=== PATIENT | male | born 1955 | race Caucasian/White ===

== ENCOUNTER 2019-04-05 09:11 | Outpatient (CLI) | payer MEDICARE, SELFPAY ==
--- NOTE | 2019-04-05 09:25 | US_ITS ---
WS: [id number] RENAL ULTRASOUND HISTORY: ESSENTIAL HYPERTENSION COMPARISON: None available. TECHNIQUE: 2-D and color Doppler imaging of the kidney submitted. Right kidney: 10.7 cm x 5.2 cm x 5.4 cm. Normal echogenicity with no hydronephrosis or mass. Left kidney: 10.4 cm x 5.4 cm x 5.9 cm. Normal echogenicity with no hydronephrosis or mass. Aorta: Normal. Urinary Bladder: Normal distention. US/US renal BI* [id number] IMPRESSION: Normal renal ultrasound.
== END 2019-04-05 09:12 | disposition home or self-care (01) ==
LOC: RAD 09:18
PROVIDERS: Family Provider Family Medicine; PCP Family Medicine; Visit Provider Family Medicine
DX: I10 Essential (primary) hypertension (principal)
CPT/HCPCS: 76770

== ENCOUNTER 2019-04-05 23:24 | Emergency (ER) | payer MEDICARE, SELFPAY ==
--- NOTE | 2019-04-05 23:25 | XR_ITS ---
WS: [id number] Portable AP upright chest, 04/06/2019 Clinical Data: cp Comparison: Portable chest, 12/23/2018. Findings: No nodules, masses or effusions are seen. The heart is normal. The pulmonary vascularity is not remarkable. No pneumonia or pneumothorax is present. Midline sternotomy sutures are noted. There are monitor leads on the chest wall. XR/XR chest 1V portable [id number] Impression: Atherosclerosis.
--- NOTE | 2019-04-05 23:25 | ECG_ITS ---
Measurements Intervals [place] Rate: 116 P: [place]: 0 QRS: 71 QRSD: 117 T: 34 QT: 325 QTc: 453 ATRIAL FIBRILLATION WITH RAPID VENTRICULAR RESPONSE MODERATE INTRAVENTRICULAR CONDUCTION DELAY NONSPECIFIC ST & T-WAVE ABNORMALITY Compared to ECG 12/23/2018 23:18:06 Intraventricular conduction delay now present T-wave abnormality now present Sinus rhythm no longer present Electronically Signed On 04-06-2019 13:48:20 ELECTRIC ARC FURNACE OPERATOR by Melanie Alonzo M.D. [id number] f
[2019-04-05 23:26] VITALS: BP 97/60; PULSE 117; RESP 27; TEMP 36.9; O2SAT 97
--- NOTE | 2019-04-05 23:29 | ED_ITS ---
Entered by Ariane Trent, acting as scribe for Lvainia Malik MD HPI - Chest Pain General: Chief Complaint: Chest Pain Stated Complaint: cp Time Seen by Provider: 04/05/19 23:26 Source: patient and family Mode of arrival: ambulatory History of Present Illness: HPI narrative: 63 y/o male presents to the ED with compalint of chest pain. 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 He reports SOB and pain that radiates into his neck. Pt had a double bypass several years ago and is currently followed by Dr. Owen. complaint: chest pain Onset (ago): minute(s) Timing of current episode: constant Prior episodes: Yes Onset: during rest Pain radiation: neck Pain scale (0-10): 10 Quality: similar to prior SC Relieving factors: nitroglycerin (no relief) Associated symptoms: Reports dyspnea; Deny abdominal pain, fever(s), nausea or vomiting Review of Systems Const: Denies: fever or chills Eyes: Denies: change in vision ENMT: Denies: throat pain or mouth pain Card: Reports: chest pain, irregular heart rhythm and shortness of breath when lying down Resp: Reports: shortness of breath GI: Denies: abdominal pain, nausea, vomiting or diarrhea Musc: Denies: back pain or joint pain Skin/Breast: Denies: rash Neuro: Denies: headache or behavioral changes Psych: Denies: depression Endo: Denies: excessive urination Tony/Lymph: Denies: easy bruising All/Imm: Denies: hives PFSH ED PFSH: Statuses (acute, chronic, etc) shown below reflect problem list status as previously entered and may not be historically accurate Social History Smoking and tobacco status: former smoker Physical Exam Const: COMMON NORMALS: no apparent distress and oriented x3 HENMT: COMMON NORMALS: normocephalic and head/scalp atraumatic HEAD & SCALP: normocephalic and atraumatic Eye: COMMON NORMALS: PERRL PUPIL: Yes PERRL Neck/C-Spine: COMMON NORMALS: full ROM and no lymphadenopathy Chest: COMMONS NORMALS: inspection of chest normal and palpation of chest normal Resp: COMMON NORMALS: normal respiratory effort, no retractions and no use of accessory muscles Cardio: COMMON NORMALS: negative for regular rate and negative for regular rhythm RATE: abnormal rate RHYTHM: abnormal rhythm OTHER: Tachycardia with irregularly irregular rhythm GI: COMMON NORMALS: normal to inspection, nondistended, normoactive bowel sounds, soft to palpation, non-tender and no masses PALPATION: Yes soft : COMMON NORMALS: Yes no CVA tenderness BLADDER/KIDNEY EXAM: Yes no CVA tenderness Back/Pelvis: COMMON NORMALS: no CVA tenderness Extremity: COMMON NORMALS: normal to inspection, full ROM and no clubbing, cyanosis or edema Neuro: COMMON NORMALS: oriented x3 Psych: COMMON NORMALS: mental status grossly normal and thought process normal THOUGHT PROCESS: normal thought process Skin: COMMON NORMALS: no rashes or lesions noted GENERAL SKIN EXAM: no rashes or lesions noted Course Vital Signs: Vital signs: Vital Signs Temperature 97.6 F 04/06/19 01:55 Pulse Rate 48 L 04/06/19 02:49 Respiratory Rate 14 04/06/19 02:49 Blood Pressure 103/41 04/06/19 02:49 Pulse Oximetry 97 04/06/19 02:49 MDM - Chest Pain MDM Narrative: Medical decision making narrative: Patient presents here with A. fib with RVR along with chest pain. Patient's converted here and is no longer in A. fib and his symptoms are resolved. Initial and repeat troponin are normal and he is requesting discharge. He has no signs of acute coronary syndrome and is stable for discharge. 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 Lab Data: Labs: Lab Results 04/05/19 04/05/19 04/05/19 Range/Units 23:36 23:36 23:36 WBC 5.5 (4.0-10.0) 10^3/ uL RBC 4.17 (4.1-5.3) 10^6/u L Hgb 12.4 (11.7-16.6) g/dL Hct 37.4 L (42.0-52.0) % MCV 89.7 (80-94) fL MCH 29.7 (28.0-34.0) pg MCHC 33.2 (30.0-36.0) g/dL RDW 12.8 (12.1-15.1) % Plt Count 253 (130-400) 10^3/c mm MPV 9.0 (7.4-10.4) fL Neut % (Auto) 53.1 % Lymph % (Auto) 34.1 % Ocean % (Auto) 9.3 % Eos % (Auto) 2.9 % Baso % (Auto) 0.4 % Neut # (Auto) 2.9 (1.8-7.7) 10^3/u L Lymph # (Auto) 1.9 (0.8-4.8) 10^3/u L Ocean # (Auto) 0.5 (0.2-0.9) 10^3/u L Eos # (Auto) 0.2 (0.0-0.8) 10^3/u L Baso # (Auto) 0.0 (0.0-0.1) 10^3/u L Nucleated RBC % (a uto) 0 % Nucleated RBCs # 0.0 /100WBC PT 16.20 H (10.5-13.3) SECO NDS INR 1.25 H (0.8-1.2) Sodium 135 L (136-145) mmol/L Potassium 4.2 (3.5-5.1) mmol/L Chloride 99 (98-107) mmol/L Carbon Dioxide 20 L (22-29) mmol/L Anion Gap 20.2 H (5-19) BUN 20 (8-23) mg/dL Creatinine 1.4 H (0.7-1.2) mg/dL GFR Calculation 51.4 L (90-130) mL/min Glucose 223 H (74-106) mg/dL POC Glucose (70-110) mg/dL Lactate (0.5-2.2) mmol/L Calcium 10.2 (8.8-10.2) mg/Dl Total Bilirubin 0.3 (0.15-1.2) mg/dL AST 17 (0-40) U/L ALT 22 (0-41) U/L Alkaline Phosphata se 104 (40-130) IU/L Troponin T Baselin e (0-15) ng/mL Troponin T 120 Min [place] (0-15) ng/mL Delta Troponin T (0-10) ABS# NT-Pro-B Natriuret Pep 50 (0-125) pg/mL Total Protein 7.9 (6.6-8.7) g/dL Albumin 4.5 (3.5-5.2) g/dL Globulin 3.4 (1.3-4.6) g/dL 04/05/19 04/06/19 04/06/19 Range/Units 23:36 01:55 02:00 WBC (4.0-10.0) 10^3/ uL RBC (4.1-5.3) 10^6/u L Hgb (11.7-16.6) g/dL Hct (42.0-52.0) % MCV (80-94) fL MCH (28.0-34.0) pg MCHC (30.0-36.0) g/dL RDW (12.1-15.1) % Plt Count (130-400) 10^3/c mm MPV (7.4-10.4) fL Neut % (Auto) % Lymph % (Auto) % Ocean % (Auto) % Eos % (Auto) % Baso % (Auto) % Neut # (Auto) (1.8-7.7) 10^3/u L Lymph # (Auto) (0.8-4.8) 10^3/u L Ocean # (Auto) (0.2-0.9) 10^3/u L Eos # (Auto) (0.0-0.8) 10^3/u L Baso # (Auto) (0.0-0.1) 10^3/u L Nucleated RBC % (a uto) % Nucleated RBCs # /100WBC PT (10.5-13.3) SECO NDS INR (0.8-1.2) Sodium (136-145) mmol/L Potassium (3.5-5.1) mmol/L Chloride (98-107) mmol/L Carbon Dioxide (22-29) mmol/L Anion Gap (5-19) BUN (8-23) mg/dL Creatinine (0.7-1.2) mg/dL GFR Calculation (90-130) mL/min Glucose (74-106) mg/dL POC Glucose 164 (70-110) mg/dL Lactate (0.5-2.2) mmol/L Calcium (8.8-10.2) mg/Dl Total Bilirubin (0.15-1.2) mg/dL AST (0-40) U/L ALT (0-41) U/L Alkaline Phosphata se (40-130) IU/L Troponin T Baselin e 13 (0-15) ng/mL Troponin T 120 Min [place] 16.71 H (0-15) ng/mL Delta Troponin T 3.71 (0-10) ABS# NT-Pro-B Natriuret Pep (0-125) pg/mL Total Protein (6.6-8.7) g/dL Albumin (3.5-5.2) g/dL Globulin (1.3-4.6) g/dL 04/06/19 Range/Units 02:20 WBC (4.0-10.0) 10^3/ uL RBC (4.1-5.3) 10^6/u L Hgb (11.7-16.6) g/dL Hct (42.0-52.0) % MCV (80-94) fL MCH (28.0-34.0) pg MCHC (30.0-36.0) g/dL RDW (12.1-15.1) % Plt Count (130-400) 10^3/c mm MPV (7.4-10.4) fL Neut % (Auto) % Lymph % (Auto) % Ocean % (Auto) % Eos % (Auto) % Baso % (Auto) % Neut # (Auto) (1.8-7.7) 10^3/u L Lymph # (Auto) (0.8-4.8) 10^3/u L Ocean # (Auto) (0.2-0.9) 10^3/u L Eos # (Auto) (0.0-0.8) 10^3/u L Baso # (Auto) (0.0-0.1) 10^3/u L Nucleated RBC % (a uto) % Nucleated RBCs # /100WBC PT (10.5-13.3) SECO NDS INR (0.8-1.2) Sodium (136-145) mmol/L Potassium (3.5-5.1) mmol/L Chloride (98-107) mmol/L Carbon Dioxide (22-29) mmol/L Anion Gap (5-19) BUN (8-23) mg/dL Creatinine (0.7-1.2) mg/dL GFR Calculation (90-130) mL/min Glucose (74-106) mg/dL POC Glucose (70-110) mg/dL Lactate 1.1 (0.5-2.2) mmol/L Calcium (8.8-10.2) mg/Dl Total Bilirubin (0.15-1.2) mg/dL AST (0-40) U/L ALT (0-41) U/L Alkaline Phosphata se (40-130) IU/L Troponin T Baselin e (0-15) ng/mL Troponin T 120 Min [place] (0-15) ng/mL Delta Troponin T (0-10) ABS# NT-Pro-B Natriuret Pep (0-125) pg/mL Total Protein (6.6-8.7) g/dL Albumin (3.5-5.2) g/dL Globulin (1.3-4.6) g/dL Imaging Data^: CT Chest: Attestation: I personally reviewed and interpreted this imaging study as follows: Radiologist's impression: Ordering Physician: Lavinia Malik MD Date of Service: 04/06/19 Procedure(s): CT angio chest PE protcl [id number] Accession Number(s): [id number] cc: Lavinia Malik MD PROCEDURE INFORMATION: Exam: CT Angiography Chest With Contrast Exam date and time: 04/06/2019 12:49 AM Age: 63 years old Clinical indication: Chest pain; Type not specified; Prior surgery; Surgery date: 6+ months; Surgery type: Cabg, stents TECHNIQUE: Imaging protocol: Computed tomographic angiography of the chest with intravenous contrast. 3D rendering: MIP and/or 3D reconstructed images were created by the technologist. Total DLP: 1149.05 mGy-cm Radiation optimization: All CT scans at this facility use at least one of these dose optimization techniques: automated exposure control; mA and/or kV adjustment per patient size (includes targeted exams where dose is matched to clinical indication); or iterative reconstruction. Contrast material: VISI; Contrast volume: 95 ml; Contrast route: 20G; COMPARISON: CTA Chest-Pulmonary Emb [id number] 04/19/2013 5:32 PM FINDINGS: Pulmonary arteries: Normal. No pulmonary emboli. Aorta: Aortic root borderline prominent at 4.1 cm and stable. Aortic calcifications also seen. No acute aortic abnormalities. Lungs: Unremarkable. No consolidation. No masses. Pleural space: Unremarkable. No pneumothorax. No pleural effusion. Heart: Coronary arterial calcifications. Gallbladder and bile ducts: Cholelithiasis. Gallbladder otherwise grossly unremarkable. Lymph nodes: Unremarkable. No enlarged lymph nodes. Bones/joints: Sternotomy wires are in place. Soft tissues: Unremarkable. CT/CT angio chest PE protcl [id number] IMPRESSION: No acute findings. Cholelithiasis. Additional details as above. EKG Data^: EKG 1: Attestation: I personally reviewed and interpreted this EKG as follows: EKG interpretation date: 04/05/19 EKG interpretation time: 23:34 Interpretation: A. fib with RVR heart rate [address] and T wave abnormalities with no ST elevation. QRS 117 QTc 394 EKG 2: Attestation: I personally reviewed and interpreted this EKG as follows: EKG interpretation date: 04/06/19 EKG interpretation time: 01:49 Interpretation: A. fib heart rate [address] or T wave abnormalities QRS 123 QTc 446 Discharge Plan Discharge Patient Disposition: Home, Self-Care Clinical Impression: Chest pain Qualifiers: Chest pain type: unspecified Qualified Code(s): R07.9 - Chest pain, unspecified Atrial fibrillation Qualifiers: Atrial fibrillation type: unspecified Qualified Code(s): I48.91 - Unspecified atrial fibrillation Condition: Stable Prescriptions: No Action Unable to Assess RF: 0 Discharge Orders: Discharge Order (Routine); Ordered 04/06/19 Ordered By: Lavinia Malik Referrals: Devendra Smith MD [Primary Care Provider] - 4-7 days Discharge Diet: Advance as tolerated Discharge Activity: Resume usual activity Patient Instructions: Atrial Fibrillation (ED), Chest Pain (ED) Discharge Date/Time: 04/06/19 02:57 Coding Level of Care Code ED Can Dryer for Chg Fwd Exam Problem Focused The documentation recorded by the Twan gandhi Ashley, accurately reflects the service I personally performed and the decisions made by King shultz Korby, MD Apr 05, 2019 23:24
[2019-04-05 23:37] VITALS: RESP 25
[2019-04-05] MEDS: morphine 4 mg/mL SDV 1 mL IVP (23:37)
[2019-04-05] MEDS: aspirin 81 mg Chew Tablet 324 MG PO (23:37)
[2019-04-05] MEDS: sodium chloride 0.9% 1,000 ML 999 ML IV (23:38)
[2019-04-05 23:47] VITALS: BP 96/56; PULSE 104; PULSE 126; RESP 20; O2SAT 98
[2019-04-05 23:48] LABS: INR 1.25 (0.8-1.2)
[2019-04-05 23:53] LABS: Basophils % 0.4 %; Eosinophils # 0.2 10^3/uL (0.0-0.8); Eosinophils % 2.9 %; Hematocrit 37.4 % (42.0-52.0); Hemoglobin 12.4 g/dL (11.7-16.6); Lymphocytes # 1.9 10^3/uL (0.8-4.8); Lymphocytes % 34.1 %; Mean Corpuscular HGB Conc 33.2 g/dL (30.0-36.0); Mean Corpuscular Hemoglobin 29.7 pg (28.0-34.0); Mean Corpuscular Volume 89.7 fL (80-94); Monocytes # 0.5 10^3/uL (0.2-0.9); Monocytes % 9.3 %; Neutrophils # 2.9 10^3/uL (1.8-7.7); Neutrophils % 53.1 %; Nucleated Red Blood Cells % 0 %; Platelet Count 253 10^3/cmm (130-400); Red Blood Count 4.17 10^6/uL (4.1-5.3); Red Cell Distribution Width 12.8 % (12.1-15.1); White Blood Count 5.5 10^3/uL (4.0-10.0)
[2019-04-05 23:56] LABS: Troponin(5th) Baseline 13 ng/mL (0-15)
[2019-04-06] VITALS (9 sets, daily range): BP systolic 78–107; BP diastolic 41–66; PULSE 47–106; RESP 12–14; TEMP 36.4; O2SAT 93–99
[2019-04-06 00:07] LABS: Alanine Aminotransferase 22 U/L (0-41); Albumin Level 4.5 g/dL (3.5-5.2); Alkaline Phosphatase 104 IU/L (40-130); Anion Gap 20.2 (5-19); Aspartate Amino Transferase 17 U/L (0-40); Blood Urea Nitrogen 20 mg/dL (8-23); Calcium 10.2 mg/Dl (8.8-10.2); Carbon Dioxide 20 mmol/L (22-29); Chloride 99 mmol/L (98-107); Globulin 3.4 g/dL (1.3-4.6); Glomerular Filtration Rate 51.4 mL/min (90-130); Glucose 223 mg/dL (74-106); NT Pro B Type Natriuretic Pept 50 pg/mL (0-125); Potassium 4.2 mmol/L (3.5-5.1); Sodium 135 mmol/L (136-145); Total Bilirubin 0.3 mg/dL (0.15-1.2); Total Protein 7.9 g/dL (6.6-8.7)
--- NOTE | 2019-04-06 00:44 | CTR_ITS ---
PROCEDURE INFORMATION: Exam: CT Angiography Chest With Contrast Exam date and time: 04/06/2019 12:49 AM Age: 63 years old Clinical indication: Chest pain; Type not specified; Prior surgery; Surgery date: 6+ months; Surgery type: Cabg, stents TECHNIQUE: Imaging protocol: Computed tomographic angiography of the chest with intravenous contrast. 3D rendering: MIP and/or 3D reconstructed images were created by the technologist. Total DLP: 1149.05 mGy-cm Radiation optimization: All CT scans at this facility use at least one of these dose optimization techniques: automated exposure control; mA and/or kV adjustment per patient size (includes targeted exams where dose is matched to clinical indication); or iterative reconstruction. Contrast material: VISI; Contrast volume: 95 ml; Contrast route: 20G; COMPARISON: CTA Chest-Pulmonary Emb [id number] 04/19/2013 5:32 PM FINDINGS: Pulmonary arteries: Normal. No pulmonary emboli. Aorta: Aortic root borderline prominent at 4.1 cm and stable. Aortic calcifications also seen. No acute aortic abnormalities. Lungs: Unremarkable. No consolidation. No masses. Pleural space: Unremarkable. No pneumothorax. No pleural effusion. Heart: Coronary arterial calcifications. Gallbladder and bile ducts: Cholelithiasis. Gallbladder otherwise grossly unremarkable. Lymph nodes: Unremarkable. No enlarged lymph nodes. Bones/joints: Sternotomy wires are in place. Soft tissues: Unremarkable. CT/CT angio chest PE protcl [id number] IMPRESSION: No acute findings. Cholelithiasis. Additional details as above. Radiation Dose CTDIVOL = (mGy): DLP = 1149.05 (mGy-cm)
[2019-04-06] MEDS: morphine 4 mg/mL SDV 1 mL IVP (00:52)
--- NOTE | 2019-04-06 01:25 | ECG_ITS ---
Measurements Intervals [place] Rate: 93 P: [place]: 0 QRS: 65 QRSD: 123 T: 66 QT: 395 QTc: 492 ATRIAL FIBRILLATION MODERATE INTRAVENTRICULAR CONDUCTION DELAY [105+ ms QRS DURATION, 80+ ms Q/S IN V1/V2, NO Q AND 60+ ms R IN I/aVL/V5/V6] Compared to ECG 12/23/2018 23:18:06 Intraventricular conduction delay now present Sinus rhythm no longer present Electronically Signed On 04-06-2019 13:59:26 PARTY HOST/HOSTESS by Melanie Alonzo M.D. [id number]
[2019-04-06] MEDS: iodixanol 320 mg/mL 100mL Btl IV (01:26)
[2019-04-06] MEDS: sodium chloride 0.9% 1,000 ML 999 ML IV (01:40)
--- NOTE | 2019-04-06 02:03 | PC.NURSE ---
Informed charge nurse of patient's blood pressures as they have been running on the low side. Informed both charge nurse and doctor of patient's blood sugar.
[2019-04-06 02:04] LABS: Glucose Point of Care 164 mg/dL (70-110)
[2019-04-06 02:30] LABS: Troponin 5 2HR 16.71 ng/mL (0-15)
[2019-04-06 02:38] LABS: Troponin 5 2HR Delta 3.71 ABS# (0-10)
[2019-04-06 02:41] LABS: Lactate (Lactic Acid level) 1.1 mmol/L (0.5-2.2)
== END 2019-04-06 02:57 | disposition home or self-care (01) ==
PROVIDERS: Emergency Provider Emergency Medicine; Family Provider Family Medicine; PCP Family Medicine
DX: R07.9 Chest pain, unspecified (principal); I48.91 Unspecified atrial fibrillation; Z87.891 Personal history of nicotine dependence
CPT/HCPCS: 36415; 36416; 71045; 71275; 80053; 82962; 83605; 83880; 84484; 85025; 85610; 93005; 96360; 96375; 99283; J2270; J7030; Q9967

== ENCOUNTER 2019-04-06 09:25 | Emergency (ER) | payer MEDICARE, SELFPAY ==
[2019-04-06 09:26] VITALS: BP 114/44; PULSE 51; RESP 16; TEMP 36.4; O2SAT 98; BMI 33.0
--- NOTE | 2019-04-06 09:40 | US_ITS ---
WS: [id number] Subcutaneous ultrasound of the left buccal mucosa. 04/06/2019 Clinical Data: left facial cheeck Comparison: None. Findings: The subcutaneous tissue of the left buccal mucosa showed a small lymph node. No abscess or mass was p resent. There are no cysts. The left common carotid artery showed normal flow and no impingement from any mass. US/US soft tissue head neck [id number] Impression: Negative subcutaneous ultrasound of the left buccal mucosa.
--- NOTE | 2019-04-06 09:41 | ECG_ITS ---
Measurements Intervals [place] Rate: 50 P: 47 SC: 177 QRS: 77 QRSD: 124 T: 92 QT: 375 QTc: 342 SINUS BRADYCARDIA MODERATE INTRAVENTRICULAR CONDUCTION DELAY [110+ ms QRS DURATION] NONSPECIFIC T-WAVE ABNORMALITY Compared to ECG 12/23/2018 23:18:06 Intraventricular conduction delay now present T-wave abnormality now present Sinus rhythm no longer present Electronically Signed On 04-06-2019 13:47:49 INTERNET MERCHANT by Melanie Alonzo M.D. [id number]
--- NOTE | 2019-04-06 09:43 | XR_ITS ---
WS: [id number] Portable AP upright chest, 04/06/2019, 0952 hours Clinical Data: chest pain Comparison: Portable chest, 04/06/2019, 1217 hours. Findings: No nodules, masses or effusions are seen. The heart is normal. The pulmonary vascularity is not increased. No pneumonia or pneumothorax is seen. Monitor leads on the chest wall. Midline sterno jayro sutures are seen. The aortic arch and descending aorta are minimally tortuous. XR/XR chest 1V portable [id number] Impression: Atherosclerosis.
--- NOTE | 2019-04-06 09:44 | ED_ITS ---
HPI - Chest Pain General: Chief Complaint: Chest Pain Stated Complaint: Chest Pain, patient presents with chest discomfort since last night at 11:00. Patient also has a sore to the left inner cheek and was recommended to have it further evaluated by Dr. Smith due to concerns of swelling. Patient appears well. Patient appears in no pain at this time. Patient has a history of atrial fib. Time Seen by Provider: 04/06/19 09:31 Review of Systems General: Reports: 10 or more systems reviewed and unremarkable except in HPI and below ENMT: Reports: oral sores/lesions (left buccal area) Card: Reports: chest pain [facility] PFSH: Statuses (acute, chronic, etc) shown below reflect problem list status as previously entered and may not be historically accurate Social History Smoking and tobacco status: former smoker Physical Exam Const: COMMON NORMALS: no apparent distress and oriented x3 GENERAL APPEARANCE: cooperative HENMT: COMMON NORMALS: normocephalic, external ears normal, EAC's normal, TM's normal bilaterally and external nose normal HEAD & SCALP: normal to inspection and normocephalic FACE & SINUS: normal facial exam NOSE: external nose normal GENERAL EAR: hearing grossly impaired EXTERNAL EAR: Yes external ears normal EXTERNAL AUDITORY CANAL: EAC's normal TYMPANIC MEMBRANE: TM's normal bilaterally MOUTH: moist mucous membranes abnormal (slightly errythematous area to the left buccal area, minimal swelling) THROAT: posterior oropharynx normal Eye: COMMON NORMALS: PERRL and EOMs intact bilaterally PUPIL: Yes PERRL Neck/C-Spine: COMMON NORMALS: full ROM and no lymphadenopathy Lymph: LYMPHATIC: no lymphedema noted Chest: COMMONS NORMALS: inspection of chest normal and palpation of chest normal Resp: COMMON NORMALS: normal respiratory effort and clear to auscultation bilaterally AUSCULTATION: clear to auscultation bilaterally Cardio: COMMON NORMALS: regular rate and regular rhythm RATE: regular rate RHYTHM: regular rhythm GI: COMMON NORMALS: normal to inspection, nondistended, normoactive bowel sounds and non-tender : COMMON NORMALS: Yes no CVA tenderness BLADDER/KIDNEY EXAM: Yes no CVA tenderness Back/Pelvis: COMMON NORMALS: no CVA tenderness and thoracic and lumbar spine normal to inspection Extremity: COMMON NORMALS: normal to inspection GENERAL: No edema Neuro: COMMON NORMALS: oriented x3, moves all extremities and no focal motor deficits Psych: COMMON NORMALS: mental status grossly normal and cooperative Skin: COMMON NORMALS: no rashes or lesions noted GENERAL SKIN EXAM: no rashes or lesions noted Course Vital Signs: Vital signs: Vital Signs Temperature 97.6 F 04/06/19 09:26 Pulse Rate 51 L 04/06/19 09:26 Respiratory Rate 16 04/06/19 09:26 Blood Pressure 114/44 04/06/19 09:26 Pulse Oximetry 98 04/06/19 09:26 MDM - Chest Pain MDM Narrative: Medical decision making narrative: Patient comes in today for concerns of chest discomfort and a sore to the left side of mouth. Patient was seen last night and was diagnosed with onset of atrial fib that resolved on its own. Patient does take Pradaxa routinely for anticoagulation. Patient states he was sent back over due to concerns of a sore on the inside of his mouth and its swelling obstructing his carotid. Patient has no significant swelling to the areas of the carotid and no other signs of bruit or other abnormalities on evaluation. EKG showed sinus bradycardia. Differential diagnosis includes ACS, anxiety, atrial fib, sinus bradycardia. Laboratory values were normal. Troponin was negative. Reviewed exam with patient with recommendations for follow-up with Dr. Owen relating atrial fed episode. Recommend continuation of routine medications. Lab Data: Labs: Lab Results 04/06/19 04/06/19 04/06/19 Range/Units 09:15 10:13 10:13 WBC 6.9 (4.0-10.0) 10^3/ uL RBC 4.00 L (4.1-5.3) 10^6/u L Hgb 12.2 (11.7-16.6) g/dL Hct 37.6 L (42.0-52.0) % MCV 94.0 (80-94) fL MCH 30.5 (28.0-34.0) pg MCHC 32.4 (30.0-36.0) g/dL RDW 13.1 (12.1-15.1) % Plt Count 231 (130-400) 10^3/c mm MPV 9.0 (7.4-10.4) fL Neut % (Auto) 64.1 % Lymph % (Auto) 22.1 % [place] % (Auto) 9.6 % Eos % (Auto) 3.5 % Baso % (Auto) 0.6 % Neut # (Auto) 4.4 (1.8-7.7) 10^3/u L Lymph # (Auto) 1.5 (0.8-4.8) 10^3/u L [place] # (Auto) 0.7 (0.2-0.9) 10^3/u L Eos # (Auto) 0.2 (0.0-0.8) 10^3/u L Baso # (Auto) 0.0 (0.0-0.1) 10^3/u L Nucleated RBC % (a uto) 0 % Nucleated RBCs # 0.0 /100WBC PT (10.5-13.3) SECO NDS INR (0.8-1.2) APTT (23.9-36.7) SECO NDS Sodium 138 (136-145) mmol/L Potassium 4.9 (3.5-5.1) mmol/L Chloride 105 (98-107) mmol/L Carbon Dioxide 21 L (22-29) mmol/L Anion Gap 16.9 (5-19) BUN 17 (8-23) mg/dL Creatinine 1.1 (0.7-1.2) mg/dL GFR Calculation 67.8 L (90-130) mL/min Glucose 124 H (74-106) mg/dL Calcium 9.6 (8.8-10.2) mg/Dl Total Bilirubin 0.4 (0.15-1.2) mg/dL AST 18 (0-40) U/L ALT 20 (0-41) U/L Alkaline Phosphata se 64 (40-130) IU/L Troponin T Baselin e 15 (0-15) ng/mL Total Protein 6.9 (6.6-8.7) g/dL Albumin 4.3 (3.5-5.2) g/dL Globulin 2.6 (1.3-4.6) g/dL TSH 4.47 H (0.27-4.20) uIU/ mL Urine Color (Yellow) Urine Appearance (CLEAR) Urine pH (5-7) Ur Specific Gravit y (1.005-1.030) Urine Protein (Negative) Urine Glucose (UA) (Normal) Urine Ketones (Negative) Urine Occult Blood (Negative) Urine Nitrate (Negative) Urine Bilirubin (NEGATIVE) Urine Urobilinogen (Negative) mg/dL Ur Leukocyte [place] (Negative) 04/06/19 04/06/19 Range/Units 10:13 10:25 WBC (4.0-10.0) 10^3/ uL RBC (4.1-5.3) 10^6/u L Hgb (11.7-16.6) g/dL Hct (42.0-52.0) % MCV (80-94) fL MCH (28.0-34.0) pg MCHC (30.0-36.0) g/dL RDW (12.1-15.1) % Plt Count (130-400) 10^3/c mm MPV (7.4-10.4) fL Neut % (Auto) % Lymph % (Auto) % [place] % (Auto) % Eos % (Auto) % Baso % (Auto) % Neut # (Auto) (1.8-7.7) 10^3/u L Lymph # (Auto) (0.8-4.8) 10^3/u L [place] # (Auto) (0.2-0.9) 10^3/u L Eos # (Auto) (0.0-0.8) 10^3/u L Baso # (Auto) (0.0-0.1) 10^3/u L Nucleated RBC % (a uto) % Nucleated RBCs # /100WBC PT 16.50 H (10.5-13.3) SECO NDS INR 1.28 H (0.8-1.2) APTT 48.8 H (23.9-36.7) SECO NDS Sodium (136-145) mmol/L Potassium (3.5-5.1) mmol/L Chloride (98-107) mmol/L Carbon Dioxide (22-29) mmol/L Anion Gap (5-19) BUN (8-23) mg/dL Creatinine (0.7-1.2) mg/dL GFR Calculation (90-130) mL/min Glucose (74-106) mg/dL Calcium (8.8-10.2) mg/Dl Total Bilirubin (0.15-1.2) mg/dL AST (0-40) U/L ALT (0-41) U/L Alkaline Phosphata se (40-130) IU/L Troponin T Baselin e (0-15) ng/mL Total Protein (6.6-8.7) g/dL Albumin (3.5-5.2) g/dL Globulin (1.3-4.6) g/dL TSH (0.27-4.20) uIU/ mL Urine Color Yellow (Yellow) Urine Appearance Clear (CLEAR) Urine pH 5.0 (5-7) Ur Specific Gravit y 1.015 (1.005-1.030) Urine Protein Neg (Negative) Urine Glucose (UA) 4+ H (Normal) Urine Ketones Negative (Negative) Urine Occult Blood Neg (Negative) Urine Nitrate Negative (Negative) Urine Bilirubin Neg (NEGATIVE) Urine Urobilinogen Norm (Negative) mg/dL Ur Leukocyte [place] Negative (Negative) Imaging Data^: US: My impression: no abnormality of flow to carotids, mildly enlarged lymph nodes, no abscess EKG Data^: EKG 1: Attestation: I personally reviewed and interpreted this EKG as follows: (sinus westley, regular rate, 50 bpm, no ectopy, no ST elevation, prior ekg reviewed from 12/23/18 note inversion in V3, otherwise no change. wjw) Discharge Plan Discharge Patient Disposition: Home, Self-Care Clinical Impression: Atypical chest pain, Contact stomatitis Atrial fibrillation Qualifiers: Atrial fibrillation type: paroxysmal Qualified Code(s): I48.0 - Paroxysmal atrial fibrillation Condition: Stable Prescriptions: New Lidocaine Viscous 2 % solution 10 ml MUCOUS MEM Q4H PRN (Reason: pain) Qty: 100 RF: 0 Referrals: Vianey Owen MD [Physician] - 04/20/19 9:30 am Devendra Smith MD [Primary Care Provider] - Discharge Diet: Usual diet Discharge Activity: Increase activity as tolerated Activity Restrictions/Additional Instructions: Continue with routine medications Good oral care Healthy diet Return to ER for high fever, worsening chest pain or new concerns Follow-up with Dr. Owen relating atrial fib, and chest pain Coding Level of Care Code ED Server Assistant for Chg Fwd Exam Problem Focused
[2019-04-06 09:52] LABS: Basophils % 0.6 %; Eosinophils # 0.2 10^3/uL (0.0-0.8); Eosinophils % 3.5 %; Hematocrit 37.6 % (42.0-52.0); Hemoglobin 12.2 g/dL (11.7-16.6); Lymphocytes # 1.5 10^3/uL (0.8-4.8); Lymphocytes % 22.1 %; Mean Corpuscular HGB Conc 32.4 g/dL (30.0-36.0); Mean Corpuscular Hemoglobin 30.5 pg (28.0-34.0); Monocytes # 0.7 10^3/uL (0.2-0.9); Monocytes % 9.6 %; Neutrophils # 4.4 10^3/uL (1.8-7.7); Neutrophils % 64.1 %; Nucleated Red Blood Cells % 0 %; Platelet Count 231 10^3/cmm (130-400); Red Cell Distribution Width 13.1 % (12.1-15.1); White Blood Count 6.9 10^3/uL (4.0-10.0)
[2019-04-06 10:35] LABS: Add Urine Microscopic? NO
[2019-04-06 10:40] LABS: INR 1.28 (0.8-1.2)
[2019-04-06 10:41] LABS: Partial Thromboplastin Time 48.8 SECONDS (23.9-36.7)
[2019-04-06 10:47] LABS: Troponin(5th) Baseline 15 ng/mL (0-15)
[2019-04-06 10:49] LABS: Bilirubin Urine Neg (NEGATIVE); Blood Urine Neg (Negative); Glucose Urine UA 4+ (Normal); Ketones Urine Negative (Negative); Leukocyte Esterase Urine Negative (Negative); Nitrate Urine Negative (Negative); Protein Urine Neg (Negative); Specific Gravity, Urine 1.015 (1.005-1.030); Urine Appearance Clear (CLEAR); Urine Color Yellow (Yellow); Urobilinogen Urine Norm (Negative)
--- NOTE | 2019-04-06 10:53 | PM.PN ---
Vitals/I&O/Wt Last Vital Signs Temp 97.6 F 04/06/19 09:26 Pulse 51 L 04/06/19 09:26 Resp 16 04/06/19 09:26 BP 114/44 04/06/19 09:26 Pulse Ox 98 04/06/19 09:26 Weight last 48 hrs Weight 205 lb Data Labs: Other Labs: Pending Orders 04/06/19 09:40 US soft tissue head neck [id number] Urgent 04/06/19 09:41 EKG Performed NEEDED 04/06/19 10:13 Comprehensive Metabolic Panel Stat Thyroid Stimulating Hormone Stat 04/06/19 11:41 ECG 12 lead EKG Routine 04/06/19 12:13 Troponin(5th) 2 Hour. Routine 04/06/19 15:41 ECG 12 lead EKG Routine 04/06/19 16:13 Troponin(5th) 6 hour. Routine PT 16.50 SECONDS (10 .5-13.3) H 04/06/19 10:13 APTT 48.8 SECONDS (23. 9-36.7) H 04/06/19 10:13 Coding Level of Care Code Acute Granulizing Machine Operator for Chg Celia
[2019-04-06 11:24] LABS: Alanine Aminotransferase 20 U/L (0-41); Albumin Level 4.3 g/dL (3.5-5.2); Alkaline Phosphatase 64 IU/L (40-130); Anion Gap 16.9 (5-19); Aspartate Amino Transferase 18 U/L (0-40); Blood Urea Nitrogen 17 mg/dL (8-23); Calcium 9.6 mg/Dl (8.8-10.2); Carbon Dioxide 21 mmol/L (22-29); Chloride 105 mmol/L (98-107); Globulin 2.6 g/dL (1.3-4.6); Glomerular Filtration Rate 67.8 mL/min (90-130); Glucose 124 mg/dL (74-106); Potassium 4.9 mmol/L (3.5-5.1); Sodium 138 mmol/L (136-145); Thyroid Stimulating Hormone 4.47 uIU/mL (0.27-4.20); Total Bilirubin 0.4 mg/dL (0.15-1.2); Total Protein 6.9 g/dL (6.6-8.7)
--- NOTE | 2019-04-06 12:14 | DCPLANNER ---
manager distribution center was asked to schedule a follow up appointment for patient with Dr. Owen at [facility]. manager distribution center called [facility], spoke with Haydee, a follow up appointment was scheduled for , April 20, 2019 at 9:[address] Owen. manager distribution center informed ED physician and patient of the scheduled appointment.
[2019-04-06 12:15] VITALS: BP 114/56; PULSE 55; RESP 17; O2SAT 96
--- NOTE | 2019-04-06 15:41 | ECG_ITS ---
Measurements Intervals [place] Rate: 49 P: 49 LA: 180 QRS: 73 QRSD: 124 T: 81 QT: 493 QTc: 446 SINUS BRADYCARDIA MODERATE INTRAVENTRICULAR CONDUCTION DELAY [110+ ms QRS DURATION] PROLONGED QT INTERVAL Compared to ECG 12/23/2018 23:18:06 Intraventricular conduction delay now present Prolonged QT interval now present Sinus rhythm no longer present Electronically Signed On 04-06-2019 13:57:14 CONTOUR PATH TAPE MILL OPERATOR by Melanie Alonzo M.D. [email or web address]
--- NOTE | 2019-04-21 15:14 | DCPLANNER ---
Patient did attend appointment scheduled for 04.20.19 with [facility].
== END 2019-04-06 12:17 | disposition home or self-care (01) ==
PROVIDERS: Emergency Provider Nurse Practitioner Family; Family Provider Family Medicine; PCP Family Medicine
DX: I48.0 Paroxysmal atrial fibrillation (principal); R07.89 Other chest pain; K12.1 Other forms of stomatitis; Z87.891 Personal history of nicotine dependence
CPT/HCPCS: 36415; 71045; 76536; 80053; 81003; 84443; 84484; 85025; 85610; 85730; 93005; 99283; A9270

== ENCOUNTER 2019-05-12 13:03 | Outpatient (CLI) | payer MEDICARE, MEDICAID, SELFPAY ==
--- NOTE | 2019-05-12 13:11 | CT_ITS ---
WS: [id number] CT HEAD TECHNIQUE: Noncontrast CT of the head obtained from the skullbase to the vertex. CLINICAL INFORMATION: BALANCE PROBLEM, MEMORY LOSS COMPARISON: 14,018 DLP: 10[address] scans at [facility] use at least one of these dose optimization techniques: automat ed exposure control; mA and/or kV adjustment per patient size (includes targeted exams where dose is matched to clinical indication); or iterative reconstruction. FINDINGS: No evidence of intracranial hemorrhage or mass effect. Ventricular system and basal cisterns are [place] nt. Mild small vessel changes with moderate parenchymal volume loss. Supraclinoid ICA aneurysm clips. Right frontal temporal craniotomy. No extra-axial fluid collections. No evidence of mass or mass eff ect. Normal magana-white differentiation. Intracranial vascular calcification. Paranasal sinuses and mastoid air cells are well aerated. .Normal visualized soft tissues. CT/CT head wo con* [id number] IMPRESSION: 1. No evidence of intracranial hemorrhage or mass effect. 2. Mild small vessel changes with moderate parenchymal volume loss. 3. Prior postoperative changes right frontotemporal craniotomy with right supr aclinoid aneurysm clipping. 4. No acute intracranial findings.
== END 2019-05-12 13:04 | disposition home or self-care (01) ==
LOC: RADWPI 13:08
PROVIDERS: Family Provider Family Medicine; PCP Family Medicine; Visit Provider Family Medicine
DX: R26.89 Other abnormalities of gait and mobility (principal); R41.3 Other amnesia
CPT/HCPCS: 70450

== ENCOUNTER 2019-07-13 13:18 | Observation (INO) | payer MEDICARE, MEDICAID, SELFPAY ==
[2019-07-13 13:21] VITALS: BP 109/56; PULSE 55; RESP 16; TEMP 36.7; O2SAT 95; BMI 32.3
--- NOTE | 2019-07-13 13:29 | ED_ITS ---
HPI - Weakness General: Chief complaint: Weakness Stated complaint: HEADACHE AND WEAKNESS Time Seen by Provider: 07/13/19 13:29 History of Present Illness: HPI Narrative: 63 yo male presents complaining of pain on the top of his head and generalized weakness he denies chest pain he states it began while he was standing in the kitchen and became very weak has some peripheral feeling of numbness and tingling in both the upper extremities. He denies vomiting or diarrhea but did become very nauseous denies any dyspnea at all. No visual changes he did recently have a small basal cell removed from the right lower eyelid. Patient is a diabetic and has a history of coronary artery disease and a previous stroke. He does relate that he is chronically bradycardic. Associated symptoms: Denies chest pain, chills, dark stools, dysuria, fever(s), nausea or vomiting Review of Systems Const: Denies: fever, chills, body aches, change in appetite, fatigue or malaise ENMT: Denies: throat pain, ear pain, nasal discharge or nasal congestion Card: Denies: chest pain, edema, shortness of breath on exertion or shortness of breath when lying down Resp: Denies: shortness of breath, productive cough or non-productive cough GI: Denies: abdominal pain, nausea, vomiting, vomiting blood, coffee grounds in vomit, diarrhea, constipation, bloating, blood in stool or black tarry stool : Denies: flank pain, painful urination, urinary frequency or urinary urgency Skin/Breast: Denies: rash or itching [facility] PFSH: Medical History (Updated 07/15/19 @ 07:38 by Canelo Clemons DO) Arteriosclerotic heart disease (ASHD) -Has known CAD status post CABG -on Ranexa, Brilinta Atrial fibrillation, chronic -Has known history of chronic A. fib, is on anticoagulation with Pradaxa, resume this -We will hold beta-ashish given patient's bradycardia which is chronic from review of medical record and by patient's own admission -Telemetry monitoring Bradycardia -Has chronic bradycardia, has had event monitoring done in 2018 showing baseline sinus bradycardia, average heart rate is about 55 -We will hold beta-ashish for now -Monitor vital signs -Telemetry monitoring Chronic diastolic CHF (congestive heart failure) -Has known chronic diastolic CHF, no indication of acute exacerbation currently -Echo done in 2018 showed an ejection fraction of 50% with grade 1 diastolic dysfunction and mild hypokinesia -We will hold Lasix for now given orthostasis Chronic kidney disease -MICHAELA on CKD stage 3, baseline Cr around 1; improved Cr today -on IVF hydration CVA (cerebral vascular accident) -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 4 years ago Diabetes mellitus -has IDDM type II, A1c at goal-6.3 (2019) -Accuchecks, ISS, scheduled insulin -consistent carb diet -hypoglycemia precautions GERD (gastroesophageal reflux disease) -on PPI Hyperlipemia -on statin Hypertension -Hold oral antihypertensives secondary to significant orthostasis -stable vital signs Peripheral neuropathy Sleep apnea -non-compliant with CPAP Ventricular septal defect Surgical History H/O aortic aneurysm repair H/O coronary angioplasty H/O heart artery stent History of incisional hernia repair -inferior aspect of sternotomy incision Family History (Updated 07/13/19 @ 18:59 by Monik Allen MD) Father Stroke Other CAD (coronary artery disease) Cancer Social History (Updated 07/13/19 @ 19:00 by Monik Allen MD) Smoking and tobacco status: former smoker Quit status (tobacco): has quit using tobacco Year quit tobacco: 20 yrs ago Alcohol intake: current Alcohol intake frequency: holidays/special occasions only Substance/Drug Use: never Household members: spouse and children Marital status: Physical Exam Const: COMMON NORMALS: no apparent distress GENERAL APPEARANCE: cooperative and comfortable ORIENTATION/CONSCIOUSNESS: Yes awake, Yes oriented to person, Yes oriented to place and Yes oriented to time HENMT: COMMON NORMALS: normocephalic, head/scalp atraumatic, hearing grossly normal bilaterally, external ears normal, EAC's normal, TM's normal bilaterally, nasal mucous membranes and turbinates normal, moist oral mucous membranes and oropharynx normal HEAD & SCALP: normocephalic and atraumatic NOSE: nasal mucous membranes and turbinates normal EXTERNAL EAR: Yes external ears normal EXTERNAL AUDITORY CANAL: EAC's normal TYMPANIC MEMBRANE: TM's normal bilaterally Eye: COMMON NORMALS: PERRL, EOMs intact bilaterally, conjunctivae normal and no scleral icterus CONJUNCTIVA: Yes conjunctivae normal PUPIL: Yes PERRL Neck/C-Spine: COMMON NORMALS: full ROM, no lymphadenopathy, supple and no JVD Lymph: LYMPHATIC: no lymphadenopathy noted and no lymphedema noted Resp: COMMON NORMALS: normal respiratory effort, no retractions, no use of ac cessory muscles and clear to auscultation bilaterally AUSCULTATION: clear to auscultation bilaterally Cardio: COMMON NORMALS: no JVD, regular rate, regular rhythm and no murmurs RATE: regular rate RHYTHM: regular rhythm GI: COMMON NORMALS: soft to palpation and no hepatosplenomegaly AUSCULTATION: Yes normoactive bowel sounds PALPATION: Yes soft, No tender, No guarding and Yes no hepatosplenomegaly Extremity: COMMON NORMALS: normal to inspection, normal capillary refill, no clubbing, cyanosis or edema, no calf tenderness and no pedal edema Neuro: SENSORIUM/ORIENTATION: Yes oriented to person, Yes oriented to place and Yes oriented to time Skin: COMMON NORMALS: no rashes or lesions noted GENERAL SKIN EXAM: no rashes or lesions noted Course Vital Signs: Vital signs: Vital Signs Temperature 98.4 F 07/14/19 13:22 Pulse Rate 55 L 07/14/19 13:22 Respiratory Rate 18 07/14/19 13:22 Blood Pressure 124/71 07/14/19 13:22 Pulse Oximetry 96 07/14/19 13:22 MDM - Weakness MDM Narrative: Medical decision making narrative: Patient initially was seen and evaluated and he had no neurologic deficits other than being generally weak. I later went back to the room around 1650 to talk to him about the results and noted that he had a droop on his left eyelid but it did not affect his forehead and did not affect the other facial muscles for example when he smiled. An NIH score was done at that time and he had a score of 1 for a partial facial paralysis but he was able to do [id number] had no pronator drift normal with no weakness in extremities no other findings noted. Decided to go ahead and do a CT and we are pending on the CT of his head at this time Lab Data: Labs: Lab Results 07/13/19 07/13/19 07/13/19 Range/Units 13:03 13:03 13:03 WBC 6.0 (4.0-10.0) 10^3/ uL RBC 4.19 (4.1-5.3) 10^6/u L Hgb 12.6 (11.7-16.6) g/dL Hct 38.5 L (42.0-52.0) % MCV 91.9 (80-94) fL MCH 30.1 (28.0-34.0) pg MCHC 32.7 (30.0-36.0) g/dL RDW 13.2 (12.1-15.1) % Plt Count 254 (130-400) 10^3/c mm MPV 9.2 (7.4-10.4) fL Neut % (Auto) 64.5 % Lymph % (Auto) 20.8 % [place] % (Auto) 11.2 % Eos % (Auto) 2.7 % Baso % (Auto) 0.5 % Neut # (Auto) 3.9 (1.8-7.7) 10^3/u L Lymph # (Auto) 1.3 (0.8-4.8) 10^3/u L [place] # (Auto) 0.7 (0.2-0.9) 10^3/u L Eos # (Auto) 0.2 (0.0-0.8) 10^3/u L Baso # (Auto) 0.0 (0.0-0.1) 10^3/u L Nucleated RBC % (a uto) 0 % Nucleated RBCs # 0.0 /100WBC Sodium 136 (136-145) mmol/L Potassium 4.3 (3.5-5.1) mmol/L Chloride 98 (98-107) mmol/L Carbon Dioxide 23 (22-29) mmol/L Anion Gap 19.3 H (5-19) BUN 20 (8-23) mg/dL Creatinine 1.5 H (0.7-1.2) mg/dL GFR Calculation 47.4 L (90-130) mL/min Glucose 155 H (65-115) mg/dL Calculated Osmolal ity 282 L (285-295) mOsm/k g Calcium 10.0 (8.5-10.5) mg/dL Total Bilirubin 0.6 (0.15-1.2) mg/dL AST 30 (0-40) U/L ALT 33 (0-41) U/L Alkaline Phosphata se 77 (40-130) IU/L Troponin T Baselin e 12 (0-15) ng/mL Troponin T 120 Min [place] (0-15) ng/mL Delta Troponin T (0-10) ABS# Total Protein 7.5 (6.6-8.7) g/dL Albumin 4.6 (3.5-5.2) g/dL Globulin 2.9 (1.3-4.6) g/dL 07/13/19 Range/Units 15:08 WBC (4.0-10.0) 10^3/ uL RBC (4.1-5.3) 10^6/u L Hgb (11.7-16.6) g/dL Hct (42.0-52.0) % MCV (80-94) fL MCH (28.0-34.0) pg MCHC (30.0-36.0) g/dL RDW (12.1-15.1) % Plt Count (130-400) 10^3/c mm MPV (7.4-10.4) fL Neut % (Auto) % Lymph % (Auto) % [place] % (Auto) % Eos % (Auto) % Baso % (Auto) % Neut # (Auto) (1.8-7.7) 10^3/u L Lymph # (Auto) (0.8-4.8) 10^3/u L [place] # (Auto) (0.2-0.9) 10^3/u L Eos # (Auto) (0.0-0.8) 10^3/u L Baso # (Auto) (0.0-0.1) 10^3/u L Nucleated RBC % (a uto) % Nucleated RBCs # /100WBC Sodium (136-145) mmol/L Potassium (3.5-5.1) mmol/L Chloride (98-107) mmol/L Carbon Dioxide (22-29) mmol/L Anion Gap (5-19) BUN (8-23) mg/dL Creatinine (0.7-1.2) mg/dL GFR Calculation (90-130) mL/min Glucose (65-115) mg/dL Calculated Osmolal ity (285-295) mOsm/k g Calcium (8.5-10.5) mg/dL Total Bilirubin (0.15-1.2) mg/dL AST (0-40) U/L ALT (0-41) U/L Alkaline Phosphata se (40-130) IU/L Troponin T Baselin e (0-15) ng/mL Troponin T 120 Min [place] 12.22 (0-15) ng/mL Delta Troponin T 0.22 (0-10) ABS# Total Protein (6.6-8.7) g/dL Albumin (3.5-5.2) g/dL Globulin (1.3-4.6) g/dL Discharge Plan Discharge Patient Disposition: Admitted As Inpatient Admit Provider: Monik Allen Clinical Impression: Brain TIA, Chronic kidney disease, Diabetes mellitus, Hypertension, Coronary artery disease Condition: Stable Discharge Orders: Discharge Order (Routine); Ordered 07/14/19 Ordered By: Monik Allen Discharge Diet: Cardiac and Diabetic Discharge Activity: Increase activity as tolerated and Use walker/crutches as instructed Interventions: ED Discharge Assessment Last Done: 07/13/19 19:53 Discharge Date/Time: 07/13/19 19:56 Coding Level of Care Code ED Tester Wafer Substrate for Chg Fwd Exam Comprehensive NIH stroke score NIHSS Level Of Consciousness - 1a: 0 Level Of Consciousness Questions - 1b: Both Correct Level Of Consciousness Commands - 1c: Both Correct Best Gaze - 2: Normal Visual Artis - 3: No Visual Loss Facial Palsy - 4: Minor Paralysis Motor Arm Right - 5: No Drift Motor Arm Left - 5: No Drift Motor Leg Right - 6: No Drift Motor Leg Left - 6: No Drift Limb Ataxia - 7: Absent Sensory - 8: Normal Best Language - 9: No Aphasia Dysarthia - 10: Normal Extinction And Inattention - 11: 0 Score Total Score: 1
--- NOTE | 2019-07-13 13:32 | ECG_ITS ---
Measurements Intervals [place] Rate: 51 P: 37 [place]: 176 QRS: 70 QRSD: 122 T: 76 QT: 491 QTc: 453 SINUS BRADYCARDIA MODERATE INTRAVENTRICULAR CONDUCTION DELAY [110+ ms QRS DURATION] PROLONGED QT INTERVAL Compared to ECG 04/06/2019 11:43:27 No significant changes Electronically Signed On 07-13-2019 21:01:19 CDT by Melanie Alonzo M.D. [email or web address]
[2019-07-13 13:57] LABS: Basophils % 0.5 %; Eosinophils # 0.2 10^3/uL (0.0-0.8); Eosinophils % 2.7 %; Hematocrit 38.5 % (42.0-52.0); Hemoglobin 12.6 g/dL (11.7-16.6); Lymphocytes # 1.3 10^3/uL (0.8-4.8); Lymphocytes % 20.8 %; Mean Corpuscular HGB Conc 32.7 g/dL (30.0-36.0); Mean Corpuscular Hemoglobin 30.1 pg (28.0-34.0); Mean Corpuscular Volume 91.9 fL (80-94); Mean Platelet Volume 9.2 fL (7.4-10.4); Monocytes # 0.7 10^3/uL (0.2-0.9); Monocytes % 11.2 %; Neutrophils # 3.9 10^3/uL (1.8-7.7); Neutrophils % 64.5 %; Nucleated Red Blood Cells % 0 %; Platelet Count 254 10^3/cmm (130-400); Red Blood Count 4.19 10^6/uL (4.1-5.3); Red Cell Distribution Width 13.2 % (12.1-15.1)
[2019-07-13 14:09] LABS: Troponin(5th) Baseline 12 ng/mL (0-15)
[2019-07-13 14:41] LABS: Alanine Aminotransferase 33 U/L (0-41); Albumin Level 4.6 g/dL (3.5-5.2); Alkaline Phosphatase 77 IU/L (40-130); Anion Gap 19.3 (5-19); Aspartate Amino Transferase 30 U/L (0-40); Blood Urea Nitrogen 20 mg/dL (8-23); Carbon Dioxide 23 mmol/L (22-29); Chloride 98 mmol/L (98-107); Globulin 2.9 g/dL (1.3-4.6); Glomerular Filtration Rate 47.4 mL/min (90-130); Glucose 155 mg/dL (65-115); Osmolality Calculated 282 mOsm/kg (285-295); Potassium 4.3 mmol/L (3.5-5.1); Sodium 136 mmol/L (136-145); Total Bilirubin 0.6 mg/dL (0.15-1.2); Total Protein 7.5 g/dL (6.6-8.7)
--- NOTE | 2019-07-13 16:53 | PC.NURSE ---
lay 121/68 hr 50 sit 113/65 hr51 stand 107/59 hr 64
--- NOTE | 2019-07-13 16:54 | CTR_ITS ---
PROCEDURE INFORMATION: Exam: CT Head Without Contrast Exam date and time: 07/13/2019 4:55 PM Age: 63 years old Clinical indication: Dizziness and weakness, facial; Prior surgery; Additional info: Left eye droop TECHNIQUE: Imaging protocol: Computed tomography of the head without contrast. Axial, coronal and sagittal reformatted images were created and reviewed. Total DLP: 881.52 mGy-cm Radiation optimization: All CT scans at this facility use at least one of these dose optimization techniques: automated exposure control; mA and/or kV adjustment per patient size (includes targeted exams where dose is matched to clinical indication); or iterative reconstruction. COMPARISON: CT head wo con* [id number] 05/12/2019 1:19 PM FINDINGS: Brain: Subtle, patchy areas of hypoattenuation in the periventricular and subcortical white matter, nonspecific but suggestive of mild chronic small vessel ischemic disease. No CT evidence of acute intracranial hemorrhage or acute territorial infarction. No significant mass effect or midline shift. Basal cisterns patent. Ventricles: Prominence of the cortical sulci, cisterns and ventricular system, consistent with cerebral and cerebellar volume loss. Bones/joints: No acute osseous abnormality. Old right frontotemporal craniotomy defect. Sinuses: Minimal ethmoid mucosal thickening. Mastoid air cells: Partial opacification and sclerosis of the left mastoid air cells. Soft tissues: Grossly unremarkable. Vasculature: Calcific atherosclerotic disease in the cavernous internal carotid arteries, as well as the vertebro-basilar system. 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 CT/CT head wo con* [id number] IMPRESSION: 1. No CT evidence of acute intracranial pathology. 2. Additional findings, as above. Radiation Dose CTDIVOL = (mGy): DLP = 881.52 (mGy-cm)
[2019-07-13] MEDS: sodium chloride 0.9% 500 ML 999 ML IV (16:55)
--- NOTE | 2019-07-13 18:46 | PM.HP ---
Providers/Chief Complaint Admitting Physician: Monik Allen MD Primary Care Provider: Devendra Smith MD Chief Complaint: HEADACHE AND WEAKNESS History of Present Illness Darrell Pemberton is a 63 year old male with extensive PMHx including IDDM type II, HTN, Hyperlipidemia, CAD s/p CABG, Chronic atrial fibrillation; presents from home via EMS for evaluation of acute onset headache earlier today while he was in the kitchen preparing a meal. He then developed some generalized weakness, broke out in a cold sweat and felt lightheaded. He he lay down for a while which seemed to help his symptoms though not for long. His then encouraged him to come to the ER for further evaluation as he had similar symptoms approximately 4 years ago when he had a stroke. He has had some residual right upper extremity weakness since the CVA. He denies having had any chest pain, shortness of breath, noted difficulty with swallowing or speech impairment, changes in his vision, recent fall or trauma, syncope. Prior to the onset of his symptoms he was otherwise in his usual state of health. He monitors his blood sugar as well as his blood pressure at home. Blood sugar tends to be between 70-80 in the mornings and 140-160 in the evenings. He has noticed that lately his blood pressure has been on the lower normal side. He is chronically bradycardic with heart rates running in the 50-55 range. 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 He denies any recent changes in his medications and reports compliance including having taken them earlier this morning. He has had several issues in the past with A. fib as well as chest pain but none recently. He is in contact in the ER, is resting quietly in bed, has a noted left upper eyelid droop which by ER physician was not present on initial evaluation on his arrival per patient's own admission was not present at home. His blood pressure was noted to be on the low normal side and so far he has received 2 L normal saline boluses. Orthostatics were checked and he was found to be significantly positive. NIHSS is 1 and there are no other noted neurological findings. CT scan of the head is unremarkable for any acute findings. CBC is normal including a hemoglobin of 12.6, chemistry is appropriate with BUN of 20, creatinine of 1.5, blood sugar of 155. Troponin is negative. Most recent blood pressure is 136/69. He is still complaining of a headache and with new finding of left upper eyelid ptosis will need admission to rule out TIA versus complex migraine. Review of Systems Const: Reports: diaphoresis; Denies: fever or chills Eyes: Reports: other (while in ED, noted drooping of L eyelid); Denies: change in vision or blurry vision ENMT: Reports: dry mouth; Denies: painful swallowing Card: Reports: palpitations and lightheadedness; Denies: chest pain, edema or swelling of feet/ankles Resp: Denies: shortness of breath, productive cough or non-productive cough GI: Denies: abdominal pain, nausea, vomiting, vomiting blood or blood in stool : Denies: painful urination or urinary frequency Musc: Denies: back pain Skin/Breast: Denies: rash Neuro: Reports: numbness in extremities (chronic in LEs), weakness in extremities and difficulty walking; Denies: frequent falls or slurred speech Psych: Denies: anxiety Medications/Allergies Home Medications Medication Instructions Recorded Confirmed Last Taken Type L-Arginine Tab 500 mg PO QAM 07/13/19 07/13/19 Unknown History cyanocobalamin (vitamin B-12) 500 mcg PO DAILY 07/13/19 07/13/19 Unknown History [Vitamin B-12] fluticasone propionate [Flonase 2 spray INTRANASAL DAILY 07/13/19 07/13/19 07/12/19 History Allergy Relief] latanoprost 1 drp OPHTHALMIC (EYE) BEDTIME 07/13/19 07/13/19 07/12/19 History lycopene 20 mg PO QAM 07/13/19 07/13/19 Unknown History magnesium 250 mg PO BID 07/13/19 07/13/19 Unknown History Allergies Allergy/AdvReac Type Severity Reaction Status Date / Time diltiazem [From Cardizem] Allergy Severe Unresponsiv Verified 07/13/19 13:29 e liraglutide [From Victoza] Allergy Severe ALGY-Difficulty Verified 07/13/19 13:29 Breathing PFSH Acute PFSH: Medical History Arteriosclerotic heart disease (ASHD) Atrial fibrillation, chronic Bradycardia Chronic diastolic CHF (congestive heart failure) Chronic kidney disease Coronary artery disease 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 Diabetes mellitus -insulin dependent GERD (gastroesophageal reflux disease) Hyperlipemia Hypertension Peripheral neuropathy Sleep apnea NON compliant with the CPAP Ventricular septal defect Surgical History H/O aortic aneurysm repair H/O coronary angioplasty H/O heart artery stent History of incisional hernia repair -inferior aspect of sternotomy incision Family History (Updated 07/13/19 @ 18:59 by Monik Allen MD) Father Stroke Other CAD (coronary artery disease) Cancer Social History (Updated 07/13/19 @ 19:00 by Monik Allen MD) Smoking and tobacco status: former smoker Quit status (tobacco): has quit using tobacco Year quit tobacco: 20 yrs ago Alcohol intake: current Alcohol intake frequency: holidays/special occasions only Substance/Drug Use: never Household members: spouse and children Marital status: Vitals/I&O/Wt Last Vital Signs Temp 98.0 F 07/13/19 13:21 Pulse 55 L 07/13/19 13:21 Resp 16 07/13/19 13:21 BP 109/56 07/13/19 13:21 Pulse Ox 95 07/13/19 13:21 Weight last 48 hrs Weight 90.718 kg Physical Exam Const: COMMON NORMALS: no apparent distress and oriented x3 GENERAL APPEARANCE: cooperative and comfortable NUTRITIONAL APPEARANCE: obese ORIENTATION/CONSCIOUSNESS: Yes awake HENMT: COMMON NORMALS: normocephalic, head/scalp atraumatic, hearing grossly normal bilaterally and moist oral mucous membranes HEAD & SCALP: normocephalic and atraumatic OTHER: -healed scar on R from previous craniotomy Eye: COMMON NORMALS: PERRL and conjunctivae normal EYELID: eyelid abnormal left upper eyelid ptosis CONJUNCTIVA: Yes conjunctivae normal PUPIL: Yes PERRL Neck/C-Spine: COMMON NORMALS: full ROM GENERAL: Yes normal visual inspection and Yes trachea midline Chest: COMMONS NORMALS: inspection of chest normal Resp: COMMON NORMALS: normal respiratory effort, no retractions, no use of accessory muscles and clear to auscultation bilaterally EFFORT & INSPECTION: Yes able to speak in complete sentences, Yes symmetric chest movement and No tachypneic AUSCULTATION: clear to auscultation bilaterally Cardio: COMMON NORMALS: regular rate, regular rhythm, S1 normal heart sound, S2 normal heart sound and no murmurs RATE: regular rate RHYTHM: regular rhythm HEART SOUNDS: S1 normal and S2 normal GI: COMMON NORMALS: normal to inspection, nondistended, normoactive bowel sounds, soft to palpation and non-tender INSPECTION: Yes central obesity PALPATION: Yes soft Extremity: COMMON NORMALS: normal to inspection, full ROM, no clubbing, cyanosis or edema and no pedal edema Neuro: COMMON NORMALS: oriented x3, moves all extremities, no focal motor deficits and no sensory deficits noted GAIT: Yes other (gait assessment deferred due to orthostasis) Psych: COMMON NORMALS: mental status grossly normal, thought process normal, cooperative, affect normal and speech normal SPEECH: Yes normal speech THOUGHT PROCESS: normal thought process Skin: COMMON NORMALS: no rashes or lesions noted, no jaundice, no petechiae and no mottling GENERAL SKIN EXAM: no rashes or lesions noted Data : 07/13/19 13:03 07/13/19 13:03 Other Labs: -reviewed all labs including CBC, CMP A&P Assessment and plan (1) Orthostatic hypotension: -Noted to be profoundly orthostatic in the ER most of which is likely secondary to medications as he is on several which could predispose him to hypotension -IVF hydration -Hold oral antihypertensives and other medications that may contribute to hypotension at this time -Close monitoring of vital signs -Fall precautions, assistance with all out of bed activity -Telemetry monitoring -PT/OT evaluations in AM Status: Acute (2) Headache: -Noted acute onset of headache earlier while at home which has persisted since then -With noted left upper eyelid ptosis and generalized weakness this may be indicative of a complex migraine or possible TIA. No other neurological deficits, NIHSS-1 -Pain control as needed -Monitor neurological status Status: Acute Qualifiers: Headache type: unspecified Headache chronicity pattern: acute headache Intractability: not intractable Qualified Code(s): R51 - Headache (3) Diabetes mellitus: -has IDDM type II, A1c at goal-6.3 (2019) -Accuchecks, ISS, scheduled insulin -consistent carb diet -hypoglycemia precautions Status: Acute Qualifiers: Diabetes mellitus type: type 2 Diabetes mellitus skilled nursing insulin use: with second shift supervisor use Diabetes mellitus complication status: with other specified complication Qualified Code(s): E11.69 - Type 2 diabetes mellitus with other specified complication; 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 (4) Bradycardia: -Has chronic bradycardia, has had event monitoring done in 2018 showing baseline sinus bradycardia, average heart rate is about 55 -We will hold beta-ashish for now -Monitor vital signs -Telemetry monitoring Status: Chronic (5) CVA (cerebral vascular accident): -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 4 years ago Status: Chronic Qualifiers: CVA mechanism: unspecified Qualified Code(s): I63.9 - Cerebral infarction, unspecified (6) GERD (gastroesophageal reflux disease): -Resume PPI Status: Chronic Qualifiers: Esophagitis presence: esophagitis presence not specified Qualified Code(s): K21.9 - Gastro-esophageal reflux disease without esophagitis (7) Chronic diastolic CHF (congestive heart failure): -Has known chronic diastolic CHF, no indication of acute exacerbation currently -Echo done in 2018 showed an ejection fraction of 50% with grade 1 diastolic dysfunction and mild hypokinesia -We will hold Lasix for now given orthostasis Status: Chronic (8) Atrial fibrillation, chronic: -Has known history of chronic A. fib, is on anticoagulation with Pradaxa, resume this -We will hold beta-ashish given patient's bradycardia which is chronic from review of medical record and by patient's own admission -Telemetry monitoring Status: Chronic (9) Hypertension: -Hold oral antihypertensives secondary to significant orthostasis -Monitor vital signs Status: Chronic Qualifiers: Hypertension type: essential hypertension Qualified Code(s): I10 - Essential (primary) hypertension (10) Hyperlipemia: -Resume statin Status: Chronic Qualifiers: Hyperlipidemia type: mixed hyperlipidemia Qualified Code(s): E78.2 - Mixed hyperlipidemia (11) Arteriosclerotic heart disease (ASHD): -Has known CAD status post CABG -Resume Ranexa, Brilinta Status: Chronic (12) Chronic kidney disease: -MICHAELA on CKD stage 3, baseline Cr around 1 -on IVF hydration Status: Chronic Qualifiers: Chronic kidney disease stage: stage 3 (moderate) Qualified Code(s): N18.3 - Chronic kidney disease, stage 3 (moderate) (13) Sleep apnea: Status: Chronic Qualifiers: Sleep apnea type: obstructive Qualified Code(s): G47.33 - Obstructive sleep apnea (adult) (pediatric) Additional A&P Information -Obesity: BMI-32 kg/m2 -GI ppx with PPI -DVT ppx not needed as on Pradaxa -Dispo: home -Code status: FULL code Attestations Medical Necessity Statement*: Darrell Pemberton's hospital stay will be less than 2 midnights for management of orthostatic hypotension, pain control for headache. Time Spent in Patient Care: Greater than 35 minutes (>than 50% of time spent in counselling and/or direct pt care on unit). Coding Level of Care Code Acute Plastic Sheets Supervisor for Chg Fwd Diagnoses Orthostatic hypotension I95.1 Headache R51 Headache type: unspecified Headache chronicity pattern: acute headache Intractability: not intractable Diabetes mellitus E11.69; Z79.4 Diabetes mellitus type: type 2 Diabetes mellitus skilled nursing insulin use: with second shift supervisor use Diabetes mellitus complication status: with other specified complication Bradycardia R00.1 CVA (cerebral vascular accident) I63.9 CVA mechanism: unspecified GERD (gastroesophageal reflux disease) K21.9 Esophagitis presence: esophagitis presence not specified Chronic diastolic CHF (congestive heart failure) I50.32 Atrial fibrillation, chronic I48.20 Hypertension I10 Hypertension type: essential hypertension Hyperlipemia E78.2 Hyperlipidemia type: mixed hyperlipidemia Arteriosclerotic heart disease (ASHD) I25.10 Chronic kidney disease N18.3 Chronic kidney disease stage: stage 3 (moderate) Sleep apnea G47.33 Sleep apnea type: obstructive
[2019-07-13] MEDS: SUMAtriptan 25 mg Tablet 50 MG PO (19:01)
--- NOTE | 2019-07-13 19:32 | ECG_ITS ---
Measurements Intervals [place] Rate: 48 P: 40 OR: 172 QRS: 71 QRSD: 126 T: 72 QT: 378 QTc: 340 SINUS BRADYCARDIA WITH OCCASIONAL SUPRAVENTRICULAR PREMATURE COMPLEXES MODERATE INTRAVENTRICULAR CONDUCTION DELAY NONSPECIFIC T-WAVE ABNORMALITY Compared to ECG 04/06/2019 11:43:27 T-wave abnormality now present Prolonged QT interval no longer present Electronically Signed On 07-13-2019 21:05:48 CDT by Melanie Alonzo M.D. [email or web address]
[2019-07-13 19:53] VITALS: BP 116/62; PULSE 56; RESP 18; O2SAT 98
[2019-07-13 19:54] LABS: Troponin 5 2HR 12.22 ng/mL (0-15); Troponin 5 2HR Delta 0.22 ABS# (0-10)
[2019-07-13 20:18] VITALS: BP 141/68; PULSE 61; RESP 18; TEMP 36.7; O2SAT 97
[2019-07-13] MEDS: sodium chloride 0.9% 1,000 ML 100 ML IV (20:40)
[2019-07-13 20:57] LABS: Glucose Point of Care 86 mg/dL (70-110)
[2019-07-13 21:25] VITALS: PULSE 48; O2SAT 95
[2019-07-13] MEDS: latanoprost 0.005% Op Soln 2.5 mL Btl 1 DROP EYE-RIGHT (21:52)
[2019-07-14] VITALS (7 sets, daily range): BP systolic 99–126; BP diastolic 58–84; PULSE 53–84; RESP 18; TEMP 36.4–37; O2SAT 94–96; BMI 32.3
[2019-07-14 04:54] LABS: Basophils % 0.5 %; Eosinophils # 0.2 10^3/uL (0.0-0.8); Hematocrit 36.3 % (42.0-52.0); Hemoglobin 11.6 g/dL (11.7-16.6); Lymphocytes # 1.5 10^3/uL (0.8-4.8); Lymphocytes % 25.4 %; Mean Corpuscular Hemoglobin 29.3 pg (28.0-34.0); Mean Corpuscular Volume 91.7 fL (80-94); Monocytes # 0.6 10^3/uL (0.2-0.9); Monocytes % 10.4 %; Neutrophils # 3.7 10^3/uL (1.8-7.7); Neutrophils % 60.5 %; Nucleated Red Blood Cells % 0 %; Platelet Count 198 10^3/cmm (130-400); Red Blood Count 3.96 10^6/uL (4.1-5.3); Red Cell Distribution Width 13.2 % (12.1-15.1)
[2019-07-14 05:22] LABS: Alanine Aminotransferase 26 U/L (0-41); Albumin Level 3.9 g/dL (3.5-5.2); Alkaline Phosphatase 61 IU/L (40-130); Anion Gap 14.5 (5-19); Aspartate Amino Transferase 21 U/L (0-40); Blood Urea Nitrogen 22 mg/dL (8-23); Calcium 9.3 mg/dL (8.5-10.5); Carbon Dioxide 26 mmol/L (22-29); Chloride 105 mmol/L (98-107); Globulin 2.7 g/dL (1.3-4.6); Glomerular Filtration Rate 55.9 mL/min (90-130); Glucose 118 mg/dL (65-115); Osmolality Calculated 290 mOsm/kg (285-295); Potassium 4.5 mmol/L (3.5-5.1); Sodium 141 mmol/L (136-145); Total Bilirubin 0.4 mg/dL (0.15-1.2); Total Protein 6.6 g/dL (6.6-8.7)
[2019-07-14 06:41] LABS: Glucose Point of Care 141 mg/dL (70-110)
[2019-07-14] MEDS: ranolazine (12HR) 500 mg Tablet 1000 MG PO (09:15)
[2019-07-14] MEDS: famotidine 20 mg Tablet PO (09:15)
[2019-07-14] MEDS: cyanocobalamin 1,000 mcg Tablet 500 MCG PO (09:16)
[2019-07-14] MEDS: gabapentin 300 mg Capsule PO (09:16)
[2019-07-14] MEDS: mirtazapine 15 mg Tablet 7.5 MG PO (09:16)
[2019-07-14] MEDS: fluticasone nasal spray 16gm Btl 2 SPRAY INTRANASAL (09:17)
--- NOTE | 2019-07-14 09:43 | PC.CHAP ---
Pastoral Care Encounter/Spiritual Assessment Type of Contact [] Declined disease case manager rn visit [] Patient/Family/Request visit [] Outpatient visit [] Follow-up visit [] Physician referral [] Code/Alert [x] Routine visit [] Staff referral [] Actively dying [] Patient sleeping [] Family support [] [] Out of room [] Palliative care [] [] Receiving care in room [] Pre-surgical visit [] Trauma [] Long length of stay [] ICU visit [] Other: Relational/Emotional Strength [] Patient feels connected with others/family/visitors/staff [] Distress [] Loneliness/isolation [] Abandonment Spirituality of Patient [] Person of Saira [] Attends Evangelical of their Saira [x Believes in Prayer [] Reads Bible or Confucianist materials [] There are Spiritual issues to be addressed Tour Bus Driver Interventions [x] Prayer [] Active listening [] Non-anxious presence [] Spiritual/emotional support [] Crisis/trauma care [] Spiritual counseling [] Bereavement support [] Provided bereavement packet [] Provided Bible/devotional materials [] Provided toy/stuffed animal, coloring book to patient or family member [] Provided Communion [] Anointing/[place] [] Salvation [x] Completed spiritual assessment [] Other: Impact on Illness or Injury [] Angry [] Fearful [] Anxious [] Often cries [] Exhaustion [] Unable to work [] Unable to attend zoroastrianism [] Unable to walk/stand [] Unable to read [] Unable to drive [] Unable to eat/drink [] Unable to sleep [] Unable to be with family [] Patient intubated [] Other: Summary Patient had suffered stroke couple of years ago, and has fear of reoccurrence due to headache. Patient resting well, and waiting to see doctor. Time spent with patient 15 min
[2019-07-14] MEDS: ticagrelor 90 mg Tablet PO (10:41)
--- NOTE | 2019-07-14 10:47 | PM.DCS ---
Discharge Providers Date of Admission: 07/13/19 17:55 Date of Discharge: July 14, 2019 Attending Provider at Admission: Monik Allen MD Attending Provider at Discharge: Monik Allen MD Primary Care Provider: Devendra Smith MD Diagnoses at Discharge Discharge Diagnosis (1) Orthostatic hypotension: Status: Acute Problem details: -Noted to be profoundly orthostatic in the ER most of which is likely secondary to medications as he is on several which could predispose him to hypotension -IVF hydration -Hold oral antihypertensives and other medications that may contribute to hypotension at this time -Close monitoring of vital signs -Fall precautions, assistance with all out of bed activity -Telemetry monitoring -PT/OT evaluations appreciated (2) Headache: Status: Resolved Problem details: -Noted acute onset of headache earlier while at home which has persisted since then -With noted left upper eyelid ptosis and generalized weakness this may be indicative of a complex migraine or possible TIA. No other neurological deficits, NIHSS-1 -Pain control as needed -Monitor neurological status; intact Qualifiers: Headache type: unspecified Headache chronicity pattern: acute headache Intractability: not intractable Qualified Code(s): R51 - Headache (3) Diabetes mellitus: Status: Acute Problem details: -has IDDM type II, A1c at goal-6.3 (2019) -Accuchecks, ISS, scheduled insulin -consistent carb diet -hypoglycemia precautions Qualifiers: Diabetes mellitus type: type 2 Diabetes mellitus group home insulin use: with group home use Diabetes mellitus complication status: with other specified complication Qualified Code(s): E11.69 - Type 2 diabetes mellitus with other specified complication; 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 (4) Bradycardia: Status: Chronic Problem details: -Has chronic bradycardia, has had event monitoring done in 2018 showing baseline sinus bradycardia, average heart rate is about 55 -We will hold beta-ashish for now -Monitor vital signs -Telemetry monitoring (5) CVA (cerebral vascular accident): Status: Chronic Problem details: -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 4 years ago Qualifiers: CVA mechanism: unspecified Qualified Code(s): I63.9 - Cerebral infarction, unspecified (6) GERD (gastroesophageal reflux disease): Status: Chronic Problem details: -on PPI Qualifiers: Esophagitis presence: esophagitis presence not specified Qualified Code(s): K21.9 - Gastro-esophageal reflux disease without esophagitis (7) Chronic diastolic CHF (congestive heart failure): Status: Chronic Problem details: -Has known chronic diastolic CHF, no indication of acute exacerbation currently -Echo done in 2018 showed an ejection fraction of 50% with grade 1 diastolic dysfunction and mild hypokinesia -We will hold Lasix for now given orthostasis (8) Atrial fibrillation, chronic: Status: Chronic Problem details: -Has known history of chronic A. fib, is on anticoagulation with Pradaxa, resume this -We will hold beta-ashish given patient's bradycardia which is chronic from review of medical record and by patient's own admission -Telemetry monitoring (9) Hypertension: Status: Chronic Problem details: -Hold oral antihypertensives secondary to significant orthostasis -stable vital signs Qualifiers: Hypertension type: essential hypertension Qualified Code(s): I10 - Essential (primary) hypertension (10) Hyperlipemia: Status: Chronic Problem details: -on statin Qualifiers: Hyperlipidemia type: mixed hyperlipidemia Qualified Code(s): E78.2 - Mixed hyperlipidemia (11) Arteriosclerotic heart disease (ASHD): Status: Chronic Problem details: -Has known CAD status post CABG -on Ranexa, Brilinta (12) Chronic kidney disease: Status: Chronic Problem details: -MICHAELA on CKD stage 3, baseline Cr around 1; improved Cr today -on IVF hydration Qualifiers: Chronic kidney disease stage: stage 3 (moderate) Qualified Code(s): N18.3 - Chronic kidney disease, stage 3 (moderate) (13) Sleep apnea: Status: Chronic Problem details: -non-compliant with CPAP Qualifiers: Sleep apnea type: obstructive Qualified Code(s): G47.33 - Obstructive sleep apnea (adult) (pediatric) Reason for Visit Reason for Visit: Reason For Visit: HEADACHE AND WEAKNESS Hospital Course Hospital Course: Patient was admitted to the medical surgical floor and placed on telemetry monitoring. Symptoms are attributable to either complex migraine versus TIA in light of symptoms of headache and noted left upper eyelid ptosis. Headache has since resolved with medication and left upper eyelid ptosis is improving. He was noted to have orthostatic hypotension in the ER, oral antihypertensives were held and he was hydrated with IV fluids. This has since improved and he is normotensive this morning. Appropriate adjustments have been made to his home oral antihypertensive regimen including reduced dose of lisinopril and metoprolol, the latter of which was adjusted secondary to his history of chronic bradycardia. Patient has not had any additional neurological symptoms, has been evaluated by both occupational and physical therapy. He is quite independent at home so will not need home health services at this time. He is encouraged to continue to monitor his blood pressure at home as well as his blood glucose for review with his primary care physician. He is encouraged to seek medical attention immediately should any of his symptoms recur. Discharge Summary: -Patient follow-up with his primary care physician within 1 week Physical Exam Const: COMMON NORMALS: no apparent distress and oriented x3 GENERAL APPEARANCE: cooperative and comfortable NUTRITIONAL APPEARANCE: obese ORIENTATION/CONSCIOUSNESS: Yes awake HENMT: COMMON NORMALS: normocephalic, head/scalp atraumatic, hearing grossly normal bilaterally and moist oral mucous membranes HEAD & SCALP: normocephalic and atraumatic OTHER: -healed scar on R from previous craniotomy Eye: COMMON NORMALS: PERRL and conjunctivae normal EYELID: eyelid abnormal left upper eyelid ptosis CONJUNCTIVA: Yes conjunctivae normal PUPIL: Yes PERRL Neck/C-Spine: COMMON NORMALS: full ROM GENERAL: Yes normal visual inspection and Yes trachea midline Chest: COMMONS NORMALS: inspection of chest normal Resp: COMMON NORMALS: normal respiratory effort, no retractions, no use of accessory muscles and clear to auscultation bilaterally EFFORT & INSPECTION: Yes able to speak in complete sentences, Yes symmetric chest movement and No tachypneic AUSCULTATION: clear to auscultation bilaterally Cardio: COMMON NORMALS: regular rate, regular rhythm, S1 normal heart sound, S2 normal heart sound and no murmurs RATE: regular rate RHYTHM: regular rhythm HEART SOUNDS: S1 normal and S2 normal GI: COMMON NORMALS: normal to inspection, nondistended, normoactive bowel sounds, soft to palpation and non-tender INSPECTION: Yes central obesity PALPATION: Yes soft Extremity: COMMON NORMALS: normal to inspection, full ROM, no clubbing, cyanosis or edema and no pedal edema Neuro: COMMON NORMALS: oriented x3, moves all extremities, no focal motor deficits and no sensory deficits noted GAIT: Yes other (gait assessment deferred due to orthostasis) Psych: COMMON NORMALS: mental status grossly normal, thought process normal, cooperative, affect normal and speech normal SPEECH: Yes normal speech THOUGHT PROCESS: normal thought process Skin: COMMON NORMALS: no rashes or lesions noted, no jaundice, no petechiae and no mottling GENERAL SKIN EXAM: no rashes or lesions noted Discharge Data Data Completed and Pending: Completed Studies During Hospitalization Category Date Time Status CT head wo con* [id number] Stat Cat Scan 07/13/19 16:54 Completed Labs from last 24 hours 07/14/19 07/14/19 07/14/19 06:35 04:40 04:40 WBC 6.0 RBC 3.96 L Hgb 11.6 L Hct 36.3 L MCV 91.7 MCH 29.3 MCHC 32.0 RDW 13.2 Plt Count 198 MPV 9.0 Neut % (Auto) 60.5 Lymph % (Auto) 25.4 [place] % (Auto) 10.4 Eos % (Auto) 3.0 Baso % (Auto) 0.5 Neut # (Auto) 3.7 Lymph # (Auto) 1.5 [place] # (Auto) 0.6 Eos # (Auto) 0.2 Baso # (Auto) 0.0 Nucleated RBC % (a uto) 0 Nucleated RBCs # 0.0 Sodium 141 Potassium 4.5 Chloride 105 Carbon Dioxide 26 Anion Gap 14.5 BUN 22 Creatinine 1.3 H GFR Calculation 55.9 L Glucose 118 H POC Glucose 141 Calculated Osmolal ity 290 Calcium 9.3 Total Bilirubin 0.4 AST 21 ALT 26 Alkaline Phosphata se 61 Troponin I 6 Hour Troponin I Hi Sens Del Troponin T Baselin e Troponin T 120 Min [place] Troponin T Total Protein 6.6 Albumin 3.9 Globulin 2.7 07/13/19 07/13/19 07/13/19 20:53 19:06 15:08 WBC RBC Hgb Hct MCV MCH MCHC RDW Plt Count MPV Neut % (Auto) Lymph % (Auto) [place] % (Auto) Eos % (Auto) Baso % (Auto) Neut # (Auto) Lymph # (Auto) [place] # (Auto) Eos # (Auto) Baso # (Auto) Nucleated RBC % (a uto) Nucleated RBCs # Sodium Potassium Chloride Carbon Dioxide Anion Gap BUN Creatinine GFR Calculation Glucose POC Glucose 86 Calculated Osmolal ity Calcium Total Bilirubin AST ALT Alkaline Phosphata se Troponin I 6 Hour 9.80 Troponin I Hi Sens Del -2.20 L Troponin T Baselin e Troponin T 120 Min [place] 12.22 Delta Troponin T 0.22 Total Protein Albumin Globulin 07/13/19 07/13/19 07/13/19 13:03 13:03 13:03 WBC 6.0 RBC 4.19 Hgb 12.6 Hct 38.5 L MCV 91.9 MCH 30.1 MCHC 32.7 RDW 13.2 Plt Count 254 MPV 9.2 Neut % (Auto) 64.5 Lymph % (Auto) 20.8 [place] % (Auto) 11.2 Eos % (Auto) 2.7 Baso % (Auto) 0.5 Neut # (Auto) 3.9 Lymph # (Auto) 1.3 [place] # (Auto) 0.7 Eos # (Auto) 0.2 Baso # (Auto) 0.0 Nucleated RBC % (a uto) 0 Nucleated RBCs # 0.0 Sodium 136 Potassium 4.3 Chloride 98 Carbon Dioxide 23 Anion Gap 19.3 H BUN 20 Creatinine 1.5 H GFR Calculation 47.4 L Glucose 155 H POC Glucose Calculated Osmolal ity 282 L Calcium 10.0 Total Bilirubin 0.6 AST 30 ALT 33 Alkaline Phosphata se 77 Troponin I 6 Hour Troponin I Hi Sens Del Troponin T Baselin e 12 Troponin T 120 Min [place] Troponin T Total Protein 7.5 Albumin 4.6 Globulin 2.9 Vitals: Last Vital Signs Temp 98.6 F 07/14/19 08:00 Pulse 54 L 07/14/19 10:29 Resp 18 07/14/19 08:00 BP 126/70 07/14/19 08:00 Pulse Ox 96 07/14/19 10:29 Discharge Plan Discharge Patient Disposition: Home, Self-Care Condition: Stable Prescriptions: New lisinopril 10 mg tablet 10 mg PO DAILY 30 Days Qty: 30 RF: 0 metoprolol tartrate 25 mg tablet 25 mg PO DAILY 30 Days Qty: 30 RF: 0 Continued potassium chloride 8 mEq capsule, extended release 8 meq PO DAILY RF: 0 cetirizine 10 mg tablet 10 mg PO DAILY RF: 0 isosorbide mononitrate 30 mg tablet extended release 24 hr 30 mg PO DAILY RF: 0 hydrocodone-acetaminophen 10-325 mg tablet 1 tab PO Q8H PRN (Reason: Pain) RF: 0 famotidine 20 mg tablet 20 mg PO DAILY RF: 0 insulin aspart U-100 [Novolog U-100 Insulin aspart] 100 unit/mL solution See Rx Instructions .ROUTE .COMPLEX RF: 0 pantoprazole 40 mg tablet,delayed release (DR/EC) 40 mg PO DAILY RF: 0 gabapentin 300 mg capsule 300 mg PO BID RF: 0 furosemide 20 mg tablet 20 mg PO DAILY RF: 0 mirtazapine 15 mg tablet 7.5 mg PO DAILY RF: 0 rosuvastatin 20 mg tablet 20 mg PO QPM RF: 0 Levemir FlexTouch U-100 Insuln 100 unit/mL (3 mL) insulin pen 45 unit SUBCUT BID RF: 0 ranolazine 1,000 mg tablet extended release 12 hr 1,000 mg PO BID RF: 0 Pradaxa 150 mg capsule 150 mg PO BID RF: 0 Brilinta 90 mg tablet 90 mg PO BID RF: 0 Jardiance 10 mg tablet 10 mg PO DAILY RF: 0 latanoprost 0.005 % drops 1 drp ophthalmic (eye) BEDTIME RF: 0 cyanocobalamin (vitamin B-12) [Vitamin B-12] 500 mcg Tablet 500 mcg PO DAILY RF: 0 magnesium 250 mg Tablet 250 mg PO BID RF: 0 Flonase Allergy Relief 50 mcg/actuation [place],Suspension 2 spray INTRANASAL DAILY RF: 0 lycopene 10 mg Capsule 20 mg PO QAM RF: 0 L-Arginine Tab 500 mg PO QAM RF: 0 Discontinued lisinopril 10 mg tablet 10 mg PO BID RF: 0 metoprolol tartrate 50 mg tablet See Rx Instructions .ROUTE .COMPLEX RF: 0 Jardiance 10 mg Tablet 10 mg PO DAILY RF: 0 Discharge Orders: Discharge Order (Routine); Ordered 07/14/19 Ordered By: Monik Allen Referrals: Devendra Smith MD [Primary Care Provider] - 4-7 days (Post hospital discharge follow up. Treated for TIA. ) Discharge Diet: Cardiac and Diabetic Discharge Activity: Increase activity as tolerated and Use walker/crutches as instructed Activity Restrictions/Additional Instructions: -Please be cautious with changing position and avoid abrupt changes to prevent dizziness/lightheadedness -Please avoid strenuous activity -Please maintain adequate hydration with water -Please note the changes to your medications for blood pressure and continue to monitor this at home. Please keep a log for review with your primary care doctor. Also continue to monitor your blood sugar. Discharge Attestations Time Spent in Discharge Care*: greater than 30 min Specific Discharge Activities: Specific discharge activities: educating patient, discussing with pcp/other providers, discussing with family caseworker/social workers/dc planners, documenting/other paperwork and evaluating patient/reviewing data Status at Discharge: Cognitive status at discharge: cognitively intact, Behavioral status at discharge: cooperative, Functional status at discharge: uses cane/walker Overall status at discharge: patient is progressing back to baseline Quality Metrics Clinical Quality Measures During this hospital stay, did patient experience: None Coding Level of Care Code Acute Social Work Job Titles for Chg Fwd Diagnoses Orthostatic hypotension I95.1 Headache R51 Headache type: unspecified Headache chronicity pattern: acute headache Intractability: not intractable Diabetes mellitus E11.69; Z79.4 Diabetes mellitus type: type 2 Diabetes mellitus rn long term care insulin use: with rn long term care use Diabetes mellitus complication status: with other specified complication Bradycardia R00.1 CVA (cerebral vascular accident) I63.9 CVA mechanism: unspecified GERD (gastroesophageal reflux disease) K21.9 Esophagitis presence: esophagitis presence not specified Chronic diastolic CHF (congestive heart failure) I50.32 Atrial fibrillation, chronic I48.20 Hypertension I10 Hypertension type: essential hypertension Hyperlipemia E78.2 Hyperlipidemia type: mixed hyperlipidemia Arteriosclerotic heart disease (ASHD) I25.10 Chronic kidney disease N18.3 Chronic kidney disease stage: stage 3 (moderate) Sleep apnea G47.33 Sleep apnea type: obstructive
[2019-07-14 10:55] LABS: Glucose Point of Care 206 mg/dL (70-110)
--- NOTE | 2019-07-14 13:19 | PC.NURSE ---
Discharge Summary Patient was given discharge instructions and verbalized understanding. Patient IV discontinued and Vitals within patients normal. patient was alert and orient. transferred home by . all follow up appointments to be made by patient due to offices being closed.
== END 2019-07-14 13:23 | disposition home or self-care (01) ==
LOC: ER 14:48 → MEDSURG 18:58
PROVIDERS: Admitting Provider Family Medicine; Emergency Provider Family Medicine; Family Provider Family Medicine; PCP Family Medicine; Visit Provider Family Medicine
DX: I95.1 Orthostatic hypotension (principal); R51 Headache; E11.69 Type 2 diabetes mellitus with other specified complication; Z79.4 Long term (current) use of insulin; R00.1 Bradycardia, unspecified; K21.9 Gastro-esophageal reflux disease without esophagitis; I11.0 Hypertensive heart disease with heart failure; I50.32 Chronic diastolic (congestive) heart failure; I48.20 Chronic atrial fibrillation, unspecified; E78.2 Mixed hyperlipidemia; I25.10 Atherosclerotic heart disease of native coronary artery without angina pectoris; G47.33 Obstructive sleep apnea (adult) (pediatric); E11.22 Type 2 diabetes mellitus with diabetic chronic kidney disease; I12.9 Hypertensive chronic kidney disease with stage 1 through stage 4 chronic kidney disease, or unspecified chronic kidney disease; N18.3 Chronic kidney disease, stage 3 (moderate); Z95.1 Presence of aortocoronary bypass graft; I69.851 Hemiplegia and hemiparesis following other cerebrovascular disease affecting right dominant side; Z82.49 Family history of ischemic heart disease and other diseases of the circulatory system; Z82.3 Family history of stroke; Z87.891 Personal history of nicotine dependence; E66.9 Obesity, unspecified; Z68.32 Body mass index [BMI] 32.0-32.9, adult
CPT/HCPCS: 12345; 36415; 36416; 70450; 80053; 82962; 84484; 85025; 93005; 96360; 96372; 97161; 97165; 97530; 97535; 99281; 99284; G0378; J1815; J7030; J7040

== ENCOUNTER 2019-12-20 17:57 | Emergency (ER) | payer MEDICARE, MEDICAID, SELFPAY ==
[2019-12-20 17:59] VITALS: BP 139/66; PULSE 54; RESP 16; TEMP 36.7; O2SAT 95; BMI 32.3
--- NOTE | 2019-12-20 18:03 | CTR_ITS ---
PROCEDURE INFORMATION: Exam: CT Cervical Spine Without Contrast Exam date and time: 12/20/2019 6:15 PM Age: 64 years old Clinical indication: Injury or trauma; Fall; Initial encounter; Blunt trauma; Additional info: Fall hit head and has neck pain TECHNIQUE: Imaging protocol: Computed tomography images of the cervical spine without contrast. Radiation optimization: All CT scans at this facility use at least one of these dose optimization techniques: automated exposure control; mA and/or kV adjustment per patient size (includes targeted exams where dose is matched to clinical indication); or iterative reconstruction. COMPARISON: No relevant prior studies available. RADIATION DOSE METRICS: Total DLP (mGy-cm): 855.28 FINDINGS: Vertebrae: The vertebral body alignment and stature is maintained. The facets are intact with degenerative changes. Bony fusion of the C2-C3 facets. C2-C3: No significant disc protrusion. No severe spinal canal stenosis. No significant neural foraminal narrowing. C3-C4: Bilateral bony foraminal stenosis. C4-C5: Bilateral bony foraminal stenosis. C5-C6: No significant disc protrusion. No severe spinal canal stenosis. No significant neural foraminal narrowing. C6-C7: No significant disc protrusion. No severe spinal canal stenosis. No significant neural foraminal narrowing. C7-T1: No significant disc protrusion. No severe spinal canal stenosis. No significant neural foraminal narrowing. Soft tissues: Unremarkable. Lungs: Lung apices are normal. CT/CT cervical spin wo con* [id number] IMPRESSION: 1. No fracture or acute finding. Radiation Dose CTDIVOL = (mGy): DLP = 855.28 (mGy-cm)
--- NOTE | 2019-12-20 18:03 | XRR_ITS ---
PROCEDURE INFORMATION: Exam: XR Left Hip with Pelvis when Performed Exam date and time: 12/20/2019 6:37 PM Age: 64 years old Clinical indication: Injury or trauma; Initial encounter; Blunt trauma (contusions or hematomas); Injury details: Fell while remodeling house, tv fell on top of him; Patient HX: Fall w/ left hip pain; Additional info: Fall with hip pain TECHNIQUE: Imaging protocol: XR Left hip with pelvis when performed. Views: 2 or 3 views. COMPARISON: No relevant prior studies available. FINDINGS: Bones/joints: Unremarkable. No acute fracture. Soft tissues: Unremarkable. XR/XR hip LT 2-3V wo/w pel* [id number] IMPRESSION: No acute findings.
--- NOTE | 2019-12-20 18:03 | CTR_ITS ---
PROCEDURE INFORMATION: Exam: CT Head Without Contrast Exam date and time: 12/20/2019 6:15 PM Age: 64 years old Clinical indication: Injury or trauma; Fall; Injury details: +loc. HX TIA; Prior surgery; Surgery type: Aneurysm repair; Additional info: Fall and hit head TECHNIQUE: Imaging protocol: Computed tomography of the head without contrast. Radiation optimization: All CT scans at this facility use at least one of these dose optimization techniques: automated exposure control; mA and/or kV adjustment per patient size (includes targeted exams where dose is matched to clinical indication); or iterative reconstruction. COMPARISON: CT head wo con* [id number] 07/13/2019 5:27 PM RADIATION DOSE METRICS: Total DLP (mGy-cm): 918.7 FINDINGS: Brain: Mild diffuse cortical volume loss. Mild hypodensities in supratentorial periventricular white matter. No intracranial hemorrhage. Ventricles: No ventriculomegaly. Bones/joints: Right craniotomy defect. Paranasal sinuses: Visualized sinuses are unremarkable. No fluid levels. Mastoid air cells: Visualized mastoid air cells are well aerated. Vasculature: No hyperdense artery. Stable aneurysm clip in the right cavernous region. Soft tissues: Unremarkable. CT/CT head wo con* [id number] IMPRESSION: 1. No fracture or intracranial hemorrhage identified. 2. Stable mild microangiopathy. Radiation Dose CTDIVOL = (mGy): DLP = 918.7 (mGy-cm)
--- NOTE | 2019-12-20 18:12 | ED_ITS ---
HPI - Fall General: Chief Complaint: Fall Stated Complaint: FALL, HEAD, KNEE, NECK PAIN Time Seen by Provider: 12/20/19 18:01 History of Present Illness: HPI Narrative: Patient is a 64-year-old male was brought into the ED via EMS after having a fall. He is currently complaining of head, neck and left hip pain. Past medical history of stroke with some residual right-sided weakness, hypertension, diabetes, hyperlipidemia, GERD and A. fib. Patient says he was using a screwdriver in his house and he tripped over a cord. He fell to the ground hurting his left hip and then TV fell hitting patient in the head. He is not sure if he had any loss of consciousness. He rates his pain currently an 8 out of 10. He arrived via EMS and he has a neck brace on. He did not receive any pain medications from EMS while in route to ED. Associated symptoms-after fall: Reports headache(s) and neck pain; Denies abdominal pain, chest pain or hematuria Review of Systems Const: Denies: fever(s), chills or fatigue Eyes: Denies: change in vision or eye discomfort ENMT: Denies: throat pain, odynophagia, nasal discharge or nasal congestion Card: Denies: chest pain, palpitations, edema, swelling of feet/ankles, dyspnea on exertion or orthopnea Resp: Denies: dyspnea, productive cough or non-productive cough GI: Denies: abdominal pain, nausea, vomiting, diarrhea, constipation or hematochezia : Denies: flank pain, difficulty urinating, dysuria or hematuria Musc: Reports: neck pain and joint pain (left hip); Denies: back pain or extremity swelling Skin/Breast: Denies: rash or new lesions Neuro: Reports: headache(s); Denies: numbness in extremities or weakness in extremities [facility] ED PFSH: Medical History Arteriosclerotic heart disease (ASHD) -Has known CAD status post CABG -on Ranexa, Brilinta Atrial fibrillation, chronic -Has known history of chronic A. fib, is on anticoagulation with Pradaxa, resume this -We will hold beta-ashish given patient's bradycardia which is chronic from review of medical record and by patient's own admission -Telemetry monitoring Bradycardia -Has chronic bradycardia, has had event monitoring done in 2018 showing baseline sinus bradycardia, average heart rate is about 55 -We will hold beta-ashish for now -Monitor vital signs -Telemetry monitoring Chronic diastolic CHF (congestive heart failure) -Has known chronic diastolic CHF, no indication of acute exacerbation currently -Echo done in 2018 showed an ejection fraction of 50% with grade 1 diastolic dysfunction and mild hypokinesia -We will hold Lasix for now given orthostasis Chronic kidney disease CVA (cerebral vascular accident) -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 4 years ago Diabetes mellitus GERD (gastroesophageal reflux disease) -on PPI Hyperlipemia -on statin Hypertension -Hold oral antihypertensives secondary to significant orthostasis -stable vital signs Peripheral neuropathy Sleep apnea -non-compliant with CPAP Ventricular septal defect Surgical History H/O aortic aneurysm repair H/O coronary angioplasty H/O heart artery stent History of incisional hernia repair -inferior aspect of sternotomy incision Family History Father Stroke Other CAD (coronary artery disease) Cancer Social History Smoking and tobacco status: former smoker Quit status (tobacco): has quit using tobacco Year quit tobacco: 20 yrs ago Alcohol intake: current Alcohol intake frequency: holidays/special occasions only Household members: spouse and children Marital status: Physical Exam Const: COMMON NORMALS: no acute distress, patient oriented x3 and alert GENERAL APPEARANCE: cooperative and comfortable HENMT: COMMON NORMALS: normocephalic HEAD & SCALP: normocephalic MOUTH: Normal oral and palatal mucosa present THROAT: posterior oropharynx normal and uvula midline Eye: COMMON NORMALS: Equal, round and reactive pupils present and EOMs intact bilaterally PUPIL: Yes Equal, round and reactive pupils present Neck/C-Spine: COMMON NORMALS: supple GENERAL: Yes normal visual inspection CERVICAL SPINE: Yes Paracervical muscle tenderness bilateral and Yes collar present (Patient presents with c-collar was applied by EMS before arriving.) Resp: COMMON NORMALS: normal respiratory effort, No retractions, No use of accessory muscles and clear to auscultation bilaterally AUSCULTATION: clear to auscultation bilaterally Cardio: COMMON NORMALS: regular rate, regular rhythm, S1 normal heart sound present, S2 normal heart sound present, No gallops present (Cardio), No clicks present (Cardio), No murmurs present (Cardio) and Peripheral pulses 2+ throughout RATE: regular rate RHYTHM: regular rhythm HEART SOUNDS: S1 normal heart sound present and S2 normal heart sound present PERIPHERAL PULSES: Peripheral pulses 2+ throughout GI: COMMON NORMALS: Normal to inspection, nondistended, normoactive bowel sounds present, Soft to palpation, non-tender and no masses PALPATION: Yes Soft to palpation : COMMON NORMALS: Yes no CVA tenderness BLADDER/KIDNEY EXAM: Yes no CVA tenderness Back/Pelvis: COMMON NORMALS: no CVA tenderness Extremity: COMMON NORMALS: normal to inspection and no pedal edema LEFT LOWER EXTREMITY: Yes hip joint Left hip: Yes inspection (Left leg is not shortened or externally rotated.) and Yes palpation (Mild tenderness upon palpation to the lateral aspect of hip.) Neuro: COMMON NORMALS: patient oriented x3, CN's II-XII intact bilaterally, moves all extremities, no focal motor deficits and no sensory deficits noted SENSORIUM/ORIENTATION: Yes alert SENSORY EXAM: Yes extremities (intact) MOTOR EXAM: 5/5 motor strength present throughout Skin: COMMON NORMALS: no rashes or lesions noted GENERAL SKIN EXAM: no rashes or lesions noted and dry skin Course Vital Signs: Vital signs: Vital Signs Temperature 98.1 F 12/20/19 17:59 Pulse Rate 73 12/20/19 20:06 Respiratory Rate 18 12/20/19 20:06 Blood Pressure 128/60 12/20/19 20:06 Pulse Oximetry 96 12/20/19 20:06 MDM - Fall MDM Narrative: Medical decision making narrative: Patient is a 64-year-old male who comes to the ED with a fall and is complaining of hitting his head and having left hip pain. Patient's neuro exam was completely normal. Patient appeared in no acute distress or pain and arrived via EMS in a c-collar. CT of head and cervical spine was performed and showed no acute intracranial findings or fractures. Left hip x-ray showed no fractures. Patient was given a shot of Toradol and told to ice rest and take Tylenol for pain. Follow-up with PCP in 7 to 10 days. Return to ED precautions given. Patient understood and agreed with plan. Imaging Data^: CT Head: Attestation: I personally reviewed and interpreted this imaging study as follows: Radiologist's impression: [address] [place] [address] CT Scan Report Signed Patient: Darrell Pemberton Unit #: [id number] : 1955 Age/Sex: 64 / M ADM Date: 12/20/19 Loc: ER Room/Bed: Attending Dr: Ordering Provider/Ordering MD: Irving Au Date of Service: 12/20/19 Procedure(s): CT head wo con* [id number] Accession Number(s): [id number] Report Number: [id number] PROCEDURE INFORMATION: Exam: CT Head Without Contrast Exam date and time: 12/20/2019 6:15 PM Age: 64 years old Clinical indication: Injury or trauma; Fall; Injury details: +loc. HX TIA; Prior surgery; Surgery type: Aneurysm repair; Additional info: Fall and hit head TECHNIQUE: Imaging protocol: Computed tomography of the head without contrast. Radiation optimization: All CT scans at this facility use at least one of these dose optimization techniques: automated exposure control; mA and/or kV adjustment per patient size (includes targeted exams where dose is matched to clinical indication); or iterative reconstruction. COMPARISON: CT head wo con* [id number] 07/13/2019 5:27 PM RADIATION DOSE METRICS: Total DLP (mGy-cm): 918.7 FINDINGS: Brain: Mild diffuse cortical volume loss. Mild hypodensities in supratentorial periventricular white matter. No intracranial hemorrhage. Ventricles: No ventriculomegaly. Bones/joints: Right craniotomy defect. Paranasal sinuses: Visualized sinuses are unremarkable. No fluid levels. Mastoid air cells: Visualized mastoid air cells are well aerated. Vasculature: No hyperdense artery. Stable aneurysm clip in the right cavernous region. Soft tissues: Unremarkable. CT/CT head wo con* [id number] IMPRESSION: 1. No fracture or intracranial hemorrhage identified. 2. Stable mild microangiopathy. Radiation Dose CTDIVOL = (mGy): DLP = 918.7 (mGy-cm) Dictated By: Avtar Cavazos Signed By: Avtar Cavazos Signed Date/Time: 12/20/19 1609 DD/ [address]: Attestation: I personally reviewed and interpreted this imaging study as follows: Radiologist's impression: [address] [address] [address] Scan Report Signed Patient: Darrell Pemberton Unit #: [id number] : 1955 Age/Sex: 64 / M ADM Date: 12/20/19 Loc: ER Room/Bed: Attending Dr: Ordering Provider/Ordering MD: Irving Au Date of Service: 12/20/19 Procedure(s): CT cervical spin wo con* [id number] Accession Number(s): [id number] Report Number: [id number] PROCEDURE INFORMATION: Exam: CT Cervical Spine Without Contrast Exam date and time: 12/20/2019 6:15 PM Age: 64 years old Clinical indication: Injury or trauma; Fall; Initial encounter; Blunt trauma; Additional info: Fall hit head and has neck pain TECHNIQUE: Imaging protocol: Computed tomography images of the cervical spine without contrast. Radiation optimization: All CT scans at this facility use at least one of these dose optimization techniques: automated exposure control; mA and/or kV adjustment per patient size (includes targeted exams where dose is matched to clinical indication); or iterative reconstruction. COMPARISON: No relevant prior studies available. RADIATION DOSE METRICS: Total DLP (mGy-cm): 855.28 FINDINGS: Vertebrae: The vertebral body alignment and stature is maintained. The facets are intact with degenerative changes. Bony fusion of the C2-C3 facets. C2-C3: No significant disc protrusion. No severe spinal canal stenosis. No significant neural foraminal narrowing. C3-C4: Bilateral bony foraminal stenosis. C4-C5: Bilateral bony foraminal stenosis. C5-C6: No significant disc protrusion. No severe spinal canal stenosis. No significant neural foraminal narrowing. C6-C7: No significant disc protrusion. No severe spinal canal stenosis. No significant neural foraminal narrowing. C7-T1: No significant disc protrusion. No severe spinal canal stenosis. No significant neural foraminal narrowing. Soft tissues: Unremarkable. Lungs: Lung apices are normal. CT/CT cervical spin wo con* [id number] IMPRESSION: 1. No fracture or acute finding. Radiation Dose CTDIVOL = (mGy): DLP = 855.28 (mGy-cm) Dictated By: Avtar Cavazos Signed By: Avtar Cavazos Signed Date/Time: 12/20/191915 DD/ 14 Xray Ortho: Attestation: I personally reviewed and interpreted this imaging study as follows: Radiologist's impression: [address] [address] XRay Report Signed Patient: Darrell Pemberton Unit #: [id number] : 1955 Age/Sex: 64 / M ADM Date: 12/20/19 Loc: ER Room/Bed: Attending Dr: Ordering Provider/Ordering MD: Irving Au Date of Service: 12/20/19 Procedure(s): XR hip LT 2-3V wo/w pel* [id number] Accession Number(s): [id number] Report Number: [id number] PROCEDURE INFORMATION: Exam: XR Left Hip with Pelvis when Performed Exam date and time: 12/20/2019 6:37 PM Age: 64 years old Clinical indication: Injury or trauma; Initial encounter; Blunt trauma (contusions or hematomas); Injury details: Fell while remodeling house, tv fell on top of him; Patient HX: Fall w/ left hip pain; Additional info: Fall with hip pain TECHNIQUE: Imaging protocol: XR Left hip with pelvis when performed. Views: 2 or 3 views. COMPARISON: No relevant prior studies available. FINDINGS: Bones/joints: Unremarkable. No acute fracture. Soft tissues: Unremarkable. XR/XR hip LT 2-3V wo/w pel* [id number] IMPRESSION: No acute findings. Dictated By: Avtar Cavazos Signed By: Avtar Cavazos Signed Date/Time: 12/20/191899 DD/ 58 Discharge Plan Discharge Patient Disposition: Home Clinical Impression: Hip pain, left Fall as cause of accidental injury at home as place of occurrence Qualifiers: Encounter type: initial encounter Qualified Code(s): W19.XXXA - Unspecified fall, initial encounter Cervical muscle strain Qualifiers: Encounter type: initial encounter Qualified Code(s): S16.1XXA - Strain of muscle, fascia and tendon at neck level, initial encounter Condition: Stable Prescriptions: New Robaxin-750 750 mg tablet 750 mg PO Q8H Qty: 20 RF: 0 No Action nitroglycerin 400 mcg/spray spray,non-aerosol 1 spray TRANSLINGU Q5M PRN (Reason: Chest Pain) RF: 0 Pradaxa 150 mg capsule 150 mg PO BID 90 Days Qty: 180 RF: 3 isosorbide mononitrate 30 mg tablet extended release 24 hr 30 mg PO DAILY 90 Days Qty: 90 RF: 3 ranolazine 1,000 mg tablet extended release 12 hr 1,000 mg PO BID Qty: 180 RF: 3 potassium chloride 8 mEq capsule, extended release 8 meq PO DAILY RF: 0 cetirizine 10 mg tablet 10 mg PO DAILY RF: 0 hydrocodone-acetaminophen 10-325 mg tablet 1 tab PO Q8H PRN (Reason: Pain) RF: 0 famotidine 20 mg tablet 20 mg PO BID RF: 0 insulin aspart U-100 [Novolog U-100 Insulin aspart] 100 unit/mL solution See Rx Instructions .ROUTE .COMPLEX RF: 0 pantoprazole 40 mg tablet,delayed release (DR/EC) 40 mg PO DAILY RF: 0 gabapentin 300 mg capsule 300 mg PO BID RF: 0 furosemide 20 mg tablet 20 mg PO DAILY RF: 0 mirtazapine 15 mg tablet 7.5 mg PO BEDTIME RF: 0 rosuvastatin 20 mg tablet 20 mg PO QPM RF: 0 Levemir FlexTouch U-100 Insuln 100 unit/mL (3 mL) insulin pen 45 unit SUBCUT BID RF: 0 Brilinta 90 mg tablet 90 mg PO BID RF: 0 Jardiance 10 mg tablet 10 mg PO DAILY RF: 0 latanoprost 0.005 % drops 1 drp ophthalmic (eye) BEDTIME RF: 0 cyanocobalamin (vitamin B-12) [Vitamin B-12] 500 mcg Tablet 500 mcg PO DAILY RF: 0 magnesium 250 mg Tablet 250 mg PO BID RF: 0 fluticasone propionate [Flonase Allergy Relief] 50 mcg/actuation [place],Suspension 2 spray INTRANASAL DAILY RF: 0 lycopene 10 mg Capsule 20 mg PO QAM RF: 0 L-Arginine Tab 500 mg PO QAM RF: 0 metformin 1,000 mg tablet 1,000 mg PO BID RF: 0 lisinopril 10 mg tablet 10 mg PO BID RF: 0 metoprolol tartrate 50 mg tablet 50 mg PO BID RF: 0 ProAir HFA 90 mcg/actuation Hfa Aerosol Inhaler 1 puff INHALATION Q4H PRN (Reason: Shortness Of Breath) RF: 0 Discharge Orders: Discharge Order (Routine); Ordered 12/20/19 Ordered By: Irving Au Referrals: Devendra Smith MD [Primary Care Provider] - Discharge Diet: Regular Discharge Activity: Increase activity as tolerated Patient Instructions: Cervical Strain Activity Restrictions/Additional Instructions: Follow-up with medical provider as directed in 7-10 days. Take medications as prescribed. Take Robaxin as a muscle relaxer at night because it can cause drowsiness. If you take during the day use with caution. Take Tylenol to help with pain. Apply cold pack on neck and hip and rest. Return to the ER or your medical provider if condition worsens. Please read and understand discharge instructions. If any questions, please ask. Discharge Date/Time: 12/20/19 20:07 Coding Level of Care Code ED Television Engineer for Chg Fwd Exam Comprehensive
[2019-12-20 18:30] VITALS: RESP 17; O2SAT 96
[2019-12-20] MEDS: morphine 4 mg/mL SDV 1 mL IM (18:30)
[2019-12-20] MEDS: ketorolac 30 mg/mL INJ IM (20:05)
[2019-12-20 20:06] VITALS: BP 128/60; PULSE 73; RESP 18; O2SAT 96
[2019-12-20] MEDS: orphenadrine 30 mg/mL Inj 2 mL 60 MG IM (20:06)
== END 2019-12-20 20:07 | disposition home or self-care (01) ==
PROVIDERS: Emergency Provider Physician Assistant; Family Provider Family Medicine; PCP Family Medicine
DX: S16.1XXA Strain of muscle, fascia and tendon at neck level, initial encounter (principal); M25.552 Pain in left hip; Z79.4 Long term (current) use of insulin; I48.20 Chronic atrial fibrillation, unspecified; I11.0 Hypertensive heart disease with heart failure; I50.32 Chronic diastolic (congestive) heart failure; Z86.73 Personal history of transient ischemic attack (TIA), and cerebral infarction without residual deficits; E78.5 Hyperlipidemia, unspecified; E11.42 Type 2 diabetes mellitus with diabetic polyneuropathy; Z98.61 Coronary angioplasty status; Z87.891 Personal history of nicotine dependence; W18.09XA Striking against other object with subsequent fall, initial encounter; Z95.1 Presence of aortocoronary bypass graft; I25.10 Atherosclerotic heart disease of native coronary artery without angina pectoris
CPT/HCPCS: 12345; 70450; 72125; 73502; 96372; 99281; 99283; J1885; J2270; J2360

== ENCOUNTER 2020-05-06 08:20 | Outpatient (CLI) | payer MEDICARE, MEDICAID, SELFPAY ==
--- NOTE | 2020-05-06 08:33 | XR_ITS ---
WS: [id number] RIGHT HIP HISTORY: RIGHT HIP PAIN COMPARISON: None. Right hip: No acute fracture or dislocation. There is very minimal increased sclerosis along the supe rior acetabulum. Mild irregularity along the cortical surface of the superior hip. XR/XR hip RT 2-3V wo/w pel* [id number] IMPRESSION: 1. No hip fracture. 2. Mild early degenerative osteoarthritis at the RIGHT hip joint.
== END 2020-05-06 08:21 | disposition home or self-care (01) ==
LOC: RADWPI 08:27
PROVIDERS: PCP Family Medicine; Visit Provider Family Medicine
DX: M16.11 Unilateral primary osteoarthritis, right hip (principal)
CPT/HCPCS: 73502

== ENCOUNTER 2020-10-14 12:03 | Outpatient (CLI) | payer MEDICARE, MEDICAID, SELFPAY ==
--- NOTE | 2020-10-14 12:16 | XRR_ITS ---
PROCEDURE INFORMATION: Exam: XR Left Foot Exam date and time: 10/14/2020 12:16 PM Age: 65 years old Clinical indication: Patient HX: Increasing pain mainly in heel and ball of left foot; Additional info: Left foot pain TECHNIQUE: Imaging protocol: XR Left foot. Views: 3 or more views. COMPARISON: CR Foot 3 views, LEFT* [id number] 07/06/2016 7:35 PM FINDINGS: Bones/joints: Chronic degenerative changes are present in the 1st metatarsophalangeal joint with narrowing and sclerosis. There is a tiny plantar calcaneal spur. No fracture or other acute abnormalities are seen. Soft tissues: Normal. XR/XR foot LT min 3V* [id number] IMPRESSION: 1. Moderate DJD in the 1st metatarsophalangeal joint. 2. Tiny plantar calcaneal spur.
== END 2020-10-14 12:04 | disposition home or self-care (01) ==
LOC: RAD 12:09
PROVIDERS: PCP Family Medicine; Visit Provider Family Medicine
DX: M79.672 Pain in left foot (principal); M19.072 Primary osteoarthritis, left ankle and foot; M77.32 Calcaneal spur, left foot
CPT/HCPCS: 73630

== ENCOUNTER 2020-11-07 10:35 | Outpatient (CLI) | payer MEDICARE, MEDICAID, SELFPAY ==
--- NOTE | 2020-11-07 10:44 | XR_ITS ---
WS: [id number] Right foot, 3 views, 11/07/2020 Clinical Data: RIGHT FOOT PAIN Comparison: None. Findings: No fractures or dislocations are seen. No bone destruction or erosion is noted. The joint spaces and soft tissues are normal. XR/XR foot RT min 3V* [id number] Impression: Negative right foot.
--- NOTE | 2020-11-07 10:44 | USCV_ITS ---
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 No significant arterial obstruction on the right side Dr Vianey Owen MD FACC (Electronically Signed) Final Date: 08 November 2020 15:50 S
== END 2020-11-07 10:36 | disposition home or self-care (01) ==
LOC: RAD 10:40
PROVIDERS: PCP Family Medicine; Visit Provider Family Medicine
DX: I73.9 Peripheral vascular disease, unspecified (principal); M79.672 Pain in left foot; R07.9 Chest pain, unspecified
CPT/HCPCS: 73630; 93923

== ENCOUNTER 2020-11-07 11:39 | Emergency (ER) | payer MEDICARE, MEDICAID, SELFPAY ==
[2020-11-07 11:57] VITALS: BP 119/79; PULSE 104; RESP 18; TEMP 36.7; O2SAT 99; BMI 32.3
--- NOTE | 2020-11-07 12:12 | XR_ITS ---
WS: [id number] Portable AP upright chest, 11/07/2020 Clinical Data: CP Comparison: Portable chest, 04/06/2019. Findings: No nodules, masses or effusions are seen. The heart is normal. The pulmonary vascularity is not increased. No pneumonia or pneumothorax is seen. There are monitor leads on the chest wall. The aortic arch and descending aorta are minimally tortuous. XR/XR chest 1V portable [id number] Impression: Atherosclerosis.
--- NOTE | 2020-11-07 12:13 | ECG_ITS ---
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 Measurements Intervals [place] Rate: 110 P: [place]: QRS: 66 QRSD: 117 T: 90 QT: 337 QTc: 458 Interpretive Statements ATRIAL FIBRILLATION WITH RAPID VENTRICULAR RESPONSE MODERATE INTRAVENTRICULAR CONDUCTION DELAY [110+ ms QRS DURATION] ABNORMAL RHYTHM ECG Compared to ECG 07/13/2019 20:41:59 Sinus bradycardia no longer present T-wave abnormality no longer present Electronically Signed On 11-12-2020 16:14:34 CDT by Melanie Alonzo M.D. [email or web address]
--- NOTE | 2020-11-07 12:19 | ED_ITS ---
HPI - Chest Pain General: Chief Complaint: Chest Pain Stated Complaint: POSS HIGH HR Time Seen by Provider: 11/07/20 12:12 Source: patient, family, RN notes reviewed and old records reviewed Mode of arrival: ambulatory Limitations: no limitations History of Present Illness: HPI narrative: This is a 65-year-old male with a history of coronary artery disease status post CABG, atrial fibrillation on anticoagulation with Pradaxa, diabetes mellitus. When he woke up today he did not feel well and when he checked his heart rate it was in the 60s. Later when he went to get blood work he was feeling palpitations that started prior to him coming to the hospital. When he checked his heart rate he was around 117 bpm. He also has some tingling in his fingers. He subsequently developed chest pain that is retrosternal and may be slightly to the left. Pain is nonradiating. The pain is currently about a 7/10 He has not taken nitroglycerin so far today. MD complaint: chest pain Pertinent past history: coronary artery disease, prior GA and CABG Onset (ago): hour(s) (1) Timing of current episode: constant Onset: during rest Pain location: substernal Pain radiation: none Quality: dull Relieving factors: nothing Exacerbating factors: nothing Associated symptoms: Reports leg edema and nausea; Deny abdominal pain, diaphoresis, dyspnea, fever(s), palpitations, sense of impending doom, syncope or vomiting Treatment prior to arrival: none Review of Systems General: Reports: 10 or more systems reviewed and unremarkable except in HPI and below Const: Denies: fever(s) or diaphoresis Card: Denies: palpitations or syncope Resp: Denies: dyspnea GI: Reports: nausea; Denies: abdominal pain or vomiting [facility] PFSH: Medical History Arteriosclerotic heart disease (ASHD) -Has known CAD status post CABG -on Ranexa, Brilinta Atrial fibrillation, chronic -Has known history of chronic A. fib, is on anticoagulation with Pradaxa, resume this -We will hold beta-ashish given patient's bradycardia which is chronic from review of medical record and by patient's own admission -Telemetry monitoring Bradycardia -Has chronic bradycardia, has had event monitoring done in 2018 showing baseline sinus bradycardia, average heart rate is about 55 -We will hold beta-ashish for now -Monitor vital signs -Telemetry monitoring Chronic diastolic CHF (congestive heart failure) -Has known chronic diastolic CHF, no indication of acute exacerbation currently -Echo done in 2018 showed an ejection fraction of 50% with grade 1 diastolic dysfunction and mild hypokinesia -We will hold Lasix for now given orthostasis Chronic kidney disease CVA (cerebral vascular accident) -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 4 years ago Diabetes mellitus GERD (gastroesophageal reflux disease) -on PPI Hyperlipemia -on statin Hypertension Peripheral neuropathy Sleep apnea -non-compliant with CPAP Ventricular septal defect Surgical History H/O aortic aneurysm repair H/O coronary angioplasty H/O heart artery stent History of incisional hernia repair -inferior aspect of sternotomy incision Family History Father Stroke CAD (coronary artery disease) Brother Cancer Diabetes Sister Cancer Dementia Diabetes Denies family history of Clotting disorder Chronic kidney disease (CKD) Suicide Anesthesia complication Bleeding disorder Lung disease Social History Smoking and tobacco status: former smoker Quit status (tobacco): has quit using tobacco Year quit tobacco: 20 yrs ago Alcohol intake: current Alcohol intake frequency: holidays/special occasions only Household members: spouse and children Marital status: Physical Exam Const: COMMON NORMALS: no acute distress, average body habitus, patient oriented x3, no limitations, healthy appearing, alert and well nourished HENMT: COMMON NORMALS: normocephalic, atraumatic and moist oral mucous membranes HEAD & SCALP: normocephalic and atraumatic Neck/C-Spine: COMMON NORMALS: no meningeal signs and no JVD Chest: COMMONS NORMALS: normal inspection of the chest and normal palpation of entire chest wall Resp: COMMON NORMALS: normal respiratory effort, No retractions, No use of accessory muscles, clear to auscultation bilaterally and percussion normal AUSCULTATION: clear to auscultation bilaterally PERCUSSION: percussion normal Cardio: COMMON NORMALS: no JVD, regular rate, regular rhythm, S1 normal heart sound present, S2 normal heart sound present, No gallops present (Cardio), No clicks present (Cardio), No murmurs present (Cardio), No rub (Cardio) and Peripheral pulses 2+ throughout RATE: regular rate RHYTHM: regular rhythm HEART SOUNDS: S1 normal heart sound present and S2 normal heart sound present PERIPHERAL PULSES: Peripheral pulses 2+ throughout GI: COMMON NORMALS: Normal to inspection, nondistended, normoactive bowel sounds present, Soft to palpation, non-tender, No hepatosplenomegaly present, no masses and no bruits PALPATION: Yes Soft to palpation and Yes No hepatosplenomegaly present Extremity: COMMON NORMALS: normal to inspection, full ROM, capillary refill normal and no calf tenderness GENERAL: Yes edema Neuro: COMMON NORMALS: patient oriented x3 SENSORIUM/ORIENTATION: Yes alert MENINGEAL SIGNS: Yes no meningeal signs Skin: COMMON NORMALS: no rashes or lesions noted, no wounds, turgor normal, no jaundice, no petechiae and no mottling GENERAL SKIN EXAM: no rashes or lesions noted and turgor normal Course Reevaluation(s): Reevaluation #1: Discussed his lab and imaging findings with him. Unremarkable. Negative high-sensitivity troponin x2. We will discharge him home with no new orders. He voiced understanding and is in agreement with the plan. Time: 15:58 Vital Signs: Vital signs: Vital Signs Temperature 98.0 F 11/07/20 11:57 Pulse Rate 58 L 11/07/20 16:13 Respiratory Rate 19 H 11/07/20 16:13 Blood Pressure 109/55 11/07/20 16:13 Pulse Oximetry 97 11/07/20 16:13 MDM - Chest Pain MDM Narrative: Medical decision making narrative: 65-year-old male who presents to the emergency department with palpitations chest pain. Work-up in the emergency department was unremarkable with negative high-sensitivity troponin x2. TSH is normal. Chest x-ray unremarkable. D-dimer normal. He is discharged home with no new orders. Medical Records: Attestation: I reviewed the patient's medical records. Lab Data: Attestation: I reviewed the patient's lab results. Labs: Lab Results 11/07/20 11/07/20 11/07/20 Range/Units 13:05 13:05 13:05 WBC 7.0 (4.0-10.0) 10^3/ uL RBC 4.57 (4.1-5.3) 10^6/u L Hgb 14.5 (11.7-16.6) g/dL Hct 45.3 (42.0-52.0) % MCV 99.1 H (80-94) fL MCH 31.7 (28.0-34.0) pg MCHC 32.0 (30.0-36.0) g/dL RDW 17.1 H (12.1-15.1) % Plt Count 211 (130-400) 10^3/c mm MPV 9.0 (7.4-10.4) fL Neut % (Auto) 64.6 % Lymph % (Auto) 21.9 % Barton % (Auto) 9.9 % Eos % (Auto) 2.9 % Baso % (Auto) 0.6 % Neut # (Auto) 4.51 (1.8-7.7) 10^3/u L Lymph # (Auto) 1.5 (0.8-4.8) 10^3/u L Barton # (Auto) 0.7 (0.2-0.9) 10^3/u L Eos # (Auto) 0.2 (0.0-0.8) 10^3/u L Baso # (Auto) 0.0 (0.0-0.1) 10^3/u L Nucleated RBC % (a uto) 0 % Nucleated RBCs # 0.0 /100WBC D-Dimer Cancelled Sodium 135 L (136-145) mmol/L Potassium 4.6 (3.5-5.1) mmol/L Chloride 104 (98-107) mmol/L Carbon Dioxide 20 L (22-29) mmol/L Anion Gap 15.6 (5-19) BUN 18 (8-23) mg/dL Creatinine 0.8 (0.7-1.2) mg/dL GFR Calculation 97.3 (90-130) mL/min Glucose 109 (65-115) mg/dL Calculated Osmolal ity 282 L (285-295) mOsm/k g Calcium 9.0 (8.5-10.5) mg/dL Total Bilirubin 0.7 (0.15-1.2) mg/dL AST 26 (0-40) U/L ALT 25 (0-41) U/L Alkaline Phosphata se 59 (40-130) IU/L Troponin T Baselin e (0-15) ng/L Troponin T 120 Min modoc (0-15) ng/L Delta Troponin T (0-10) ABS# NT-Pro-B Natriuret Pep 331 H (0-125) pg/mL Total Protein 7.7 (6.6-8.7) g/dL Albumin 4.4 (3.5-5.2) g/dL Globulin 3.3 (1.3-4.6) g/dL Lipase 28 (13-60) U/L TSH 2.79 (0.27-4.20) uIU/ mL 11/07/20 11/07/20 11/07/20 Range/Units 13:05 14:33 15:00 WBC (4.0-10.0) 10^3/ uL RBC (4.1-5.3) 10^6/u L Hgb (11.7-16.6) g/dL Hct (42.0-52.0) % MCV (80-94) fL MCH (28.0-34.0) pg MCHC (30.0-36.0) g/dL RDW (12.1-15.1) % Plt Count (130-400) 10^3/c mm MPV (7.4-10.4) fL Neut % (Auto) % Lymph % (Auto) % Barton % (Auto) % Eos % (Auto) % Baso % (Auto) % Neut # (Auto) (1.8-7.7) 10^3/u L Lymph # (Auto) (0.8-4.8) 10^3/u L Barton # (Auto) (0.2-0.9) 10^3/u L Eos # (Auto) (0.0-0.8) 10^3/u L Baso # (Auto) (0.0-0.1) 10^3/u L Nucleated RBC % (a uto) % Nucleated RBCs # /100WBC D-Dimer <= 0.27 Sodium (136-145) mmol/L Potassium (3.5-5.1) mmol/L Chloride (98-107) mmol/L Carbon Dioxide (22-29) mmol/L Anion Gap (5-19) BUN (8-23) mg/dL Creatinine (0.7-1.2) mg/dL GFR Calculation (90-130) mL/min Glucose (65-115) mg/dL Calculated Osmolal ity (285-295) mOsm/k g Calcium (8.5-10.5) mg/dL Total Bilirubin (0.15-1.2) mg/dL AST (0-40) U/L ALT (0-41) U/L Alkaline Phosphata se (40-130) IU/L Troponin T Baselin e 11 (0-15) ng/L Troponin T 120 Min modoc 9.60 (0-15) ng/L Delta Troponin T -1.40 L (0-10) ABS# NT-Pro-B Natriuret Pep (0-125) pg/mL Total Protein (6.6-8.7) g/dL Albumin (3.5-5.2) g/dL Globulin (1.3-4.6) g/dL Lipase (13-60) U/L TSH (0.27-4.20) uIU/ mL Imaging Data^: CXR: Attestation: I personally reviewed and interpreted this imaging study as follows: Radiologist's impression: [address] [id number] ReportSigned Patient: Darrell Pemberton #: [id number]: 7Acct#:[id number]/Sex: 65 / MADM Date: 11/07/20Loc: ERRoom/Bed:Attending Dr: Ordering Provider/Ordering MD: Marco Mcc[place]nell [place] [facility] [place]: 11/07/20 Procedure(s): XR chest 1V portable [id number] Accession Number(s): [id number] Report Number: [id number] WS: [id number] Portable AP upright chest, 11/07/2020 Clinical Data: CP Comparison: Portable chest, 04/06/2019. Findings: No nodules, masses or effusions are seen. The heart is normal. The pulmonary vascularity is not increased. No pneumonia or pneumothorax is seen. There are monitor leads on the chest wall. The aortic arch and descending aorta are minimally tortuous. XR/XR chest 1V portable [id number] Impression: Atherosclerosis. Dictated By:Didi Ray MDSigned By:Didi Ray MDSigned Date/Time:11/07/20 1248DD/ 1246 EKG Data^: EKG 1: Attestation: I personally reviewed and interpreted this EKG as follows: EKG interpretation date: 11/07/20 EKG interpretation time: 12:33 Prior EKG tracings: not available for review Interpretation: Atrial fibrillation with RVR. Heart rate 110 bpm. Moderate intraventricular conduction delay. No ST changes. EKG 2: Attestation: I personally reviewed and interpreted this EKG as follows: EKG interpretation date: 11/07/20 EKG interpretation time: 14:16 Prior EKG tracings: available for review Interpretation: Sinus rhythm. Heart rate 62 bpm. Moderate intraventricular conduction delay. No ST changes. Discharge Plan Discharge Patient Disposition: Home Clinical Impression: Palpitations Atrial fibrillation Qualifiers: Atrial fibrillation type: unspecified chronic Qualified Code(s): I48.20 - Chronic atrial fibrillation, unspecified Condition: Stable Prescriptions: Continued Pradaxa 150 mg capsule 150 mg PO BID Qty: 180 RF: 3 Jardiance 10 mg tablet 10 mg PO DAILY Qty: 90 RF: 3 nitroglycerin 400 mcg/spray spray,non-aerosol 1 spray TRANSLINGU Q5M PRN (Reason: Chest Pain) Qty: 12 RF: 3 isosorbide mononitrate 30 mg tablet extended release 24 hr 30 mg PO DAILY Qty: 90 RF: 3 metoprolol tartrate 75 mg tablet 75 mg PO BID 90 Days Qty: 180 RF: 3 potassium chloride 8 mEq capsule, extended release 8 meq PO DAILY RF: 0 cetirizine 10 mg tablet 10 mg PO DAILY RF: 0 hydrocodone-acetaminophen 10-325 mg tablet 1 tab PO Q8H PRN (Reason: Pain) RF: 0 famotidine 20 mg tablet 20 mg PO BID RF: 0 insulin aspart U-100 [Novolog U-100 Insulin aspart] 100 unit/mL solution See Rx Instructions .ROUTE .COMPLEX RF: 0 gabapentin 300 mg capsule 300 mg PO BID RF: 0 mirtazapine 15 mg tablet 7.5 mg PO BEDTIME RF: 0 Levemir FlexTouch U-100 Insuln 100 unit/mL (3 mL) insulin pen 45 unit SUBCUT BID RF: 0 Brilinta 90 mg tablet 90 mg PO BID RF: 0 cyanocobalamin (vitamin B-12) [Vitamin B-12] 500 mcg Tablet 500 mcg PO DAILY RF: 0 magnesium 250 mg Tablet 250 mg PO BID RF: 0 fluticasone propionate [Flonase Allergy Relief] 50 mcg/actuation [place],Suspension 2 spray INTRANASAL DAILY RF: 0 lycopene 10 mg Capsule 20 mg PO DAILY RF: 0 L-Arginine Tab 500 mg PO DAILY RF: 0 lisinopril 10 mg tablet 10 mg PO BID RF: 0 albuterol sulfate [ProAir HFA] 90 mcg/actuation Hfa Aerosol Inhaler 1 puff INHALATION Q4H PRN (Reason: Shortness Of Breath) RF: 0 rosuvastatin 20 mg tablet 20 mg PO DAILY RF: 0 ranolazine 1,000 mg tablet extended release 12 hr 1,000 mg PO BID RF: 0 Discharge Orders: Discharge ED (Routine); Ordered 11/07/20 Ordered By: Marco Mcconnell Referrals: Devendra Smith MD [Primary Care Provider] - 1-3 days Discharge Diet: Usual diet Discharge Activity: Increase activity as tolerated Patient Instructions: Atrial Fibrillation (ED), Palpitations (ED) Activity Restrictions/Additional Instructions: Return for any new or worsening symptoms. Follow-up with your primary care provider within 3 days. Continue home medications. Coding Level of Care Code ED Cook Helper Pastry for Joshg Fwd Exam Comprehensive
[2020-11-07 13:16] LABS: Basophils % 0.6 %; Eosinophils # 0.2 10^3/uL (0.0-0.8); Eosinophils % 2.9 %; Hematocrit 45.3 % (42.0-52.0); Hemoglobin 14.5 g/dL (11.7-16.6); Lymphocytes # 1.5 10^3/uL (0.8-4.8); Lymphocytes % 21.9 %; Mean Corpuscular Hemoglobin 31.7 pg (28.0-34.0); Mean Corpuscular Volume 99.1 fL (80-94); Monocytes # 0.7 10^3/uL (0.2-0.9); Monocytes % 9.9 %; Neutrophils # 4.51 10^3/uL (1.8-7.7); Neutrophils % 64.6 %; Nucleated Red Blood Cells % 0 %; Platelet Count 211 10^3/cmm (130-400); Red Blood Count 4.57 10^6/uL (4.1-5.3); Red Cell Distribution Width 17.1 % (12.1-15.1)
[2020-11-07 13:45] LABS: Troponin(5th) Baseline 11 ng/L (0-15)
[2020-11-07 13:52] LABS: Alanine Aminotransferase 25 U/L (0-41); Albumin Level 4.4 g/dL (3.5-5.2); Alkaline Phosphatase 59 IU/L (40-130); Anion Gap 15.6 (5-19); Aspartate Amino Transferase 26 U/L (0-40); Blood Urea Nitrogen 18 mg/dL (8-23); Carbon Dioxide 20 mmol/L (22-29); Chloride 104 mmol/L (98-107); Creatinine Clr Calc Pharmacy 98.3873; Globulin 3.3 g/dL (1.3-4.6); Glomerular Filtration Rate 97.3 mL/min (90-130); Glucose 109 mg/dL (65-115); Lipase 28 U/L (13-60); NT Pro B Type Natriuretic Pept 331 pg/mL (0-125); Osmolality Calculated 282 mOsm/kg (285-295); Potassium 4.6 mmol/L (3.5-5.1); Sodium 135 mmol/L (136-145); Thyroid Stimulating Hormone 2.79 uIU/mL (0.27-4.20); Total Bilirubin 0.7 mg/dL (0.15-1.2); Total Protein 7.7 g/dL (6.6-8.7)
[2020-11-07 13:57] VITALS: BP 129/81; PULSE 61
[2020-11-07] MEDS: nitroglycerin 0.4 mg sublingual Tablet SUBLINGUAL (13:57)
[2020-11-07 14:02] VITALS: BP 99/72; PULSE 67; RESP 15; O2SAT 95
--- NOTE | 2020-11-07 14:08 | PC.NURSE ---
notified Dr. Mcconnell of pt's bp drop from 129 systolic to 99/72; new orders rcvd.
[2020-11-07 14:09] VITALS: RESP 20; O2SAT 97
[2020-11-07] MEDS: fentaNYL 50 mcg/mL INJ 2mL 25 MCG IVP (14:09)
[2020-11-07 14:13] VITALS: BP 115/72; PULSE 58; RESP 18; O2SAT 96
[2020-11-07 15:49] LABS: D Dimer <= 0.27 ug/mIFEU (0-0.59)
[2020-11-07 16:13] VITALS: BP 109/55; PULSE 58; RESP 19; O2SAT 97
== END 2020-11-07 16:14 | disposition home or self-care (01) ==
PROVIDERS: Emergency Provider Family Medicine; PCP Family Medicine
DX: R00.2 Palpitations (principal); I48.20 Chronic atrial fibrillation, unspecified; I25.10 Atherosclerotic heart disease of native coronary artery without angina pectoris; I13.0 Hypertensive heart and chronic kidney disease with heart failure and stage 1 through stage 4 chronic kidney disease, or unspecified chronic kidney disease; I50.32 Chronic diastolic (congestive) heart failure; N18.9 Chronic kidney disease, unspecified; E11.22 Type 2 diabetes mellitus with diabetic chronic kidney disease; E11.42 Type 2 diabetes mellitus with diabetic polyneuropathy; E78.5 Hyperlipidemia, unspecified; Z79.01 Long term (current) use of anticoagulants; Z79.84 Long term (current) use of oral hypoglycemic drugs; Z87.891 Personal history of nicotine dependence; Z95.5 Presence of coronary angioplasty implant and graft; Z95.1 Presence of aortocoronary bypass graft; Z82.49 Family history of ischemic heart disease and other diseases of the circulatory system
CPT/HCPCS: 36415; 71045; 80053; 83690; 83880; 84443; 84484; 85025; 85378; 93005; 96374; 99284; J3010

== ENCOUNTER 2021-01-27 15:07 | Outpatient (CLI) | payer MEDICARE, MEDICAID, SELFPAY | END 2021-01-27 15:08 | disposition home or self-care (01) | LOC: SPT 15:08 | PROVIDERS: PCP Family Medicine; Visit Provider Podiatrist Foot & Ankle Surgery | DX: Z46.89 Encounter for fitting and adjustment of other specified devices (principal); E11.65 Type 2 diabetes mellitus with hyperglycemia; M72.2 Plantar fascial fibromatosis; M76.70 Peroneal tendinitis, unspecified leg | CPT/HCPCS: 97760; L4397 ==

== ENCOUNTER 2021-01-28 11:50 | Outpatient (CLI) | payer MEDICARE, MEDICAID, SELFPAY | END 2021-01-28 11:51 | disposition home or self-care (01) | LOC: SLEEP 11:52 | PROVIDERS: PCP Family Medicine; Visit Provider Family Medicine | DX: G47.33 Obstructive sleep apnea (adult) (pediatric) (principal) | CPT/HCPCS: 73630; G0399 ==

== ENCOUNTER → 2021-01-29 09:50 | Outpatient (BNVA) | payer MEDICARE, MEDICAID, SELFPAY | PROVIDERS: PCP Family Medicine; Referring Provider Internal Medicine Cardiovascular Disease; Visit Provider Internal Medicine Cardiovascular Disease | DX: Z01.818 Encounter for other preprocedural examination (principal); Z20.822 Contact with and (suspected) exposure to COVID-19; R00.1 Bradycardia, unspecified; Z01.812 Encounter for preprocedural laboratory examination; I48.20 Chronic atrial fibrillation, unspecified; R55 Syncope and collapse; G45.9 Transient cerebral ischemic attack, unspecified; I25.118 Atherosclerotic heart disease of native coronary artery with other forms of angina pectoris | CPT/HCPCS: 80048; 85025; 85610; 86850; 86900; 87635 ==

== ENCOUNTER 2021-02-04 06:17 | Outpatient (CLI) | payer MEDICARE, MEDICAID, SELFPAY ==
[2021-02-04 06:41] VITALS: BP 142/76; PULSE 50; RESP 18; TEMP 36.1; O2SAT 97; BMI 33.0
--- NOTE | 2021-02-04 07:59 | P.HPUD_ITS ---
Surgery/Procedure H&P Update DATE OF PROCEDURE: February 04, 2021 DATE H&P PERFORMED: 12/23/20 H&P UPDATE INFORMATION: I have reviewed H&P completed within last 30 days, I have examined patient prior to procedure and No changes to prior documentation PREOP DIAGNOSIS: Symptomatic bradycardia/intermittent atrial fibrillation PRIMARY INDICATION FOR PROCEDURE: Symptomatic bradycardia/recurrent near syncope PLANNED PROCEDURE: Operation Date: 02/04/21 07:00 Proposed Procedures p Pacemaker Insertion(Left) - Vianey Owen MD PATIENT REASSESSED PRIOR TO SEDATION, WITH NO CHANGE NOTED: Yes PHYSICAL EXAM: alert, clear to auscultation bilaterally and regular rate & rhy thm AIRWAY EVAL/ANESTHESIA PLAN: normal airway, see other exam findings, ASA III, Monitored Anesthesia, Local Anesthesia, Risks, benefits & alternatives of sedation and/or procedure discussed and Patient agrees to continue as planned
--- NOTE | 2021-02-04 09:56 | P.OP_ITS ---
Operative Report Date of procedure: February 04, 2021 Pre-op Diagnosis: Symptomatic bradycardia/intermittent atrial fibrillation Procedure: LOCATION: Outpatient PREOPERATIVE DIAGNOSES: Symptomatic bradycardia/atrial fibrillation. POSTOPERATIVE DIAGNOSES: Same. COMPLICATIONS: None. ESTIMATED BLOOD LOSS: Around 5 milliliters. BRIEF HISTORY: 65-year-old white male with history of atherosclerotic heart disease, type 2 diabetes, dyslipidemia, intermittent atrial fibrillation and multiple other medical problems, presents with episodes of dizziness/weakness/near syncope. He was found to have symptomatic bradycardia on the event monitor. The heart rate was going down to the upper 30s and low 40s. He also had a frequent PVCs. For further management of his condition, a permanent pacemaker implantation was recommended. A normal-chamber permanent pacemaker implantation was recommended for AV synchrony and symptom relief. The procedure was explained to the patient in detail with the risks and benefits. The risks of bleeding, hematoma, vascular injury, infection, pneumothorax, myocardial perforation and other concomitant complications were explained in detail, which the patient understood well and consented to proceed. PROCEDURE DESCRIPTION: The patient was brought to the Cardiac Catheterization Lab. The left and the right side of the neck and the subclavian area were cleaned and draped in a sterile fashion. 1% Xylocaine was used as the local anesthetic agent. Left subclavian venogram was performed by injecting 20 milliliters of Omnipaque through the left antecubital vein. A left subclavian venous access was obtained using an 18-gauge access needle, under venographic guidance. . A two-inch long incision was made 2.0 centimeters below the midclavicular region. By sharp and blunt dissection, a pacemaker pocket was made. A second venous access was obtained using 18-gauge access needle. Over the first guidewire, a 7-Spanish venous sheath with dilator was advanced. The venous dilator and the guidewire were taken out. A screw-in ventricular lead was advanced through the venous sheath and was positioned towards the right ventricle. Under fluoroscopic guidance, the ventricular lead was positioned toward the right ventricular apex. Good pacing and sensing thresholds were obtained. The lead was secured to the endocardium by advancing the helix. The stability of the lead was tested by gentle twisting movements and also by asking the patient to take some deep breaths and cough. The venous sheath was peeled off, at this time. The lead was secured to the pectoralis fascia, by suturing with 1-0 Surgilon. Over the second guidewire, another 7-Spanish venous sheath with dilator was advanced. The dilator and the guidewire were taken out. Under fluoroscopic guidance, an atrial lead (Medtronic), was advanced and positioned toward the right atrium. The lead was positioned in the right atrial appendage. Good pacing and sensing thresholds were obtained. The lead was secured to the endocardium by advancing the helix. Stability of the lead was tested by gentle twisting movements and also by asking the patient to take some deep breaths and cough. The venous sheath was peeled off, at this time. The lead was secured to the pectoralis fascia by suturing with 0-Surgilon. The pacemaker pocket was copiously irrigated with vancomycin solution. Complete hemostasis was achieved. Sponge counts were confirmed. The leads were attached to a Medtronic generator. The leads were positioned behind the generator and the generator was attached to the pectoralis fascia by suturing with 0-Surgilon. The pocket was closed in layers. Skin was approximated using 4-0 Vicryl. IMPLANTED DEVICES: ATRIAL LEAD: Model number: 5076/52 Serial number: [id number] Make: Medtronic VENTRICULAR LEAD: Model number: 5076/58 Serial number: [id number] Make: Medtronic GENERATOR Brand: [place] XT DR VISHAL CheryEmilianophyllis Model number: [id number] 01 Serial number: [id number] Make: Medtronic IMPLANTATION DATA: With the pacing system analyzer, the R wave sensing was 8.1 millivolts with a lead impedance of 684 and a pacing threshold was 0.5 volts at 0.4 milliseconds. In the atrium, the sensing was 2.87 millivolts with a lead impedance of 494 ohms and a pacing threshold was 1.1 volts at 0.4 milliseconds. Through the device, the R-wave sensing was 9.5 millivolts with a lead impedance of 665 and a pacing threshold was 0.5 volts at 0.4 milliseconds. The atrial sensing was 3.0 millivolts with a lead impedance of 494 ohms and a pacing threshold of 1.0 volts at 2.4 milliseconds. The pacemaker was set for AAIR/DDDR mode with upper rate of 130 and a lower rate of 60. A pressure dressing was applied over the pacemaker site. The patient was transferred to the Medical Floor in stable condition. A chest x-ray was ordered to confirm the lead position and also to rule out any pneumothorax.
[2021-02-04] MEDS: sodium chloride 0.9% 1,000 ML 75 ML IV ×3 (10:35→21:32)
[2021-02-04 11:05] VITALS: BP 110/65; PULSE 58; RESP 16; TEMP 36.6; O2SAT 95
[2021-02-04] MEDS: HYDROcodone-acetaminophen 10-325 mg Tablet 1 TAB PO ×2 (13:50→21:30)
[2021-02-04 15:18] VITALS: BP 156/71; PULSE 61; RESP 16; TEMP 36.8; O2SAT 95
[2021-02-04 17:04] LABS: Glucose Point of Care 150 mg/dL (70-110)
[2021-02-04] MEDS: famotidine 20 mg Tablet PO (17:15)
[2021-02-04] MEDS: lisinopril 10 mg Tablet PO (17:15)
[2021-02-04] MEDS: gabapentin 300 mg Capsule PO (17:15)
[2021-02-04] MEDS: insulin lispro 100 unit/1 mL SUBCUT (17:15)
[2021-02-04] MEDS: ranolazine (12HR) 500 mg Tablet 1000 MG PO (17:15)
[2021-02-04 19:04] VITALS: BP 126/69; PULSE 60; RESP 17; TEMP 36.9; O2SAT 93
[2021-02-04 20:33] LABS: Glucose Point of Care 155 mg/dL (70-110)
[2021-02-04] MEDS: metoprolol tartrate 50 mg Tablet 75 MG PO (21:31)
[2021-02-04] MEDS: mirtazapine 15 mg Tablet 7.5 MG PO (21:31)
[2021-02-05] VITALS: BP 120/66; PULSE 60; RESP 17; TEMP 36.8; O2SAT 92
[2021-02-05 03:18] VITALS: BP 125/71; PULSE 60; RESP 17; TEMP 36.6; O2SAT 92
--- NOTE | 2021-02-05 05:50 | PC.NURSE ---
pacemaker interrogation completed with Versaworkstronic as follows: no episodes reported, device functioning as programed. report to be faxed to nursing station shortly
--- NOTE | 2021-02-05 06:00 | XR_ITS ---
WS: [id number] Portable AP upright chest, 02/05/2021 Clinical Data: Post permanent pacemaker placement; visualize lead tip Comparison: Portable chest, 11/07/2020. Findings: No nodules, masses or effusions are seen. The heart is normal. The pulmonary vascularity is not increased. No pneumonia or pneumothorax is seen. There is a permanent pacemaker in good position with the generator overlying the left lateral chest and axilla. Midline sternotomy sutures are seen. XR/XR chest 1V 13455 Impression: Satisfactory cardiac pacemaker position.
--- NOTE | 2021-02-05 06:00 | ECG_ITS ---
[facility] Test Date: 2021-02-05 Pat Name: Darrell Pemberton Department: Room: 251 Gender: Male Dietitian Teaching: : 1955 Requested By: Vianey Owen Order Number: [id number] Michael MD: Vianey Owen M.D. Measurements Intervals [place] Rate: 60 P: 105 CA: 204 QRS: 82 QRSD: 120 T: 76 QT: 430 QTc: 431 Interpretive Statements ELECTRONIC ATRIAL PACEMAKER MODERATE INTRAVENTRICULAR CONDUCTION DELAY [105+ ms QRS DURATION, 80+ ms Q/S IN V1/V2, NO Q AND 60+ ms R IN I/aVL/V5/V6] Compared to ECG 11/07/2020 12:33:29 Atrial fibrillation no longer present Electronically Signed On 02-05-2021 20:48:41 SUPERVISOR STITCHING DEPARTMENT by Vianey Owen M.D. [id number]
[2021-02-05 06:32] LABS: Glucose Point of Care 101 mg/dL (70-110)
[2021-02-05 07:34] VITALS: PULSE 60; RESP 18; O2SAT 92
[2021-02-05 08:00] VITALS: BP 126/73; PULSE 62; RESP 16; TEMP 36.5; O2SAT 93
[2021-02-05] MEDS: HYDROcodone-acetaminophen 10-325 mg Tablet 1 TAB PO (08:39)
[2021-02-05] MEDS: cyanocobalamin 1,000 mcg Tablet 500 MCG PO (08:40)
[2021-02-05] MEDS: isosorbide mononitrate ER 30 mg Tablet PO (08:40)
[2021-02-05] MEDS: gabapentin 300 mg Capsule PO (08:40)
[2021-02-05] MEDS: ranolazine (12HR) 500 mg Tablet 1000 MG PO (08:40)
[2021-02-05] MEDS: famotidine 20 mg Tablet PO (08:40)
[2021-02-05] MEDS: cetirizine 10 mg Tablet PO (08:40)
[2021-02-05] MEDS: lisinopril 10 mg Tablet PO (08:40)
[2021-02-05] MEDS: atorvastatin 40 mg Tablet 80 MG PO (08:40)
[2021-02-05] MEDS: metoprolol tartrate 50 mg Tablet 75 MG PO (08:43)
--- NOTE | 2021-02-05 09:21 | PC.CHAP ---
Pastoral Care Encounter/Spiritual Assessment Type of Contact [] Declined control systems designer visit [] Patient/Family/Request visit [] Outpatient visit [] Follow-up visit [] Physician referral [] Code/Alert [x] Routine visit [] Staff referral [] Actively dying [] Patient sleeping [] Family support [] [] Out of room [] Palliative care [] [] Receiving care in room [] Pre-surgical visit [] Trauma [] Long length of stay [] ICU visit [] Other: Relational/Emotional Strength [x] Patient feels connected with others/family/visitors/staff [] Distress [] Loneliness/isolation [] Abandonment Spirituality of Patient [x] Person of Saira [x] Attends Synagogue of their Saira [x] Believes in Prayer [] Reads Bible or Orthodox materials [] There are Spiritual issues to be addressed Associate Professor Of English Interventions [x]x Prayer [] Active listening [x] Non-anxious presence [x] Spiritual/emotional support [] Crisis/trauma care [] Spiritual counseling [] Bereavement support [] Provided bereavement packet [] Provided Bible/devotional materials [] Provided toy/stuffed animal, coloring book to patient or family member [] Provided Communion [] Anointing/[place] [] Salvation [x] Completed spiritual assessment [] Other: Impact on Illness or Injury [] Angry [] Fearful [] Anxious [] Often cries [] Exhaustion [] Unable to work [] Unable to attend samaritan [] Unable to walk/stand [] Unable to read [] Unable to drive [] Unable to eat/drink [] Unable to sleep [] Unable to be with family [] Patient intubated [] Other: Summary patient doing good ready to go home Time spent with patient 15 min
[2021-02-05 11:34] LABS: Glucose Point of Care 182 mg/dL (70-110)
[2021-02-05 12:00] VITALS: BP 100/54; PULSE 60; RESP 18; TEMP 36.6; O2SAT 94
[2021-02-05] MEDS: insulin lispro 100 unit/1 mL SUBCUT (12:38)
== END 2021-02-05 15:00 | disposition home or self-care (01) ==
LOC: CCL 06:19 → MEDSURG 02-05 10:13
PROVIDERS: PCP Family Medicine; Visit Provider Internal Medicine Cardiovascular Disease
DX: R00.1 Bradycardia, unspecified (principal); I48.91 Unspecified atrial fibrillation; R55 Syncope and collapse
CPT/HCPCS: 33208; 36415; 36416; 71045; 82962; 93005; 96372; 97165; C1769; C1779; C1786; C1898; J0690; J1815; J2250; J3010; J7030; J7050; Q9967

== ENCOUNTER → 2021-03-05 12:01 | Outpatient (BNVA) | payer MEDICARE, MEDICAID, SELFPAY | PROVIDERS: PCP Family Medicine; Visit Provider Internal Medicine Cardiovascular Disease | DX: I11.0 Hypertensive heart disease with heart failure (principal); I50.33 Acute on chronic diastolic (congestive) heart failure; R00.1 Bradycardia, unspecified; R06.02 Shortness of breath; Z79.01 Long term (current) use of anticoagulants; I48.20 Chronic atrial fibrillation, unspecified; E11.65 Type 2 diabetes mellitus with hyperglycemia; I25.118 Atherosclerotic heart disease of native coronary artery with other forms of angina pectoris; E78.2 Mixed hyperlipidemia; Z87.891 Personal history of nicotine dependence | CPT/HCPCS: 80048; 83880; 85025 ==

== ENCOUNTER → 2021-04-09 10:57 | Outpatient (BNVA) | payer MEDICARE, MEDICAID, SELFPAY | PROVIDERS: PCP Family Medicine; Visit Provider Nurse Practitioner Family | DX: Z20.822 Contact with and (suspected) exposure to COVID-19 (principal) | CPT/HCPCS: 87635 ==

== ENCOUNTER 2021-05-19 16:02 | Outpatient (CLI) | payer MEDICARE, MEDICAID, SELFPAY ==
--- NOTE | 2021-05-19 16:11 | XR_ITS ---
WS: [id number] ANKLE RIGHT TECHNIQUE: 2 views of the right ankle CLINICAL INFORMATION: ACUTE RIGHT ANKLE PAIN COMPARISON: None. FINDINGS: Normal ankle mortise. Talar dome is normal. Normal medial and lateral malleolus. Plantar calcaneal sp urring. No visualized fractures. Normal visualized soft tissues. XR/XR ankle RT 2V [id number] IMPRESSION: No acute RIGHT ankle findings.
--- NOTE | 2021-05-19 16:11 | XR_ITS ---
WS: [email or web address] ELBOW RIGHT TECHNIQUE: 2 views of the right elbow CLINICAL INFORMATION: ACUTE RIGHT ELBOW PAIN COMPARISON: None. FINDINGS: Small joint effusion. Soft tissue edema. Distal humerus is normal in appearance. Normal radial head. Normal olecranon. No evidence of acute fracture dislocation. XR/XR elbow RT 2V [id number] IMPRESSION: 1. Small joint effusion. Soft tissue edema. 2. No visualized fractures.
== END 2021-05-19 16:03 | disposition home or self-care (01) ==
PROVIDERS: PCP Family Medicine; Visit Provider Family Medicine
DX: M25.571 Pain in right ankle and joints of right foot (principal); M25.521 Pain in right elbow; M25.421 Effusion, right elbow
CPT/HCPCS: 73070; 73600

== ENCOUNTER → 2021-06-05 14:14 | Outpatient (BNVA) | payer MEDICARE, MEDICAID, SELFPAY | PROVIDERS: PCP Family Medicine; Visit Provider Internal Medicine Cardiovascular Disease | DX: I13.0 Hypertensive heart and chronic kidney disease with heart failure and stage 1 through stage 4 chronic kidney disease, or unspecified chronic kidney disease (principal); I50.33 Acute on chronic diastolic (congestive) heart failure; N18.2 Chronic kidney disease, stage 2 (mild); R00.1 Bradycardia, unspecified; R06.02 Shortness of breath; I25.10 Atherosclerotic heart disease of native coronary artery without angina pectoris; Z95.0 Presence of cardiac pacemaker; I48.20 Chronic atrial fibrillation, unspecified; E11.65 Type 2 diabetes mellitus with hyperglycemia; E78.2 Mixed hyperlipidemia; Z87.891 Personal history of nicotine dependence | CPT/HCPCS: 36415; 80048; 83880; 99214 ==

== ENCOUNTER → 2021-07-08 14:13 | Outpatient (BNVA) | payer MEDICARE, MEDICAID, SELFPAY | PROVIDERS: PCP Family Medicine; Visit Provider Podiatrist Foot & Ankle Surgery | DX: M20.41 Other hammer toe(s) (acquired), right foot (principal); M20.42 Other hammer toe(s) (acquired), left foot; M21.41 Flat foot [pes planus] (acquired), right foot; M21.42 Flat foot [pes planus] (acquired), left foot; M20.21 Hallux rigidus, right foot; M20.22 Hallux rigidus, left foot; E11.65 Type 2 diabetes mellitus with hyperglycemia | CPT/HCPCS: 99214 ==

== ENCOUNTER → 2021-09-22 15:50 | Outpatient (BNVA) | payer MEDICARE, MEDICAID, SELFPAY | PROVIDERS: Visit Provider Family Medicine | DX: J40 Bronchitis, not specified as acute or chronic (principal); I48.20 Chronic atrial fibrillation, unspecified; E11.65 Type 2 diabetes mellitus with hyperglycemia; I25.118 Atherosclerotic heart disease of native coronary artery with other forms of angina pectoris; I10 Essential (primary) hypertension; E78.2 Mixed hyperlipidemia; I25.10 Atherosclerotic heart disease of native coronary artery without angina pectoris; N18.2 Chronic kidney disease, stage 2 (mild) | CPT/HCPCS: 80053; 80061; 83036; 83735; 84153; 84443; 85025 ==

== ENCOUNTER → 2021-10-07 14:17 | Outpatient (BNVA) | payer MEDICARE, MEDICAID, SELFPAY | PROVIDERS: Visit Provider Podiatrist Foot & Ankle Surgery | DX: E11.65 Type 2 diabetes mellitus with hyperglycemia (principal); E11.8 Type 2 diabetes mellitus with unspecified complications; M20.41 Other hammer toe(s) (acquired), right foot; M20.42 Other hammer toe(s) (acquired), left foot; M21.41 Flat foot [pes planus] (acquired), right foot; M21.42 Flat foot [pes planus] (acquired), left foot; M20.21 Hallux rigidus, right foot; M20.22 Hallux rigidus, left foot; M72.2 Plantar fascial fibromatosis; M76.70 Peroneal tendinitis, unspecified leg; L60.2 Onychogryphosis | CPT/HCPCS: 11721 ==

== ENCOUNTER → 2021-11-03 14:58 | Outpatient (BNVA) | payer MEDICARE, MEDICAID, SELFPAY | PROVIDERS: PCP Family Medicine; Referring Provider Family Medicine; Visit Provider Internal Medicine | DX: E13.59 Other specified diabetes mellitus with other circulatory complications (principal); E78.2 Mixed hyperlipidemia; I25.10 Atherosclerotic heart disease of native coronary artery without angina pectoris; I63.9 Cerebral infarction, unspecified; I50.32 Chronic diastolic (congestive) heart failure; E03.8 Other specified hypothyroidism; Z86.73 Personal history of transient ischemic attack (TIA), and cerebral infarction without residual deficits; Z79.4 Long term (current) use of insulin | CPT/HCPCS: 99204 ==

== ENCOUNTER 2021-11-07 14:35 | Outpatient (CLI) | payer MEDICARE, MEDICAID, SELFPAY ==
[2021-11-07 16:33] LABS: Free T4 Free Thyroxine 0.89 ng/dL (0.82-1.77)
== END 2021-11-07 14:36 | disposition home or self-care (01) ==
LOC: LAB 14:40
PROVIDERS: PCP Family Medicine; Visit Provider Internal Medicine
DX: E78.2 Mixed hyperlipidemia (principal); I25.10 Atherosclerotic heart disease of native coronary artery without angina pectoris; I63.9 Cerebral infarction, unspecified
CPT/HCPCS: 84439; 84443

== ENCOUNTER → 2021-11-11 14:00 | Outpatient (BNVA) | payer MEDICARE, MEDICAID, SELFPAY | PROVIDERS: Visit Provider Internal Medicine Cardiovascular Disease | DX: I25.118 Atherosclerotic heart disease of native coronary artery with other forms of angina pectoris (principal); I48.0 Paroxysmal atrial fibrillation; E78.2 Mixed hyperlipidemia; Z87.891 Personal history of nicotine dependence; I13.0 Hypertensive heart and chronic kidney disease with heart failure and stage 1 through stage 4 chronic kidney disease, or unspecified chronic kidney disease; E11.22 Type 2 diabetes mellitus with diabetic chronic kidney disease; N18.2 Chronic kidney disease, stage 2 (mild); I50.32 Chronic diastolic (congestive) heart failure; E11.65 Type 2 diabetes mellitus with hyperglycemia; Z79.4 Long term (current) use of insulin; Z79.84 Long term (current) use of oral hypoglycemic drugs; Z95.0 Presence of cardiac pacemaker | CPT/HCPCS: 93005; 93280; 96372; 99214 ==

== ENCOUNTER → 2021-12-31 14:08 | Outpatient (BNVA) | payer MEDICARE, MEDICAID, SELFPAY | PROVIDERS: PCP Family Medicine; Visit Provider Internal Medicine | DX: E13.65 Other specified diabetes mellitus with hyperglycemia (principal); E13.59 Other specified diabetes mellitus with other circulatory complications; E78.2 Mixed hyperlipidemia; I25.10 Atherosclerotic heart disease of native coronary artery without angina pectoris; I63.9 Cerebral infarction, unspecified; I50.32 Chronic diastolic (congestive) heart failure; E03.8 Other specified hypothyroidism; Z79.4 Long term (current) use of insulin; Z87.891 Personal history of nicotine dependence | CPT/HCPCS: 99214 ==

== ENCOUNTER 2022-01-02 16:09 | Observation (INO) | payer MEDICARE, MEDICAID, SELFPAY ==
[2022-01-02] VITALS (26 sets, daily range): BP systolic 106–142; BP diastolic 53–90; PULSE 60–100; RESP 10–20; TEMP 36.6; O2SAT 92–98; BMI 31.4; BMI 32.5
--- NOTE | 2022-01-02 16:16 | CTR_ITS ---
PROCEDURE INFORMATION: Exam: CT Head Without Contrast Exam date and time: 01/02/2022 4:12 PM Age: 66 years old Clinical indication: Stroke-like symptoms; Altered mental status/memory loss; Additional info: Symptoms of acute stroke TECHNIQUE: Imaging protocol: Computed tomography of the head without contrast. Radiation optimization: All CT scans at this facility use at least one of these dose optimization techniques: automated exposure control; mA and/or kV adjustment per patient size (includes targeted exams where dose is matched to clinical indication); or iterative reconstruction. Other technique: STROKE PROTOCOL was implemented. COMPARISON: CT head wo con* [id number] 12/20/2019 6:32 PM RADIATION DOSE METRICS: Total DLP (mGy-cm): 1421.39 FINDINGS: Brain: Mild hypoattenuating foci are noted in the anterior lateral ventricular periventricular white matter bilaterally. Mild bilateral globus pallidus calcification. No intracranial hemorrhage. No mass or acute cortical infarction identified. Ventricles: Prominence of the ventricular system and subarachnoid spaces is consistent with the patient's age of 66 years. Pituitary gland and sella: Previous right parasellar endovascular therapy. Paranasal sinuses: Visualized sinuses are unremarkable. No fluid levels. Mastoid air cells: The left mastoid pneumatization is partially contracted consistent with prior chronic otomastoiditis changes. Orbital cavities: Bilateral prior cataract surgery with lens replacements. Bones/joints: Previous right pterional craniotomy. Soft tissues: Unremarkable. Vasculature: Atherosclerotic calcifications are present involving the carotid artery siphons and vertebral arteries bilaterally. CT/CT head wo con* [id number] IMPRESSION: 1. Postoperative and post-endovascular therapy changes as above. 2. Age appropriate supratentorial and infratentorial atrophy. 3. Mild chronic white matter microvascular ischemic disease. 4. No acute intracranial abnormality identified. ASSESSMENT: ASPECTS ([place] Stroke Program Early CT Score) is 10.
[2022-01-02 16:25] LABS: Glucose Point of Care 187 mg/dL (70-110)
[2022-01-02 16:27] LABS: Basophils % 0.6 %; Eosinophils # 0.2 10^3/uL (0.0-0.8); Eosinophils % 3.4 %; Hematocrit 37.8 % (42.0-52.0); Hemoglobin 12.8 g/dL (11.7-16.6); Lymphocytes # 1.2 10^3/uL (0.8-4.8); Mean Corpuscular HGB Conc 33.9 g/dL (30.0-36.0); Mean Corpuscular Hemoglobin 31.4 pg (28.0-34.0); Mean Corpuscular Volume 92.9 fl (80-94); Mean Platelet Volume 9.1 fL (7.4-10.4); Monocytes # 0.8 10^3/uL (0.2-0.9); Monocytes % 11.9 %; Neutrophils # 4.41 10^3/uL (1.8-7.7); Neutrophils % 65.8 %; Nucleated Red Blood Cells % 0 %; Platelet Count 209 10^3/cmm (130-400); Red Blood Count 4.07 10^6/uL (4.1-5.3); Red Cell Distribution Width 12.3 % (12.1-15.1); White Blood Count 6.7 10^3/uL (4.0-10.0)
--- NOTE | 2022-01-02 16:28 | ECG_ITS ---
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 Measurements Intervals [place] Rate: 64 P: 171 ND: 214 QRS: 78 QRSD: 125 T: 79 QT: 417 QTc: 433 Interpretive Statements ELECTRONIC ATRIAL PACEMAKER MODERATE INTRAVENTRICULAR CONDUCTION DELAY [105+ ms QRS DURATION, 80+ ms Q/S IN V1/V2, NO Q AND 60+ ms R IN I/aVL/V5/V6] WARNING: DATA QUALITY MAY AFFECT INTERPRETATION Compared to ECG 02/05/2021 05:01:29 No significant changes Electronically Signed On 01-02-2022 22:00:29 CDT by Deniz Oconnor M.D. [id number]
--- NOTE | 2022-01-02 16:28 | CTR_ITS ---
PROCEDURE INFORMATION: Exam: CTA Head With Contrast, Arteriography Exam date and time: 01/02/2022 4:41 PM Age: 66 years old Clinical indication: Syncope and collapse; Prior surgery; Additional info: Acute CVA TECHNIQUE: Imaging protocol: Computed tomographic angiography of the head with contrast. Exam focused on the arteries. 3D rendering (Not supervised by radiologist): MIP and/or 3D reconstructed images were created by the technologist. Radiation optimization: All CT scans at this facility use at least one of these dose optimization techniques: automated exposure control; mA and/or kV adjustment per patient size (includes targeted exams where dose is matched to clinical indication); or iterative reconstruction. Contrast material: OMNIPAQUE 350; Contrast volume: 95 ml; Contrast route: INTRAVENOUS (IV); COMPARISON: CT head wo con* [id number] 01/02/2022 4:12 PM RADIATION DOSE METRICS: Total DLP (mGy-cm): 504.06 FINDINGS: ANTERIOR CIRCULATION: Right internal carotid artery: Calcified plaque in the cavernous right internal carotid artery without stenosis. Right middle cerebral artery: No occlusion or significant stenosis. No aneurysm. Right anterior cerebral artery: No occlusion or significant stenosis. No aneurysm. Left internal carotid artery: Calcified plaque in the left cavernous internal carotid artery without stenosis. Left middle cerebral artery: No occlusion or significant stenosis. No aneurysm. Left anterior cerebral artery: No occlusion or significant stenosis. No aneurysm. POSTERIOR CIRCULATION: Right vertebral artery: Calcified plaque without stenosis in the right vertebral artery. Left vertebral artery: Calcified plaque with multiple severe stenoses in the left vertebral artery. Basilar artery: No occlusion or significant stenosis. No aneurysm. Right posterior cerebral artery: No occlusion or significant stenosis. No aneurysm. Left posterior cerebral artery: No occlusion or significant stenosis. No aneurysm. Other arteries: Metallic vascular coils or clip along the anterior aspect of the supraclinoid right internal carotid artery. Brain: No definite mass, mass effect, or midline shift. Cerebral ventricles: No ventriculomegaly. Bones/joints: Right frontotemporal craniotomy defect. Soft tissues: Unremarkable. PROCEDURE INFORMATION: Exam: CTA Neck With Contrast Exam date and time: 01/02/2022 4:41 PM Age: 66 years old Clinical indication: Syncope and collapse; Prior surgery; Additional info: Acute CVA TECHNIQUE: Imaging protocol: Computed tomographic angiography of the neck with contrast. 3D rendering (Not supervised by radiologist): MIP and/or 3D reconstructed images were created by the technologist. Radiation optimization: All CT scans at this facility use at least one of these dose optimization techniques: automated exposure control; mA and/or kV adjustment per patient size (includes targeted exams where dose is matched to clinical indication); or iterative reconstruction. Contrast material: OMNIPAQUE 350; Contrast volume: 95 ml; Contrast route: INTRAVENOUS (IV); COMPARISON: CT angio headneck* [id number] 06/26/2015 2:03 PM RADIATION DOSE METRICS: Total DLP (mGy-cm): 504.06 FINDINGS: Right common carotid artery: No stenosis. No dissection or occlusion. Right internal carotid artery: No stenosis of the extracranial segment. No dissection or occlusion. Right external carotid artery: No occlusion or stenosis of the origin. Left common carotid artery: No stenosis. No dissection or occlusion. Left internal carotid artery: Mild calcified plaque in the proximal and distal left internal carotid artery with 0% stenosis. Left external carotid artery: No occlusion or stenosis of the origin. Right vertebral artery: No stenosis. No dissection or occlusion. Left vertebral artery: The left vertebral artery is occluded from its origin with faint reconstituted flow or retrograde flow distally at the C1-level. Soft tissues: Normal. No significant soft tissue swelling. Bones/joints: No acute fracture. Other findings: Emphysema. CT/[facility]* [id number] IMPRESSION: 1. Multifocal severe stenoses in the left vertebral artery. 2. Vascular coils or clip along the anterior supraclinoid right internal carotid artery. IMPRESSION: 1. Occlusion of the left vertebral artery from its origin with faint reconstituted or retrograde flow at the C1 level. 2. Calcified plaque in the proximal and distal left internal carotid artery without stenosis. REFERENCES: NASCET CRITERIA. The degree of stenosis in the cervical segment of the internal carotid artery is based on NASCET criteria. Normal is no stenosis. Mild is less than 50% stenosis. Moderate is 50-69% stenosis. Severe is 70% to 99% stenosis. Total occlusion is no detectable patent lumen.
--- NOTE | 2022-01-02 16:30 | W.ED.NEUROSD ---
HPI - Neuro Symptoms/Deficit General: Chief Complaint: Neuro Symptoms/Deficit Stated Complaint: CVA/ STROKE ALERT Time Seen by Provider: 01/02/22 16:15 Source: patient Mode of arrival: EMS History of Present Illness: 66-year-old male presents emergency room via EMS with a last known well time at 1530. Patient was reporting a headache at a sudden loss of consciousness and fall at that time after which she had left-sided weakness numbness and left-sided facial droop. Patient has a history of stroke coronary artery bypass grafts and he has a pacemaker in place. He is diabetic. On arrival here he was directed immediately to CT. On reviewing his case with medics found that he is on Pradaxa. His initial NIH score is 6. Onset (ago): minute(s) Time: 16:09 Last Observed Normal: 15:30 Timing confirmed by: spouse Location: speech, left face, left arm and left leg Severity: moderate Quality: weak and tingling Relieving factors: none Exacerbating factors: none Context: sudden onset Associated symptoms: Deny chest pain, cough, diaphoresis, fevers/chills, headache(s), anorexia, malaise, nausea, seizures, short of breath, syncope, tingling, vertigo, vomiting or weakness Treatments Prior to Arrival: none Review of Systems Const: Denies: fever(s), chills, fatigue, malaise or diaphoresis ENMT: Denies: throat pain, ear or mastoid pain, nasal discharge or nasal congestion Card: Denies: chest pain, palpitations or syncope Resp: Denies: dyspnea, productive cough or non-productive cough GI: Denies: abdominal pain, nausea, vomiting or hematemesis : Denies: flank pain, difficulty urinating, dysuria, urinary frequency or urinary urgency Musc: Denies: neck pain or back pain Skin/Breast: Denies: rash or pruritus Neuro: Reports: weakness in extremities; Denies: headache(s) or vertigo PFSH ED PFSH: Medical History Arteriosclerotic heart disease (ASHD) Atherosclerotic heart disease of [place] coronary artery with other forms of angina pectoris Atrial fibrillation, chronic Bradycardia -Has chronic bradycardia, has had event monitoring done in 2018 showing baseline sinus bradycardia, average heart rate is about 55 -We will hold beta-ashish for now -Monitor vital signs -Telemetry monitoring Bronchitis Chronic diastolic CHF (congestive heart failure) -Has known chronic diastolic CHF, no indication of acute exacerbation currently -Echo done in 2018 showed an ejection fraction of 50% with grade 1 diastolic dysfunction and mild hypokinesia -We will hold Lasix for now given orthostasis Chronic kidney disease Chronic low back pain CVA (cerebral vascular accident) -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 4 years ago CVA (cerebral vascular accident) Diabetes mellitus Diabetes, type 1.5, uncontrolled, managed as type 1 GERD (gastroesophageal reflux disease) -on PPI Hx of glaucoma Hyperlipemia Hypertension Intermittent atrial fibrillation Pacemaker Peripheral neuropathy Presence of permanent cardiac pacemaker Sleep apnea -non-compliant with CPAP Subclinical hypothyroidism Ventricular septal defect Surgical History H/O aortic aneurysm repair H/O coronary angioplasty H/O heart artery stent History of incisional hernia repair -inferior aspect of sternotomy incision Hx of cataract extraction Hx of non-cataract eye surgery Family History Father Stroke CAD (coronary artery disease) Brother Cancer Diabetes Sister Cancer Dementia Diabetes Denies family history of Clotting disorder Chronic kidney disease (CKD) Suicide Anesthesia complication Bleeding disorder Lung disease Social History Smoking and tobacco status: former smoker Quit status (tobacco): has quit using tobacco Year quit tobacco: 20 yrs ago Alcohol intake: current Alcohol intake frequency: holidays/special occasions only Household members: spouse and children Marital status: NIH stroke score NIHSS: Level Of Consciousness - 1a: 0 Level Of Consciousness Questions - 1b: Both Correct Level Of Consciousness Commands - 1c: Both Correct Best Gaze - 2: Normal Visual Artis - 3: No Visual Loss Facial Palsy - 4: Minor Paralysis Motor Arm Right - 5: No Drift Motor Arm Left - 5: Drift Motor Leg Right - 6: No Drift Motor Leg Left - 6: Drift Limb Ataxia - 7: Present In Two Limbs Sensory - 8: Mild To Moderate Loss Best Language - 9: No Aphasia Dysarthia - 10: Normal Extinction And Inattention - 11: 0 Score: Total Score: 6 Physical Exam Const: GENERAL APPEARANCE: cooperative and comfortable HENMT: COMMON NORMALS: normocephalic, atraumatic, hearing grossly normal bilaterally, external ears normal, EAC's normal, TM's normal bilaterally, Normal nasal mucous membranes and turbinates present, moist oral mucous membranes and oropharynx normal HEAD & SCALP: normocephalic and atraumatic NOSE: Normal nasal mucous membranes and turbinates present EXTERNAL EAR: Yes external ears normal EXTERNAL AUDITORY CANAL: EAC's normal TYMPANIC MEMBRANE: TM's normal bilaterally Eye: COMMON NORMALS: Equal, round and reactive pupils present, EOMs intact bilaterally, conjunctivae normal and no scleral icterus CONJUNCTIVA: Yes conjunctivae normal PUPIL: Yes Equal, round and reactive pupils present Neck/C-Spine: COMMON NORMALS: full ROM, no lymphadenopathy, supple and no JVD Lymph: LYMPHATIC: no lymphadenopathy noted and no lymphedema noted Resp: COMMON NORMALS: normal respiratory effort, No retractions, No use of accessory muscles and clear to auscultation bilaterally AUSCULTATION: clear to auscultation bilaterally Cardio: COMMON NORMALS: no JVD, regular rate, regular rhythm and No murmurs present (Cardio) RATE: regular rate RHYTHM: regular rhythm GI: COMMON NORMALS: Soft to palpation and No hepatosplenomegaly present AUSCULTATION: Yes normoactive bowel sounds PALPATION: Yes Soft to palpation, No Tenderness to palpation present (GI), No Guarding due to palpation present (GI) and Yes No hepatosplenomegaly present Extremity: COMMON NORMALS: normal to inspection, capillary refill normal, no clubbing, cyanosis or edema, no calf tenderness and no pedal edema Skin: COMMON NORMALS: no rashes or lesions noted GENERAL SKIN EXAM: no rashes or lesions noted Course Vital Signs: Vital signs: Vital Signs Temperature 97.7 F 01/06/22 15:01 Pulse Rate 63 01/06/22 15:01 Respiratory Rate 14 01/06/22 15:01 Blood Pressure 119/62 01/06/22 15:01 Pulse Oximetry 95 01/06/22 15:01 Oxygen Delivery Me thod 01/06/22 11:52 MDM - Neuro Symptoms/Deficit Medical Decision Making Acute CVA , not a candidate for TPA.Discussed with hospitalist and will admit. Labs imaging and EKG reviewed. Medical Records I reviewed the patient's medical records. Lab Data I reviewed the patient's lab results. : 01/03/22 04:41 01/04/22 04:[address] 01/02/22 16:16 IMPRESSION: 1. Postoperative and post-endovascular therapy changes as above. 2. Age appropriate supratentorial and infratentorial atrophy. 3. Mild chronic white matter microvascular ischemic disease. 4. No acute intracranial abnormality identified. ASSESSMENT: ASPECTS ([place] Stroke Program Early CT Score) is 10. Head/Neck CTA 01/02/22 16:28 IMPRESSION: 1. Multifocal severe stenoses in the left vertebral artery. 2. Vascular coils or clip along the anterior supraclinoid right internal carotid artery. IMPRESSION: 1. Occlusion of the left vertebral artery from its origin with faint reconstituted or retrograde flow at the C1 level. 2. Calcified plaque in the proximal and distal left internal carotid artery without stenosis. REFERENCES: NASCET CRITERIA. The degree of stenosis in the cervical segment of the internal carotid artery is based on NASCET criteria. Normal is no stenosis. Mild is less than 50% stenosis. Moderate is 50-69% stenosis. Severe is 70% to 99% stenosis. Total occlusion is no detectable patent lumen. Laboratory Results WBC 6.7 10^3/uL (4.0-10.0) 01/02/22 16:17 RBC 4.07 10^6/uL (4.1-5.3) L 01/02/22 16:17 Hgb 12.8 g/dL (11.7-16.6) 01/02/22 16:17 Hct 37.8 % (42.0-52.0) L 01/02/22 16:17 MCV 92.9 fl (80-94) 01/02/22 16:17 MCH 31.4 pg (28.0-34.0) 01/02/22 16:17 MCHC 33.9 g/dL (30.0-36.0) 01/02/22 16:17 RDW 12.3 % (12.1-15.1) 01/02/22 16:17 Plt Count 209 10^3/cmm (130-400) 01/02/22 16:17 MPV 9.1 fL (7.4-10.4) 01/02/22 16:17 Neut % (Auto) 65.8 % 01/02/22 16:17 Lymph % (Auto) 18.0 % 01/02/22 16:17 [place] % (Auto) 11.9 % 01/02/22 16:17 Eos % (Auto) 3.4 % 01/02/22 16:17 Baso % (Auto) 0.6 % 01/02/22 16:17 Neut # (Auto) 4.41 10^3/uL (1.8-7.7) 01/02/22 16:17 Lymph # (Auto) 1.2 10^3/uL (0.8-4.8) 01/02/22 16:17 [place] # (Auto) 0.8 10^3/uL (0.2-0.9) 01/02/22 16:17 Eos # (Auto) 0.2 10^3/uL (0.0-0.8) 01/02/22 16:17 Baso # (Auto) 0.0 10^3/uL (0.0-0.1) 01/02/22 16:17 Nucleated RBC % (auto) 0 % 01/02/22 16:17 Nucleated RBCs # 0.0 /100WBC 01/02/22 16:17 PT 19.90 SECONDS (12.1-14.9) H 01/02/22 16:17 INR 1.66 (0.8-1.2) H 01/02/22 16:17 APTT 55.7 SECONDS (23.9-36.7) H 01/02/22 16:17 Sodium 137 mmol/L (136-145) 01/02/22 16:17 Potassium 4.2 mmol/L (3.5-5.1) 01/02/22 16:17 Chloride 101 mmol/L (98-107) 01/02/22 16:17 Carbon Dioxide 25 mmol/L (22-29) 01/02/22 16:17 Anion Gap 15.2 (5-19) 01/02/22 16:17 BUN 21 mg/dL (8-23) 01/02/22 16:17 Creatinine 1.5 mg/dL (0.7-1.2) H 01/02/22 16:17 GFR Calculation 47.0 mL/min (90-130) L 01/02/22 16:17 Glucose 192 mg/dL (65-115) H 01/02/22 16:17 POC Glucose 187 mg/dL (70-110) H 01/02/22 16:21 Estimat Average Glucose 151 01/02/22 16:17 Hemoglobin A1c 6.9 % (4.0-6.0) H 01/02/22 16:17 Calculated Osmolality 292 mOsm/kg (285-295) 01/02/22 16:17 Calcium 9.6 mg/dL (8.5-10.5) 01/02/22 16:17 Total Bilirubin 0.3 mg/dL (0.15-1.2) 01/02/22 16:17 AST 19 U/L (0-40) 01/02/22 16:17 ALT 24 U/L (0-41) 01/02/22 16:17 Alkaline Phosphatase 70 U/L (40-130) 01/02/22 16:17 Total Protein 7.5 g/dL (6.6-8.7) 01/02/22 16:17 Albumin 4.3 g/dL (3.5-5.2) 01/02/22 16:17 Globulin 3.2 g/dL (1.3-4.6) 01/02/22 16:17 Urine Color Yellow (Yellow) 01/02/22 19:10 Urine Appearance Clear (CLEAR) 01/02/22 19:10 Urine pH 6.5 (5-7) 01/02/22 19:10 Ur Specific [place] 1.010 (1.005-1.030) 01/02/22 19:10 Urine Protein Neg (Negative) 01/02/22 19:10 Urine Glucose (UA) 4+ (Normal) H 01/02/22 19:10 Urine Ketones Negative (Negative) 01/02/22 19:10 Urine Blood Neg (Negative) 01/02/22 19:10 Urine Nitrate Negative (Negative) 01/02/22 19:10 Urine Bilirubin Neg (Negative) 01/02/22 19:10 Urine Urobilinogen Neg mg/dL (Negative) 01/02/22 19:10 Ur Leukocyte Esterase Negative (Negative) 01/02/22 19:10 Urine Opiates Screen Positive ng/mL (Negative) H 01/02/22 19:10 Ur Barbiturates Screen Negative ng/mL (Negative) 01/02/22 19:10 Ur Phencyclidine Scrn Negative ng/mL (Negative) 01/02/22 19:10 Ur Amphetamines Screen Negative ng/mL (Negative) 01/02/22 19:10 U Benzodiazepines Scrn Negative ng/mL (Negative) 01/02/22 19:10 Urine Cocaine Screen Negative ng/mL (Negative) 01/02/22 19:10 U Marijuana (THC) Screen Negative ng/mL (Negative) 01/02/22 19:10 Discharge Plan Discharge Patient Disposition: Admitted As Inpatient Admit Provider: Tu Cerda Clinical Impression: CVA (cerebral vascular accident), Chronic kidney disease, Diabetes mellitus, Arteriosclerotic heart disease (ASHD), Hypertension, Hyperlipemia, mixed Condition: Stable Coding Level of Care Code ED Events And Promotions Assistant for Sabi Yang
[2022-01-02 16:39] LABS: INR 1.66 (0.8-1.2)
[2022-01-02 16:40] LABS: Partial Thromboplastin Time 55.7 SECONDS (23.9-36.7)
[2022-01-02 16:48] LABS: Alanine Aminotransferase 24 U/L (0-41); Albumin Level 4.3 g/dL (3.5-5.2); Alkaline Phosphatase 70 U/L (40-130); Anion Gap 15.2 (5-19); Aspartate Amino Transferase 19 U/L (0-40); Blood Urea Nitrogen 21 mg/dL (8-23); Calcium 9.6 mg/dL (8.5-10.5); Carbon Dioxide 25 mmol/L (22-29); Chloride 101 mmol/L (98-107); Globulin 3.2 g/dL (1.3-4.6); Glucose 192 mg/dL (65-115); Osmolality Calculated 292 mOsm/kg (285-295); Potassium 4.2 mmol/L (3.5-5.1); Sodium 137 mmol/L (136-145); Total Bilirubin 0.3 mg/dL (0.15-1.2); Total Protein 7.5 g/dL (6.6-8.7)
[2022-01-02] MEDS: iohexol 350 mg/mL 100 mL Btl IV (17:04)
--- NOTE | 2022-01-02 18:06 | PM.HP ---
Providers/Chief Complaint Primary Care Provider: Sea Segovia DO Chief Complaint: CVA/ STROKE ALERT History of Present Illness Darrell Pemberton is a 66 year old male with last known well time around 330 pm presented to hospital after sustaining a fall and left-sided weakness. He is not a tPA candidate because of Pradaxa. NIH 7 That he was asleep he woke up around 3:30 PM and wanted to go to the bathroom he felt his left-sided was extremely heavy and weak he fell on the ground, he did not note any chest pain, seizure-like activity, he is compliant with his medications did not miss any of his medications at all EKG showing paced rhythm, chest pain-free, hemodynamically stable Review of Systems Const: Denies: fever(s) Eyes: Denies: change in vision ENMT: Denies: throat pain Card: Denies: chest pain Resp: Denies: dyspnea GI: Denies: abdominal pain : Denies: flank pain Musc: Denies: neck pain Skin/Breast: Denies: rash Neuro: Reports: numbness in extremities, lack of coordination and vertigo; Denies: headache(s) Psych: Reports: anxiety Endo: Denies: polyuria Tony/Lymph: Denies: easy bruising All/Imm: Denies: urticaria Medications/Allergies Home Medications Medication Instructions Recorded Confirmed Last Taken Type famotidine 20 mg tablet 20 mg PO BID 04/06/19 01/02/22 01/02/22 09:00 History mirtazapine 15 mg tablet 7.5 mg PO BEDTIME 04/06/19 01/02/22 01/01/22 22:00 History potassium chloride 8 mEq 8 meq PO DAILY 04/06/19 01/02/22 01/02/22 09:00 History capsule,extended release L-Arginine Tab 500 mg PO DAILY 07/13/19 01/02/22 01/02/22 09:00 History cyanocobalamin (vitamin B-12) 500 500 mcg PO DAILY 07/13/19 01/02/22 01/02/22 09:00 History mcg tablet (Vitamin B-12) fluticasone propionate 50 2 spray intranasal DAILY 07/13/19 01/02/22 01/02/22 09:00 History mcg/actuation nasal spray,suspension (Flonase Allergy Relief) lycopene 10 mg capsule 20 mg PO DAILY 07/13/19 01/02/22 01/02/22 09:00 History magnesium 250 mg tablet 250 mg PO BID 07/13/19 01/02/22 01/02/22 09:00 History Custom Molded Orthotics #1 ea 01/27/21 12/31/21 Unknown Rx Night splint to left #1 ea 01/27/21 01/02/22 Unknown Rx dabigatran etexilate 150 mg 150 mg PO BID #180 caps 05/28/21 01/02/22 01/02/22 09:00 Rx capsule (Pradaxa) empagliflozin 10 mg tablet 10 mg PO DAILY #90 tabs 05/28/21 01/02/22 01/02/22 09:00 Rx (Jardiance) metoprolol tartrate 100 mg tablet 100 mg PO BID #180 tabs 06/16/21 01/02/22 01/02/22 09:00 Rx doxycycline hyclate 100 mg capsule 100 mg PO BID bronchitis #14 caps 08/01/21 12/31/21 Unknown Rx guaifenesin 600 mg tablet, 600 mg PO BID #20 tabs 08/01/21 01/02/22 01/02/22 09:00 Rx extended release 12 hr trazodone 50 mg tablet 50 mg PO DAILY #90 tabs 10/08/21 01/02/22 01/01/22 22:00 Rx albuterol sulfate 90 mcg/actuation 1 puff inhalation Q4H PRN 10/20/21 01/02/22 Unknown Rx aerosol inhaler (ProAir HFA) Shortness Of Breath #8.5 grams miscellaneous medical supply 1 ea miscellaneous BID #200 ea 10/20/21 01/02/22 01/02/22 12:30 Rx nitroglycerin 400 mcg/spray 1 spray translingual Q5M PRN Chest 10/20/21 01/02/22 Unknown Rx translingual Pain #12 grams rosuvastatin 20 mg tablet 20 mg PO DAILY #100 tabs 10/20/21 01/02/22 01/02/22 09:00 Rx ticagrelor 90 mg tablet (Brilinta) 60 mg PO BID #180 tabs 10/20/21 01/02/22 01/02/22 09:00 Rx cetirizine 10 mg tablet 10 mg PO DAILY #90 tabs 10/29/21 01/02/22 01/01/22 22:00 Rx gabapentin 300 mg capsule 300 mg PO BID #180 caps 10/29/21 01/02/22 01/02/22 09:00 Rx insulin detemir U-100 100 unit/mL 45 unit (0.45 mL) SUBCUT BID #15 mL 10/29/21 12/31/21 Unknown Rx (3 mL) subcutaneous pen (Levemir FlexTouch U-100 Insulin) blood-glucose meter,continuous #1 ea 11/03/21 12/31/21 Unknown Rx (Dexcom G6 Environmental Services Assistant misc) blood-glucose sensor (Dexcom G6 #9 ea 11/03/21 12/31/21 Unknown Rx Sensor device) blood-glucose transmitter (Dexcom #3 ea 11/03/21 12/31/21 Unknown Rx G6 Transmitter device) insulin aspart U-100 100 unit/mL See Rx Instructions .Route 11/03/21 01/02/22 01/02/22 Rx subcutaneous solution (Novolog .COMPLEX #10 mL U-100 Insulin aspart) insulin pump cart,automated,BT #30 ea 11/03/21 12/31/21 Unknown Rx (Omnipod 5 G6 Pods (Gen 5) subcutaneous cartridge) ranolazine 1,000 mg 1,000 mg PO BID #180 tabs 11/03/21 01/02/22 01/02/22 09:00 Rx tablet,extended release,12 hr isosorbide mononitrate 30 mg 30 mg PO DIRECTED #270 tabs 11/17/21 01/02/22 01/02/22 09:00 Rx tablet,extended release 24 hr insulin pump cartridge,automated #1 ea 12/02/21 12/31/21 Unknown Rx dose,BT with controller subcutaneous (Omnipod 5 G6 Intro Kit (Gen 5) subcutaneous cartridge with controller) blood sugar diagnostic (Accu-Chek #100 ea 12/08/21 12/31/21 Unknown Rx Iva Plus test strips) lisinopril 10 mg tablet 10 mg PO BID #180 tabs 12/29/21 01/02/22 01/02/22 09:00 Rx hydrocodone 10 mg-acetaminophen 1 tab PO Q6H Pain 30 days #120 tabs 01/02/22 01/02/22 01/02/22 09:00 Rx 325 mg tablet Allergies Allergy/AdvReac Type Severity Reaction Status Date / Time diltiazem [From Cardizem] Allergy Severe Unresponsiv Verified 12/31/21 14:16 e liraglutide [From Victoza] Allergy Severe ALGY-Difficulty Verified 12/31/21 14:16 Breathing PFSH Acute PFSH: Medical History Arteriosclerotic heart disease (ASHD) Atrial fibrillation, chronic Bradycardia -Has chronic bradycardia, has had event monitoring done in 2018 showing baseline sinus bradycardia, average heart rate is about 55 -We will hold beta-ashish for now -Monitor vital signs -Telemetry monitoring Bronchitis Chronic diastolic CHF (congestive heart failure) -Has known chronic diastolic CHF, no indication of acute exacerbation currently -Echo done in 2018 showed an ejection fraction of 50% with grade 1 diastolic dysfunction and mild hypokinesia -We will hold Lasix for now given orthostasis Chronic kidney disease CVA (cerebral vascular accident) -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 4 years ago Diabetes mellitus GERD (gastroesophageal reflux disease) -on PPI Hx of glaucoma Hyperlipemia Hypertension Pacemaker Peripheral neuropathy Sleep apnea -non-compliant with CPAP Ventricular septal defect Surgical History H/O aortic aneurysm repair H/O coronary angioplasty H/O heart artery stent History of incisional hernia repair -inferior aspect of sternotomy incision Hx of cataract extraction Hx of non-cataract eye surgery Family History Father Stroke CAD (coronary artery disease) Brother Cancer Diabetes Sister Cancer Dementia Diabetes Denies family history of Clotting disorder Chronic kidney disease (CKD) Suicide Anesthesia complication Bleeding disorder Lung disease Social History Smoking and tobacco status: never smoked Quit status (tobacco): has quit using tobacco Year quit tobacco: 20 yrs ago Alcohol intake: current Alcohol intake frequency: holidays/special occasions only Household members: spouse and children Marital status: Vitals/I&O/Wt Last Vital Signs Temp 97.9 F 01/02/22 16:14 Pulse 60 01/02/22 17:50 Resp 15 01/02/22 17:50 BP 109/53 01/02/22 17:50 Pulse Ox 94 01/02/22 17:50 O2 Del Method 01/02/22 16:14 Weight last 48 hrs Weight 91.172 kg Physical Exam Narrative: Pleasant male NIH 6 He has good strength of left lower extremity, able to lift against gravity Left arm is weaker as compared to right, weak handgrip S1, S2 paced rhythm Abdomen soft Pleasant and cooperative Currently movement Hemodynamically stable Doing well on room air Data : 01/03/22 04:41 01/03/22 04:41 A&P Assessment and plan (1) Intermittent atrial fibrillation: (2) Presence of permanent cardiac pacemaker: (3) Atherosclerotic heart disease of [place] coronary artery with other forms of angina pectoris: (4) Chronic low back pain: (5) Subclinical hypothyroidism: (6) Chronic diastolic CHF (congestive heart failure): (7) CVA (cerebral vascular accident): Plan Acute CVA Not a tPA candidate [facility] 7 He is on Pradaxa History of A. fib History of CABG Symptomatic bradycardia status post pacemaker placement Continue Pradaxa Check A1c level PT/OT/ST We will put him on pur?ed diet Will decrease the dose of Lantus which he takes twice a day Sliding scale moderate Permissive hypertension hold lisinopril for now Full code Attestations Medical Necessity Statement*: Anticipating discharge within 48 hours will need work-up for CVA Time Spent in Patient Care: 40 Coding Level of Care Code Acute Knitted Goods Shaper for Chg Fwd Diagnoses Intermittent atrial fibrillation I48.0 Presence of permanent cardiac pacemaker Z95.0 Atherosclerotic heart disease of [place] coronary artery with other forms of angina pectoris I25.118 Chronic low back pain M54.50; G89.29 Subclinical hypothyroidism E03.8 Chronic diastolic CHF (congestive heart failure) I50.32 CVA (cerebral vascular accident) I63.9
--- NOTE | 2022-01-02 18:18 | USCV_ITS ---
Darrell Pemberton Age: 66 Gender: M : 1955 Exam Date: 01/02/2022 20:54 Ordering Phys: Tu Cerda MD Technologist: Rosa Aguillon Exam Location: [facility] [place] Indication: cva BP: 124 / 75 HR: 60 Rhythm: Sinus Technical Quality: Adequate MEASUREMENTS (Male / Female) Normal Values 2D ECHO LV Diastolic Diameter PLAX 4.4 cm 4.2 - 5.9 / 3.9 - 5.3 cm LV Systolic Diameter PLAX 2.8 cm IVS Diastolic Thickness 1.3 cm 0.6 - 1.0 / 0.6 - 0.9 cm IVS Systolic Thickness 1.6 cm LVPW Diastolic Thickness 1.1 cm 0.6 - 1.0 / 0.6 - 0.9 cm LVPW Systolic Thickness 1.6 cm LVOT Diameter 2.0 cm LV Ejection Fraction 2D Teich 64.3 % LV Ejection Fraction MOD 2C 60.8 % LV Ejection Fraction 2C AL 60.9 % LA Diameter 3.9 cm Aorta at Sinotubular Diameter 3.3 cm M-MODE Aortic Annulus Diameter 2.8 cm LA Ao Ratio MM 1.4 MV E Point Septal Separation 0.6 cm DOPPLER AV Peak Velocity 141.0 cm/s LVOT Peak Velocity 97.0 cm/s AV Area Cont Eq vti 2.5 cm squared AV Area Cont Eq pk 2.3 cm squared MV Area PHT 5.0 cm squared Mitral E to A Ratio 1.1 MV E' Velocity 61.8 cm/s Mitral E to MV E' Ratio 8.9 Mitral E to LV E' Lateral Ratio 7.1 Mitral E to LV E' Septal Ratio 12.2 TR Peak Velocity 141.3 cm/s TR Peak Gradient 8.0 mmHg TV Peak E Velocity 76.0 cm/s Right Atrial Pressure 3.0 mmHg Pulmonary Artery Systolic Pressu 11.0 mmHg RV Acceleration Time 0.2 s FINDINGS Left Ventricle Normal left ventricular size with a slightly diminished systolic function, EF50 %. Mild diffuse hypokinesia of the septum was noted. Mild left ventricular hypertrophy. Right Ventricle Normal right ventricular size and systolic function. Right Atrium The right atrium is normal in size. Left Atrium The left atrium is normal in size. Mitral Valve Thickened mitral valve. Trace mitral valve regurgitation. Aortic Valve No gross abnormalities noted Tricuspid Valve Trace tricuspid valve regurgitation. Estimated pulmonary artery peak systolic pressure was 11 mmHg Pulmonic Valve Pulmonic valve not well visualized. Pericardium Normal pericardium without effusion. Aorta Normal ascending aorta dimension. IVC Normal inferior vena cava. CONCLUSIONS Normal left ventricular size with a slightly diminished LV EF 50 %(visual). Wall motion abnormality as mentioned above mild left ventricular hypertrophy. Thickened mitral valve. Trace mitral valve regurgitation. Trace tricuspid valve regurgitation. Estimated pulmonary artery peak systolic pressure was 11 mmHg. There is no pericardial effusion. There are no intracardiac masses. Compared to the study from 09/10/2017, there may not be significant change Dr Vianey Owen MD FACC (Electronically Signed) Final Date: 03 January 2022 11:22 S
[2022-01-02 19:14] LABS: Add Urine Microscopic? NO; Charge for UA Resulting for Rev
[2022-01-02 19:19] LABS: Bilirubin Urine Neg (Negative); Blood Urine Neg (Negative); Glucose Urine UA 4+ (Normal); Ketones Urine Negative (Negative); Leukocyte Esterase Urine Negative (Negative); Nitrate Urine Negative (Negative); Protein Urine Neg (Negative); Urine Appearance Clear (CLEAR); Urine Color Yellow (Yellow); Urobilinogen Urine Neg (Negative); pH Urine 6.5 (5-7)
[2022-01-02 19:26] LABS: Amphetamines Screen Urine Negative (Negative); Barbiturates Screen Urine Negative (Negative); Benzodiazepines Screen Urine Negative (Negative); Cocaine Screen Urine Negative (Negative); Opiate Screen Urine Positive (Negative); PCP Screen Urine Negative (Negative); THC Screen Urine Negative (Negative)
[2022-01-02 20:10] LABS: Estmated Average Glucose 151; Hemoglobin A1C 6.9 % (4.0-6.0)
[2022-01-02 21:02] LABS: Glucose Point of Care 98 mg/dL (70-110)
[2022-01-02] MEDS: sodium chloride 0.9% 1,000 ML 100 ML IV (21:44)
[2022-01-02] MEDS: HYDROcodone-acetaminophen 10-325 mg Tablet 1 TAB PO (21:46)
[2022-01-02] MEDS: trazodone 50 mg Tablet PO (23:58)
[2022-01-03] VITALS (10 sets, daily range): BP systolic 104–126; BP diastolic 62–76; PULSE 60–89; RESP 16–18; TEMP 36.4–36.8; O2SAT 93–96
[2022-01-03] MEDS: HYDROcodone-acetaminophen 10-325 mg Tablet 1 TAB PO ×4 (03:39→20:29)
[2022-01-03 05:14] LABS: Basophils % 0.5 %; Eosinophils # 0.2 10^3/uL (0.0-0.8); Eosinophils % 3.9 %; Hematocrit 36.1 % (42.0-52.0); Hemoglobin 12.1 g/dL (11.7-16.6); Lymphocytes # 1.5 10^3/uL (0.8-4.8); Lymphocytes % 24.6 %; Mean Corpuscular HGB Conc 33.5 g/dL (30.0-36.0); Mean Corpuscular Volume 95.5 fl (80-94); Mean Platelet Volume 8.8 fL (7.4-10.4); Monocytes # 0.7 10^3/uL (0.2-0.9); Monocytes % 11.3 %; Neutrophils # 3.68 10^3/uL (1.8-7.7); Neutrophils % 59.4 %; Nucleated Red Blood Cells % 0 %; Platelet Count 173 10^3/cmm (130-400); Red Blood Count 3.78 10^6/uL (4.1-5.3); Red Cell Distribution Width 12.3 % (12.1-15.1); White Blood Count 6.2 10^3/uL (4.0-10.0)
[2022-01-03 05:30] LABS: Alanine Aminotransferase 20 U/L (0-41); Albumin Level 3.9 g/dL (3.5-5.2); Alkaline Phosphatase 54 U/L (40-130); Anion Gap 11.3 (5-19); Aspartate Amino Transferase 16 U/L (0-40); Blood Urea Nitrogen 19 mg/dL (8-23); Carbon Dioxide 25 mmol/L (22-29); Chloride 104 mmol/L (98-107); Globulin 2.9 g/dL (1.3-4.6); Glomerular Filtration Rate 55.4 mL/min (90-130); Glucose 117 mg/dL (65-115); Magnesium 2.1 mg/dL (1.7-2.3); Osmolality Calculated 285 mOsm/kg (285-295); Potassium 4.3 mmol/L (3.5-5.1); Sodium 136 mmol/L (136-145); Total Bilirubin 0.5 mg/dL (0.15-1.2); Total Protein 6.8 g/dL (6.6-8.7)
[2022-01-03] MEDS: sodium chloride 0.9% 1,000 ML 100 ML IV (06:33)
[2022-01-03 06:44] LABS: Glucose Point of Care 108 mg/dL (70-110)
[2022-01-03] MEDS: sennosides-docusate Tablet 1 TAB PO (08:43)
[2022-01-03] MEDS: ranolazine (12HR) 500 mg Tablet 1000 MG PO ×2 (08:43→17:58)
[2022-01-03 11:13] LABS: Glucose Point of Care 141 mg/dL (70-110)
--- NOTE | 2022-01-03 11:22 | PM.PN ---
Subjective Subjective: Patient is doing fine currently tolerating pur?ed diet Awake and alert He is agreeable to go to correction if needed PT evaluation is pending No overnight events Blood pressure still on the softer side Vitals/I&O/Wt Last Vital Signs Temp 98.1 F 01/03/22 08:00 Pulse 64 01/03/22 08:00 Resp 16 01/03/22 08:00 BP 104/65 01/03/22 08:00 Pulse Ox 96 01/03/22 08:00 O2 Del Method 01/03/22 08:00 01/02/22 01/03/22 01/03/22 22:59 06:59 14:59 Intake Total 360 / 360 1241.667 / 1601.667 Output Total 300 / 300 600 / 900 Balance 60 / 60 641.667 / 701.667 Weight last 48 hrs Weight 91.285 kg Weight 91.172 kg Physical Exam Narrative: Awake and alert nih 6 Left arm and left leg weakness He is able to lift his left leg against gravity Paced rhythm Abdomen soft Doing well on room air Pleasant and cooperative Data : 01/03/22 04:41 01/03/22 04:41 A&P Assessment and plan (1) CVA (cerebral vascular accident): (2) Intermittent atrial fibrillation: (3) Presence of permanent cardiac pacemaker: (4) Atherosclerotic heart disease of [place] coronary artery with other forms of angina pectoris: (5) Chronic low back pain: (6) Subclinical hypothyroidism: (7) Chronic diastolic CHF (congestive heart failure): Plan Acute CVA nih? [address] evaluation today Permissive hypertension Awake and alert Pleasant Agreeable to go to correction if needed Full code Paced rhythm No signs of A. fib for now sinus rhythm Continue Pradaxa Full code Pur?ed diet Attestations Medical Necessity Statement*: Disposition will be decided after PT evaluation Time Spent in Patient Care: 30 Coding Level of Care Code Acute Pre Planning Advisor for Chg Fwd Diagnoses CVA (cerebral vascular accident) I63.9 Intermittent atrial fibrillation I48.0 Presence of permanent cardiac pacemaker Z95.0 Atherosclerotic heart disease of [place] coronary artery with other forms of angina pectoris I25.118 Chronic low back pain M54.50; G89.29 Subclinical hypothyroidism E03.8 Chronic diastolic CHF (congestive heart failure) I50.32
[2022-01-03 16:59] LABS: Glucose Point of Care 124 mg/dL (70-110)
[2022-01-03] MEDS: trazodone 50 mg Tablet PO (20:30)
[2022-01-03 20:40] LABS: Glucose Point of Care 161 mg/dL (70-110)
[2022-01-03] MEDS: ondansetron 2 mg/ML SDV 2 mL 4 MG IVP (21:51)
[2022-01-04] VITALS (9 sets, daily range): BP systolic 125–144; BP diastolic 59–75; PULSE 60–90; RESP 16–18; TEMP 36.5–36.8; O2SAT 92–96
[2022-01-04] MEDS: HYDROcodone-acetaminophen 10-325 mg Tablet 1 TAB PO ×4 (02:32→20:20)
[2022-01-04 05:41] LABS: Anion Gap 11.6 (5-19); Blood Urea Nitrogen 17 mg/dL (8-23); Calcium 8.9 mg/dL (8.5-10.5); Carbon Dioxide 26 mmol/L (22-29); Chloride 102 mmol/L (98-107); Glucose 133 mg/dL (65-115); Osmolality Calculated 283 mOsm/kg (285-295); Potassium 4.6 mmol/L (3.5-5.1); Sodium 135 mmol/L (136-145)
[2022-01-04] MEDS: ondansetron 2 mg/ML SDV 2 mL 4 MG IVP (06:28)
[2022-01-04 06:29] LABS: Glucose Point of Care 111 mg/dL (70-110)
[2022-01-04] MEDS: sennosides-docusate Tablet 1 TAB PO (08:03)
[2022-01-04] MEDS: ranolazine (12HR) 500 mg Tablet 1000 MG PO ×2 (08:04→17:23)
--- NOTE | 2022-01-04 09:30 | PC.NURSE ---
Patient reports having continued episodes of nausea this morning.
--- NOTE | 2022-01-04 09:49 | PC.NURSE ---
Patient requested to get up from bed and into bedside chair this AM. Therapies currently helping patient to transfer.
--- NOTE | 2022-01-04 10:25 | PM.PN ---
Subjective Subjective: Patient is doing well He was nauseous no active emesis Hemodynamically stable Currently on room air Awaiting placement Vitals/I&O/Wt Last Vital Signs Temp 97.9 F 01/04/22 08:00 Pulse 60 01/04/22 08:00 Resp 16 01/04/22 08:00 BP 129/72 01/04/22 08:00 Pulse Ox 95 01/04/22 08:00 O2 Del Method 01/04/22 07:26 01/03/22 01/04/22 01/04/22 22:59 06:59 14:59 Intake Total 1000 / 1240 480 / 1720 360 / 360 Output Total 775 / 1275 650 / 1925 350 / 350 Balance 225 / -35 -170 / -205 Weight last 48 hrs Weight 91.285 kg Weight 91.172 kg Physical Exam Narrative: Patient is awake and alert No new focal deficit Watching television Was nauseous no active emesis Abdomen distended Endorsing constipation Doing well on room air S1, S2 Variable rhythm Pleasant during my evaluation Data : 01/03/22 04:41 01/04/22 04:48 A&P Assessment and plan (1) CVA (cerebral vascular accident): (2) Intermittent atrial fibrillation: (3) Presence of permanent cardiac pacemaker: (4) Atherosclerotic heart disease of [place] coronary artery with other forms of angina pectoris: (5) Chronic low back pain: (6) Subclinical hypothyroidism: (7) Chronic diastolic CHF (congestive heart failure): (8) Diabetes, type 1.5, uncontrolled, managed as type 1: Plan CVA Awaiting residential placement Currently on Pradaxa A. fib without RVR Diastolic CHF without acute exacerbation Continue antianginal medication Echo unremarkable EF 50% no significant wall motion abnormality, Currently on dysphagia diet, mechanical soft Continue PT/OT and ST Attestations Medical Necessity Statement*: Awaiting placement Time Spent in Patient Care: 30 Coding Level of Care Code Acute Web Content Editor for [employer] Diagnoses CVA (cerebral vascular accident) I63.9 Intermittent atrial fibrillation I48.0 Presence of permanent cardiac pacemaker Z95.0 Atherosclerotic heart disease of [place] coronary artery with other forms of angina pectoris I25.118 Chronic low back pain M54.50; G89.29 Subclinical hypothyroidism E03.8 Chronic diastolic CHF (congestive heart failure) I50.32 Diabetes, type 1.5, uncontrolled, managed as type 1
[2022-01-04 11:32] LABS: Glucose Point of Care 129 mg/dL (70-110)
--- NOTE | 2022-01-04 15:58 | PC.NURSE ---
Pt up to chair and visitor at bedside. No needs at this time.
[2022-01-04 17:02] LABS: Glucose Point of Care 134 mg/dL (70-110)
--- NOTE | 2022-01-04 17:27 | PC.NURSE ---
Pt up to chair eating dinner and watching TV. VSS and pt A&O. No further needs at the moment.
[2022-01-04] MEDS: trazodone 50 mg Tablet PO (20:21)
[2022-01-04 20:45] LABS: Glucose Point of Care 164 mg/dL (70-110)
[2022-01-05] VITALS (10 sets, daily range): BP systolic 122–149; BP diastolic 69–79; PULSE 50–70; RESP 16–17; TEMP 36.6–36.8; O2SAT 93–98
[2022-01-05 00:46] LABS: Glucose Point of Care 68 mg/dL (70-110)
[2022-01-05] MEDS: HYDROcodone-acetaminophen 10-325 mg Tablet 1 TAB PO ×4 (02:01→21:12)
[2022-01-05 06:40] LABS: Glucose Point of Care 123 mg/dL (70-110)
[2022-01-05] MEDS: ondansetron 2 mg/ML SDV 2 mL 4 MG IVP (07:56)
[2022-01-05] MEDS: sennosides-docusate Tablet 1 TAB PO (08:52)
[2022-01-05] MEDS: ranolazine (12HR) 500 mg Tablet 1000 MG PO ×2 (08:52→17:34)
--- NOTE | 2022-01-05 10:45 | P.PN_ITS ---
Subjective Subjective: Patient is complaining nausea however no active vomiting Awake and alert No overnight events Awaiting placement at the bedside 66-year-old male who has history of A. fib, on Pradaxa, recurrent stroke, presented to the hospital after sustaining a fall due to left-sided weakness, during hospitalization he participated very well with PT/OT and ST, recommended short-term rehab/group home, he was not a tPA candidate due to Pradaxa, he has left vertebral stenosis, he remained hemodynamically stable on room air, Vitals/I&O/Wt Last Vital Signs Temp 97.8 F 01/05/22 08:00 Pulse 61 01/05/22 08:00 Resp 17 01/05/22 08:00 BP 146/71 01/05/22 08:00 Pulse Ox 95 01/05/22 08:00 O2 Del Method 01/04/22 20:02 01/04/22 01/05/22 01/05/22 22:59 06:59 14:59 Intake Total 570 / 1290 360 / 360 Output Total 175 / 845 475 / 1320 Balance 395 / 445 -475 / -30 360 / 360 Physical Exam Narrative: Patient is showing signs of improvement of left-sided weakness Awake and alert Complaining of nausea Abdomen soft however distended S1, S2 variable Currently on room air No active distress Looks euvolemic Data : 01/03/22 04:41 01/04/22 04:48 A&P Assessment and plan (1) CVA (cerebral vascular accident): (2) Intermittent atrial fibrillation: (3) Presence of permanent cardiac pacemaker: (4) Subclinical hypothyroidism: (5) Chronic low back pain: (6) Atherosclerotic heart disease of [place] coronary artery with other forms of angina pectoris: (7) Diabetes, type 1.5, uncontrolled, managed as type 1: (8) Atrial fibrillation, chronic: Plan Central etiology of nausea due to CVA Will add Reglan CVA PT OT ST Awaiting placement Will need Pradaxa along high-dose statins Left vertebral stenosis Intermittent A. fib A. fib without RVR Continue Pradaxa Dysphagia diet Full code Awaiting placement Attestations Medical Necessity Statement*: Awaiting placement Time Spent in Patient Care: 30 Coding Level of Care Code Acute Florist Supplies Salesperson for Chg Fwd Diagnoses CVA (cerebral vascular accident) I63.9 Intermittent atrial fibrillation I48.0 Presence of permanent cardiac pacemaker Z95.0 Subclinical hypothyroidism E03.8 Chronic low back pain M54.50; G89.29 Atherosclerotic heart disease of [place] coronary artery with other forms of angina pectoris I25.118 Diabetes, type 1.5, uncontrolled, managed as type 1 Atrial fibrillation, chronic I48.20
[2022-01-05 12:12] LABS: Glucose Point of Care 196 mg/dL (70-110)
--- NOTE | 2022-01-05 13:37 | PC.CHAP ---
Pastoral Care Encounter/Spiritual Assessment Type of Contact [] Declined pipe cutter visit [] Patient/Family/Request visit [] Outpatient visit [] Follow-up visit [] Physician referral [] Code/Alert [x] Routine visit [] Staff referral [] Actively dying [] Patient sleeping [] Family support [] [] Out of room [] Palliative care [] [] Receiving care in room [] Pre-surgical visit [] Trauma [] Long length of stay [] ICU visit [] Other: Relational/Emotional Strength x[] Patient feels connected with others/family/visitors/staff [] Distress [] Loneliness/isolation [] Abandonment Spirituality of Patient [x] Person of Saira [] Attends Pentecostal of their Saira [x] Believes in Prayer [] Reads Bible or Mandaen materials [] There are Spiritual issues to be addressed Cloth Hauler Interventions [x] Prayer [x] Active listening [x] Non-anxious presence [] Spiritual/emotional support [] Crisis/trauma care [x] Spiritual counseling [x] Bereavement support [x] Provided bereavement packet [x] Provided Bible/devotional materials [] Provided toy/stuffed animal, coloring book to patient or family member [] Provided Communion [] Anointing/[place] [] Salvation [x] Completed spiritual assessment [] Other: Impact on Illness or Injury [] Angry [] Fearful [] Anxious [] Often cries [] Exhaustion [] Unable to work [] Unable to attend taoism [] Unable to walk/stand [] Unable to read [] Unable to drive [] Unable to eat/drink [] Unable to sleep [] Unable to be with family [] Patient intubated [] Other: Summary Time spent with patient 10 min
[2022-01-05] MEDS: lactulose oral liq 20 gm/30 mL UDC 10 GM PO (18:17)
[2022-01-05] MEDS: trazodone 50 mg Tablet PO (21:13)
[2022-01-05 21:37] LABS: Glucose Point of Care 171 mg/dL (70-110)
[2022-01-06] VITALS (8 sets, daily range): BP systolic 119–175; BP diastolic 62–77; PULSE 50–74; RESP 14–17; TEMP 36.4–36.9; O2SAT 94–95
[2022-01-06] MEDS: metoclopramide 5 mg/mL SDV 2 mL IVP (04:41)
[2022-01-06 06:51] LABS: Glucose Point of Care 158 mg/dL (70-110)
[2022-01-06] MEDS: sennosides-docusate Tablet 1 TAB PO (08:54)
--- NOTE | 2022-01-06 09:46 | P.PN_ITS ---
Subjective Subjective: Patient endorsing feeling better No overnight events Walk with help of the nurse Vitals/I&O/Wt Last Vital Signs Temp 97.6 F 01/06/22 08:00 Pulse 66 01/06/22 08:00 Resp 14 01/06/22 08:00 BP 136/77 01/06/22 08:00 Pulse Ox 94 01/06/22 08:00 O2 Del Method 01/06/22 08:00 01/05/22 01/06/22 01/06/22 22:59 06:59 14:59 Intake Total 240 / 840 Output Total 250 / 250 Balance 240 / 840 -250 / 590 Physical Exam Narrative: Awake and alert Left-sided weakness improving S1, S2 variable Abdomen soft Pleasant cooperative Currently on room air Euvolemic eating breakfast Data : 01/03/22 04:41 01/04/22 04:48 A&P Assessment and plan (1) CVA (cerebral vascular accident): (2) Intermittent atrial fibrillation: (3) Presence of permanent cardiac pacemaker: (4) Atherosclerotic heart disease of [place] coronary artery with other forms of angina pectoris: (5) Chronic low back pain: (6) Subclinical hypothyroidism: (7) Chronic diastolic CHF (congestive heart failure): Plan Patient is awaiting placement No change in medications today Eating breakfast Working in PT Left-sided weakness improving Pradaxa would cover [id number] Attestations Medical Necessity Statement*: Awaiting placement Time Spent in Patient Care: 30 Coding Level of Care Code Acute Television Repairer for Joshg Fwd Diagnoses CVA (cerebral vascular accident) I63.9 Intermittent atrial fibrillation I48.0 Presence of permanent cardiac pacemaker Z95.0 Atherosclerotic heart disease of [place] coronary artery with other forms of angina pectoris I25.118 Chronic low back pain M54.50; G89.29 Subclinical hypothyroidism E03.8 Chronic diastolic CHF (congestive heart failure) I50.32
[2022-01-06] MEDS: ranolazine (12HR) 500 mg Tablet 1000 MG PO (09:49)
--- NOTE | 2022-01-06 10:58 | PM.DCS ---
Discharge Providers Date of Admission: 01/02/22 20:27 Date of Discharge: January 06, 2022 Attending Provider at Admission: Tu Cerda MD Attending Provider at Discharge: Tu Cerda MD Primary Care Provider: Sea Segovia DO Diagnoses at Discharge Discharge Diagnosis (1) CVA (cerebral vascular accident): Status: Acute (2) Intermittent atrial fibrillation: Status: Acute (3) Presence of permanent cardiac pacemaker: Status: Acute (4) Atherosclerotic heart disease of [place] coronary artery with other forms of angina pectoris: Status: Acute (5) Chronic low back pain: Status: Acute (6) Subclinical hypothyroidism: Status: Acute (7) Chronic diastolic CHF (congestive heart failure): Status: Acute Permanent problem details: -Has known chronic diastolic CHF, no indication of acute exacerbation currently -Echo done in 2018 showed an ejection fraction of 50% with grade 1 diastolic dysfunction and mild hypokinesia -We will hold Lasix for now given orthostasis Reason for Visit Reason for Visit: CVA/ STROKE ALERT Hospital Course Hospital Course 66-year-old male who has history of A. fib, on Pradaxa, recurrent stroke, presented to the hospital after sustaining a fall due to left-sided weakness, during hospitalization he participated very well with PT/OT and ST, recommended short-term rehab/half-way, he was not a tPA candidate due to Pradaxa, he has left vertebral stenosis, he remained hemodynamically stable on room air. He is being discharged with stable hemodynamics. Physical Exam Narrative: Patient is showing signs of improvement of left-sided weakness Awake and alert Complaining of nausea Abdomen soft however distended S1, S2 variable Currently on room air No active distress Looks euvolemic Discharge Data Studies Completed and Pending Completed Studies During Hospitalization Category Date Time Status CT head wo con* [id number] Stat Cat Scan 01/02/22 16:16 Completed CTA head neck [CT angio headneck* [id number]] Stat Cat Scan 01/02/22 16:28 Completed CV. echo lmt wo/w bubble [id number] Stat Ultrasound 01/02/22 18:18 Completed Pending at discharge Category Date Time Status SARS Covid-2 Antigen Routine Lab 01/06/22 10:54 Uncollected Radiology Impressions Head CT 01/02/22 16:16 IMPRESSION: 1. Postoperative and post-endovascular therapy changes as above. 2. Age appropriate supratentorial and infratentorial atrophy. 3. Mild chronic white matter microvascular ischemic disease. 4. No acute intracranial abnormality identified. ASSESSMENT: ASPECTS ([place] Stroke Program Early CT Score) is 10. Head/Neck CTA 01/02/22 16:28 IMPRESSION: 1. Multifocal severe stenoses in the left vertebral artery. 2. Vascular coils or clip along the anterior supraclinoid right internal carotid artery. IMPRESSION: 1. Occlusion of the left vertebral artery from its origin with faint reconstituted or retrograde flow at the C1 level. 2. Calcified plaque in the proximal and distal left internal carotid artery without stenosis. REFERENCES: NASCET CRITERIA. The degree of stenosis in the cervical segment of the internal carotid artery is based on NASCET criteria. Normal is no stenosis. Mild is less than 50% stenosis. Moderate is 50-69% stenosis. Severe is 70% to 99% stenosis. Total occlusion is no detectable patent lumen. Laboratory Results WBC 6.2 10^3/uL (4.0-10.0) 01/03/22 04:41 RBC 3.78 10^6/uL (4.1-5.3) L 01/03/22 04:41 Hgb 12.1 g/dL (11.7-16.6) 01/03/22 04:41 Hct 36.1 % (42.0-52.0) L 01/03/22 04:41 MCV 95.5 fl (80-94) H 01/03/22 04:41 MCH 32.0 pg (28.0-34.0) 01/03/22 04:41 MCHC 33.5 g/dL (30.0-36.0) 01/03/22 04:41 RDW 12.3 % (12.1-15.1) 01/03/22 04:41 Plt Count 173 10^3/cmm (130-400) 01/03/22 04:41 MPV 8.8 fL (7.4-10.4) 01/03/22 04:41 Neut % (Auto) 59.4 % 01/03/22 04:41 Lymph % (Auto) 24.6 % 01/03/22 04:41 [place] % (Auto) 11.3 % 01/03/22 04:41 Eos % (Auto) 3.9 % 01/03/22 04:41 Baso % (Auto) 0.5 % 01/03/22 04:41 Neut # (Auto) 3.68 10^3/uL (1.8-7.7) 01/03/22 04:41 Lymph # (Auto) 1.5 10^3/uL (0.8-4.8) 01/03/22 04:41 [place] # (Auto) 0.7 10^3/uL (0.2-0.9) 01/03/22 04:41 Eos # (Auto) 0.2 10^3/uL (0.0-0.8) 01/03/22 04:41 Baso # (Auto) 0.0 10^3/uL (0.0-0.1) 01/03/22 04:41 Nucleated RBC % (auto) 0 % 01/03/22 04:41 Nucleated RBCs # 0.0 /100WBC 01/03/22 04:41 PT 19.90 SECONDS (12.1-14.9) H 01/02/22 16:17 INR 1.66 (0.8-1.2) H 01/02/22 16:17 APTT 55.7 SECONDS (23.9-36.7) H 01/02/22 16:17 Sodium 135 mmol/L (136-145) L 01/04/22 04:48 Potassium 4.6 mmol/L (3.5-5.1) 01/04/22 04:48 Chloride 102 mmol/L (98-107) 01/04/22 04:48 Carbon Dioxide 26 mmol/L (22-29) 01/04/22 04:48 Anion Gap 11.6 (5-19) 01/04/22 04:48 BUN 17 mg/dL (8-23) 01/04/22 04:48 Creatinine 1.0 mg/dL (0.7-1.2) 01/04/22 04:48 GFR Calculation 75.0 mL/min (90-130) L 01/04/22 04:48 Glucose 133 mg/dL (65-115) H 01/04/22 04:48 POC Glucose 158 mg/dL (70-110) H 01/06/22 06:40 Estimat Average Glucose 151 01/02/22 16:17 Hemoglobin A1c 6.9 % (4.0-6.0) H 01/02/22 16:17 Calculated Osmolality 283 mOsm/kg (285-295) L 01/04/22 04:48 Calcium 8.9 mg/dL (8.5-10.5) 01/04/22 04:48 Magnesium 2.1 mg/dL (1.7-2.3) 01/03/22 04:41 Total Bilirubin 0.5 mg/dL (0.15-1.2) 01/03/22 04:41 AST 16 U/L (0-40) 01/03/22 04:41 ALT 20 U/L (0-41) 01/03/22 04:41 Alkaline Phosphatase 54 U/L (40-130) 01/03/22 04:41 Total Protein 6.8 g/dL (6.6-8.7) 01/03/22 04:41 Albumin 3.9 g/dL (3.5-5.2) 01/03/22 04:41 Globulin 2.9 g/dL (1.3-4.6) 01/03/22 04:41 Urine Color Yellow (Yellow) 01/02/22 19:10 Urine Appearance Clear (CLEAR) 01/02/22 19:10 Urine pH 6.5 (5-7) 01/02/22 19:10 Ur Specific [place] 1.010 (1.005-1.030) 01/02/22 19:10 Urine Protein Neg (Negative) 01/02/22 19:10 Urine Glucose (UA) 4+ (Normal) H 01/02/22 19:10 Urine Ketones Negative (Negative) 01/02/22 19:10 Urine Blood Neg (Negative) 01/02/22 19:10 Urine Nitrate Negative (Negative) 01/02/22 19:10 Urine Bilirubin Neg (Negative) 01/02/22 19:10 Urine Urobilinogen Neg mg/dL (Negative) 01/02/22 19:10 Ur Leukocyte Esterase Negative (Negative) 01/02/22 19:10 Urine Opiates Screen Positive ng/mL (Negative) H 01/02/22 19:10 Ur Barbiturates Screen Negative ng/mL (Negative) 01/02/22 19:10 Ur Phencyclidine Scrn Negative ng/mL (Negative) 01/02/22 19:10 Ur Amphetamines Screen Negative ng/mL (Negative) 01/02/22 19:10 U Benzodiazepines Scrn Negative ng/mL (Negative) 01/02/22 19:10 Urine Cocaine Screen Negative ng/mL (Negative) 01/02/22 19:10 U Marijuana (THC) Screen Negative ng/mL (Negative) 01/02/22 19:10 Vitals Last Vital Signs Temp 97.6 F 01/06/22 08:00 Pulse 66 01/06/22 08:00 Resp 14 01/06/22 08:00 BP 136/77 01/06/22 08:00 Pulse Ox 94 01/06/22 08:00 O2 Del Method 01/06/22 08:00 Discharge Plan Discharge Patient Disposition: Xfer SNF Condition: Stable Prescriptions: Continued (DME) Night splint to left See Rx Instructions .Route .MEDSUPPLY Qty: 1 0RF Rx Instructions: As directed ([facility] [place]) Custom Molded Orthotics See Rx Instructions .Route .MEDSUPPLY Qty: 1 0RF Rx Instructions: As directed by [employer] ([facility] [place] [facility]) Dexcom G6 Air Twister Winder Misc See Rx Instructions .Route Qty: 1 0RF Rx Instructions: Check BS 4-6 times a day. ([facility] [place]) Dexcom G6 Sensor Device See Rx Instructions .Route Qty: 9 3RF Rx Instructions: Change every 10 days. ([facility] [place]) Dexcom G6 Transmitter Device See Rx Instructions .Route Qty: 3 3RF Rx Instructions: Change every 90 days. ([facility] [place]) Omnipod 5 G6 Pods (Gen 5) Cartridge See Rx Instructions .Route Qty: 30 3RF Rx Instructions: Change every 2-3 times guaifenesin 600 mg tablet extended release 12hr 600 mg PO BID Qty: 20 0RF albuterol sulfate [ProAir HFA] 90 mcg/actuation HFA aerosol inhaler 1 puff INHALATION Q4H PRN (Reason: Shortness Of Breath) Qty: 8.5 2RF nitroglycerin 400 mcg/spray spray,non-aerosol 1 spray TRANSLINGU Q5M PRN (Reason: Chest Pain) Qty: 12 3RF Rx Instructions: do not exceed 3 doses per episode Brilinta 90 mg tablet 60 mg PO BID Qty: 180 2RF Rx Instructions: patient reports taking 60mg BID per presciption bottle not 90mg BID cetirizine 10 mg tablet 10 mg PO DAILY Qty: 90 1RF gabapentin 300 mg capsule 300 mg PO BID Qty: 180 1RF Jardiance 10 mg tablet 10 mg PO DAILY Qty: 90 3RF Pradaxa 150 mg capsule 150 mg PO BID Qty: 180 3RF Hold Instructions: Resume on 02/06/21. May start taking the Pradaxa on 02/07/2020 in the morning metoprolol tartrate 100 mg tablet 100 mg PO BID Qty: 180 3RF Rx Instructions: 02/13/21 Dose change trazodone 50 mg tablet 50 mg PO DAILY Qty: 90 1RF rosuvastatin 20 mg tablet 20 mg PO DAILY Qty: 100 3RF ranolazine 1,000 mg tablet extended release 12 hr 1,000 mg PO BID Qty: 180 1RF insulin aspart U-100 [Novolog U-100 Insulin aspart] 100 unit/mL solution See Rx Instructions .ROUTE .COMPLEX Qty: 10 0RF Rx Instructions: PER SLIDING SCALE WITH EACH MEAL (DME) Omnipod 5 G6 Intro Kit (Gen 5) Cartridge See Rx Instructions .Route Qty: 1 0RF Rx Instructions: As directed (DME) Accu-Chek Iva Plus test strp Strip See Rx Instructions .Route Qty: 100 3RF Rx Instructions: As directed, check blood sugar 5x daily lisinopril 10 mg tablet 10 mg PO BID Qty: 180 3RF Rx Instructions: Unable to tolerate 20mg bid hydrocodone-acetaminophen 10-325 mg tablet 1 tab PO Q6H 30 Days Qty: 120 0RF Rx Instructions: May fill on 01/11/22. potassium chloride 8 mEq capsule, extended release 8 meq PO DAILY famotidine 20 mg tablet 20 mg PO BID mirtazapine 15 mg tablet 7.5 mg PO BEDTIME cyanocobalamin (vitamin B-12) [Vitamin B-12] 500 mcg Tablet 500 mcg PO DAILY magnesium 250 mg Tablet 250 mg PO BID fluticasone propionate [Flonase Allergy Relief] 50 mcg/actuation [place],Suspension 2 spray INTRANASAL DAILY lycopene 10 mg Capsule 20 mg PO DAILY L-Arginine Tab 500 mg PO DAILY isosorbide mononitrate 30 mg Tablet Extended Release 24 Hr 30 mg PO DAILY Discharge Orders: Discharge Order (Routine); Ordered 01/06/22 Ordered By: Tu Cerda Referrals: [facility] [Outside] Sea Segovia DO [Primary Care Provider] - Patient Instructions: Stroke (GEN), Opioid Safety Discharge Attestations Time Spent in Discharge Care*: less than 30 min Status at Discharge: Cognitive status at discharge: cognitively intact, Behavioral status at discharge: cooperative, Quality Metrics Clinical Quality Measures [ No reported AMI, CVA or VTE this stay] Coding Level of Care Code Acute Chg FW DC note Diagnoses CVA (cerebral vascular accident) I63.9 Intermittent atrial fibrillation I48.0 Presence of permanent cardiac pacemaker Z95.0 Atherosclerotic heart disease of [place] coronary artery with other forms of angina pectoris I25.118 Chronic low back pain M54.50; G89.29 Subclinical hypothyroidism E03.8 Chronic diastolic CHF (congestive heart failure) I50.32
[2022-01-06 11:22] LABS: Glucose Point of Care 141 mg/dL (70-110)
[2022-01-06 13:03] LABS: SARS Covid-2 Antigen negative (Negative)
--- NOTE | 2022-01-06 14:38 | PC.NURSE ---
Report called to Rocío at [facility].
== END 2022-01-06 15:02 | disposition skilled nursing facility (03) ==
LOC: ER 16:37 → MEDSURG 22:15
PROVIDERS: Admitting Provider Internal Medicine; Emergency Provider Family Medicine; PCP Family Medicine; Visit Provider Internal Medicine
DX: I63.9 Cerebral infarction, unspecified (principal); I48.0 Paroxysmal atrial fibrillation; Z95.0 Presence of cardiac pacemaker; I25.118 Atherosclerotic heart disease of native coronary artery with other forms of angina pectoris; M54.50 Low back pain, unspecified; G89.29 Other chronic pain; E03.8 Other specified hypothyroidism; I50.32 Chronic diastolic (congestive) heart failure; E13.9 Other specified diabetes mellitus without complications
CPT/HCPCS: 36415; 36416; 70450; 70496; 70498; 80048; 80053; 80306; 81003; 82962; 83036; 83735; 85025; 85610; 85730; 87426; 90471; 90662; 92523; 92610; 93005; 96361; 96374; 96375; 97110; 97116; 97161; 97166; 97530; 97535; 99285; C8924; G0378; J2405; J2765; J7030; Q9967

== ENCOUNTER → 2022-01-07 08:09 | Outpatient (BNVA) | payer MEDICARE, MEDICAID, SELFPAY | PROVIDERS: PCP Family Medicine; Visit Provider Podiatrist Foot & Ankle Surgery | DX: E11.65 Type 2 diabetes mellitus with hyperglycemia (principal); M20.41 Other hammer toe(s) (acquired), right foot; M20.42 Other hammer toe(s) (acquired), left foot; M21.41 Flat foot [pes planus] (acquired), right foot; M21.42 Flat foot [pes planus] (acquired), left foot; M20.21 Hallux rigidus, right foot; M20.22 Hallux rigidus, left foot; L60.3 Nail dystrophy; Z79.4 Long term (current) use of insulin | CPT/HCPCS: 11721 ==

== ENCOUNTER → 2022-02-10 11:02 | Outpatient (BNVA) | payer MEDICARE, MEDICAID, SELFPAY | PROVIDERS: PCP Family Medicine; Visit Provider Internal Medicine Cardiovascular Disease | DX: I25.10 Atherosclerotic heart disease of native coronary artery without angina pectoris (principal); Z86.73 Personal history of transient ischemic attack (TIA), and cerebral infarction without residual deficits; E78.2 Mixed hyperlipidemia; I13.0 Hypertensive heart and chronic kidney disease with heart failure and stage 1 through stage 4 chronic kidney disease, or unspecified chronic kidney disease; E13.22 Other specified diabetes mellitus with diabetic chronic kidney disease; N18.2 Chronic kidney disease, stage 2 (mild); I50.32 Chronic diastolic (congestive) heart failure; Z87.891 Personal history of nicotine dependence; Z79.4 Long term (current) use of insulin; G47.33 Obstructive sleep apnea (adult) (pediatric); Z95.0 Presence of cardiac pacemaker | CPT/HCPCS: 99214 ==

== ENCOUNTER → 2022-02-27 10:23 | Outpatient (BNVA) | payer MEDICARE, MEDICAID, SELFPAY | PROVIDERS: PCP Family Medicine; Visit Provider Internal Medicine | DX: E11.59 Type 2 diabetes mellitus with other circulatory complications (principal); N18.9 Chronic kidney disease, unspecified; L60.3 Nail dystrophy; E03.8 Other specified hypothyroidism; E78.2 Mixed hyperlipidemia; I25.10 Atherosclerotic heart disease of native coronary artery without angina pectoris; I63.9 Cerebral infarction, unspecified; I50.32 Chronic diastolic (congestive) heart failure | CPT/HCPCS: 99214 ==

== ENCOUNTER → 2022-04-21 07:58 | Outpatient (BNVA) | payer MEDICARE, MEDICAID, SELFPAY | PROVIDERS: PCP Family Medicine; Visit Provider Podiatrist Foot & Ankle Surgery | DX: E11.8 Type 2 diabetes mellitus with unspecified complications (principal); M20.41 Other hammer toe(s) (acquired), right foot; M20.42 Other hammer toe(s) (acquired), left foot; M21.41 Flat foot [pes planus] (acquired), right foot; M21.42 Flat foot [pes planus] (acquired), left foot; M20.21 Hallux rigidus, right foot; M20.22 Hallux rigidus, left foot; L60.3 Nail dystrophy; Z79.4 Long term (current) use of insulin | CPT/HCPCS: 11721 ==

== ENCOUNTER 2022-05-26 08:16 | Outpatient (CLI) | payer MEDICARE, MEDICAID, SELFPAY ==
[2022-05-26 08:56] LABS: Estmated Average Glucose 140; Hemoglobin A1C 6.5 % (4.0-6.0)
[2022-05-26 09:02] LABS: Alanine Aminotransferase 22 U/L (0-41); Albumin Level 4.2 g/dL (3.5-5.2); Alkaline Phosphatase 60 U/L (40-130); Anion Gap 14.7 (5-19); Aspartate Amino Transferase 19 U/L (0-40); Blood Urea Nitrogen 20 mg/dL (8-23); Calcium 9.2 mg/dL (8.5-10.5); Carbon Dioxide 25 mmol/L (22-29); Chloride 103 mmol/L (98-107); Chol HDL Ratio 1.93 mg/dL (1.0-5.00); Cholesterol 106 mg/dL (0-200); Glomerular Filtration Rate 60.8 mL/min (90-130); Glucose 136 mg/dL (65-115); HDL Cholesterol 55 mg/dL (60-100); LDL Cholesterol Calculated 36 mg/dL (50-129); LDL HDL Ratio 0.65 RATIO (0.00-3.22); Osmolality Calculated 291 mOsm/kg (285-295); Potassium 4.7 mmol/L (3.5-5.1); Sodium 138 mmol/L (136-145); Total Bilirubin 0.6 mg/dL (0.15-1.2); Total Protein 7.2 g/dL (6.6-8.7); Triglycerides 77 mg/dL (0-150)
== END 2022-05-26 08:17 | disposition home or self-care (01) ==
PROVIDERS: PCP Family Medicine; Visit Provider Internal Medicine
DX: I63.9 Cerebral infarction, unspecified (principal); E11.65 Type 2 diabetes mellitus with hyperglycemia; E03.8 Other specified hypothyroidism
CPT/HCPCS: 80053; 80061; 83036

== ENCOUNTER → 2022-05-29 10:05 | Outpatient (BNVA) | payer MEDICARE, MEDICAID, SELFPAY | PROVIDERS: PCP Family Medicine; Visit Provider Internal Medicine | DX: E13.9 Other specified diabetes mellitus without complications (principal); E03.8 Other specified hypothyroidism; E78.2 Mixed hyperlipidemia; I25.10 Atherosclerotic heart disease of native coronary artery without angina pectoris; I63.9 Cerebral infarction, unspecified; I50.32 Chronic diastolic (congestive) heart failure; Z79.4 Long term (current) use of insulin | CPT/HCPCS: 99214 ==

== ENCOUNTER → 2022-07-23 08:43 | Outpatient (BNVA) | payer MEDICARE, MEDICAID, SELFPAY | PROVIDERS: PCP Family Medicine; Visit Provider Podiatrist Foot & Ankle Surgery | DX: E11.8 Type 2 diabetes mellitus with unspecified complications (principal); M20.41 Other hammer toe(s) (acquired), right foot; M20.42 Other hammer toe(s) (acquired), left foot; M21.41 Flat foot [pes planus] (acquired), right foot; M21.42 Flat foot [pes planus] (acquired), left foot; M20.21 Hallux rigidus, right foot; M20.22 Hallux rigidus, left foot; L60.3 Nail dystrophy; Z79.4 Long term (current) use of insulin | CPT/HCPCS: 11721 ==

== ENCOUNTER → 2022-08-19 13:39 | Outpatient (BNVA) | payer MEDICARE, MEDICAID, SELFPAY | PROVIDERS: PCP Family Medicine; Visit Provider Internal Medicine Cardiovascular Disease | DX: I25.10 Atherosclerotic heart disease of native coronary artery without angina pectoris (principal); E78.5 Hyperlipidemia, unspecified; Z95.0 Presence of cardiac pacemaker; E78.2 Mixed hyperlipidemia; I13.0 Hypertensive heart and chronic kidney disease with heart failure and stage 1 through stage 4 chronic kidney disease, or unspecified chronic kidney disease; E11.22 Type 2 diabetes mellitus with diabetic chronic kidney disease; N18.9 Chronic kidney disease, unspecified; I50.32 Chronic diastolic (congestive) heart failure; Z87.891 Personal history of nicotine dependence; Z79.4 Long term (current) use of insulin | CPT/HCPCS: 99214 ==

== ENCOUNTER 2022-08-28 07:56 | Outpatient (CLI) | payer MEDICARE, MEDICAID, SELFPAY ==
[2022-08-28 08:34] LABS: Estmated Average Glucose 160; Hemoglobin A1C 7.2 % (4.0-6.0)
[2022-08-28 08:45] LABS: Alanine Aminotransferase 22 U/L (0-41); Albumin Level 4.3 g/dL (3.5-5.2); Alkaline Phosphatase 65 U/L (40-130); Anion Gap 14.4 (5-19); Aspartate Amino Transferase 20 U/L (0-40); Blood Urea Nitrogen 17 mg/dL (8-23); Carbon Dioxide 26 mmol/L (22-29); Chloride 99 mmol/L (98-107); Chol HDL Ratio 2.22 mg/dL (1.0-5.00); Cholesterol 109 mg/dL (0-200); Globulin 2.9 g/dL (1.3-4.6); Glomerular Filtration Rate 60.8 mL/min (90-130); Glucose 248 mg/dL (65-115); HDL Cholesterol 49 mg/dL (60-100); LDL Cholesterol Calculated 26 mg/dL (50-129); LDL HDL Ratio 0.53 RATIO (0.00-3.22); Osmolality Calculated 290 mOsm/kg (285-295); Potassium 4.4 mmol/L (3.5-5.1); Sodium 135 mmol/L (136-145); Total Bilirubin 0.7 mg/dL (0.15-1.2); Total Protein 7.2 g/dL (6.6-8.7); Triglycerides 168 mg/dL (0-150)
[2022-08-28 08:46] LABS: Creatinine Urine, Random 47 mg/dL (39-259); Microalbum Creatinine Ratio Ur 21 mg/dL (0-20); Microalbumin Random Urine 1 ug/dL (0-20)
== END 2022-08-28 07:57 | disposition home or self-care (01) ==
LOC: LAB 08:00
PROVIDERS: PCP Family Medicine; Visit Provider Internal Medicine
DX: E11.9 Type 2 diabetes mellitus without complications (principal); N18.9 Chronic kidney disease, unspecified
CPT/HCPCS: 36415; 80053; 80061; 82044; 83036

== ENCOUNTER → 2022-08-31 09:54 | Outpatient (BNVA) | payer MEDICARE, MEDICAID, SELFPAY | PROVIDERS: PCP Family Medicine; Visit Provider Internal Medicine | DX: E13.22 Other specified diabetes mellitus with diabetic chronic kidney disease (principal); N18.9 Chronic kidney disease, unspecified; I25.10 Atherosclerotic heart disease of native coronary artery without angina pectoris; E78.2 Mixed hyperlipidemia; E03.8 Other specified hypothyroidism; I50.32 Chronic diastolic (congestive) heart failure; I13.0 Hypertensive heart and chronic kidney disease with heart failure and stage 1 through stage 4 chronic kidney disease, or unspecified chronic kidney disease; Z86.73 Personal history of transient ischemic attack (TIA), and cerebral infarction without residual deficits; Z79.4 Long term (current) use of insulin | CPT/HCPCS: 99214 ==

== ENCOUNTER → 2022-09-17 08:58 | Outpatient (BNVA) | payer MEDICARE, MEDICAID, SELFPAY | PROVIDERS: PCP Family Medicine; Visit Provider Podiatrist Foot & Ankle Surgery | DX: E11.8 Type 2 diabetes mellitus with unspecified complications (principal); M20.41 Other hammer toe(s) (acquired), right foot; M20.42 Other hammer toe(s) (acquired), left foot; M21.41 Flat foot [pes planus] (acquired), right foot; M21.42 Flat foot [pes planus] (acquired), left foot; M20.21 Hallux rigidus, right foot; M20.22 Hallux rigidus, left foot; L60.3 Nail dystrophy; Z79.4 Long term (current) use of insulin | CPT/HCPCS: 11721 ==

== ENCOUNTER 2022-10-12 10:30 | Outpatient (CLI) | payer MEDICARE, MEDICAID, SELFPAY ==
--- NOTE | 2022-10-12 10:56 | XR_ITS ---
WS: [id number] Exam: XR chest 1V [id number] Date/Time of Exam: 10/12/2022 11:00 AM Reason For Exam: dyspnea on exertion, worsening. Comparison 02/05/2021. The lungs are hyperinflated and clear. Signs of previous CABG surgery and coronary artery stenting. H eart size is normal. The mediastinum is normal in contour. No pleural effusions. Cardiac pacer in [facility] ce over the left chest. XR/XR chest 1V [id number] IMPRESSION: 1. Pulmonary hyperinflation. No acute process noted.
== END 2022-10-12 10:31 | disposition home or self-care (01) ==
LOC: RAD 10:33
PROVIDERS: PCP Family Medicine; Visit Provider Family Medicine
DX: I50.20 Unspecified systolic (congestive) heart failure (principal); R06.09 Other forms of dyspnea; J98.4 Other disorders of lung
CPT/HCPCS: 71045

== ENCOUNTER 2022-12-02 09:48 | Outpatient (CLI) | payer MEDICARE, MEDICAID, SELFPAY ==
[2022-12-02 10:38] LABS: Estmated Average Glucose 143; Hemoglobin A1C 6.6 % (4.0-6.0)
[2022-12-02 10:44] LABS: Alanine Aminotransferase 23 U/L (0-41); Albumin Level 4.6 g/dL (3.5-5.2); Alkaline Phosphatase 67 U/L (40-130); Anion Gap 11.2 (5-19); Aspartate Amino Transferase 20 U/L (0-40); Blood Urea Nitrogen 15 mg/dL (8-23); Calcium 9.5 mg/dL (8.5-10.5); Carbon Dioxide 29 mmol/L (22-29); Chloride 99 mmol/L (98-107); Chol HDL Ratio 2.27 mg/dL (1.0-5.00); Cholesterol 118 mg/dL (0-200); Globulin 2.9 g/dL (1.3-4.6); Glomerular Filtration Rate 60.6 mL/min (90-130); Glucose 143 mg/dL (65-115); HDL Cholesterol 52 mg/dL (60-100); LDL Cholesterol Calculated 45 mg/dL (50-129); LDL HDL Ratio 0.87 RATIO (0.00-3.22); Osmolality Calculated 281 mOsm/kg (285-295); Potassium 5.2 mmol/L (3.5-5.1); Sodium 134 mmol/L (136-145); Total Bilirubin 0.6 mg/dL (0.15-1.2); Total Protein 7.5 g/dL (6.6-8.7); Triglycerides 104 mg/dL (0-150)
[2022-12-02 10:47] LABS: Creatinine Urine, Random 65 mg/dL (39-259); Microalbum Creatinine Ratio Ur 15 mg/dL (0-20); Microalbumin Random Urine 1 ug/dL (0-20)
== END 2022-12-02 09:49 | disposition home or self-care (01) ==
LOC: LAB 09:50
PROVIDERS: PCP Family Medicine; Visit Provider Internal Medicine
DX: N18.9 Chronic kidney disease, unspecified; E11.59 Type 2 diabetes mellitus with other circulatory complications; E11.22 Type 2 diabetes mellitus with diabetic chronic kidney disease; L60.3 Nail dystrophy; E03.8 Other specified hypothyroidism; E78.2 Mixed hyperlipidemia; I25.10 Atherosclerotic heart disease of native coronary artery without angina pectoris; I50.32 Chronic diastolic (congestive) heart failure; I63.9 Cerebral infarction, unspecified; Z79.4 Long term (current) use of insulin; Z79.84 Long term (current) use of oral hypoglycemic drugs
CPT/HCPCS: 36415; 80053; 80061; 82044; 83036; 99214

== ENCOUNTER → 2022-12-24 10:37 | Outpatient (BNVA) | payer MEDICARE, MEDICAID, SELFPAY | PROVIDERS: PCP Family Medicine; Visit Provider Podiatrist Foot & Ankle Surgery | DX: L60.8 Other nail disorders (principal); M20.41 Other hammer toe(s) (acquired), right foot; M20.42 Other hammer toe(s) (acquired), left foot; M21.41 Flat foot [pes planus] (acquired), right foot; M21.42 Flat foot [pes planus] (acquired), left foot; M20.21 Hallux rigidus, right foot; M20.22 Hallux rigidus, left foot; L60.3 Nail dystrophy; E11.69 Type 2 diabetes mellitus with other specified complication; Z79.4 Long term (current) use of insulin | CPT/HCPCS: 11721 ==

== ENCOUNTER 2023-02-23 21:24 | Emergency (ER) | payer MEDICARE, MEDICAID, SELFPAY ==
--- NOTE | 2023-02-23 21:26 | XRR_ITS ---
PROCEDURE INFORMATION: Exam: XR Chest Exam date and time: 02/23/2023 10:46 PM Age: 67 years old Clinical indication: Pain; Chest pressure; Prior surgery; Surgery date: 6+ months; Surgery type: Open heart pacer; Additional info: Cp TECHNIQUE: Imaging protocol: Radiologic exam of the chest. Views: 1 view. COMPARISON: CR XR chest 1V [id number] 10/12/2022 11:01 AM FINDINGS: Tubes, catheters and devices: Pacemaker. Lungs: Left lower lobe atelectasis versus minimal infiltrate. Emphysematous changes suspected. Pleural spaces: Unremarkable. No pleural effusion. No pneumothorax. Heart/Mediastinum: Unremarkable. No cardiomegaly. Bones/joints: Sternotomy wires. XR/XR chest 1V portable [id number] IMPRESSION: 1. Left lower lobe atelectasis versus minimal infiltrate. 2. Emphysematous changes suspected.
--- NOTE | 2023-02-23 21:26 | ECG_ITS ---
[facility] Test Date: 2023-02-23 Pat Name: Darrell Pemberton Department: Room: Gender: Male Lcpc: : 1955 Requested By: Lavinia Malik Order Number: [id number] Michael MD: Tarun Emerson M.D. Measurements Intervals [place] Rate: 84 P: 155 [place]: 231 QRS: 95 QRSD: 128 T: 66 QT: 384 QTc: 455 Interpretive Statements ELECTRONIC ATRIAL PACEMAKER MODERATE INTRAVENTRICULAR CONDUCTION DELAY [110+ ms QRS DURATION] ABNORMAL RHYTHM ECG Compared to ECG 01/02/2022 16:28:55 No significant changes Electronically Signed On 02-25-2023 16:48:17 TANK CLEANING SUPERVISOR by Tarun Emerson M.D. [id number]
[2023-02-23 21:32] VITALS: BP 127/74; PULSE 75; RESP 18; TEMP 36.4; O2SAT 97
--- NOTE | 2023-02-23 21:36 | ECG_ITS ---
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 Measurements Intervals [place] Rate: 62 P: 168 [place]: 214 QRS: 93 QRSD: 125 T: 81 QT: 343 QTc: 349 Interpretive Statements ELECTRONIC ATRIAL PACEMAKER BORDERLINE RIGHT AXIS DEVIATION [QRS AXIS > 90] NONSPECIFIC ST & T-WAVE ABNORMALITY Compared to ECG 01/02/2022 16:28:55 No significant change Electronically Signed On 02-25-2023 16:48:05 MARKETING RESEARCH ANALYST by Tarun Emerson M.D. [id number]
[2023-02-23 21:51] LABS: Basophils % 0.6 %; Eosinophils # 0.3 10^3/uL (0.0-0.8); Eosinophils % 3.7 %; Hematocrit 40.4 % (37-53); Lymphocytes # 1.4 10^3/uL (0.8-4.8); Mean Corpuscular HGB Conc 34.4 g/dL (30-55); Mean Corpuscular Hemoglobin 32.6 pg (27-33); Mean Corpuscular Volume 94.8 fl (82-101); Mean Platelet Volume 8.6 fL (7.4-10.4); Monocytes # 0.8 10^3/uL (0.2-0.9); Monocytes % 10.7 %; Neutrophils # 4.55 10^3/uL (1.8-7.7); Neutrophils % 64.9 %; Nucleated Red Blood Cells % 0 %; Platelet Count 190 10^3/cmm (157-399); Red Blood Count 4.26 10^6/uL (3.85-5.65); Red Cell Distribution Width 11.7 % (12.1-15.1); White Blood Count 7.01 10^3/uL (3.29-11.43)
[2023-02-23 22:02] LABS: INR 1.45 (0.8-1.2)
[2023-02-23 22:09] LABS: Troponin(5th) Baseline 10 ng/L (0-15)
[2023-02-23 22:19] LABS: Alanine Aminotransferase 27 U/L (0-41); Albumin Level 4.3 g/dL (3.5-5.2); Alkaline Phosphatase 85 U/L (40-130); Aspartate Amino Transferase 20 U/L (0-40); Blood Urea Nitrogen 21 mg/dL (8-23); Calcium 9.4 mg/dL (8.5-10.5); Carbon Dioxide 22 mmol/L (22-29); Globulin 2.9 g/dL (1.3-4.6); Glucose 243 mg/dL (65-115); Lipase 31 U/L (13-60); Total Bilirubin 0.4 mg/dL (0.15-1.2); Total Protein 7.2 g/dL (6.6-8.7)
[2023-02-23 22:32] LABS: Anion Gap 17.4 (5-19); Chloride 97 mmol/L (98-107); Osmolality Calculated 285 mOsm/kg (285-295); Potassium 4.4 mmol/L (3.5-5.1); Sodium 132 mmol/L (136-145)
--- NOTE | 2023-02-23 22:37 | ED_ITS ---
HPI - Chest Pain 2 General: Chief Complaint: Chest Pain Stated Complaint: cp Time Seen by Provider: 02/23/23 21:27 Source: patient Mode of arrival: ambulatory Limitations: no limitations History of Present Illness: 67-year-old male has history of heart di sease states he had some chest pain this evening states it is right-sided pain he denies any diaphoresis or nausea states the pain is currently 9 out of 10 he took his nitro at home with no relief. Denies any vomiting or diarrhea denies any abdominal pain. 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 Atrial fibrillation, chronic Bradycardia -Has chronic bradycardia, has had event monitoring done in 2018 showing baseline sinus bradycardia, average heart rate is about 55 -We will hold beta-ashish for now -Monitor vital signs -Telemetry monitoring Bronchitis Chronic diastolic CHF (congestive heart failure) -Has known chronic diastolic CHF, no indication of acute exacerbation currently -Echo done in 2018 showed an ejection fraction of 50% with grade 1 diastolic dysfunction and mild hypokinesia -We will hold Lasix for now given orthostasis Chronic kidney disease Chronic low back pain CVA (cerebral vascular accident) Diabetes mellitus GERD (gastroesophageal reflux disease) -on PPI Hx of glaucoma Hyperlipemia Hypertension Intermittent atrial fibrillation Pacemaker Peripheral neuropathy Presence of permanent cardiac pacemaker Sleep apnea -non-compliant with CPAP Subclinical hypothyroidism Ventricular septal defect Surgical History Hx of non-cataract eye surgery Hx of cataract extraction History of incisional hernia repair -inferior aspect of sternotomy incision H/O aortic aneurysm repair H/O coronary angioplasty H/O heart artery stent Family History Father Stroke CAD (coronary artery disease) Brother Cancer Diabetes Sister Cancer Dementia Diabetes Denies family history of Clotting disorder Chronic kidney disease (CKD) Suicide Anesthesia complication Bleeding disorder Lung disease Social History Smoking and tobacco/nicotine status: former use of tobacco/nicotine Quit status (tobacco/nicotine): has quit using Year quit tobacco: 20 yrs ago Alcohol intake: current Alcohol intake frequency: holidays/special occasions only Substance/Drug Use: never Household members: spouse and children Marital status: Physical Exam 2 Const: COMMON NORMALS: no acute distress, patient oriented x3 and healthy appearing HENMT: COMMON NORMALS: normocephalic and atraumatic HEAD & SCALP: n ormocephalic and atraumatic Eye: COMMON NORMALS: Equal, round and reactive pupils present and EOMs intact bilaterally PUPIL: Yes Equal, round and reactive pupils present Neck/C-Spine: COMMON NORMALS: full ROM and supple Chest: COMMONS NORMALS: normal inspection of the chest and normal palpation of entire chest wall Resp: COMMON NORMALS: normal respiratory effort, No retractions, No use of accessory muscles and clear to auscultation bilaterally AUSCULTATION: clear to auscultation bilaterally Cardio: COMMON NORMALS: regular rate, regular rhythm and No murmurs present (Cardio) RATE: regular rate RHYTHM: regular rhythm GI: COMMON NORMALS: Normal to inspection, nondistended, normoactive bowel sounds present, Soft to palpation, non-tender and no masses PALPATION: Yes Soft to palpation Extremity: COMMON NORMALS: normal to inspection and full ROM Neuro: COMMON NORMALS: patient oriented x3, moves all extremities and no focal motor deficits Psych: COMMON NORMALS: mental status grossly normal, Normal thought process present and cooperative THOUGHT PROCESS: Normal thought process present Skin: COMMON NORMALS: no rashes or lesions noted and no wounds GENERAL SKIN EXAM: no rashes or lesions noted Course 2 Vital Signs: Vital signs: Vital Signs Temperature 97.5 F L 02/23/23 21:32 Pulse Rate 75 02/23/23 21:32 Respiratory Rate 18 02/23/23 21:32 Blood Pressure 127/74 02/23/23 21:32 Pulse Oximetry 97 02/23/23 21:32 Oxygen Delivery Me thod Room Air 02/23/23 21:32 MDM - Chest Pain Medical Decision Making Patient presents for chest pain he has no signs of acute coronary syndrome initial repeat troponin here are both negative he has no signs of dissection or pulmonary embolism he had no cough or fever no signs of pneumonia he is to follow-up with PCP in 4 to 7 days and return if worsening he understands agrees to plan Medical Records I reviewed the patient's medical records. Lab Data I reviewed the patient's lab results. 02/23/23 21:43 02/23/23 21:43 Radiology Impressions Chest X-Ray 02/23/23 21:26 IMPRESSION: 1. Left lower lobe atelectasis versus minimal infiltrate. 2. Emphysematous changes suspected. Laboratory Results WBC 7.01 10^3/uL (3.29-11.43) 02/23/23 21:43 RBC 4.26 10^6/uL (3.85-5.65) 02/23/23 21:43 Hgb 13.90 g/dL (11.27-16.99) 02/23/23 21:43 Hct 40.4 % (37-53) 02/23/23 21:43 MCV 94.8 fl (82-101) 02/23/23 21:43 MCH 32.6 pg (27-33) 02/23/23 21:43 MCHC 34.4 g/dL (30-55) 02/23/23 21:43 RDW 11.7 % (12.1-15.1) L 02/23/23 21:43 Plt Count 190 10^3/cmm (157-399) 02/23/23 21:43 MPV 8.6 fL (7.4-10.4) 02/23/23 21:43 Neut % (Auto) 64.9 % 02/23/23 21:43 Lymph % (Auto) 20.0 % 02/23/23 21:43 [place] % (Auto) 10.7 % 02/23/23 21:43 Eos % (Auto) 3.7 % 02/23/23 21:43 Baso % (Auto) 0.6 % 02/23/23 21:43 Neut # (Auto) 4.55 10^3/uL (1.8-7.7) 02/23/23 21:43 Lymph # (Auto) 1.4 10^3/uL (0.8-4.8) 02/23/23 21:43 [place] # (Auto) 0.8 10^3/uL (0.2-0.9) 02/23/23 21:43 Eos # (Auto) 0.3 10^3/uL (0.0-0.8) 02/23/23 21:43 Baso # (Auto) 0.0 10^3/uL (0.0-0.1) 02/23/23 21:43 Nucleated RBC % (auto) 0 % 02/23/23 21:43 Nucleated RBCs # 0.0 /100WBC 02/23/23 21:43 PT 18.10 SECONDS (12.1-14.9) H 02/23/23 21:43 INR 1.45 (0.8-1.2) H 02/23/23 21:43 Sodium 132 mmol/L (136-145) L 02/23/23 21:43 Potassium 4.4 mmol/L (3.5-5.1) 02/23/23 21:43 Chloride 97 mmol/L (98-107) L 02/23/23 21:43 Carbon Dioxide 22 mmol/L (22-29) 02/23/23 21:43 Anion Gap 17.4 (5-19) 02/23/23 21:43 BUN 21 mg/dL (8-23) 02/23/23 21:43 Creatinine 1.1 mg/dL (0.7-1.2) 02/23/23 21:43 GFR Calculation 67.0 mL/min (90-130) L 02/23/23 21:43 Glucose 243 mg/dL (65-115) H 02/23/23 21:43 Calculated Osmolality 285 mOsm/kg (285-295) 02/23/23 21:43 Calcium 9.4 mg/dL (8.5-10.5) 02/23/23 21:43 Total Bilirubin 0.4 mg/dL (0.15-1.2) 02/23/23 21:43 AST 20 U/L (0-40) 02/23/23 21:43 ALT 27 U/L (0-41) 02/23/23 21:43 Alkaline Phosphatase 85 U/L (40-130) 02/23/23 21:43 Troponin T Baseline 10 ng/L (0-15) 02/23/23 21:43 Troponin T 120 Minute 9.83 ng/L (0-15) 02/23/23 23:40 Delta Troponin T -0.17 ABS# (0-10) L 02/23/23 23:40 Total Protein 7.2 g/dL (6.6-8.7) 02/23/23 21:43 Albumin 4.3 g/dL (3.5-5.2) 02/23/23 21:43 Globulin 2.9 g/dL (1.3-4.6) 02/23/23 21:43 Lipase 31 U/L (13-60) 02/23/23 21:43 All radiology interpretation(s) finalized by discharge Discharge Plan Discharge Patient Disposition: Home Clinical Impression: Chest pain Qualifiers: Chest pain type: unspecified Qualified Code(s): R07.9 - Chest pain, unspecified Condition: Stable Prescriptions: No Action (DME) Night splint to left See Rx Instructions .Route .MEDSUPPLY Qty: 1 0RF Rx Instructions: As directed (DME) Custom Molded Orthotics See Rx Instructions .Route .MEDSUPPLY Qty: 1 0RF Rx Instructions: As directed by SWATI&O (DME) Dexcom G6 Urologist Md Misc See Rx Instructions .Route Qty: 1 0RF Rx Instructions: Check BS 4-6 times a day. (DME) Dexcom G6 Sensor Device See Rx Instructions .Route Qty: 9 3RF Rx Instructions: Change every 10 days. (DME) Dexcom G6 Transmitter Device See Rx Instructions .Route Qty: 3 3RF Rx Instructions: Change every 90 days. mupirocin 2 % ointment 1 applic topical BID Qty: 15 0RF Debrox 6.5 % drops 5 drp otic (ear) DAILY 4 Days Qty: 15 0RF uaqigjjy-zgwwktgau-VE 3.5-10,000-1 mg/mL-unit/mL-% drops,suspension 4 drp otic (ear) Q8H Qty: 10 0RF cyclobenzaprine 10 mg tablet 5 mg PO TID PRN (Reason: muscle spasm) Qty: 20 0RF guaifenesin 600 mg tablet extended release 12hr 600 mg PO BID Qty: 20 0RF miscellaneous medical supply Misc 1 ea miscellaneous DAILY Qty: 1 0RF Rx Instructions: Please evaluate and issue Standard wheelchair for mobility. miscellaneous medical supply [facility] [place] miscellaneous DAILY Qty: 1 0RF Rx Instructions: Please issue shower bench for home use. (DME) Diabetic shoes with 3 inserts See Rx Instructions .Route .MEDSUPPLY Qty: 1 0RF Rx Instructions: As directed HOME gabapentin 300 mg capsule See Rx Instructions .ROUTE .COMPLEX Qty: 180 3RF Dose Instruction: TAKE 1 CAPSULE TWICE DAILY Rx Instructions: TAKE 1 CAPSULE BY MOUTH TWICE DAILY fluticasone propionate [Flonase Allergy Relief] 50 mcg/actuation spray,suspension 2 spray INTRANASAL DAILY Qty: 16 2RF (DME) Omnipod 5 G6 Intro Kit (Gen 5) Cartridge See Rx Instructions .Route Qty: 1 0RF Rx Instructions: As directed ([facility] [place]) pen needle, diabetic [Droplet Pen Needle] 31 gauge x 5/16 needle See Rx Instructions .Route Qty: 100 12RF Rx Instructions: [facility] [place] ea miscellaneous DAILY Qty: 1 0RF Rx Instructions: Please issue Life Alert system as patient is at high risk for falls and Cardiovascular events. cetirizine 10 mg tablet 10 mg PO DAILY Qty: 90 1RF dabigatran etexilate 150 mg capsule See Rx Instructions .ROUTE .COMPLEX Qty: 200 3RF Hold Instructions: Resume on 02/06/21. May start taking the Pradaxa on 02/07/2020 in the morning Dose Instruction: TAKE 1 CAPSULE TWICE DAILY Rx Instructions: TAKE 1 CAPSULE TWICE DAILY Jardiance 10 mg tablet See Rx Instructions .ROUTE .COMPLEX Qty: 100 3RF Dose Instruction: TAKE 1 TABLET EVERY DAY Rx Instructions: TAKE 1 TABLET EVERY DAY nitroglycerin 0.4 mg tablet, sublingual 0.4 mg sublingual Q5M PRN (Reason: chest pain) Qty: 20 2RF Rx Instructions: do not exceed 3 doses per episode metoprolol tartrate 100 mg tablet 100 mg PO BID Qty: 180 3RF isosorbide mononitrate 30 mg tablet extended release 24 hr See Rx Instructions .ROUTE .COMPLEX Qty: 270 3RF Dose Instruction: TAKE 2 TABLETS EVERY MORNING AND TAKE 1 TABLET EVERY EVENING DIRECTED (DOSE INCREASE) Rx Instructions: TAKE 2 TABLETS EVERY MORNING AND TAKE 1 TABLET EVERY EVENING DIRECTED (DOSE INCREASE) trazodone 50 mg tablet See Rx Instructions .ROUTE .COMPLEX Qty: 90 0RF Dose Instruction: TAKE 1 TABLET EVERY DAY Rx Instructions: TAKE 1 TABLET EVERY DAY Brilinta 60 mg tablet See Rx Instructions .ROUTE .COMPLEX Qty: 180 0RF Dose Instruction: TAKE 1 TABLET TWICE DAILY Rx Instructions: TAKE 1 TABLET TWICE DAILY lisinopril 10 mg tablet See Rx Instructions .ROUTE .COMPLEX Qty: 180 3RF Dose Instruction: TAKE 1 TABLET TWICE DAILY (UNABLE TO TOLERATE 20MG TWICE A DAY) Rx Instructions: TAKE 1 TABLET TWICE DAILY (UNABLE TO TOLERATE 20MG TWICE A DAY) insulin aspart U-100 [Novolog U-100 Insulin aspart] 100 unit/mL solution See Rx Instructions .ROUTE .COMPLEX Qty: 30 0RF Dose Instruction: INJECT PER SLIDING SCALE WITH EACH MEAL; VIAL EXPIRES 28 DAYS AFTER OPENED Rx Instructions: INJECT PER SLIDING SCALE WITH EACH MEAL; VIAL EXPIRES 28 DAYS AFTER OPENED rosuvastatin 20 mg tablet See Rx Instructions .ROUTE .COMPLEX Qty: 90 0RF Dose Instruction: TAKE 1 TABLET EVERY DAY Rx Instructions: TAKE 1 TABLET EVERY DAY (DME) pen needle, diabetic [Droplet Pen Needle] 31 gauge x 5/16 needle See Rx Instructions .Route Qty: 100 12RF Rx Instructions: As directed (DME) Omnipod 5 G6 Pods (Gen 5) Cartridge See Rx Instructions .ROUTE .COMPLEX Qty: 30 3RF Dose Instruction: USE DIRECTED. CHANGE EVERY 2 TO 3 DAYS. Rx Instructions: USE DIRECTED. CHANGE EVERY 2 TO 3 DAYS. albuterol sulfate 90 mcg/actuation HFA aerosol inhaler See Rx Instructions .ROUTE .COMPLEX Qty: 1 10RF Dose Instruction: INHALE 1 PUFF EVERY 4 HOURS NEEDED FOR SHORTNESS OF BREATH Rx Instructions: INHALE 1 PUFF EVERY 4 HOURS NEEDED FOR SHORTNESS OF BREATH famotidine 20 mg tablet See Rx Instructions .ROUTE .COMPLEX Qty: 180 10RF Dose Instruction: TAKE 1 TABLET TWICE DAILY Rx Instructions: TAKE 1 TABLET TWICE DAILY (DME) insulin syringe-needle U-100 [Droplet Insulin Syringe] 1 mL 31 gauge x 5/16 syringe See Rx Instructions .ROUTE .COMPLEX Qty: 300 10RF Dose Instruction: USE DIRECTED Rx Instructions: USE DIRECTED ranolazine 1,000 mg tablet extended release 12 hr See Rx Instructions .ROUTE .COMPLEX Qty: 180 10RF Dose Instruction: TAKE 1 TABLET TWICE DAILY Rx Instructions: TAKE 1 TABLET TWICE DAILY alcohol swabs [DropSafe Alcohol Prep Pads] Pads, Medicated See Rx Instructions .ROUTE .COMPLEX Qty: 1 10RF Dose Instruction: USE DIRECTED NEEDED. Rx Instructions: USE DIRECTED NEEDED. (DME) lancets [Accu-Chek Softclix Lancets] Misc See Rx Instructions .ROUTE .COMPLEX Qty: 600 10RF Dose Instruction: TEST BLOOD SUGAR SIX TIMES DAILY DIRECTED Rx Instructions: TEST BLOOD SUGAR SIX TIMES DAILY DIRECTED (DME) blood-glucose meter [Accu-Chek Guide Glucose Meter] Misc See Rx Instructions .Route Qty: 1 0RF Rx Instructions: As directed (DME) Accu-Chek Guide test strips Strip See Rx Instructions .Route Qty: 100 11RF Rx Instructions: As directed hydrocodone-acetaminophen 10-325 mg tablet 1 tab PO Q6H 30 Days Qty: 120 0RF potassium chloride 8 mEq capsule, extended release See Rx Instructions .ROUTE .COMPLEX Qty: 90 0RF Dose Instruction: TAKE 1 CAPSULE EVERY DAY Rx Instructions: TAKE 1 CAPSULE EVERY DAY mirtazapine 15 mg tablet 7.5 mg PO BEDTIME cyanocobalamin (vitamin B-12) [Vitamin B-12] 500 mcg Tablet 500 mcg PO DAILY magnesium 250 mg Tablet 250 mg PO BID lycopene 10 mg Capsule 20 mg PO DAILY L-Arginine Tab 500 mg PO DAILY Discharge Orders: Discharge ED (Routine); Ordered 02/24/23 Ordered By: Lavinia Malik Referrals: Sea Segovia DO [Primary Care Provider] - 1-3 days Discharge Diet: Advance as tolerated Discharge Activity: Resume usual activity Patient Instructions: Chest Pain (ED) Coding Level of Care Code ED Sales Donor Recruitment Representative for Sabi Yang
[2023-02-23] MEDS: aspirin 81 mg Chew Tablet 324 MG PO (22:50)
[2023-02-23] MEDS: ondansetron 2 mg/ML SDV 2 mL 4 MG IVP (23:22)
[2023-02-23] MEDS: morphine 4 mg/mL SDV 1 mL IVP (23:24)
--- NOTE | 2023-02-23 23:26 | ECG_ITS ---
[facility] Test Date: 2023-02-23 Pat Name: Darrell Pemberton Department: Room: Gender: Male Irrigator [place]: : 1955 Requested By: Lavinia Malik Order Number: [id number] Michael MD: Tarun Emerson M.D. Measurements Intervals [place] Rate: 61 P: 193 [place]: 218 QRS: 97 QRSD: 125 T: 87 QT: 438 QTc: 442 Interpretive Statements ELECTRONIC ATRIAL PACEMAKER MODERATE INTRAVENTRICULAR CONDUCTION DELAY [105+ ms QRS DURATION, 80+ ms Q/S IN V1/V2, NO Q AND 60+ ms R IN I/aVL/V5/V6] Compared to ECG 02/23/2023 22:22:13 No significant change Electronically Signed On 02-25-2023 17:03:35 REPAIR OPERATOR by Tarun Emerson M.D. [id number]
[2023-02-24 00:01] LABS: Troponin 5 2HR 9.83 ng/L (0-15); Troponin 5 2HR Delta -0.17 ABS# (0-10)
== END 2023-02-24 00:25 | disposition home or self-care (01) ==
PROVIDERS: Emergency Provider Emergency Medicine; PCP Family Medicine
DX: R07.9 Chest pain, unspecified (principal); Z79.4 Long term (current) use of insulin; Z87.891 Personal history of nicotine dependence; I25.10 Atherosclerotic heart disease of native coronary artery without angina pectoris; Z86.73 Personal history of transient ischemic attack (TIA), and cerebral infarction without residual deficits; I13.0 Hypertensive heart and chronic kidney disease with heart failure and stage 1 through stage 4 chronic kidney disease, or unspecified chronic kidney disease; E11.22 Type 2 diabetes mellitus with diabetic chronic kidney disease; N18.9 Chronic kidney disease, unspecified; I50.9 Heart failure, unspecified; E78.5 Hyperlipidemia, unspecified; Z95.0 Presence of cardiac pacemaker; E11.42 Type 2 diabetes mellitus with diabetic polyneuropathy; Z98.61 Coronary angioplasty status
CPT/HCPCS: 36415; 71045; 80053; 83690; 84484; 85025; 85610; 93005; 96374; 96375; 99285; J2270; J2405

== ENCOUNTER 2023-03-01 12:31 | Outpatient (CLI) | payer MEDICARE, MEDICAID, SELFPAY ==
[2023-03-01 13:48] LABS: Alanine Aminotransferase 21 U/L (0-41); Albumin Level 4.1 g/dL (3.5-5.2); Alkaline Phosphatase 58 U/L (40-130); Anion Gap 12.9 (5-19); Aspartate Amino Transferase 18 U/L (0-40); Blood Urea Nitrogen 17 mg/dL (8-23); Calcium 9.1 mg/dL (8.5-10.5); Carbon Dioxide 25 mmol/L (22-29); Chloride 101 mmol/L (98-107); Chol HDL Ratio 2.18 mg/dL (1.0-5.00); Cholesterol 109 mg/dL (0-200); Globulin 2.7 g/dL (1.3-4.6); Glucose 200 mg/dL (65-115); HDL Cholesterol 50 mg/dL (60-100); LDL Cholesterol Calculated 22 mg/dL (50-129); LDL HDL Ratio 0.44 RATIO (0.00-3.22); Osmolality Calculated 287 mOsm/kg (285-295); Potassium 3.9 mmol/L (3.5-5.1); Sodium 135 mmol/L (136-145); Total Bilirubin 0.5 mg/dL (0.15-1.2); Total Protein 6.8 g/dL (6.6-8.7); Triglycerides 186 mg/dL (0-150)
[2023-03-01 13:52] LABS: Creatinine Urine, Random 65 mg/dL (39-259); Microalbum Creatinine Ratio Ur 15 mg/dL (0-20); Microalbumin Random Urine 1 ug/dL (0-20)
[2023-03-01 13:53] LABS: Estmated Average Glucose 169; Hemoglobin A1C 7.5 % (4.0-6.0)
== END 2023-03-01 12:32 | disposition home or self-care (01) ==
LOC: LAB 12:35
PROVIDERS: PCP Family Medicine; Visit Provider Internal Medicine
DX: E13.65 Other specified diabetes mellitus with hyperglycemia (principal); E13.22 Other specified diabetes mellitus with diabetic chronic kidney disease; N18.9 Chronic kidney disease, unspecified; L60.3 Nail dystrophy; E03.8 Other specified hypothyroidism; E78.2 Mixed hyperlipidemia; I25.10 Atherosclerotic heart disease of native coronary artery without angina pectoris; I50.32 Chronic diastolic (congestive) heart failure; I63.9 Cerebral infarction, unspecified
CPT/HCPCS: 36415; 80053; 80061; 82044; 83036

== ENCOUNTER → 2023-03-03 13:39 | Outpatient (BNVA) | payer MEDICARE, MEDICAID, SELFPAY | PROVIDERS: PCP Family Medicine; Visit Provider Internal Medicine Cardiovascular Disease | DX: R07.9 Chest pain, unspecified (principal); I25.10 Atherosclerotic heart disease of native coronary artery without angina pectoris; G47.33 Obstructive sleep apnea (adult) (pediatric); Z95.0 Presence of cardiac pacemaker; I13.0 Hypertensive heart and chronic kidney disease with heart failure and stage 1 through stage 4 chronic kidney disease, or unspecified chronic kidney disease; E11.22 Type 2 diabetes mellitus with diabetic chronic kidney disease; N18.31 Chronic kidney disease, stage 3a; I50.32 Chronic diastolic (congestive) heart failure; Z87.891 Personal history of nicotine dependence; Z79.4 Long term (current) use of insulin | CPT/HCPCS: 99215 ==

== ENCOUNTER → 2023-03-04 07:32 | Outpatient (BNVA) | payer MEDICARE, MEDICAID, SELFPAY | PROVIDERS: PCP Family Medicine; Visit Provider Internal Medicine | DX: E11.9 Type 2 diabetes mellitus without complications (principal); L60.3 Nail dystrophy; E03.8 Other specified hypothyroidism; E78.2 Mixed hyperlipidemia; I25.10 Atherosclerotic heart disease of native coronary artery without angina pectoris; I50.32 Chronic diastolic (congestive) heart failure; Z79.4 Long term (current) use of insulin; Z86.73 Personal history of transient ischemic attack (TIA), and cerebral infarction without residual deficits | CPT/HCPCS: 99214 ==

== ENCOUNTER → 2023-03-17 09:19 | Outpatient (BNVA) | payer MEDICARE, MEDICAID, SELFPAY | PROVIDERS: PCP Family Medicine; Visit Provider Podiatrist Foot & Ankle Surgery | DX: L60.8 Other nail disorders (principal); M20.41 Other hammer toe(s) (acquired), right foot; M20.42 Other hammer toe(s) (acquired), left foot; M21.41 Flat foot [pes planus] (acquired), right foot; M21.42 Flat foot [pes planus] (acquired), left foot; M20.21 Hallux rigidus, right foot; M20.22 Hallux rigidus, left foot; L60.3 Nail dystrophy; E11.69 Type 2 diabetes mellitus with other specified complication; Z79.4 Long term (current) use of insulin | CPT/HCPCS: 11721 ==

== ENCOUNTER 2023-04-01 07:18 | Outpatient (CLI) | payer MEDICARE, MEDICAID, SELFPAY ==
[2023-04-01 07:35] VITALS: BMI 29.0
--- NOTE | 2023-04-01 07:35 | ECG_ITS ---
[facility] Test Date: 2023-04-01 Pat Name: Darrell Pemebrton Department: Room: Gender: Male Station Master: Julia Khalil : 1955 Requested By: Vianey Owen Order Number: [id number] Reading MD: Vianey Owen M.D. Interpretive Statements Lexiscan/sestamibi stress sestamibi stress test PROCEDURE: At the baseline, the EKG revealed normal sinus rhythm with some nonspecific T wave changes. The baseline heart was 69 bpm with a blood pressue of 124/65 mm of Hg Lexiscan was infused over a period of 20 seconds. A total of 0.4 milligrams of Lexiscan was infused. The stress phase was continued for a total of 5 minutes. Heart rate at the end of the stress phase was 76 bpm with a blood pressure 107/80 mm of Hg. The EKG at the peak infusion revealed no significant changes. Sestamibi was injected 20 seconds after the Lexiscan infusion. Heart rate at the end of the recovery phase was 60 bpm with a blood pressure of 125/84 mm of Hg. CONCLUSION: 1. No significant EKG changes with the LexiScan infusion 2. No LexiScan induced chest pain or cardiac arrhythmia 3. Normal blood pressure and heart rate response 4. Sestamibi/sestamibi perfusion scan pending; see separate report. Electronically Signed On 04-09-2023 16:12:49 SEE WHEELER by Vianey Owen M.D. [email or web address]/store/[id number]
--- NOTE | 2023-04-01 07:35 | NMCV_ITS ---
NM sathish perf SPECT r/s* [id number] Darrell Pemberton Age: 67 Gender: M : 1955 Exam Date: 04/01/2023 08:10 Ordering Phys: Vianey Owen MD ([email or web address]) Technologist: MAHOGANY Napoles Exam Location: [facility] Indications: CORONARY ANGIOPLASTY STATUS STRESS TEST Please see separate stress test report in [facility] for full findings IMAGE PROTOCOL Rest/Stress 1 Lexiscan Day Radiopharmaceutical Dose (mCi) Administration Site Administered by Rest: Tc-99m 10.6 IV MAHOGANY Florian Sestamibi Stress:Tc-99m 32.8 IV MAHOGANY Florian Sestamibi Rest: 01-Apr-2023 60 Discovery 630 Stress: 01-Apr-2023 30 Discovery 630 0.4mg Lexiscan. Images obtained in supine and prone position. SPECT RESULTS Technical Quality: Excellent Raw Data Analysis: Normal Image Corrections: No attenuation or motion correction applied Summed Stress Score: 3 Summed Rest Score: 6 Summed Difference Score: 0 PERFUSION FINDINGS A small area of minimal to moderately decreased to tracer uptake involving the apical anterior and apical lateral segments. No significant reversibility was noted in this region FUNCTIONAL RESULTS (calculated via Gated SPECT) Stress Image LV EF (%): 66 Stress EDV (mL):80 TID: 1.06 Stress ESV (mL):27 FUNCTIONAL FINDINGS: Segmental wall motion analysis revealed mild hypokinesia of the LV apex IMPRESSIONS 1. Myocardial perfusion imaging revealing a small area of persistent decreased tracer uptake involving the apical anterior and apical lateral segments suggesting myocardial scarring versus attenuation artifact 2. Normal LV ejection fraction 66% with 3. LV wall motion analysis revealing mild hypokinesia of the LV apex 4. Normal LV volume. Low probability for coronary ischemia, based on the above findings Dr Vianey Owen MD FACC (Electronically Signed) Final Date: 01 April 2023 12:24 S
[2023-04-01] MEDS: regadenoson 0.4 Mg/5 ml Syringe IVP (08:48)
[2023-04-01] MEDS: aminophylline 25 mg/mL SDV 10 mL IVP ×3 (08:57→09:03)
[2023-04-01 09:08] VITALS: BP 125/64; PULSE 60
== END 2023-04-01 07:19 | disposition home or self-care (01) ==
LOC: CDL 07:19
PROVIDERS: PCP Family Medicine; Visit Provider Internal Medicine Cardiovascular Disease
DX: R07.9 Chest pain, unspecified (principal); I25.10 Atherosclerotic heart disease of native coronary artery without angina pectoris; Z98.61 Coronary angioplasty status; R93.1 Abnormal findings on diagnostic imaging of heart and coronary circulation
CPT/HCPCS: 36415; 78452; 93017; 96374; 96375; A9500; J0280; J2785

== ENCOUNTER 2023-06-02 15:49 | Outpatient (CLI) | payer MEDICARE, MEDICAID, SELFPAY ==
[2023-06-02 17:10] LABS: Estmated Average Glucose 169; Hemoglobin A1C 7.5 % (4.0-6.0)
[2023-06-02 17:36] LABS: Creatinine Urine, Random 46 mg/dL (39-259); Microalbum Creatinine Ratio Ur 22 mg/dL (0-20); Microalbumin Random Urine 1 ug/dL (0-20)
[2023-06-02 17:41] LABS: Alanine Aminotransferase 29 U/L (0-41); Albumin Level 4.2 g/dL (3.5-5.2); Alkaline Phosphatase 85 U/L (40-130); Anion Gap 15.6 (5-19); Aspartate Amino Transferase 20 U/L (0-40); Blood Urea Nitrogen 17 mg/dL (8-23); Calcium 9.2 mg/dL (8.5-10.5); Carbon Dioxide 25 mmol/L (22-29); Chloride 101 mmol/L (98-107); Chol HDL Ratio 2.54 mg/dL (1.0-5.00); Cholesterol 94 mg/dL (0-200); Globulin 2.8 g/dL (1.3-4.6); Glomerular Filtration Rate 60.6 mL/min (90-130); Glucose 226 mg/dL (65-115); HDL Cholesterol 37 mg/dL (60-100); LDL Cholesterol Calculated 35 mg/dL (50-129); LDL HDL Ratio 0.95 RATIO (0.00-3.22); Osmolality Calculated 293 mOsm/kg (285-295); Potassium 4.6 mmol/L (3.5-5.1); Sodium 137 mmol/L (136-145); Total Bilirubin 0.4 mg/dL (0.15-1.2); Triglycerides 112 mg/dL (0-150)
== END 2023-06-02 15:50 | disposition home or self-care (01) ==
LOC: LAB 15:51
PROVIDERS: PCP Family Medicine; Visit Provider Internal Medicine
DX: E11.9 Type 2 diabetes mellitus without complications (principal)
CPT/HCPCS: 36415; 80053; 80061; 82044; 83036

== ENCOUNTER → 2023-06-03 08:05 | Outpatient (BNVA) | payer MEDICARE, MEDICAID, SELFPAY | PROVIDERS: PCP Family Medicine; Visit Provider Internal Medicine | DX: E11.9 Type 2 diabetes mellitus without complications (principal); L60.3 Nail dystrophy; E03.8 Other specified hypothyroidism; E78.2 Mixed hyperlipidemia; I25.10 Atherosclerotic heart disease of native coronary artery without angina pectoris; I63.9 Cerebral infarction, unspecified; I50.32 Chronic diastolic (congestive) heart failure; Z79.4 Long term (current) use of insulin | CPT/HCPCS: 99214 ==

== ENCOUNTER → 2023-06-16 08:06 | Outpatient (BNVA) | payer MEDICARE, MEDICAID, SELFPAY | PROVIDERS: PCP Family Medicine; Visit Provider Podiatrist Foot & Ankle Surgery | DX: E11.8 Type 2 diabetes mellitus with unspecified complications; M20.41 Other hammer toe(s) (acquired), right foot; M20.42 Other hammer toe(s) (acquired), left foot; M21.41 Flat foot [pes planus] (acquired), right foot; M21.42 Flat foot [pes planus] (acquired), left foot; M20.21 Hallux rigidus, right foot; M20.22 Hallux rigidus, left foot; S90.31XA Contusion of right foot, initial encounter; W22.8XXA Striking against or struck by other objects, initial encounter; Z79.4 Long term (current) use of insulin | CPT/HCPCS: 73630; 99213 ==

== ENCOUNTER 2023-06-17 08:50 | Emergency (ER) | payer MEDICARE, MEDICAID, SELFPAY ==
[2023-06-17 09:20] VITALS: BP 119/72; PULSE 69; RESP 18; TEMP 36.7; O2SAT 95
--- NOTE | 2023-06-17 09:28 | ECG_ITS ---
[facility] Test Date: 2023-06-17 Pat Name: Darrell Pemberton Department: Room: Gender: Male Master [place]: : 1955 Requested By: Canelo Carney Order Number: [id number] Michael MD: Vianey Owen M.D. Measurements Intervals [place] Rate: 67 P: 129 [place]: 201 QRS: 87 QRSD: 121 T: 81 QT: 420 QTc: 445 Interpretive Statements ELECTRONIC ATRIAL PACEMAKER MODERATE INTRAVENTRICULAR CONDUCTION DELAY [110+ ms QRS DURATION] ABNORMAL RHYTHM ECG Compared to ECG 02/23/2023 23:20:03 No significant changes Electronically Signed On 06-17-2023 22:09:29 CDT by Vianey Owen M.D. [email or web address]/store/[id number]
--- NOTE | 2023-06-17 09:29 | CTR_ITS ---
PROCEDURE INFORMATION: Exam: CT Abdomen And Pelvis Without Contrast Exam date and time: 06/17/2023 10:39 AM Age: 67 years old Clinical indication: Abdominal pain; Periumbilical TECHNIQUE: Imaging protocol: Computed tomography of the abdomen and pelvis without contrast. Radiation optimization: All CT scans at this facility use at least one of these dose optimization techniques: automated exposure control; mA and/or kV adjustment per patient size (includes targeted exams where dose is matched to clinical indication); or iterative reconstruction. COMPARISON: CT abdomen pelvis w con* [id number] 12/24/2018 12:04 AM RADIATION DOSE METRICS: Total DLP (mGy-cm): 754.83 FINDINGS: Lungs: Lung bases are clear. No pleural effusion. Liver: Normal. No mass. Gallbladder and bile ducts: Multiple gallstones are noted in the gallbladder but the gallbladder does not appear inflamed and demonstrates normal wall thickness. Pancreas: Normal. No ductal dilation. Spleen: Normal. No splenomegaly. Adrenal glands: Normal. No mass. Kidneys and ureters: Normal. No hydronephrosis. Stomach and bowel: Unremarkable. No obstruction. No mucosal thickening. Appendix: No evidence of appendicitis. Intraperitoneal space: A small hernia involves the upper anterior abdominal wall and contains mesenteric fat. Vasculature: Unremarkable. No abdominal aortic aneurysm. Lymph nodes: Unremarkable. No enlarged lymph nodes. Urinary bladder: Unremarkable as visualized. Reproductive: Unremarkable as visualized. Bones/joints: Unremarkable. No acute fracture. Soft tissues: There is an umbilical hernia measuring 3.5 cm in diameter that demonstrates mild inflammation. The inflammation extends into the peritoneal cavity and involves the greater omentum. CT/CT abdomen pelvis con [id number] IMPRESSION: 1. Inflamed umbilical hernia containing mesenteric fat. This may indicate incarceration or strangulation. 2. Cholelithiasis
[2023-06-17] MEDS: sodium chloride 0.9% 1,000 ML 999 ML IV (09:50)
--- NOTE | 2023-06-17 10:07 | ED_ITS ---
HPI - Abdominal Pain 2 General: Chief Complaint: Abdominal Pain Stated Complaint: abd pain Time Seen by Provider: 06/17/23 09:24 Source: patient Mode of arrival: ambulatory History of Present Illness: 67-year-[facility] of abdominal pain burning pain for the last 3 hours periumbilical. He has a known umbilical hernia it is firm and exquisitely tender. He has not had any nausea or vomiting. No chest pain he has had increasing distention of his abdomen. Patient does have diabetes blood sugars have been under 200. This morning. MD elicited complaint: abdominal pain Pertinent past history: none Associated Symptoms: Reports nausea; Denies chills, coffee ground emesis, constipation, diarrhea, dysuria, fever(s), hematemesis and vomiting Review of Systems 2 Const: Reports: change in appetite; Denies: fever(s) or chills Card: Denies: chest pain Resp: Denies: dyspnea GI: Reports: abdominal pain and nausea; Denies: vomiting, hematemesis, coffee ground emesis, diarrhea or constipation : Denies: dysuria, urinary frequency or urinary urgency Musc: Denies: neck pain or back pain Skin/Breast: Denies: rash PFSH ED 2 PFSH: Medical History CVA (cerebral vascular accident) Intermittent atrial fibrillation Presence of permanent cardiac pacemaker Atherosclerotic heart disease of [place] coronary artery with other forms of angina pectoris Chronic low back pain Subclinical hypothyroidism Pacemaker Hx of glaucoma Bronchitis GERD (gastroesophageal reflux disease) -on PPI Peripheral neuropathy Chronic diastolic CHF (congestive heart failure) -Has known chronic diastolic CHF, no indication of acute exacerbation currently -Echo done in 2018 showed an ejection fraction of 50% with grade 1 diastolic dysfunction and mild hypokinesia -We will hold Lasix for now given orthostasis Atrial fibrillation, chronic Bradycardia -Has chronic bradycardia, has had event monitoring done in 2018 showing baseline sinus bradycardia, average heart rate is about 55 -We will hold beta-ashish for now -Monitor vital signs -Telemetry monitoring Hypertension Hyperlipemia Ventricular septal defect Arteriosclerotic heart disease (ASHD) Diabetes mellitus Chronic kidney disease Sleep apnea -non-compliant with CPAP Surgical History Hx of non-cataract eye surgery Hx of cataract extraction History of incisional hernia repair -inferior aspect of sternotomy incision H/O aortic aneurysm repair H/O coronary angioplasty H/O heart artery stent Family History Father Stroke CAD (coronary artery disease) Brother Cancer Diabetes Sister Cancer Dementia Diabetes Denies family history of Clotting disorder Chronic kidney disease (CKD) Suicide Anesthesia complication Bleeding disorder Lung disease Social History Smoking and tobacco/nicotine status: former use of tobacco/nicotine Quit status (tobacco/nicotine): has quit using Year quit tobacco: 20 yrs ago Alcohol intake: current Alcohol intake frequency: holidays/special occasions only Substance/Drug Use: never Household members: spouse and children Marital status: Physical Exam 2 Const: COMMON NORMALS: no acute distress GENERAL APPEARANCE: cooperative and comfortable ORIENTATION/CONSCIOUSNESS: Yes awake, Yes oriented to person, Yes oriented to place and Yes oriented to time HENMT: COMMON NORMALS: normocephalic, atraumatic and hearing grossly normal bilaterally HEAD & SCALP: normocephalic and atraumatic Resp: COMMON NORMALS: normal respiratory effort, No retractions, No use of accessory muscles and clear to auscultation bilaterally AUSCULTATION: clear to auscultation bilaterally Cardio: COMMON NORMALS: regular rate, regular rhythm and No murmurs present (Cardio) RATE: regular rate RHYTHM: regular rhythm GI: COMMON NORMALS: Soft to palpation and No hepatosplenomegaly present A USCULTATION: Yes normoactive bowel sounds PALPATION: Yes Soft to palpation, No Tenderness to palpation present (GI), No Guarding due to palpation present (GI) and Yes No hepatosplenomegaly present Extremity: COMMON NORMALS: normal to inspection, capillary refill normal, no clubbing, cyanosis or edema, no calf tenderness and no pedal edema Neuro: SENSORIUM/ORIENTATION: Yes oriented to person, Yes oriented to place and Yes oriented to time Skin: COMMON NORMALS: no rashes or lesions noted GENERAL SKIN EXAM: no rashes or lesions noted Course 2 Vital Signs: Vital signs: Vital Signs Temperature 98.1 F 06/17/23 09:20 Pulse Rate 97 06/17/23 12:03 Respiratory Rate 18 06/17/23 09:20 Blood Pressure 114/49 06/17/23 12:03 Pulse Oximetry 96 06/17/23 12:03 Oxygen Delivery Me thod Room Air 06/17/23 09:20 MDM - Abdominal Pain Medical Decision Making Acute umbilical hernia with omental fat strangulated in the hernia no bowel no bowel obstruction and hernia. Discussed Dr. Valentino on-call for surgery. Discharge home clear liquid diet pain medications antiemetics. Follow-up with outpatient clinic with Dr. Valentino for repair of hernia. Differential Diagnosis Likely abdominal pain Medical Records I reviewed the patient's medical records. Lab Data I reviewed the patient's lab results. 06/17/23 09:57 06/17/23 09:57 Labs/Radiology: Radiology Impressions Abdomen/Pelvis CT 06/17/23 09:29 IMPRESSION: 1. Inflamed umbilical hernia containing mesenteric fat. This may indicate incarceration or strangulation. 2. Cholelithiasis Laboratory Results WBC 4.33 10^3/uL (3.29-11.43) 06/17/23 09:57 RBC 3.80 10^6/uL (3.85-5.65) L 06/17/23 09:57 Hgb 12.50 g/dL (11.27-16.99) 06/17/23 09:57 Hct 36.2 % (37-53) L 06/17/23 09:57 MCV 95.3 fl (82-101) 06/17/23 09:57 MCH 32.9 pg (27-33) 06/17/23 09:57 MCHC 34.5 g/dL (30-55) 06/17/23 09:57 RDW 12.1 % (12.1-15.1) 06/17/23 09:57 Plt Count 149 10^3/cmm (157-399) L 06/17/23 09:57 MPV 8.8 fL (7.4-10.4) 06/17/23 09:57 Neut % (Auto) 56.8 % 06/17/23 09:57 Lymph % (Auto) 27.0 % 06/17/23 09:57 [place] % (Auto) 10.9 % 06/17/23 09:57 Eos % (Auto) 4.8 % 06/17/23 09:57 Baso % (Auto) 0.5 % 06/17/23 09:57 Neut # (Auto) 2.46 10^3/uL (1.8-7.7) 06/17/23 09:57 Lymph # (Auto) 1.2 10^3/uL (0.8-4.8) 06/17/23 09:57 [place] # (Auto) 0.5 10^3/uL (0.2-0.9) 06/17/23 09:57 Eos # (Auto) 0.2 10^3/uL (0.0-0.8) 06/17/23 09:57 Baso # (Auto) 0.0 10^3/uL (0.0-0.1) 06/17/23 09:57 Nucleated RBC % (auto) 0 % 06/17/23 09:57 Nucleated RBCs # 0.0 /100WBC 06/17/23 09:57 Sodium 133 mmol/L (136-145) L 06/17/23 09:57 Potassium 4.4 mmol/L (3.5-5.1) 06/17/23 09:57 Chloride 101 mmol/L (98-107) 06/17/23 09:57 Carbon Dioxide 20 mmol/L (22-29) L 06/17/23 09:57 Anion Gap 16.4 (5-19) 06/17/23 09:57 BUN 16 mg/dL (8-23) 06/17/23 09:57 Creatinine 1.1 mg/dL (0.7-1.2) 06/17/23 09:57 GFR Calculation 67.0 mL/min (90-130) L 06/17/23 09:57 Glucose 221 mg/dL (65-115) H 06/17/23 09:57 Calculated Osmolality 284 mOsm/kg (285-295) L 06/17/23 09:57 Lactic Acid 1.4 mmol/L (0.5-2.2) 06/17/23 09:57 Calcium 8.8 mg/dL (8.5-10.5) 06/17/23 09:57 Total Bilirubin 0.6 mg/dL (0.15-1.2) 06/17/23 09:57 AST 18 U/L (0-40) 06/17/23 09:57 ALT 19 U/L (0-41) 06/17/23 09:57 Alkaline Phosphatase 57 U/L (40-130) 06/17/23 09:57 Total Protein 6.7 g/dL (6.6-8.7) 06/17/23 09:57 Albumin 3.8 g/dL (3.5-5.2) 06/17/23 09:57 Globulin 2.9 g/dL (1.3-4.6) 06/17/23 09:57 Lipase 32 U/L (13-60) 06/17/23 09:57 Urine Color Yellow (Yellow) 06/17/23 11:18 Urine Appearance Clear (CLEAR) 06/17/23 11:18 Urine pH 6 (5-7) 06/17/23 11:18 Ur Specific [place] 1.015 (1.005-1.030) 06/17/23 11:18 Urine Protein Neg (Negative) 06/17/23 11:18 Urine Glucose (UA) 4+ (Normal) H 06/17/23 11:18 Urine Ketones Negative (Negative) 06/17/23 11:18 Urine Blood Neg (Negative) 06/17/23 11:18 Urine Nitrate Negative (Negative) 06/17/23 11:18 Urine Bilirubin Neg (Negative) 06/17/23 11:18 Urine Urobilinogen Norm mg/dL (Negative) 06/17/23 11:18 Ur Leukocyte Esterase Negative (Negative) 06/17/23 11:18 All radiology interpretation(s) finalized by discharge Discharge Plan Discharge Patient Disposition: Home Clinical Impression: Incarcerated umbilical hernia Condition: Stable Prescriptions: New ondansetron HCl 4 mg tablet 4 mg PO Q6H PRN (Reason: nausea and vomiting) Qty: 20 0RF No Action (DME) Dexcom G6 Suction Worker Misc See Rx Instructions .Route Qty: 1 0RF Rx Instructions: Check BS 4-6 times a day. (DME) Dexcom G6 Sensor Device See Rx Instructions .Route Qty: 9 3RF Rx Instructions: Change every 10 days. (DME) Dexcom G6 Transmitter Device See Rx Instructions .Route Qty: 3 3RF Rx Instructions: Change every 90 days. cyclobenzaprine 10 mg tablet 5 mg PO TID PRN (Reason: muscle spasm) Qty: 20 0RF (DME) Diabetic shoes with 3 inserts See Rx Instructions .Route .MEDSUPPLY Qty: 1 0RF Rx Instructions: As directed HOME (DME) diabetic shoes with 3 inserts See Rx Instructions .Route .MEDSUPPLY Qty: 1 0RF Rx Instructions: As directed to HOME cetirizine 10 mg tablet 10 mg PO DAILY Qty: 90 1RF (DME) pen needle, diabetic [Droplet Pen Needle] 31 gauge x 5/16 needle See Rx Instructions .Route Qty: 100 12RF Rx Instructions: As directed (DME) Omnipod 5 G6 Pods (Gen 5) Cartridge See Rx Instructions .ROUTE .COMPLEX Qty: 30 3RF Dose Instruction: USE DIRECTED. CHANGE EVERY 2 TO 3 DAYS. Rx Instructions: USE DIRECTED. CHANGE EVERY 2 TO 3 DAYS. (DME) insulin syringe-needle U-100 [Droplet Insulin Syringe] 1 mL 31 gauge x 5/16 syringe See Rx Instructions .ROUTE .COMPLEX Qty: 300 10RF Dose Instruction: USE DIRECTED Rx Instructions: USE DIRECTED alcohol swabs [DropSafe Alcohol Prep Pads] Pads, Medicated See Rx Instructions .ROUTE .COMPLEX Qty: 1 10RF Dose Instruction: USE DIRECTED NEEDED. Rx Instructions: USE DIRECTED NEEDED. (DME) lancets [Accu-Chek Softclix Lancets] Misc See Rx Instructions .ROUTE .COMPLEX Qty: 600 10RF Dose Instruction: TEST BLOOD SUGAR SIX TIMES DAILY DIRECTED Rx Instructions: TEST BLOOD SUGAR SIX TIMES DAILY DIRECTED (DME) blood-glucose meter [Accu-Chek Guide Glucose Meter] Misc See Rx Instructions .Route Qty: 1 0RF Rx Instructions: As directed (DME) Accu-Chek Guide test strips Strip See Rx Instructions .Route Qty: 100 11RF Rx Instructions: As directed nitroglycerin 0.4 mg tablet, sublingual See Rx Instructions .ROUTE .COMPLEX Qty: 20 2RF Dose Instruction: DISSOLVE 1 TABLET UNDER THE TONGUE EVERY 5 MINUTES NEEDED FOR CHEST PAIN. DO NOT EXCEED A TOTAL OF 3 DOSES IN 15 MINUTES. Rx Instructions: DISSOLVE 1 TABLET UNDER THE TONGUE EVERY 5 MINUTES NEEDED FOR CHEST PAIN. DO NOT EXCEED A TOTAL OF 3 DOSES IN 15 MINUTES. insulin aspart U-100 [Novolog U-100 Insulin aspart] 100 unit/mL solution See Rx Instructions .ROUTE .COMPLEX Qty: 30 3RF Dose Instruction: INJECT PER SLIDING SCALE WITH EACH MEAL; VIAL EXPIRES 28 DAYS AFTER OPENED Rx Instructions: PER INSULIN PUMP. VIAL EXPIRES 28 DAYS AFTER OPENED cyanocobalamin (vitamin B-12) [Vitamin B-12] 500 mcg Tablet 500 mcg PO DAILY magnesium 250 mg Tablet 250 mg PO BID lycopene 10 mg Capsule 20 mg PO DAILY L-Arginine Tab 500 mg PO DAILY dabigatran etexilate [Pradaxa] 150 mg capsule 150 mg PO BID potassium chloride 8 mEq capsule, extended release 8 meq PO DAILY trazodone 50 mg tablet 50 mg PO BEDTIME metoprolol tartrate 100 mg tablet 100 mg PO BID isosorbide mononitrate 30 mg tablet extended release 24 hr See Rx Instructions .ROUTE .COMPLEX Rx Instructions: TAKE 2 TABLETS EVERY MORNING AND TAKE 1 TABLET EVERY EVENING DIRECTED (DOSE INCREASE). hydrocodone-acetaminophen 10-325 mg tablet 1 tab PO Q6H PRN (Reason: Pain) famotidine 20 mg tablet 20 mg PO BID lisinopril 10 mg tablet 10 mg PO BID gabapentin 300 mg capsule 300 mg PO BID albuterol sulfate 90 mcg/actuation HFA aerosol inhaler 1 puff inhalation Q4H PRN (Reason: Shortness Of Breath) Rx Instructions: INHALE 1 PUFF EVERY 4 HOURS NEEDED FOR SHORTNESS OF BREATH fluticasone propionate 50 mcg/actuation spray,suspension 2 spray intranasal DAILY rosuvastatin 20 mg tablet 20 mg PO DAILY Levemir FlexPen 100 unit/mL (3 mL) insulin pen 45 unit SUBCUT BID PRN (Reason: PUMP FAILURE) ranolazine 1,000 mg tablet extended release 12 hr 1,000 mg PO BID Jardiance 10 mg tablet 10 mg PO DAILY Brilinta 60 mg tablet 60 mg PO BID Discharge Orders: Discharge ED (Routine); Ordered 06/17/23 Ordered By: Canelo Clemons Referrals: Sea Segovia DO [Primary Care Provider] - Discharge Diet: Usual diet Discharge Activity: Limit activity as instructed Patient Instructions: Opioid Safety, Pain Management Activity Restrictions/Additional Instructions: Thank you for choosing [facility] for your healthcare needs today. Please realize this is an emergency room and that we are providing you with a medical screening exam and this may not be complete and all inclusive of all the testing and or work up that you may need to determine your ailment or severity of your illness. It is very important that you follow up as instructed or that you return to the Emergency Department should you have concerns or if your condition changes or worsens in any way. You were seen today for complaints of abdominal pain CT showed an incarcerated umbilical hernia. There is no bowel involvement and there is no bowel obstruction. We discussed the on-call surgeon usually these are fixed on an outpatient basis scheduled I do not require emergent surgery. You can use the hydrocodone that was previously prescribed for pain avoid any heavy lifting or exertion. Use ondansetron as needed for nausea and vomiting. 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
[2023-06-17 10:09] LABS: Basophils % 0.5 %; Eosinophils # 0.2 10^3/uL (0.0-0.8); Eosinophils % 4.8 %; Hematocrit 36.2 % (37-53); Lymphocytes # 1.2 10^3/uL (0.8-4.8); Mean Corpuscular HGB Conc 34.5 g/dL (30-55); Mean Corpuscular Hemoglobin 32.9 pg (27-33); Mean Corpuscular Volume 95.3 fl (82-101); Mean Platelet Volume 8.8 fL (7.4-10.4); Monocytes # 0.5 10^3/uL (0.2-0.9); Monocytes % 10.9 %; Neutrophils # 2.46 10^3/uL (1.8-7.7); Neutrophils % 56.8 %; Nucleated Red Blood Cells % 0 %; Platelet Count 149 10^3/cmm (157-399); Red Cell Distribution Width 12.1 % (12.1-15.1); White Blood Count 4.33 10^3/uL (3.29-11.43)
--- NOTE | 2023-06-17 10:15 | PC.PHAR ---
SPOUSE IS ON THE WAY TO GO OVER MED LIST. 10:15AM 06/17/23
[2023-06-17 10:25] LABS: Lactic Sepsis W/Reflex 1.4 mmol/L (0.5-2.2)
[2023-06-17 10:31] LABS: Alanine Aminotransferase 19 U/L (0-41); Albumin Level 3.8 g/dL (3.5-5.2); Alkaline Phosphatase 57 U/L (40-130); Anion Gap 16.4 (5-19); Aspartate Amino Transferase 18 U/L (0-40); Blood Urea Nitrogen 16 mg/dL (8-23); Calcium 8.8 mg/dL (8.5-10.5); Carbon Dioxide 20 mmol/L (22-29); Chloride 101 mmol/L (98-107); Globulin 2.9 g/dL (1.3-4.6); Glucose 221 mg/dL (65-115); Lipase 32 U/L (13-60); Osmolality Calculated 284 mOsm/kg (285-295); Potassium 4.4 mmol/L (3.5-5.1); Sodium 133 mmol/L (136-145); Total Bilirubin 0.6 mg/dL (0.15-1.2); Total Protein 6.7 g/dL (6.6-8.7)
[2023-06-17 11:18] VITALS: BP 105/85; PULSE 60; O2SAT 98
[2023-06-17 11:28] LABS: Add Urine Microscopic? NO; Charge for UA Resulting for Rev
[2023-06-17 11:37] LABS: Bilirubin Urine Neg (Negative); Blood Urine Neg (Negative); Glucose Urine UA 4+ (Normal); Ketones Urine Negative (Negative); Leukocyte Esterase Urine Negative (Negative); Nitrate Urine Negative (Negative); Protein Urine Neg (Negative); Specific Gravity, Urine 1.015 (1.005-1.030); Urine Appearance Clear (CLEAR); Urine Color Yellow (Yellow); Urobilinogen Urine Norm (Negative); pH Urine 6 (5-7)
[2023-06-17 12:03] VITALS: BP 114/49; PULSE 97; O2SAT 96
--- NOTE | 2023-06-18 05:12 | DCPLANNER ---
Message sent to General surgery umbilical hernia
== END 2023-06-17 12:06 | disposition home or self-care (01) ==
PROVIDERS: Emergency Provider Family Medicine; PCP Family Medicine
DX: K42.0 Umbilical hernia with obstruction, without gangrene (principal); Z79.4 Long term (current) use of insulin; Z87.891 Personal history of nicotine dependence; Z86.73 Personal history of transient ischemic attack (TIA), and cerebral infarction without residual deficits; Z95.0 Presence of cardiac pacemaker; I25.10 Atherosclerotic heart disease of native coronary artery without angina pectoris; E11.22 Type 2 diabetes mellitus with diabetic chronic kidney disease; I13.0 Hypertensive heart and chronic kidney disease with heart failure and stage 1 through stage 4 chronic kidney disease, or unspecified chronic kidney disease; N18.9 Chronic kidney disease, unspecified; I50.9 Heart failure, unspecified; E78.5 Hyperlipidemia, unspecified; Z98.61 Coronary angioplasty status
CPT/HCPCS: 36415; 74176; 80053; 81003; 83605; 83690; 85025; 93005; 96360; 96361; 99285; J7030

== ENCOUNTER → 2023-06-21 14:37 | Outpatient (BNVA) | payer MEDICARE, MEDICAID, SELFPAY | PROVIDERS: PCP Family Medicine; Referring Provider Family Medicine; Visit Provider Surgery | DX: K42.9 Umbilical hernia without obstruction or gangrene (principal); K21.9 Gastro-esophageal reflux disease without esophagitis; Z12.11 Encounter for screening for malignant neoplasm of colon | CPT/HCPCS: 99204 ==

== ENCOUNTER → 2023-08-06 12:21 | Outpatient (BNVA) | payer MEDICARE, MEDICAID, SELFPAY | PROVIDERS: PCP Family Medicine; Visit Provider Family Medicine | DX: Z01.818 Encounter for other preprocedural examination (principal) | CPT/HCPCS: 80053; 85025 ==

== ENCOUNTER 2023-08-25 06:53 | Day surgery (SDC) | payer MEDICARE, MEDICAID, SELFPAY ==
[2023-08-25 07:22] LABS: Glucose Point of Care 145 mg/dL (70-110)
[2023-08-25 07:29] VITALS: BP 118/69; PULSE 78; RESP 18; TEMP 36.7; O2SAT 96
[2023-08-25] MEDS: sodium chloride 0.9% 1,000 ML 30 ML IV (07:33)
--- NOTE | 2023-08-25 07:33 | ANES.PREANE2 ---
Pre-Anesthetic Assessment Height/Weight: Height 1.68 m Operation Date: 08/25/23 08:00 Proposed Procedures p EGD 67492, 11870, G0121, Z12.11, K21.9(Not Applicable) - DO dio Dawson Colonoscopy(Not Applicable) - Ron Hawkins DO Familial anesthetic complications: None Was Beta Rene taken within 24 hours: Yes Was Clonidine taken within 24 hours: N/A Last intake: Solid food: 08/22 Liquid: 2099 Social No alcohol and No tobacco (Quit 30 years ago) Exam alert, oriented x 3, clear to auscultation bilaterally and regular rate & rhythm Airway Submandibular: within normal limits Cervical ROM: within normal limits Mallampati: Class III Dentition: false History/ROS No significant history except as noted and No significant complaints Pulmonary Cough, Exertional Dyspnea and Sleep Apnea CV/HEM Arrythmia, Coronary Artery Disease, Congestive Heart Failure, Hypertension and Myocardial Infarction (Stents x5-6) CABG 2016 Pacemaker CONCLUSION: 1. No significant EKG changes with the LexiScan infusion 2. No LexiScan induced chest pain or cardiac arrhythmia 3. Normal blood pressure and heart rate response 4. Sestamibi/sestamibi perfusion scan pending; see separate report. CONCLUSIONS Normal left ventricular size with a slightly diminished LV EF 50 %(visual). Wall motion abnormality as mentioned above mild left ventricular hypertrophy. Thickened mitral valve. Trace mitral valve regurgitation. Trace tricuspid valve regurgitation. Estimated pulmonary artery peak systolic pressure was 11 mmHg. There is no pericardial effusion. There are no intracardiac masses. Compared to the study from 09/10/2017, there may not be significant change None reported Hepatic None reported GI Gastroesophageal Reflux Disease (None this morning) and Hiatal Hernia Umbilical hernia Metabolic Diabetes Mellitus and Hyperlipidemia [facility] Lower Back Pain, Osteoarthritis/DJD and Weakness (Left sided weakness) Neuropsych Cerebrovascular Accident (2016 after CABG, no issues since, left sided weakness) and Neuropathy Anesthetic Plan ASA status: 4 Anesthesia: Anesthesia Evaluation, General and MAC Risk of > 500 ml blood loss (7ml/kg in children): No Medications/Allergies Home Medications Medication Instructions Recorded Confirmed Last Taken Type L-Arginine Tab 500 mg PO DAILY 07/13/19 08/19/23 08/19/23 History magnesium 250 mg tablet 250 mg PO BID 07/13/19 08/19/23 08/19/23 History blood-glucose meter,continuous #1 ea 11/03/21 08/19/23 08/19/23 Rx (Dexcom G6 Labor Relations Specialist) blood-glucose sensor (Dexcom G6 #9 ea 11/03/21 08/19/23 08/19/23 Rx Sensor device) blood-glucose transmitter (Dexcom #3 ea 11/03/21 08/19/23 08/19/23 Rx G6 Transmitter device) cetirizine 10 mg tablet 10 mg PO DAILY #90 tabs 02/24/22 08/19/23 08/19/23 Rx Diabetic shoes with 3 inserts #1 ea 06/22/22 08/19/23 08/19/23 Rx cyclobenzaprine 10 mg tablet 5 mg (1/2 x 10 mg) PO TID PRN 12/02/22 08/19/23 08/19/23 Rx muscle spasm #20 tabs pen needle, diabetic 31 gauge x #100 ea 12/28/22 08/19/23 08/19/23 Rx 5/16 (Droplet Pen Needle) insulin syringe-needle U-100 1 mL #300 ea 01/18/23 08/19/23 08/19/23 Rx 31 gauge x 5/16 (Droplet Insulin Syringe) lancets (Accu-Chek Softclix #600 ea 02/04/23 08/19/23 08/19/23 Rx Lancets) blood sugar diagnostic (Accu-Chek #100 ea 02/05/23 08/19/23 08/19/23 Rx Guide test strips) blood-glucose meter (Accu-Chek #1 ea 02/05/23 08/19/23 08/19/23 Rx Guide Glucose Meter) nitroglycerin 0.4 mg sublingual See Rx Instructions .Route 04/13/23 08/19/23 Unknown Rx tablet .COMPLEX #20 tabs insulin aspart U-100 100 unit/mL See Rx Instructions .Route 05/14/23 08/19/23 07/12/23 Rx subcutaneous solution (Novolog .COMPLEX #30 mL U-100 Insulin aspart) diabetic shoes with 3 inserts #1 ea 06/16/23 08/19/23 08/19/23 Rx albuterol sulfate 90 mcg/actuation 1 puff inhalation Q4H PRN 06/17/23 08/19/23 07/11/23 History aerosol inhaler Shortness Of Breath dabigatran etexilate 150 mg 150 mg PO BID 06/17/23 08/19/23 08/19/23 History capsule (Pradaxa) empagliflozin 10 mg tablet 10 mg PO DAILY 06/17/23 08/19/23 08/19/23 History (Jardiance) fluticasone propionate 50 2 spray intranasal DAILY 06/17/23 08/19/23 08/19/23 History mcg/actuation nasal spray,suspension gabapentin 300 mg capsule 300 mg PO BID 06/17/23 08/19/23 08/19/23 History insulin detemir U-100 100 unit/mL 45 unit SUBCUT BID PRN PUMP FAILURE 06/17/23 08/19/23 Unknown History (3 mL) subcutaneous pen (Levemir FlexPen) isosorbide mononitrate 30 mg 30 mg PO DAILY 06/17/23 08/19/23 08/25/23 History tablet,extended release 24 hr lisinopril 10 mg tablet 10 mg PO BID 06/17/23 08/19/23 08/19/23 History metoprolol tartrate 100 mg tablet 100 mg PO BID 06/17/23 08/19/23 08/25/23 History ondansetron HCl 4 mg tablet 4 mg PO Q6H PRN nausea and 06/17/23 08/19/23 Unknown Rx vomiting #20 tabs potassium chloride 8 mEq 8 meq PO DAILY 06/17/23 08/19/23 08/19/23 History capsule,extended release ranolazine 1,000 mg 1,000 mg PO BID 06/17/23 08/19/23 08/19/23 History tablet,extended release,12 hr rosuvastatin 20 mg tablet 20 mg PO BEDTIME 06/17/23 08/19/23 08/19/23 History ticagrelor 60 mg tablet (Brilinta) 60 mg PO BID 06/17/23 08/19/23 08/18/23 History trazodone 50 mg tablet 50 mg PO BEDTIME 06/17/23 08/19/23 08/19/23 History pantoprazole 40 mg tablet,delayed 40 mg PO BID 6 weeks #84 tabs 06/21/23 08/19/23 08/19/23 Rx release (Protonix) hydrocodone 10 mg-acetaminophen 1 tab PO Q6H PRN Pain 30 days #120 08/03/23 08/19/23 08/19/23 Rx 325 mg tablet tabs cyanocobalamin (vitamin B-12) 1,000 mcg PO DAILY 08/19/23 08/19/23 08/19/23 History 1,000 mcg tablet (Vitamin B-12) enoxaparin 80 mg/0.8 mL 80 mg (0.8 mL) SUBCUT .COMPLEX #8 08/19/23 08/24/23 08/24/23 Rx subcutaneous syringe (Lovenox) mL insulin pump cart,automated,BT 08/19/23 08/19/23 08/19/23 History (Omnipod 5 G6 Pods (Gen 5) subcutaneous cartridge) multivitamin 1 tab PO DAILY 08/19/23 08/19/23 08/19/23 History Allergies Allergy/AdvReac Type Severity Reaction Status Date / Time diltiazem [From Cardizem] Allergy Severe Unresponsiv Verified 08/06/23 11:39 e liraglutide [From Victoza] Allergy Severe ALGY-Difficulty Verified 08/06/23 11:39 Breathing PFSH Anesthesia Medical History GERD (gastroesophageal reflux disease) -on PPI CVA (cerebral vascular accident) Intermittent atrial fibrillation Presence of permanent cardiac pacemaker Atherosclerotic heart disease of [place] coronary artery with other forms of angina pectoris Chronic low back pain Subclinical hypothyroidism Pacemaker Hx of glaucoma Bronchitis Peripheral neuropathy Chronic diastolic CHF (congestive heart failure) -Has known chronic diastolic CHF, no indication of acute exacerbation currently -Echo done in 2018 showed an ejection fraction of 50% with grade 1 diastolic dysfunction and mild hypokinesia -We will hold Lasix for now given orthostasis Atrial fibrillation, chronic Bradycardia -Has chronic bradycardia, has had event monitoring done in 2018 showing baseline sinus bradycardia, average heart rate is about 55 -We will hold beta-rene for now -Monitor vital signs -Telemetry monitoring Hypertension Hyperlipemia Ventricular septal defect Arteriosclerotic heart disease (ASHD) Diabetes mellitus Chronic kidney disease Sleep apnea -non-compliant with CPAP Surgical History Hx of non-cataract eye surgery Hx of cataract extraction History of incisional hernia repair -inferior aspect of sternotomy incision H/O aortic aneurysm repair H/O coronary angioplasty H/O heart artery stent Family History Father Stroke CAD (coronary artery disease) Brother Cancer Diabetes Sister Cancer Dementia Diabetes Denies family history of Clotting disorder Chronic kidney disease (CKD) Suicide Anesthesia complication Bleeding disorder Lung disease Social History Smoking and tobacco/nicotine status: former use of tobacco/nicotine Quit status (tobacco/nicotine): has quit using Year quit tobacco: 20 yrs ago Alcohol intake: current Alcohol intake frequency: holidays/special occasions only Substance/Drug Use: never Household members: spouse and children Marital status: Data Anesthesia Cardiac Studies: Echocardiogram 01/02/22 Sestamibi Stress Test (Cardiology) 04/01/23 Cardiac Event Monitor 11/20/20
--- NOTE | 2023-08-25 07:56 | PM.HP ---
Providers/Chief Complaint Primary Care Provider: Sea Segovia DO Chief Complaint: Z12.11 History of Present Illness Darrell Pemberton is a 67 year old male Review of Systems General: Reports: 10 or more systems reviewed and unremarkable except in HPI and below Medications/Allergies Home Medications Medication Instructions Recorded Confirmed Last Taken Type L-Arginine Tab 500 mg PO DAILY 07/13/19 08/19/23 08/19/23 History magnesium 250 mg tablet 250 mg PO BID 07/13/19 08/19/23 08/19/23 History blood-glucose meter,continuous #1 ea 11/03/21 08/19/23 08/19/23 Rx (Dexcom G6 [employer]) blood-glucose sensor (Dexcom G6 #9 ea 11/03/21 08/19/23 08/19/23 Rx Sensor device) blood-glucose transmitter (Dexcom #3 ea 11/03/21 08/19/23 08/19/23 Rx G6 Transmitter device) cetirizine 10 mg tablet 10 mg PO DAILY #90 tabs 02/24/22 08/19/23 08/19/23 Rx Diabetic shoes with 3 inserts #1 ea 06/22/22 08/19/23 08/19/23 Rx cyclobenzaprine 10 mg tablet 5 mg (1/2 x 10 mg) PO TID PRN 12/02/22 08/19/23 08/19/23 Rx muscle spasm #20 tabs pen needle, diabetic 31 gauge x #100 ea 12/28/22 08/19/23 08/19/23 Rx 5/16 (Droplet Pen Needle) insulin syringe-needle U-100 1 mL #300 ea 01/18/23 08/19/23 08/19/23 Rx 31 gauge x 5/16 (Droplet Insulin Syringe) lancets (Accu-Chek Softclix #600 ea 02/04/23 08/19/23 08/19/23 Rx Lancets) blood sugar diagnostic (Accu-Chek #100 ea 02/05/23 08/19/23 08/19/23 Rx Guide test strips) blood-glucose meter (Accu-Chek #1 ea 02/05/23 08/19/23 08/19/23 Rx Guide Glucose Meter) nitroglycerin 0.4 mg sublingual See Rx Instructions .Route 04/13/23 08/19/23 Unknown Rx tablet .COMPLEX #20 tabs insulin aspart U-100 100 unit/mL See Rx Instructions .Route 05/14/23 08/19/23 07/12/23 Rx subcutaneous solution (Novolog .COMPLEX #30 mL U-100 Insulin aspart) diabetic shoes with 3 inserts #1 ea 06/16/23 08/19/23 08/19/23 Rx albuterol sulfate 90 mcg/actuation 1 puff inhalation Q4H PRN 06/17/23 08/19/23 07/11/23 History aerosol inhaler Shortness Of Breath dabigatran etexilate 150 mg 150 mg PO BID 06/17/23 08/19/23 08/19/23 History capsule (Pradaxa) empagliflozin 10 mg tablet 10 mg PO DAILY 06/17/23 08/19/23 08/19/23 History (Jardiance) fluticasone propionate 50 2 spray intranasal DAILY 06/17/23 08/19/23 08/19/23 History mcg/actuation nasal spray,suspension gabapentin 300 mg capsule 300 mg PO BID 06/17/23 08/19/23 08/19/23 History insulin detemir U-100 100 unit/mL 45 unit SUBCUT BID PRN PUMP FAILURE 06/17/23 08/19/23 Unknown History (3 mL) subcutaneous pen (Levemir FlexPen) isosorbide mononitrate 30 mg 30 mg PO DAILY 06/17/23 08/19/23 08/25/23 History tablet,extended release 24 hr lisinopril 10 mg tablet 10 mg PO BID 06/17/23 08/19/23 08/19/23 History metoprolol tartrate 100 mg tablet 100 mg PO BID 06/17/23 08/19/23 08/25/23 History ondansetron HCl 4 mg tablet 4 mg PO Q6H PRN nausea and 06/17/23 08/19/23 Unknown Rx vomiting #20 tabs potassium chloride 8 mEq 8 meq PO DAILY 06/17/23 08/19/23 08/19/23 History capsule,extended release ranolazine 1,000 mg 1,000 mg PO BID 06/17/23 08/19/23 08/19/23 History tablet,extended release,12 hr rosuvastatin 20 mg tablet 20 mg PO BEDTIME 06/17/23 08/19/23 08/19/23 History ticagrelor 60 mg tablet (Brilinta) 60 mg PO BID 06/17/23 08/19/23 08/18/23 History trazodone 50 mg tablet 50 mg PO BEDTIME 06/17/23 08/19/23 08/19/23 History pantoprazole 40 mg tablet,delayed 40 mg PO BID 6 weeks #84 tabs 06/21/23 08/19/23 08/19/23 Rx release (Protonix) hydrocodone 10 mg-acetaminophen 1 tab PO Q6H PRN Pain 30 days #120 08/03/23 08/19/23 08/19/23 Rx 325 mg tablet tabs cyanocobalamin (vitamin B-12) 1,000 mcg PO DAILY 08/19/23 08/19/23 08/19/23 History 1,000 mcg tablet (Vitamin B-12) enoxaparin 80 mg/0.8 mL 80 mg (0.8 mL) SUBCUT .COMPLEX #8 08/19/23 08/24/23 08/24/23 Rx subcutaneous syringe (Lovenox) mL insulin pump cart,automated,BT 08/19/23 08/19/23 08/19/23 History (Omnipod 5 G6 Pods (Gen 5) subcutaneous cartridge) multivitamin 1 tab PO DAILY 08/19/23 08/19/23 08/19/23 History Allergies Allergy/AdvReac Type Severity Reaction Status Date / Time diltiazem [From Cardizem] Allergy Severe Unresponsiv Verified 08/06/23 11:39 e liraglutide [From Victoza] Allergy Severe ALGY-Difficulty Verified 08/06/23 11:39 Breathing PFSH Acute PFSH: Medical History GERD (gastroesophageal reflux disease) -on PPI CVA (cerebral vascular accident) Intermittent atrial fibrillation Presence of permanent cardiac pacemaker Atherosclerotic heart disease of [place] coronary artery with other forms of angina pectoris Chronic low back pain Subclinical hypothyroidism Pacemaker Hx of glaucoma Bronchitis Peripheral neuropathy Chronic diastolic CHF (congestive heart failure) -Has known chronic diastolic CHF, no indication of acute exacerbation currently -Echo done in 2018 showed an ejection fraction of 50% with grade 1 diastolic dysfunction and mild hypokinesia -We will hold Lasix for now given orthostasis Atrial fibrillation, chronic Bradycardia -Has chronic bradycardia, has had event monitoring done in 2018 showing baseline sinus bradycardia, average heart rate is about 55 -We will hold beta-ashish for now -Monitor vital signs -Telemetry monitoring Hypertension Hyperlipemia Ventricular septal defect Arteriosclerotic heart disease (ASHD) Diabetes mellitus Chronic kidney disease Sleep apnea -non-compliant with CPAP Surgical History Hx of non-cataract eye surgery Hx of cataract extraction History of incisional hernia repair -inferior aspect of sternotomy incision H/O aortic aneurysm repair H/O coronary angioplasty H/O heart artery stent Family History Father Stroke CAD (coronary artery disease) Brother Cancer Diabetes Sister Cancer Dementia Diabetes Denies family history of Clotting disorder Chronic kidney disease (CKD) Suicide Anesthesia complication Bleeding disorder Lung disease Social History Smoking and tobacco/nicotine status: former use of tobacco/nicotine Quit status (tobacco/nicotine): has quit using Year quit tobacco: 20 yrs ago Alcohol intake: current Alcohol intake frequency: holidays/special occasions only Substance/Drug Use: never Household members: spouse and children Marital status: Vitals/I&O/Wt Last Vital Signs Temp 98.0 F 08/25/23 07:29 Pulse 78 08/25/23 07:29 Resp 18 08/25/23 07:29 BP 118/69 08/25/23 07:29 Pulse Ox 96 08/25/23 07:29 O2 Del Method Room Air 08/25/23 07:29 Weight last 48 hrs Weight 176 lb A&P Assessment and plan (1) GERD (gastroesophageal reflux disease): Qualifiers: Esophagitis presence: esophagitis presence not specified Qualified Code(s): K21.9 - Gastro-esophageal reflux disease without esophagitis (2) Colon cancer screening: Plan EGD and colonoscopy Attestations Medical Necessity Statement*: Home Coding Level of Care Code Acute Code for g Fwd Diagnoses Gastroesophageal reflux disease, esophagitis presence not specified K21.9 Esophagitis presence: esophagitis presence not specified Colon cancer screening Z12.11
[2023-08-25 08:27] VITALS: BP 109/62; PULSE 68; RESP 16; TEMP 36.1; O2SAT 97
[2023-08-25 08:46] VITALS: BP 116/66; PULSE 64; RESP 18; O2SAT 96
--- NOTE | 2023-08-25 09:10 | ANE.PACU2 ---
Inpatient post-anesthesia follow up: Airway intact: Yes Vital signs: Temperature 97 F Pulse Rate 64 Respiratory Rate 18 Blood Pressure 116/66 Pulse Oximetry 96 Oxygen Delivery Me thod Room Air Oxygen Flow Rate Fraction of Inspir ed Oxygen Hydration adequate: Yes Nausea and vomiting: No Pain level: 1 Mental status: Baseline
== END 2023-08-25 09:10 | disposition home or self-care (01) ==
PROVIDERS: PCP Family Medicine; Visit Provider Surgery
PROC: 0DJ08ZZ Inspection of Upper Intestinal Tract, Via Natural or Artificial Opening Endoscopic (ICD-10-PCS; CPT 43235; principal; 2023-08-25 08:00)
PROC: 0DJD8ZZ Inspection of Lower Intestinal Tract, Via Natural or Artificial Opening Endoscopic (ICD-10-PCS; CPT 45378; 2023-08-25 08:00)
DX: Z12.11 Encounter for screening for malignant neoplasm of colon (principal); Z79.4 Long term (current) use of insulin; Z95.0 Presence of cardiac pacemaker; I25.110 Atherosclerotic heart disease of native coronary artery with unstable angina pectoris; I50.32 Chronic diastolic (congestive) heart failure; I48.20 Chronic atrial fibrillation, unspecified; I10 Essential (primary) hypertension; E78.5 Hyperlipidemia, unspecified; E11.22 Type 2 diabetes mellitus with diabetic chronic kidney disease; I13.0 Hypertensive heart and chronic kidney disease with heart failure and stage 1 through stage 4 chronic kidney disease, or unspecified chronic kidney disease; N18.9 Chronic kidney disease, unspecified; G47.30 Sleep apnea, unspecified; Z87.891 Personal history of nicotine dependence; I25.2 Old myocardial infarction; Z95.5 Presence of coronary angioplasty implant and graft; Z95.1 Presence of aortocoronary bypass graft; I69.954 Hemiplegia and hemiparesis following unspecified cerebrovascular disease affecting left non-dominant side; Z91.199 Patient's noncompliance with other medical treatment and regimen due to unspecified reason
CPT/HCPCS: 36416; 43239; 45385; 82962; 88305; 88342; J2704; J7030

== ENCOUNTER 2023-08-26 10:10 | Day surgery (SDC) | payer MEDICARE, MEDICAID, SELFPAY ==
[2023-08-26] VITALS (18 sets, daily range): BP systolic 106–167; BP diastolic 59–81; PULSE 60–69; RESP 15–20; TEMP 36.1–36.6; O2SAT 90–97; BMI 28.0
[2023-08-26] MEDS: heparin 5,000 unit/mL INJ 1 mL 5000 UNIT SUBCUT (10:53)
[2023-08-26] MEDS: sodium chloride 0.9% 1,000 ML 30 ML IV (10:54)
[2023-08-26 10:55] LABS: Glucose Point of Care 150 mg/dL (70-110)
--- NOTE | 2023-08-26 10:56 | ANES.PREANE2 ---
Pre-Anesthetic Assessment Height/Weight: Height 1.68 m Weight 78.925 kg Temp Pulse Resp BP Pulse Ox O2 Del Method 97.8 F 66 18 106/65 96 Room Air 08/26/23 10:32 08/26/23 10:32 08/26/23 10:32 08/26/23 10:32 08/26/23 10:32 08/26/23 10:32 Operation Date: 08/26/23 12:00 Proposed Procedures p Laparoscopic Umbilical Hernia Repair w/ Mesh(Not Applicable) - Ron Hawkins DO Familial anesthetic complications: None Was Beta Rene taken within 24 hours: N/A Was Clonidine taken within 24 hours: N/A Last intake: Intake Last Liquid Date 08/25/23 Last Liquid Time 21:00 Last Solid Date 08/25/23 Last Solid Time 17:00 Social No alcohol and No tobacco Exam alert, oriented x 3, clear to auscultation bilaterally and regular rate & rhythm Airway Mallampati: Class II Dentition: false CV/HEM Hypertension Arrythmia, Coronary Artery Disease, Congestive Heart Failure, Hypertension and Myocardial Infarction (Stents x5-6) CABG 2016 Pacemaker CONCLUSION: 1. No significant EKG changes with the LexiScan infusion 2. No LexiScan induced chest pain or cardiac arrhythmia 3. Normal blood pressure and heart rate response 4. Sestamibi/sestamibi perfusion scan pending; see separate report. CONCLUSIONS Normal left ventricular size with a slightly diminished LV EF 50 %(visual). Wall motion abnormality as mentioned above mild left ventricular hypertrophy. Thickened mitral valve. Trace mitral valve regurgitation. Trace tricuspid valve regurgitation. Estimated pulmonary artery peak systolic pressure was 11 mmHg. There is no pericardial effusion. There are no intracardiac masses. Compared to the study from 09/10/2017, there may not be significant change GI Gastroesophageal Reflux Disease Neuropsych Cerebrovascular Accident Anesthetic Plan ASA status: 4 Anesthesia: General Risk of > 500 ml blood loss (7ml/kg in children): No Medications/Allergies Home Medications Medication Instructions Recorded Confirmed Last Taken Type L-Arginine Tab 500 mg PO DAILY 07/13/19 08/26/23 08/25/23 History magnesium 250 mg tablet 250 mg PO BID 07/13/19 08/26/23 08/25/23 History blood-glucose meter,continuous #1 ea 11/03/21 08/26/23 08/25/23 Rx (Dexcom G6 [employer]) blood-glucose sensor (Dexcom G6 #9 ea 11/03/21 08/26/23 08/25/23 Rx Sensor device) blood-glucose transmitter (Dexcom #3 ea 11/03/21 08/26/23 08/25/23 Rx G6 Transmitter device) cetirizine 10 mg tablet 10 mg PO DAILY #90 tabs 02/24/22 08/26/23 08/25/23 Rx Diabetic shoes with 3 inserts #1 ea 06/22/22 08/26/23 08/25/23 Rx cyclobenzaprine 10 mg tablet 5 mg (1/2 x 10 mg) PO TID PRN 12/02/22 08/26/23 08/25/23 Rx muscle spasm #20 tabs pen needle, diabetic 31 gauge x #100 ea 12/28/22 08/26/23 08/25/23 Rx 5/16 (Droplet Pen Needle) insulin syringe-needle U-100 1 mL #300 ea 01/18/23 08/26/23 08/25/23 Rx 31 gauge x 5/16 (Droplet Insulin Syringe) lancets (Accu-Chek Softclix #600 ea 02/04/23 08/26/23 08/25/23 Rx Lancets) blood sugar diagnostic (Accu-Chek #100 ea 02/05/23 08/26/23 08/25/23 Rx Guide test strips) blood-glucose meter (Accu-Chek #1 ea 02/05/23 08/26/23 08/25/23 Rx Guide Glucose Meter) nitroglycerin 0.4 mg sublingual See Rx Instructions .Route 04/13/23 08/26/23 2 Months Ago Rx tablet .COMPLEX #20 tabs ~06/26/23 insulin aspart U-100 100 unit/mL See Rx Instructions .Route 05/14/23 08/26/23 08/25/23 Rx subcutaneous solution (Novolog .COMPLEX #30 mL U-100 Insulin aspart) diabetic shoes with 3 inserts #1 ea 06/16/23 08/26/23 08/25/23 Rx albuterol sulfate 90 mcg/actuation 1 puff inhalation Q4H PRN 06/17/23 08/26/23 08/25/23 History aerosol inhaler Shortness Of Breath dabigatran etexilate 150 mg 150 mg PO BID 06/17/23 08/26/23 08/19/23 History capsule (Pradaxa) empagliflozin 10 mg tablet 10 mg PO DAILY 06/17/23 08/26/23 08/25/23 History (Jardiance) fluticasone propionate 50 2 spray intranasal DAILY 06/17/23 08/26/23 08/25/23 History mcg/actuation nasal spray,suspension gabapentin 300 mg capsule 300 mg PO BID 06/17/23 08/26/23 08/25/23 History insulin detemir U-100 100 unit/mL 45 unit SUBCUT BID PRN PUMP FAILURE 06/17/23 08/26/23 08/25/23 History (3 mL) subcutaneous pen (Levemir FlexPen) lisinopril 10 mg tablet 10 mg PO BID 06/17/23 08/26/23 08/25/23 History metoprolol tartrate 100 mg tablet 100 mg PO BID 06/17/23 08/26/23 08/26/23 History ondansetron HCl 4 mg tablet 4 mg PO Q6H PRN nausea and 06/17/23 08/26/23 08/25/23 Rx vomiting #20 tabs potassium chloride 8 mEq 8 meq PO DAILY 06/17/23 08/26/23 08/25/23 History capsule,extended release ranolazine 1,000 mg 1,000 mg PO BID 06/17/23 08/26/23 08/25/23 History tablet,extended release,12 hr rosuvastatin 20 mg tablet 20 mg PO BEDTIME 06/17/23 08/26/23 08/25/23 History ticagrelor 60 mg tablet (Brilinta) 60 mg PO BID 06/17/23 08/26/23 08/19/23 History trazodone 50 mg tablet 50 mg PO BEDTIME 06/17/23 08/26/23 08/25/23 History pantoprazole 40 mg tablet,delayed 40 mg PO BID 6 weeks #84 tabs 06/21/23 08/26/23 08/25/23 Rx release (Protonix) hydrocodone 10 mg-acetaminophen 1 tab PO Q6H PRN Pain 30 days #120 08/03/23 08/26/23 08/25/23 Rx 325 mg tablet tabs cyanocobalamin (vitamin B-12) 1,000 mcg PO DAILY 08/19/23 08/26/23 08/25/23 History 1,000 mcg tablet (Vitamin B-12) insulin pump cart,automated,BT 08/19/23 08/26/23 08/25/23 History (Omnipod 5 G6 Pods (Gen 5) subcutaneous cartridge) multivitamin 1 tab PO DAILY 08/19/23 08/26/23 08/25/23 History isosorbide mononitrate 30 mg See Rx Instructions .Route 08/26/23 Unknown Rx tablet,extended release 24 hr .COMPLEX #270 tabs Allergies Allergy/AdvReac Type Severity Reaction Status Date / Time diltiazem [From Cardizem] Allergy Severe Unresponsiv Verified 08/26/23 10:25 e liraglutide [From Victoza] Allergy Severe ALGY-Difficulty Verified 08/26/23 10:25 Breathing Current Medications Generic Name Dose Route Start Last Admin Trade Name Freq PRN Reason Stop Dose Admin Sodium Chloride 1,000 mls @ 30 mls/hr 08/26/23 10:15 08/26/23 10:54 Sodium Chloride 0.9% IV 08/27/23 10:14 30 mls/hr .Q24H JOE Administration PFSH Anesthesia Medical History GERD (gastroesophageal reflux disease) -on PPI CVA (cerebral vascular accident) Intermittent atrial fibrillation Presence of permanent cardiac pacemaker Atherosclerotic heart disease of [place] coronary artery with other forms of angina pectoris Chronic low back pain Subclinical hypothyroidism Pacemaker Hx of glaucoma Bronchitis Peripheral neuropathy Chronic diastolic CHF (congestive heart failure) -Has known chronic diastolic CHF, no indication of acute exacerbation currently -Echo done in 2018 showed an ejection fraction of 50% with grade 1 diastolic dysfunction and mild hypokinesia -We will hold Lasix for now given orthostasis Atrial fibrillation, chronic Bradycardia -Has chronic bradycardia, has had event monitoring done in 2018 showing baseline sinus bradycardia, average heart rate is about 55 -We will hold beta-rene for now -Monitor vital signs -Telemetry monitoring Hypertension Hyperlipemia Ventricular septal defect Arteriosclerotic heart disease (ASHD) Diabetes mellitus Chronic kidney disease Sleep apnea -non-compliant with CPAP Surgical History Hx of non-cataract eye surgery Hx of cataract extraction History of incisional hernia repair -inferior aspect of sternotomy incision H/O aortic aneurysm repair H/O coronary angioplasty H/O heart artery stent Family History Father Stroke CAD (coronary artery disease) Brother Cancer Diabetes Sister Cancer Dementia Diabetes Denies family history of Clotting disorder Chronic kidney disease (CKD) Suicide Anesthesia complication Bleeding disorder Lung disease Social History Smoking and tobacco/nicotine status: former use of tobacco/nicotine Quit status (tobacco/nicotine): has quit using Year quit tobacco: 20 yrs ago Alcohol intake: current Alcohol intake frequency: holidays/special occasions only Substance/Drug Use: never Household members: spouse and children Marital status: Data Anesthesia Cardiac Studies: Echocardiogram 01/02/22 Sestamibi Stress Test (Cardiology) 04/01/23 Cardiac Event Monitor 11/20/20
--- NOTE | 2023-08-26 11:44 | PM.HP ---
Providers/Chief Complaint Primary Care Provider: Sea Segovia DO Chief Complaint: K42.9 History of Present Illness Darrell Pemberton is a 67 year old male Review of Systems General: Reports: 10 or more systems reviewed and unremarkable except in HPI and below Medications/Allergies Home Medications Medication Instructions Recorded Confirmed Last Taken Type L-Arginine Tab 500 mg PO DAILY 07/13/19 08/26/23 08/25/23 History magnesium 250 mg tablet 250 mg PO BID 07/13/19 08/26/23 08/25/23 History blood-glucose meter,continuous #1 ea 11/03/21 08/26/23 08/25/23 Rx (Dexcom G6 [employer]) blood-glucose sensor (Dexcom G6 #9 ea 11/03/21 08/26/23 08/25/23 Rx Sensor device) blood-glucose transmitter (Dexcom #3 ea 11/03/21 08/26/23 08/25/23 Rx G6 Transmitter device) cetirizine 10 mg tablet 10 mg PO DAILY #90 tabs 02/24/22 08/26/23 08/25/23 Rx Diabetic shoes with 3 inserts #1 ea 06/22/22 08/26/23 08/25/23 Rx cyclobenzaprine 10 mg tablet 5 mg (1/2 x 10 mg) PO TID PRN 12/02/22 08/26/23 08/25/23 Rx muscle spasm #20 tabs pen needle, diabetic 31 gauge x #100 ea 12/28/22 08/26/23 08/25/23 Rx 5/16 (Droplet Pen Needle) insulin syringe-needle U-100 1 mL #300 ea 01/18/23 08/26/23 08/25/23 Rx 31 gauge x 5/16 (Droplet Insulin Syringe) lancets (Accu-Chek Softclix #600 ea 02/04/23 08/26/23 08/25/23 Rx Lancets) blood sugar diagnostic (Accu-Chek #100 ea 02/05/23 08/26/23 08/25/23 Rx Guide test strips) blood-glucose meter (Accu-Chek #1 ea 02/05/23 08/26/23 08/25/23 Rx Guide Glucose Meter) nitroglycerin 0.4 mg sublingual See Rx Instructions .Route 04/13/23 08/26/23 2 Months Ago Rx tablet .COMPLEX #20 tabs ~06/26/23 insulin aspart U-100 100 unit/mL See Rx Instructions .Route 05/14/23 08/26/23 08/25/23 Rx subcutaneous solution (Novolog .COMPLEX #30 mL U-100 Insulin aspart) diabetic shoes with 3 inserts #1 ea 06/16/23 08/26/23 08/25/23 Rx albuterol sulfate 90 mcg/actuation 1 puff inhalation Q4H PRN 06/17/23 08/26/23 08/25/23 History aerosol inhaler Shortness Of Breath dabigatran etexilate 150 mg 150 mg PO BID 06/17/23 08/26/23 08/19/23 History capsule (Pradaxa) empagliflozin 10 mg tablet 10 mg PO DAILY 06/17/23 08/26/23 08/25/23 History (Jardiance) fluticasone propionate 50 2 spray intranasal DAILY 06/17/23 08/26/23 08/25/23 History mcg/actuation nasal spray,suspension gabapentin 300 mg capsule 300 mg PO BID 06/17/23 08/26/23 08/25/23 History insulin detemir U-100 100 unit/mL 45 unit SUBCUT BID PRN PUMP FAILURE 06/17/23 08/26/23 08/25/23 History (3 mL) subcutaneous pen (Levemir FlexPen) lisinopril 10 mg tablet 10 mg PO BID 06/17/23 08/26/23 08/25/23 History metoprolol tartrate 100 mg tablet 100 mg PO BID 06/17/23 08/26/23 08/26/23 History ondansetron HCl 4 mg tablet 4 mg PO Q6H PRN nausea and 06/17/23 08/26/23 08/25/23 Rx vomiting #20 tabs potassium chloride 8 mEq 8 meq PO DAILY 06/17/23 08/26/23 08/25/23 History capsule,extended release ranolazine 1,000 mg 1,000 mg PO BID 06/17/23 08/26/23 08/25/23 History tablet,extended release,12 hr rosuvastatin 20 mg tablet 20 mg PO BEDTIME 06/17/23 08/26/23 08/25/23 History ticagrelor 60 mg tablet (Brilinta) 60 mg PO BID 06/17/23 08/26/23 08/19/23 History trazodone 50 mg tablet 50 mg PO BEDTIME 06/17/23 08/26/23 08/25/23 History pantoprazole 40 mg tablet,delayed 40 mg PO BID 6 weeks #84 tabs 06/21/23 08/26/23 08/25/23 Rx release (Protonix) hydrocodone 10 mg-acetaminophen 1 tab PO Q6H PRN Pain 30 days #120 08/03/23 08/26/23 08/25/23 Rx 325 mg tablet tabs cyanocobalamin (vitamin B-12) 1,000 mcg PO DAILY 08/19/23 08/26/23 08/25/23 History 1,000 mcg tablet (Vitamin B-12) insulin pump cart,automated,BT 08/19/23 08/26/23 08/25/23 History (Omnipod 5 G6 Pods (Gen 5) subcutaneous cartridge) multivitamin 1 tab PO DAILY 08/19/23 08/26/23 08/25/23 History isosorbide mononitrate 30 mg See Rx Instructions .Route 08/26/23 Unknown Rx tablet,extended release 24 hr .COMPLEX #270 tabs Allergies Allergy/AdvReac Type Severity Reaction Status Date / Time diltiazem [From Cardizem] Allergy Severe Unresponsiv Verified 08/26/23 10:25 e liraglutide [From Victoza] Allergy Severe ALGY-Difficulty Verified 08/26/23 10:25 Breathing PFSH Acute PFSH: Medical History GERD (gastroesophageal reflux disease) -on PPI CVA (cerebral vascular accident) Intermittent atrial fibrillation Presence of permanent cardiac pacemaker Atherosclerotic heart disease of [place] coronary artery with other forms of angina pectoris Chronic low back pain Subclinical hypothyroidism Pacemaker Hx of glaucoma Bronchitis Peripheral neuropathy Chronic diastolic CHF (congestive heart failure) -Has known chronic diastolic CHF, no indication of acute exacerbation currently -Echo done in 2018 showed an ejection fraction of 50% with grade 1 diastolic dysfunction and mild hypokinesia -We will hold Lasix for now given orthostasis Atrial fibrillation, chronic Bradycardia -Has chronic bradycardia, has had event monitoring done in 2018 showing baseline sinus bradycardia, average heart rate is about 55 -We will hold beta-ashish for now -Monitor vital signs -Telemetry monitoring Hypertension Hyperlipemia Ventricular septal defect Arteriosclerotic heart disease (ASHD) Diabetes mellitus Chronic kidney disease Sleep apnea -non-compliant with CPAP Surgical History Hx of non-cataract eye surgery Hx of cataract extraction History of incisional hernia repair -inferior aspect of sternotomy incision H/O aortic aneurysm repair H/O coronary angioplasty H/O heart artery stent Family History Father Stroke CAD (coronary artery disease) Brother Cancer Diabetes Sister Cancer Dementia Diabetes Denies family history of Clotting disorder Chronic kidney disease (CKD) Suicide Anesthesia complication Bleeding disorder Lung disease Social History Smoking and tobacco/nicotine status: former use of tobacco/nicotine Quit status (tobacco/nicotine): has quit using Year quit tobacco: 20 yrs ago Alcohol intake: current Alcohol intake frequency: holidays/special occasions only Substance/Drug Use: never Household members: spouse and children Marital status: Vitals/I&O/Wt Last Vital Signs Temp 97.8 F 08/26/23 10:32 Pulse 66 08/26/23 10:32 Resp 18 08/26/23 10:32 BP 106/65 08/26/23 10:32 Pulse Ox 96 08/26/23 10:32 O2 Del Method Room Air 08/26/23 10:32 Weight last 48 hrs Weight 174 lb A&P Assessment and plan (1) Reducible umbilical hernia: Plan laparoscopic umbilical hernia repair with mesh The risks and benefits of the procedure, including but not limited to, bleeding, infection, mesh infection requiring mesh excision antibiotic therapy and repeat surgery, damage surrounding structures, conversion to an open procedure, scar, numbness, pain, and/or recurrence were explained to the patient. Patient is understanding of the risks and wishes to proceed. Attestations Medical Necessity Statement*: Home Coding Level of Care Code Acute Code for Chg Fwd Diagnoses Reducible umbilical hernia K42.9
[2023-08-26] MEDS: ceFAZolin 2,000 MG in sodium chloride 0.9% (plus) 50 ML 100 MG IV (11:52)
--- NOTE | 2023-08-26 12:37 | P.OP_ITS ---
Operative Report Date of procedure: August 26, 2023 Pre-op diagnosis: Umbilical hernia Post-op diagnosis: same Procedure done: Laparoscopic repair of umbilical hernia with mesh Implants: 11 cm round Ventralight mesh Specimens removed/disposition: Hernia sac Surgeon: Ron Hawkins DO Anesthesia: General and Local Estimated blood loss (mL): 5 Complications: None apparent Brief History: This is a very pleasant 67-year-old gentleman presented my office with an umbilical hernia. Laparoscopic repair with mesh was indicated. Risks and benefits were explained and documented. Procedure: Patient was wheeled into the operative room and placed on the OR table in a sup ine position. His Pradaxa and Brilinta were held preoperatively and he was bridged with Lovenox. Heparin was given preoperatively and SCDs were placed for surgery. Abdomen was inspected prepped and draped in usual sterile fashion. Time-out was performed and all present were in agreement. A 15 blade scalp was used to make a 5 millimeter incision left upper quadrant. A Veress needle was placed into the incision and intra-abdominal insufflation was brought to 15 millimeters of mercury. A 12 millimeter trocar was placed into the left lower quadrant. The energy but device was then used to cut out the hernia sac. Hernia defect measured 1.5 cm in greatest diameter. An 11 cm Ventralight mesh was placed into the abdomen and brought up through the umbilicus using an the Regis-Mine. The mesh was then tacked in place in a double crown fashion. The skeleton of the mesh was removed via the left lower quadrant. The hernia sac was then removed from the abdomen via the left lower quadrant. The left lower quadrant port site was closed with an 0 Vicryl suture in a Regis-Mine in a [id number] fashion. Incisions were closed with 4 O Vicryl in a subcuticular interrupted fashion. Skin glue was applied. A dressing that included cotton balls and a Tegaderm was placed over the umbilicus. Patient tolerated the procedure well.
[2023-08-26] MEDS: lidocaine-epi 2% PF 1:200,000 20 mL SDV 7 ML XX (12:44)
[2023-08-26] MEDS: fentaNYL 50 mcg/mL INJ 2mL IVP ×2 (13:15→13:25)
[2023-08-26] MEDS: HYDROmorphone 1 mg/mL INJ 1 mL 0.5 MG IVP (13:33)
[2023-08-26] MEDS: HYDROcodone-acetaminophen 10-325 mg Tablet 1 TAB PO (14:15)
--- NOTE | 2023-08-26 14:40 | ANE.PACU2 ---
Inpatient post-anesthesia follow up: Airway intact: Yes Vital signs: Temperature 97.0 F Pulse Rate 60 Respiratory Rate 18 Blood Pressure 143/79 Pulse Oximetry 90 Oxygen Delivery Me thod Room Air Oxygen Flow Rate 1 Fraction of Inspir ed Oxygen Hydration adequate: Yes Nausea and vomiting: No Pain level: 1 Mental status: Baseline
== END 2023-08-26 14:40 | disposition home or self-care (01) ==
PROVIDERS: PCP Family Medicine; Visit Provider Surgery
PROC: 0WQF4ZZ Repair Abdominal Wall, Percutaneous Endoscopic Approach (ICD-10-PCS; CPT 49650; principal; 2023-08-26 12:00)
DX: K42.9 Umbilical hernia without obstruction or gangrene (principal); I25.10 Atherosclerotic heart disease of native coronary artery without angina pectoris; I50.32 Chronic diastolic (congestive) heart failure; I25.2 Old myocardial infarction; Z95.5 Presence of coronary angioplasty implant and graft; K21.9 Gastro-esophageal reflux disease without esophagitis; Z86.73 Personal history of transient ischemic attack (TIA), and cerebral infarction without residual deficits; Z79.4 Long term (current) use of insulin; Z95.0 Presence of cardiac pacemaker; I48.20 Chronic atrial fibrillation, unspecified; E11.42 Type 2 diabetes mellitus with diabetic polyneuropathy; E11.22 Type 2 diabetes mellitus with diabetic chronic kidney disease; I13.0 Hypertensive heart and chronic kidney disease with heart failure and stage 1 through stage 4 chronic kidney disease, or unspecified chronic kidney disease; N18.9 Chronic kidney disease, unspecified; G47.30 Sleep apnea, unspecified; Z87.891 Personal history of nicotine dependence
CPT/HCPCS: 49650; 36416; 82962; 88302; C1781; J0690; J1170; J1644; J2405; J2704; J2710; J3010; J3490; J7030

== ENCOUNTER 2023-09-01 08:19 | Outpatient (CLI) | payer MEDICARE, SELFPAY ==
[2023-09-01 09:13] LABS: Alanine Aminotransferase 24 U/L (0-41); Albumin Level 4.1 g/dL (3.5-5.2); Alkaline Phosphatase 64 U/L (40-130); Anion Gap 16.3 (5-19); Aspartate Amino Transferase 19 U/L (0-40); Blood Urea Nitrogen 15 mg/dL (8-23); Calcium 9.3 mg/dL (8.5-10.5); Carbon Dioxide 24 mmol/L (22-29); Chloride 102 mmol/L (98-107); Chol HDL Ratio 2.76 mg/dL (1.0-5.00); Cholesterol 124 mg/dL (0-200); Globulin 3.4 g/dL (1.3-4.6); Glomerular Filtration Rate 84.4 mL/min (90-130); Glucose 154 mg/dL (65-115); HDL Cholesterol 45 mg/dL (60-100); LDL Cholesterol Calculated 51 mg/dL (50-129); LDL HDL Ratio 1.13 RATIO (0.00-3.22); Osmolality Calculated 290 mOsm/kg (285-295); Potassium 4.3 mmol/L (3.5-5.1); Sodium 138 mmol/L (136-145); Total Bilirubin 0.6 mg/dL (0.15-1.2); Total Protein 7.5 g/dL (6.6-8.7); Triglycerides 138 mg/dL (0-150)
[2023-09-01 09:27] LABS: Creatinine Urine, Random 71 mg/dL (39-259); Microalbum Creatinine Ratio Ur 14 mg/dL (0-20); Microalbumin Random Urine 1 ug/dL (0-20)
[2023-09-01 09:48] LABS: Estmated Average Glucose 157; Hemoglobin A1C 7.1 % (4.0-6.0)
== END 2023-09-01 08:20 | disposition home or self-care (01) ==
LOC: LAB 08:20
PROVIDERS: PCP Family Medicine; Visit Provider Internal Medicine
DX: E78.2 Mixed hyperlipidemia; E11.8 Type 2 diabetes mellitus with unspecified complications; L60.3 Nail dystrophy; Z79.4 Long term (current) use of insulin
CPT/HCPCS: 11721; 36415; 80053; 80061; 82044; 83036

== ENCOUNTER → 2023-09-02 07:43 | Outpatient (BNVA) | payer MEDICARE, SELFPAY | PROVIDERS: PCP Family Medicine; Visit Provider Internal Medicine | DX: R06.02 Shortness of breath; L60.3 Nail dystrophy; E03.8 Other specified hypothyroidism; E78.2 Mixed hyperlipidemia; I25.10 Atherosclerotic heart disease of native coronary artery without angina pectoris; I63.9 Cerebral infarction, unspecified; I50.32 Chronic diastolic (congestive) heart failure; E11.59 Type 2 diabetes mellitus with other circulatory complications; R06.09 Other forms of dyspnea; Z95.0 Presence of cardiac pacemaker; Z79.4 Long term (current) use of insulin | CPT/HCPCS: 36415; 83880; 99214 ==

== ENCOUNTER → 2023-09-09 07:43 | Outpatient (BNVA) | payer MEDICARE, SELFPAY | PROVIDERS: PCP Family Medicine; Visit Provider Surgery | DX: Z09 Encounter for follow-up examination after completed treatment for conditions other than malignant neoplasm (principal) | CPT/HCPCS: 99024 ==

== ENCOUNTER 2023-11-30 15:26 | Outpatient (CLI) | payer MEDICARE, SELFPAY ==
[2023-11-30 17:00] LABS: Creatinine Urine, Random 39 mg/dL (39-259); Microalbum Creatinine Ratio Ur 26 mg/dL (0-20); Microalbumin Random Urine 1 ug/dL (0-20)
[2023-11-30 17:13] LABS: Alanine Aminotransferase 23 U/L (0-41); Albumin Level 4.4 g/dL (3.5-5.2); Alkaline Phosphatase 72 U/L (40-130); Anion Gap 16.5 (5-19); Aspartate Amino Transferase 20 U/L (0-40); Blood Urea Nitrogen 16 mg/dL (8-23); Calcium 9.1 mg/dL (8.5-10.5); Carbon Dioxide 24 mmol/L (22-29); Chloride 100 mmol/L (98-107); Globulin 2.6 g/dL (1.3-4.6); Glomerular Filtration Rate 55.1 mL/min (90-130); Glucose 319 mg/dL (65-115); Osmolality Calculated 295 mOsm/kg (285-295); Potassium 4.5 mmol/L (3.5-5.1); Sodium 136 mmol/L (136-145); Total Bilirubin 0.3 mg/dL (0.15-1.2)
[2023-12-01 01:14] LABS: Estmated Average Glucose 174; Hemoglobin A1C 7.7 % (4.0-6.0)
== END 2023-11-30 15:27 | disposition home or self-care (01) ==
LOC: LAB 15:26
PROVIDERS: PCP Family Medicine; Visit Provider Internal Medicine
DX: E11.9 Type 2 diabetes mellitus without complications (principal)
CPT/HCPCS: 36415; 80053; 82044; 83036

== ENCOUNTER → 2023-12-01 07:46 | Outpatient (BNVA) | payer MEDICARE, SELFPAY | PROVIDERS: PCP Family Medicine; Visit Provider Podiatrist Foot & Ankle Surgery | DX: E11.8 Type 2 diabetes mellitus with unspecified complications (principal); L60.3 Nail dystrophy; Z79.4 Long term (current) use of insulin | CPT/HCPCS: 11721 ==

== ENCOUNTER → 2023-12-02 08:26 | Outpatient (BNVA) | payer MEDICARE, SELFPAY | PROVIDERS: PCP Family Medicine; Visit Provider Internal Medicine | DX: E11.9 Type 2 diabetes mellitus without complications (principal); L60.3 Nail dystrophy; E03.8 Other specified hypothyroidism; E78.2 Mixed hyperlipidemia; I25.10 Atherosclerotic heart disease of native coronary artery without angina pectoris; I63.9 Cerebral infarction, unspecified; I50.32 Chronic diastolic (congestive) heart failure; Z79.4 Long term (current) use of insulin | CPT/HCPCS: 99214 ==

== ENCOUNTER 2023-12-14 18:18 | Inpatient (IN) | payer MEDICARE, SELFPAY ==
[2023-12-14] VITALS (16 sets, daily range): BP systolic 110–144; BP diastolic 40–87; PULSE 56–86; RESP 6–22; TEMP 36.9–37; O2SAT 94–100; BMI 29.0
--- NOTE | 2023-12-14 18:19 | ECG_ITS ---
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 Measurements Intervals [place] Rate: 76 P: 171 [place]: 220 QRS: 72 QRSD: 122 T: 75 QT: 405 QTc: 458 Interpretive Statements ELECTRONIC ATRIAL PACEMAKER MODERATE INTRAVENTRICULAR CONDUCTION DELAY [105+ ms QRS DURATION, 80+ ms Q/S IN V1/V2, NO Q AND 60+ ms R IN I/aVL/V5/V6] Compared to ECG 06/17/2023 09:13:53 No significant changes Electronically Signed On 12-16-2023 0:24:29 CDT by Vianey Owen M.D. [id number]
--- NOTE | 2023-12-14 18:22 | XRR_ITS ---
PROCEDURE INFORMATION: Exam: XR Chest Exam date and time: 12/14/2023 6:25 PM Age: 68 years old Clinical indication: Pain; Chest pressure; Prior surgery; Surgery date: 6+ months; Surgery type: Open heart pacer; Additional info: Cp TECHNIQUE: Imaging protocol: Radiologic exam of the chest. Views: 1 view. COMPARISON: CR XR chest 1V portable [id number] 02/23/2023 10:46 PM FINDINGS: Tubes, catheters and devices: Cardiac pacemaker on the left with leads in satisfactory position. Lungs: Unremarkable. No consolidation or mass. Pleural spaces: Unremarkable. No pleural effusion. No pneumothorax. Heart/Mediastinum: Unremarkable. No cardiomegaly. Bones/joints: Sternal sutures are noted. XR/XR chest 1V portable [id number] IMPRESSION: No acute findings.
--- NOTE | 2023-12-14 18:31 | ED_ITS ---
HPI - Chest Pain 2 General: Chief Complaint: Chest Pain Stated Complaint: CP SOB Time Seen by Provider: 12/14/23 18:21 Source: patient Mode of arrival: ambulatory Limitations: no limitations History of Present Illness: 68-year-old male states he started havin g a sharp chest pain left chest 1 hour ago. He states pain is worse to palpation and movement. He does have extensive cardiac history had stents in bypass in the past. He denies any shortness of breath denies any diaphoresis has had some slight nausea. Took nitro with no relief Associated symptoms: Deny abdominal pain, dyspnea, fever(s) or vomiting Related Data Home Medications Medication Instructions Recorded Confirmed L-Arginine Tab 500 mg PO DAILY 07/13/19 12/02/23 magnesium 250 mg tablet 250 mg PO BID 07/13/19 12/02/23 dabigatran etexilate 150 mg 150 mg PO BID 06/17/23 12/02/23 capsule (Pradaxa) fluticasone propionate 50 2 spray intranasal DAILY 06/17/23 12/02/23 mcg/actuation nasal spray,suspension insulin detemir U-100 100 unit/mL 45 unit SUBCUT BID PRN PUMP FAILURE 06/17/23 12/02/23 (3 mL) subcutaneous pen (Levemir FlexPen) metoprolol tartrate 100 mg tablet 100 mg PO BID 06/17/23 12/02/23 potassium chloride 8 mEq 8 meq PO DAILY 06/17/23 12/02/23 capsule,extended release ranolazine 1,000 mg 1,000 mg PO BID 06/17/23 12/02/23 tablet,extended release,12 hr rosuvastatin 20 mg tablet 20 mg PO BEDTIME 06/17/23 12/02/23 ticagrelor 60 mg tablet (Brilinta) 60 mg PO BID 06/17/23 12/02/23 trazodone 50 mg tablet 50 mg PO BEDTIME 06/17/23 12/02/23 cyanocobalamin (vitamin B-12) 1,000 mcg PO DAILY 08/19/23 12/02/23 1,000 mcg tablet (Vitamin B-12) insulin pump cart,automated,BT 08/19/23 12/02/23 (Omnipod 5 G6 Pods (Gen 5) subcutaneous cartridge) multivitamin 1 tab PO DAILY 08/19/23 12/02/23 Previous Rx's Medication Instructions Recorded blood-glucose meter,continuous #1 ea 11/03/21 (Dexcom G6 Director Of Web Marketing) blood-glucose sensor (Dexcom G6 #9 ea 11/03/21 Sensor device) blood-glucose transmitter (Dexcom #3 ea 11/03/21 G6 Transmitter device) cetirizine 10 mg tablet 10 mg PO DAILY #90 tabs 02/24/22 Diabetic shoes with 3 inserts #1 ea 06/22/22 cyclobenzaprine 10 mg tablet 5 mg (1/2 x 10 mg) PO TID PRN 12/02/22 muscle spasm #20 tabs pen needle, diabetic 31 gauge x #100 ea 12/28/2216 (Droplet Pen Needle) insulin syringe-needle U-100 1 mL #300 ea 01/18/23 31 gauge x 16 (Droplet Insulin Syringe) lancets (Accu-Chek Softclix #600 ea 02/04/23 Lancets) blood sugar diagnostic (Accu-Chek #100 ea 02/05/23 Guide test strips) blood-glucose meter (Accu-Chek #1 ea 02/05/23 Guide Glucose Meter) insulin aspart U-100 100 unit/mL See Rx Instructions .Route 05/14/23 subcutaneous solution (Novolog .COMPLEX #30 mL U-100 Insulin aspart) diabetic shoes with 3 inserts #1 ea 06/16/23 ondansetron HCl 4 mg tablet 4 mg PO Q6H PRN nausea and 06/17/23 vomiting #20 tabs docusate sodium 100 mg capsule 100 mg PO BID #14 caps 08/26/23 (Colace) isosorbide mononitrate 30 mg See Rx Instructions .Route 08/26/23 tablet,extended release 24 hr .COMPLEX #270 tabs nitroglycerin 0.4 mg sublingual See Rx Instructions .Route 09/13/23 tablet .COMPLEX #20 tabs pantoprazole 40 mg tablet,delayed 40 mg PO BID 30 days #60 tabs 09/17/23 release (Protonix) lisinopril 10 mg tablet See Rx Instructions .Route 10/04/23 .COMPLEX #180 tabs gabapentin 300 mg capsule See Rx Instructions .Route 10/12/23 .COMPLEX #180 caps albuterol sulfate 90 mcg/actuation See Rx Instructions .Route 11/25/23 aerosol inhaler .COMPLEX #1 ea hydrocodone 10 mg-acetaminophen 1 tab PO Q6H PRN Pain 30 days #120 12/04/23 325 mg tablet tabs empagliflozin 10 mg tablet See Rx Instructions .Route 12/13/23 (Jardiance) .COMPLEX #90 tabs Allergies Allergy/AdvReac Type Severity Reaction Status Date / Time diltiazem [From Cardizem] Allergy Severe Unresponsiv Verified 12/02/23 07:26 e liraglutide [From Victoza] Allergy Severe ALGY-Difficulty Verified 12/02/23 07:26 Breathing Review of Systems 2 Const: Denies: fever(s), chills, body aches or change in appetite ENMT: Denies: throat pain or dental pain Card: Reports: chest pain Resp: Denies: dyspnea GI: Denies: abdominal pain, vomiting or diarrhea Musc: Denies: neck pain or back pain Skin/Breast: Denies: rash Neuro: Denies: headache(s) PFSH ED 2 PFSH: Medical History GERD (gastroesophageal reflux disease) -on PPI CVA (cerebral vascular accident) Intermittent atrial fibrillation Presence of permanent cardiac pacemaker Atherosclerotic heart disease of [place] coronary artery with other forms of angina pectoris Chronic low back pain Subclinical hypothyroidism Pacemaker Hx of glaucoma Bronchitis Peripheral neuropathy Chronic diastolic CHF (congestive heart failure) -Has known chronic diastolic CHF, no indication of acute exacerbation currently -Echo done in 2018 showed an ejection fraction of 50% with grade 1 diastolic dysfunction and mild hypokinesia -We will hold Lasix for now given orthostasis Atrial fibrillation, chronic Bradycardia -Has chronic bradycardia, has had event monitoring done in 2018 showing baseline sinus bradycardia, average heart rate is about 55 -We will hold beta-ashish for now -Monitor vital signs -Telemetry monitoring Hypertension Hyperlipemia Ventricular septal defect Arteriosclerotic heart disease (ASHD) Diabetes mellitus Chronic kidney disease Sleep apnea -non-compliant with CPAP Surgical History Status post umbilical hernia repair, follow-up exam Hx of non-cataract eye surgery Hx of cataract extraction History of incisional hernia repair -inferior aspect of sternotomy incision H/O aortic aneurysm repair H/O coronary angioplasty H/O heart artery stent Family History Father Stroke CAD (coronary artery disease) Brother Cancer Diabetes Sister Cancer Dementia Diabetes Denies family history of Clotting disorder Chronic kidney disease (CKD) Suicide Anesthesia complication Bleeding disorder Lung disease Social History Smoking and tobacco/nicotine status: never used tobacco/nicotine Quit status (tobacco/nicotine): has quit using Year quit tobacco: 20 yrs ago Alcohol intake: current Alcohol intake frequency: holidays/special occasions only Substance/Drug Use: never Household members: spouse and children Marital status: Physical Exam 2 Const: COMMON NORMALS: no acute distress, patient oriented x3 and healthy appearing HENMT: COMMON NORMALS: normocephalic and atraumatic HEAD & SCALP: n ormocephalic and atraumatic Eye: COMMON NORMALS: Equal, round and reactive pupils present and EOMs intact bilaterally PUPIL: Yes Equal, round and reactive pupils present Neck/C-Spine: COMMON NORMALS: full ROM and supple Chest: COMMONS NORMALS: normal inspection of the chest and normal palpation of entire chest wall Resp: COMMON NORMALS: normal respiratory effort, No retractions, No use of accessory muscles and clear to auscultation bilaterally AUSCULTATION: clear to auscultation bilaterally Cardio: COMMON NORMALS: regular rate, regular rhythm and No murmurs present (Cardio) RATE: regular rate RHYTHM: regular rhythm GI: COMMON NORMALS: Normal to inspection, nondistended, normoactive bowel sounds present, Soft to palpation, non-tender and no masses PALPATION: Yes Soft to palpation Extremity: COMMON NORMALS: normal to inspection and full ROM Neuro: COMMON NORMALS: patient oriented x3, moves all extremities and no focal motor deficits Psych: COMMON NORMALS: mental status grossly normal, Normal thought process present and cooperative THOUGHT PROCESS: Normal thought process present Skin: COMMON NORMALS: no rashes or lesions noted and no wounds GENERAL SKIN EXAM: no rashes or lesions noted Course 2 Vital Signs: Vital signs: Vital Signs Temperature 98.6 F 12/14/23 18:21 Pulse Rate 62 12/14/23 20:30 Respiratory Rate 17 12/14/23 20:30 Blood Pressure 115/62 12/14/23 20:30 Pulse Oximetry 96 12/14/23 20:30 Oxygen Delivery Me thod Room Air 12/14/23 20:30 MDM - Chest Pain Medical Decision Making Patient presents here with chest pain still ongoing pain here it did improve after pain meds his initial repeat troponin are negative he has no signs of dissection or pulm embolism I spoke to the hospitalist will admit this time for ACS rule out Medical Records I reviewed the patient's medical records. Lab Data I reviewed the patient's lab results. 12/14/23 18:27 12/14/23 18:27 Radiology Impressions Chest X-Ray 12/14/23 18:22 IMPRESSION: No acute findings. Laboratory Results WBC 5.52 10^3/uL (3.29-11.43) 12/14/23 18: RBC 4.19 10^6/uL (3.85-5.65) 12/14/23 18: Hgb 13.50 g/dL (11.27-16.99) 12/14/23 18: Hct 38.8 % (37-53) 12/14/23 18: MCV 92.6 fl (82-101) 12/14/23 18: MCH 32.2 pg (27-33) 12/14/23 18: MCHC 34.8 g/dL (30-55) 12/14/23 18: RDW 12.1 % (12.1-15.1) 12/14/23 18: Plt Count 192 10^3/cmm (157-399) 12/14/23 18: MPV 8.6 fL (7.4-10.4) 12/14/23 18: Neut % (Auto) 55.2 % 12/14/23 18: Lymph % (Auto) 27.4 % 12/14/23 18:27 Taylor % (Auto) 12.0 % 12/14/23 18: Eos % (Auto) 4.3 % 12/14/23 18: Baso % (Auto) 0.9 % 12/14/23 18: Neut # (Auto) 3.05 10^3/uL (1.8-7.7) 12/14/23 18: Lymph # (Auto) 1.5 10^3/uL (0.8-4.8) 12/14/23 18: Taylor # (Auto) 0.7 10^3/uL (0.2-0.9) 12/14/23 18:27 Eos # (Auto) 0.2 10^3/uL (0.0-0.8) 12/14/23 18:27 Baso # (Auto) 0.1 10^3/uL (0.0-0.1) 12/14/23 18:27 Nucleated RBC % (auto) 0 % 12/14/23 18: Nucleated RBCs # 0.0 /100WBC 12/14/23 18:27 PT 15.40 SECONDS (12.1-14.9) H 12/14/23 18:27 INR 1.19 (0.8-1.2) 12/14/23 18:27 Sodium 137 mmol/L (136-145) 12/14/23 18:27 Potassium 4.3 mmol/L (3.5-5.1) 12/14/23 18:27 Chloride 100 mmol/L (98-107) 12/14/23 18:27 Carbon Dioxide 26 mmol/L (22-29) 12/14/23 18:27 Anion Gap 15.3 (5-19) 12/14/23 18:27 BUN 15 mg/dL (8-23) 12/14/23 18:27 Creatinine 1.3 mg/dL (0.7-1.2) H 12/14/23 18:27 GFR Calculation 55.1 mL/min (90-130) L 12/14/23 18:27 Glucose 150 mg/dL (65-115) H 12/14/23 18:27 Calculated Osmolality 288 mOsm/kg (285-295) 12/14/23 18:27 Calcium 9.2 mg/dL (8.5-10.5) 12/14/23 18:27 Total Bilirubin 0.5 mg/dL (0.15-1.2) 12/14/23 18:27 AST 19 U/L (0-40) 12/14/23 18:27 ALT 26 U/L (0-41) 12/14/23 18:27 Alkaline Phosphatase 68 U/L (40-130) 12/14/23 18:27 Troponin T Baseline 12 ng/L (0-15) 12/14/23 18:27 Troponin T 120 Minute 10.20 ng/L (0-15) 12/14/23 20:34 Delta Troponin T -1.80 ABS# (0-10) L 12/14/23 20:34 NT-Pro-B Natriuret Pep 40 pg/mL (0-125) 12/14/23 18:27 Total Protein 7.3 g/dL (6.6-8.7) 12/14/23 18:27 Albumin 4.5 g/dL (3.5-5.2) 12/14/23 18:27 Globulin 2.8 g/dL (1.3-4.6) 12/14/23 18:27 All radiology interpretation(s) finalized by discharge EKG Data EKG 1: I personally reviewed and interpreted this EKG as follows: EKG interpretation date: 12/14/23 EKG interpretation time: 18:19 Interpretation: paced hr [address] elevation qrs 122 qtc 436 EKG 2: I personally reviewed and interpreted this EKG as follows: EKG interpretation date: 12/14/23 EKG interpretation time: 19:15 Interpretation: paced hr [address] elevation qrs 114 qtc 418 Discharge Plan Discharge Patient Disposition: Placed in Observation Clinical Impression: Chest pain Condition: Stable Prescriptions: No Action (DME) Dexcom G6 Director Of Web Marketing Misc See Rx Instructions .Route Qty: 1 0RF Rx Instructions: Check BS 4-6 times a day. (DME) Dexcom G6 Sensor Device See Rx Instructions .Route Qty: 9 3RF Rx Instructions: Change every 10 days. (DME) Dexcom G6 Transmitter Device See Rx Instructions .Route Qty: 3 3RF Rx Instructions: Change every 90 days. cyclobenzaprine 10 mg tablet 5 mg PO TID PRN (Reason: muscle spasm) Qty: 20 0RF (DME) Diabetic shoes with 3 inserts See Rx Instructions .Route .MEDSUPPLY Qty: 1 0RF Rx Instructions: As directed HOME (DME) diabetic shoes with 3 inserts See Rx Instructions .Route .MEDSUPPLY Qty: 1 0RF Rx Instructions: As directed to HOME cetirizine 10 mg tablet 10 mg PO DAILY Qty: 90 1RF (DME) pen needle, diabetic [Droplet Pen Needle] 31 gauge x 5/16 needle See Rx Instructions .Route Qty: 100 12RF Rx Instructions: As directed (DME) insulin syringe-needle U-100 [Droplet Insulin Syringe] 1 mL 31 gauge x 5/16 syringe See Rx Instructions .ROUTE .COMPLEX Qty: 300 10RF Dose Instruction: USE DIRECTED Rx Instructions: USE DIRECTED (DME) lancets [Accu-Chek Softclix Lancets] Misc See Rx Instructions .ROUTE .COMPLEX Qty: 600 10RF Dose Instruction: TEST BLOOD SUGAR SIX TIMES DAILY DIRECTED Rx Instructions: TEST BLOOD SUGAR SIX TIMES DAILY DIRECTED (DME) blood-glucose meter [Accu-Chek Guide Glucose Meter] Misc See Rx Instructions .Route Qty: 1 0RF Rx Instructions: As directed (DME) Accu-Chek Guide test strips Strip See Rx Instructions .Route Qty: 100 11RF Rx Instructions: As directed insulin aspart U-100 [Novolog U-100 Insulin aspart] 100 unit/mL solution See Rx Instructions .ROUTE .COMPLEX Qty: 30 3RF Dose Instruction: INJECT PER SLIDING SCALE WITH EACH MEAL; VIAL EXPIRES 28 DAYS AFTER OPENED Rx Instructions: PER INSULIN PUMP. VIAL EXPIRES 28 DAYS AFTER OPENED isosorbide mononitrate 30 mg tablet extended release 24 hr See Rx Instructions .ROUTE .COMPLEX Qty: 270 3RF Dose Instruction: TAKE 2 TABLETS EVERY MORNING AND TAKE 1 TABLET EVERY EVENING DIRECTED Rx Instructions: TAKE 2 TABLETS EVERY MORNING AND TAKE 1 TABLET EVERY EVENING DIRECTED nitroglycerin 0.4 mg tablet, sublingual See Rx Instructions .ROUTE .COMPLEX Qty: 20 2RF Dose Instruction: DISSOLVE 1 TABLET UNDER THE TONGUE EVERY 5 MINUTES NEEDED FOR CHEST PAIN. DO NOT EXCEED A TOTAL OF 3 DOSES IN 15 MINUTES. Rx Instructions: DISSOLVE 1 TABLET UNDER THE TONGUE EVERY 5 MINUTES NEEDED FOR CHEST PAIN. DO NOT EXCEED A TOTAL OF 3 DOSES IN 15 MINUTES. pantoprazole [Protonix] 40 mg tablet,delayed release (DR/EC) 40 mg PO BID 30 Days Qty: 60 11RF lisinopril 10 mg tablet See Rx Instructions .ROUTE .COMPLEX Qty: 180 3RF Dose Instruction: TAKE 1 TABLET TWICE DAILY (UNABLE TO TOLERATE 20MG TWICE A DAY) Rx Instructions: TAKE 1 TABLET TWICE DAILY (UNABLE TO TOLERATE 20MG TWICE A DAY) gabapentin 300 mg capsule See Rx Instructions .ROUTE .COMPLEX Qty: 180 3RF Dose Instruction: TAKE 1 CAPSULE TWICE DAILY Rx Instructions: TAKE 1 CAPSULE TWICE DAILY albuterol sulfate 90 mcg/actuation HFA aerosol inhaler See Rx Instructions .ROUTE .COMPLEX Qty: 1 0RF Dose Instruction: INHALE 1 PUFF EVERY 4 HOURS NEEDED FOR SHORTNESS OF BREATH Rx Instructions: INHALE 1 PUFF EVERY 4 HOURS NEEDED FOR SHORTNESS OF BREATH hydrocodone-acetaminophen 10-325 mg tablet 1 tab PO Q6H PRN (Reason: Pain) 30 Days Qty: 120 0RF Hold Instructions: Resume on 08/31/23. Jardiance 10 mg tablet See Rx Instructions .ROUTE .COMPLEX Qty: 90 3RF Dose Instruction: TAKE 1 TABLET EVERY DAY Rx Instructions: TAKE 1 TABLET EVERY DAY magnesium 250 mg Tablet 250 mg PO BID L-Arginine Tab 500 mg PO DAILY Colace 100 mg capsule 100 mg PO BID Qty: 14 0RF dabigatran etexilate [Pradaxa] 150 mg capsule 150 mg PO BID Hold Instructions: Resume on 08/28/23. potassium chloride 8 mEq capsule, extended release 8 meq PO DAILY trazodone 50 mg tablet 50 mg PO BEDTIME metoprolol tartrate 100 mg tablet 100 mg PO BID fluticasone propionate 50 mcg/actuation spray,suspension 2 spray intranasal DAILY rosuvastatin 20 mg tablet 20 mg PO BEDTIME Levemir FlexPen 100 unit/mL (3 mL) insulin pen 45 unit SUBCUT BID PRN (Reason: PUMP FAILURE) ranolazine 1,000 mg tablet extended release 12 hr 1,000 mg PO BID Brilinta 60 mg tablet 60 mg PO BID Hold Instructions: Resume on 08/28/23. ondansetron HCl 4 mg tablet 4 mg PO Q6H PRN (Reason: nausea and vomiting) Qty: 20 0RF multivitamin Tablet 1 tab PO DAILY cyanocobalamin (vitamin B-12) [Vitamin B-12] 1,000 mcg Tablet 1,000 mcg PO DAILY (DME) Omnipod 5 G6 Pods (Gen 5) Cartridge SUBCUT Coding Level of Care Code ED Social Media Job Titles for Sabi Yang
[2023-12-14] MEDS: aspirin 81 mg Chew Tablet 324 MG PO (18:37)
[2023-12-14] MEDS: morphine 4 mg/mL SDV 1 mL IVP (18:38)
[2023-12-14 18:40] LABS: Basophils # 0.1 10^3/uL (0.0-0.1); Basophils % 0.9 %; Eosinophils # 0.2 10^3/uL (0.0-0.8); Eosinophils % 4.3 %; Hematocrit 38.8 % (37-53); Lymphocytes # 1.5 10^3/uL (0.8-4.8); Lymphocytes % 27.4 %; Mean Corpuscular HGB Conc 34.8 g/dL (30-55); Mean Corpuscular Hemoglobin 32.2 pg (27-33); Mean Corpuscular Volume 92.6 fl (82-101); Mean Platelet Volume 8.6 fL (7.4-10.4); Monocytes # 0.7 10^3/uL (0.2-0.9); Neutrophils # 3.05 10^3/uL (1.8-7.7); Neutrophils % 55.2 %; Nucleated Red Blood Cells % 0 %; Platelet Count 192 10^3/cmm (157-399); Red Blood Count 4.19 10^6/uL (3.85-5.65); Red Cell Distribution Width 12.1 % (12.1-15.1); White Blood Count 5.52 10^3/uL (3.29-11.43)
[2023-12-14 18:51] LABS: INR 1.19 (0.8-1.2)
[2023-12-14 18:57] LABS: Troponin(5th) Baseline 12 ng/L (0-15)
[2023-12-14 19:14] LABS: Alanine Aminotransferase 26 U/L (0-41); Albumin Level 4.5 g/dL (3.5-5.2); Alkaline Phosphatase 68 U/L (40-130); Anion Gap 15.3 (5-19); Aspartate Amino Transferase 19 U/L (0-40); Blood Urea Nitrogen 15 mg/dL (8-23); Calcium 9.2 mg/dL (8.5-10.5); Carbon Dioxide 26 mmol/L (22-29); Chloride 100 mmol/L (98-107); Globulin 2.8 g/dL (1.3-4.6); Glomerular Filtration Rate 55.1 mL/min (90-130); Glucose 150 mg/dL (65-115); NT Pro B Type Natriuretic Pept 40 pg/mL (0-125); Osmolality Calculated 288 mOsm/kg (285-295); Potassium 4.3 mmol/L (3.5-5.1); Sodium 137 mmol/L (136-145); Total Bilirubin 0.5 mg/dL (0.15-1.2); Total Protein 7.3 g/dL (6.6-8.7)
[2023-12-14 19:15] LABS: Creatinine Clr Calc Pharmacy 55.3262
--- NOTE | 2023-12-14 19:15 | ECG_ITS ---
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 Measurements Intervals [place] Rate: 62 P: 134 [place]: 213 QRS: 64 QRSD: 114 T: 75 QT: 412 QTc: 421 Interpretive Statements ELECTRONIC ATRIAL PACEMAKER MODERATE INTRAVENTRICULAR CONDUCTION DELAY [105+ ms QRS DURATION, 80+ ms Q/S IN V1/V2, NO Q AND 60+ ms R IN I/aVL/V5/V6] Compared to ECG 06/17/2023 09:13:53 No significant changes Electronically Signed On 12-15-2023 8:21:42 CDT by Deniz Oconnor M.D. [id number]
--- NOTE | 2023-12-14 19:17 | PC.NURSE ---
pt received prescribed morphine, given iv push. pain recheck for pt went from 10 to currently 8. pt states pain left sided chest pain radiates up neck and down left arm. Dr. Malik notified, repeat EKG, collecting now.
[2023-12-14] MEDS: HYDROmorphone 1 mg/mL INJ 1 mL 0.5 MG IVP (19:26)
--- NOTE | 2023-12-14 20:02 | PC.NURSE ---
pt states chest pain rated between 7 and 8, pt also states having facial itching. Dr. Malik notified.
--- NOTE | 2023-12-14 20:16 | ECG_ITS ---
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 Measurements Intervals [place] Rate: 59 P: 141 [place]: 209 QRS: 64 QRSD: 114 T: 68 QT: 400 QTc: 399 Interpretive Statements ELECTRONIC ATRIAL PACEMAKER MODERATE INTRAVENTRICULAR CONDUCTION DELAY [105+ ms QRS DURATION, 80+ ms Q/S IN V1/V2, NO Q AND 60+ ms R IN I/aVL/V5/V6] Compared to ECG 12/14/2023 19:15:34 No significant changes Electronically Signed On 12-15-2023 8:20:24 CDT by Deniz Oconnor M.D. [id number]
[2023-12-14] MEDS: HYDROmorphone 1 mg/mL INJ 1 mL IVP (22:00)
--- NOTE | 2023-12-14 23:28 | USCV_ITS ---
Darrell Pemberton Age: 68 Gender: M : 1955 Exam Date: 12/14/2023 23:42 Ordering Phys: Beni Albarran MD Technologist: ELIU [place]am [place] [facility] [place]ication: chest pain, history of CABG 2020, pacer 2021, stenting 2021. BP: 134 / 87 HR: 59 Rhythm: Sinus Technical Quality: Adequate MEASUREMENTS (Male / Female) Normal Values 2D ECHO LV Diastolic Diameter PLAX 4.3 cm 4.2 - 5.9 / 3.9 - 5.3 cm IVS Diastolic Thickness 1.6 cm 0.6 - 1.0 / 0.6 - 0.9 cm IVS Systolic Thickness 1.8 cm LVPW Diastolic Thickness 1.1 cm 0.6 - 1.0 / 0.6 - 0.9 cm LVPW Systolic Thickness 1.3 cm LVOT Diameter 2.1 cm LV Ejection Fraction 2D Teich 54.6 % LV Ejection Fraction MOD 4C 50.4 % LV Ejection Fraction MOD 2C 52.3 % LV Ejection Fraction 2C AL 52.0 % LA Diameter 3.5 cm Aorta at Sinotubular Diameter 3.4 cm IVC Diameter 1.4 cm M-MODE LA Ao Ratio MM 1.1 AV Cusp Separation MM 2.1 cm DOPPLER AV Peak Velocity 130.0 cm/s LVOT Peak Velocity 84.0 cm/s AV Area Cont Eq vti 2.3 cm squared AV Area Cont Eq pk 2.2 cm squared MV Peak Velocity 136.0 cm/s MV Area PHT 2.9 cm squared Mitral E to A Ratio 1.1 TV Peak Velocity 252.3 cm/s TR Peak Velocity 258.0 cm/s TR Peak Gradient 26.6 mmHg TV Peak E Velocity 47.0 cm/s Right Atrial Pressure 3.0 mmHg Pulmonary Artery Systolic Pressu 29.6 mmHg PV Peak Velocity 116.0 cm/s FINDINGS Left Ventricle Normal LV size with borderline low ejection fraction of 50 to 55%. Mild hypokinesia of the mid and apical septal segment. Mild concentric left ventricular hypertrophy Right Ventricle Catheter/pacemaker wire in the right ventricular cavity. Right Atrium Catheter/pacemaker wire in the right atrial cavity. Left Atrium The left atrium is normal in size. Mitral Valve Mildly thickened mitral valve. Mild mitral valve regurgitation. Aortic Valve Trace aortic valve regurgitation. Tricuspid Valve Jgig-gh-eezpyapy tricuspid valve regurgitation. Pulmonic Valve No gross abnormalities noted Pericardium Normal pericardium without effusion. Aorta Normal ascending aorta dimension. IVC Normal inferior vena cava. CONCLUSIONS Normal LV size with borderline low ejection fraction of 50 to 55%. Mild hypokinesia of the mid and apical septal segment. Mild concentric left ventricular hypertrophy. Mildly thickened mitral valve. Mild mitral valve regurgitation. Trace aortic valve regurgitation. [id number] tricuspid valve regurgitation. Estimated pulmonary artery peak systolic pressure 30 mmHg Pacemaker wire in the right atrium right ventricle There is no pericardial effusion. Compared to the study from 01/02/2022, there may not be a significant change Dr Vianey Owen MD [facility] (Electronically Signed) Final Date: 15 December 2023 22:59 S
--- NOTE | 2023-12-14 23:44 | P.HP_ITS ---
Providers/Chief Complaint 2 Admitting Physician: Beni Albarran MD Chief Complaint: CP SOB History of Present Illness Darrell Pemberton is a 68 year old male with a past medical history of CAD status post 7 stents, history of CABG x 2, type 2 diabetes mellitus, hypertension, pacemaker, he is on Pradaxa for atrial fibrillation, who presents to [facility] for chest pain. Currently patient was examined, he is in the cardiac stepdown unit, complaining of severe substernal chest pain, 7 out of 10, pressure-like pain rating down his left arm, he has received nitro, and Dilaudid and continues to have chest pain. He is alert oriented x 3, following all commands, does not appear to be in respiratory distress, denies any vomiting does feel a bit nauseous, denies any shortness of breath. He tells me that his chest pain started tonight, with substernal chest pain, left-sided, he did take a nitro at home without improvement,His baseline troponin was 12, initial EKG no acute ST-T wave changes, he tells me that he has not taken any of his night time medications his Brilinta or his Pradaxa or his metoprolol, due to persistent chest pain, we discussed starting him on a nitroglycerin drip, a heparin drip, keeping n.p.o. midnight, spoke to cardiology, Dr. Stokes, given symptomatology, recommended to keep patient n.p.o. over midnight, cardiac catheterization in the morning, K Review of Systems 2 Const: Reports: chills; Denies: fever(s) Card: Reports: chest pain Resp: Denies: dyspnea Medications/Allergies Home Medications Medication Instructions Recorded Confirmed Last Taken Type L-Arginine Tab 500 mg PO DAILY 07/13/19 12/14/23 08/25/23 History magnesium 250 mg tablet 250 mg PO BID 07/13/19 12/14/23 08/25/23 History blood-glucose meter,continuous #1 ea 11/03/21 12/14/23 08/25/23 Rx (Dexcom G6 Computer Operations Technician) blood-glucose sensor (Dexcom G6 #9 ea 11/03/21 12/14/23 08/25/23 Rx Sensor device) blood-glucose transmitter (Dexcom #3 ea 11/03/21 12/14/23 08/25/23 Rx G6 Transmitter device) cetirizine 10 mg tablet 10 mg PO DAILY #90 tabs 02/24/22 12/14/23 08/25/23 Rx Diabetic shoes with 3 inserts #1 ea 06/22/22 12/14/23 08/25/23 Rx cyclobenzaprine 10 mg tablet 5 mg (1/2 x 10 mg) PO TID PRN 12/02/22 12/14/23 08/25/23 Rx muscle spasm #20 tabs pen needle, diabetic 31 gauge x #100 ea 12/28/22 12/14/23 08/25/23 Rx 5/16 (Droplet Pen Needle) insulin syringe-needle U-100 1 mL #300 ea 01/18/23 12/14/23 08/25/23 Rx 31 gauge x 5/16 (Droplet Insulin Syringe) lancets (Accu-Chek Softclix #600 ea 02/04/23 12/14/23 08/25/23 Rx Lancets) blood sugar diagnostic (Accu-Chek #100 ea 02/05/23 12/14/23 08/25/23 Rx Guide test strips) blood-glucose meter (Accu-Chek #1 ea 02/05/23 12/14/23 08/25/23 Rx Guide Glucose Meter) insulin aspart U-100 100 unit/mL See Rx Instructions .Route 05/14/23 12/14/23 08/25/23 Rx subcutaneous solution (Novolog .COMPLEX #30 mL U-100 Insulin aspart) diabetic shoes with 3 inserts #1 ea 06/16/23 12/14/23 08/25/23 Rx dabigatran etexilate 150 mg 150 mg PO BID 06/17/23 12/14/23 08/19/23 History capsule (Pradaxa) fluticasone propionate 50 2 spray intranasal DAILY 06/17/23 12/14/23 08/25/23 History mcg/actuation nasal spray,suspension insulin detemir U-100 100 unit/mL 45 unit SUBCUT BID PRN PUMP FAILURE 06/17/23 12/14/23 08/25/23 History (3 mL) subcutaneous pen (Levemir FlexPen) metoprolol tartrate 100 mg tablet 100 mg PO BID 06/17/23 12/14/23 08/26/23 History ondansetron HCl 4 mg tablet 4 mg PO Q6H PRN nausea and 06/17/23 12/14/23 08/25/23 Rx vomiting #20 tabs potassium chloride 8 mEq 8 meq PO DAILY 06/17/23 12/14/23 08/25/23 History capsule,extended release ranolazine 1,000 mg 1,000 mg PO BID 06/17/23 12/14/23 08/25/23 History tablet,extended release,12 hr rosuvastatin 20 mg tablet 20 mg PO BEDTIME 06/17/23 12/14/23 08/25/23 History ticagrelor 60 mg tablet (Brilinta) 60 mg PO BID 06/17/23 12/14/23 08/19/23 History trazodone 50 mg tablet 50 mg PO BEDTIME 06/17/23 12/14/23 08/25/23 History cyanocobalamin (vitamin B-12) 1,000 mcg PO DAILY 08/19/23 12/14/23 08/25/23 History 1,000 mcg tablet (Vitamin B-12) insulin pump cart,automated,BT 08/19/23 12/14/23 08/25/23 History (Omnipod 5 G6 Pods (Gen 5) subcutaneous cartridge) multivitamin 1 tab PO DAILY 08/19/23 12/14/23 08/25/23 History docusate sodium 100 mg capsule 100 mg PO BID #14 caps 08/26/23 12/14/23 Unknown Rx (Colace) isosorbide mononitrate 30 mg See Rx Instructions .Route 08/26/23 12/14/23 Unknown Rx tablet,extended release 24 hr .COMPLEX #270 tabs nitroglycerin 0.4 mg sublingual See Rx Instructions .Route 09/13/23 12/14/23 Unknown Rx tablet .COMPLEX #20 tabs pantoprazole 40 mg tablet,delayed 40 mg PO BID 30 days #60 tabs 09/17/23 12/14/23 Unknown Rx release (Protonix) lisinopril 10 mg tablet See Rx Instructions .Route 10/04/23 12/14/23 Unknown Rx .COMPLEX #180 tabs gabapentin 300 mg capsule See Rx Instructions .Route 10/12/23 12/14/23 Unknown Rx .COMPLEX #180 caps albuterol sulfate 90 mcg/actuation See Rx Instructions .Route 11/25/23 12/14/23 Unknown Rx aerosol inhaler .COMPLEX #1 ea hydrocodone 10 mg-acetaminophen 1 tab PO Q6H PRN Pain 30 days #120 12/04/23 12/14/23 Unknown Rx 325 mg tablet tabs empagliflozin 10 mg tablet See Rx Instructions .Route 12/13/23 12/14/23 Unknown Rx (Jardiance) .COMPLEX #90 tabs Allergies Allergy/AdvReac Type Severity Reaction Status Date / Time diltiazem [From Cardizem] Allergy Severe Unresponsiv Verified 12/02/23 07:26 e liraglutide [From Victoza] Allergy Severe ALGY-Difficulty Verified 12/02/23 07:26 Breathing PFSH Acute 2 PFSH: Medical History GERD (gastroesophageal reflux disease) -on PPI CVA (cerebral vascular accident) Intermittent atrial fibrillation Presence of permanent cardiac pacemaker Atherosclerotic heart disease of [place] coronary artery with other forms of angina pectoris Chronic low back pain Subclinical hypothyroidism Pacemaker Hx of glaucoma Bronchitis Peripheral neuropathy Chronic diastolic CHF (congestive heart failure) -Has known chronic diastolic CHF, no indication of acute exacerbation currently -Echo done in 2018 showed an ejection fraction of 50% with grade 1 diastolic dysfunction and mild hypokinesia -We will hold Lasix for now given orthostasis Atrial fibrillation, chronic Bradycardia -Has chronic bradycardia, has had event monitoring done in 2018 showing baseline sinus bradycardia, average heart rate is about 55 -We will hold beta-ashish for now -Monitor vital signs -Telemetry monitoring Hypertension Hyperlipemia Ventricular septal defect Arteriosclerotic heart disease (ASHD) Diabetes mellitus Chronic kidney disease Sleep apnea -non-compliant with CPAP Surgical History Status post umbilical hernia repair, follow-up exam Hx of non-cataract eye surgery Hx of cataract extraction History of incisional hernia repair -inferior aspect of sternotomy incision H/O aortic aneurysm repair H/O coronary angioplasty H/O heart artery stent Family History Father Stroke CAD (coronary artery disease) Brother Cancer Diabetes Sister Cancer Dementia Diabetes Denies family history of Clotting disorder Chronic kidney disease (CKD) Suicide Anesthesia complication Bleeding disorder Lung disease Social History Smoking and tobacco/nicotine status: never used tobacco/nicotine Quit status (tobacco/nicotine): has quit using Year quit tobacco: 20 yrs ago Alcohol intake: current Alcohol intake frequency: holidays/special occasions only Substance/Drug Use: never Household members: spouse and children Marital status: Vitals/I&O/Wt Last Vital Signs Temp 98.4 F 12/14/23 22:52 Pulse 75 12/14/23 22:52 Resp 22 H 12/14/23 22:52 BP 134/87 12/14/23 22:52 Pulse Ox 96 12/14/23 22:52 O2 Del Method Room Air 12/14/23 22:52 Weight last 48 hrs Weight 81.647 kg Weight 81.647 kg Physical Exam 2 Const: COMMON NORMALS: no acute distress and patient oriented x3 O RIENTATION/CONSCIOUSNESS: Yes awake, Yes oriented to person and Yes oriented to place Eye: COMMON NORMALS: Equal, round and reactive pupils present and EOMs intact bilaterally Resp: COMMON NORMALS: normal respiratory effort, No retractions, No use of accessory muscles and clear to auscultation bilaterally AUSCULTATION: clear to auscultation bilaterally Cardio: COMMON NORMALS: no JVD, regular rate, regular rhythm, S1 normal heart sound present and S2 normal heart sound present RATE: regular rate RHYTHM: regular rhythm HEART SOUNDS: S1 normal heart sound present and S2 normal heart sound present GI: COMMON NORMALS: Normal to inspection, nondistended, normoactive bowel sounds present, Soft to palpation and non-tender OTHER: Abdomen is soft, Extremity: COMMON NORMALS: no pedal edema Neuro: COMMON NORMALS: patient oriented x3, CN's II-XII intact bilaterally and moves all extremities Psych: COMMON NORMALS: mental status grossly normal Data 12/14/23 18:27 12/14/23 18:27 A&P Assessment and plan (1) Unstable angina: Plan Unstable angina -Cardiac stress test ?IMPRESSIONS 1. Myocardial perfusion imaging revealing a small area of persistent decreased tracer uptake involving the apical anterior and apical lateral segments suggesting myocardial scarring versus attenuation artifact 2. Normal LV ejection fraction 66% with 3. LV wall motion analysis revealing mild hypokinesia of the LV apex 4. Normal LV volume. Low probability for coronary ischemia, based on the above findings -Cardiac cath in 2018 He was found to have patent CANCHOLA to the LAD and a radial arterial graft to the obtuse marginal branch. He had high-grade severe diffuse disease in the proximal to mid LAD. High-grade stenosis in the small caliber intermedius and first obtuse marginal artery. Second obtuse margin artery is completely occluded. Mild to moderate diffuse disease in the other vessels. Mild diffuse hypokinesia left ventricle with an ejection fraction of 50%. LVEDP of 11 mmHg. Recommendations Continue current medical management and risk factor modification. -Initial EKG, no acute ST-T wave changes, troponin 12 Plan ? Serial EKGs, serial troponins, telemetry monitoring -Keep n.p.o. ? IV fluids as creatinine is 1.3 ? Heparin drip ? Nitro drip ? Monitor for chest pain ? Dilaudid as needed for chest pain ? Patient has not used his Pradaxa this evening, but did get a morning dose, switch to heparin drip - He did not take his nighttime Brilinta we will give him a dose tonight ? Continue aspirin ? Continue statin ? Low-dose sliding scale ? Cardiac echo ? Hold ranolazine, ? Consulted cardiology ? Full code ? Heparin drip for DVT prophylaxis Attestations 2 Medical Necessity Statement*: Patient requires hospitalization, inpatient, greater than 2 minutes, for unstable angina Diagnoses Unstable angina I20.0
[2023-12-15] VITALS (80 sets, daily range): BP systolic 106–154; BP diastolic 53–78; PULSE 60–86; RESP 10–23; TEMP 36.6–36.8; O2SAT 92–98
--- NOTE | 2023-12-15 00:22 | ECG_ITS ---
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 Measurements Intervals Warren Rate: 61 P: 115 TN: 200 QRS: 84 QRSD: 122 T: 66 QT: 429 QTc: 435 Interpretive Statements ELECTRONIC ATRIAL PACEMAKER MODERATE INTRAVENTRICULAR CONDUCTION DELAY [110+ ms QRS DURATION] ABNORMAL RHYTHM ECG Compared to ECG 12/14/2023 20:16:55 No significant changes Electronically Signed On 12-16-2023 0:24:37 CDT by Vianey Owen M.D. [email or web address]
[2023-12-15] MEDS: heparin drip 25,000 UNIT/500 ML PREMIX 23 UNIT IV (00:37)
[2023-12-15] MEDS: sodium chloride 0.9% 1,000 ML 50 ML IV (00:38)
[2023-12-15] MEDS: pantoprazole 40 mg SDV IVP (00:39)
[2023-12-15] MEDS: heparin 5,000 unit/mL INJ 1 mL IVP (00:39)
[2023-12-15] MEDS: metoprolol tartrate 50 mg Tablet 100 MG PO (00:39)
[2023-12-15] MEDS: gabapentin 300 mg Capsule PO ×3 (00:39→17:25)
[2023-12-15] MEDS: nitroglycerin drip 50 MG/250 ML PREMIX IV (01:04)
[2023-12-15 01:45] LABS: Glucose Point of Care 122 mg/dL (70-110)
[2023-12-15 02:05] LABS: Troponin 5 6HR 10.88 ng/L (0-15)
[2023-12-15 02:37] LABS: Troponin 5 6HR Delta -1.12 ng/L (0-12)
--- OUTSIDE RECORDS SUMMARY | 2023-12-15 04:57 | XMS_ITS | Patient Health Record ---
Author Name Unknown Organization [facility] Address [address] [place] [address] Care Team Providers Care Gas Treater Name Role Phone Devendra Smith Primary Care Provider Allergies Allergen (clinical drug ingredient) Drug/Non Drug Allergy documented on EMR Reaction Allergy Type Onset Date Status diltiazem Cardizem Unknown Drug Allergy Active liraglutide Victoza Unknown Drug Allergy Activ e Reason For Referral No Information Medications Medication SIG (Take, Route, Frequency, Duration) Notes Start Date End Date Status EQ Allergy Relief (Cetirizine) 10 MG Take 1 tablet by mouth once daily for 90 Active Isosorbide Mononitrate 30 MG 2 tablets in the morning and 2 tablets in the evening Orally Once a day increased by Dr. Owen Active traZODone HCl 50 MG 1 tablet at bedtime as needed Orally Once a day for 30 day(s) Active Potassium Chloride ER 8 MEQ TAKE 1 CAPSULE EVERY DAY for 90 Active Lisinopril 10 MG TAKE 1 TABLET BY MOUTH TWICE DAILY Orally twice a day for 30 days Active Gabapentin 300 MG TAKE ONE CAPSULE BY MOUTH TWICE DAILY Orally twice a day for 90 days Active Jardiance 10 MG 1 tablet Orally Once a day Active Rosuvastatin Calcium 20 MG TAKE 1 TABLET EVERY DAY IN THE EVENING for 90 Active Pradaxa 150 MG 1 capsule Orally Twice a day Active NovoLOG 100 UNIT/ML INJECT 24 UNITS SUBCUTANEOUSLY THREE TIMES DAILY BEFORE MEALS for 90 Active B12 Folate 800-800 MCG as directed Orally Active Lycopene 10 MG 2 capsule with a yesica l Orally Once a day Active Droplet Insulin Syringe 31G X 5/16 1 ML USE DIRECTED for 90 Active Magnesium 100 MG 1 tablet with a meal Orally twice a day Active Brilinta 60 MG TAKE 1 TABLET TWICE DAILY for 90 Active Ranexa 1000 MG 1 tablet Orally Twic e a day for 30 days Active Famotidine 20 MG TAKE 1 TABLET TWICE DAILY for 90 Active Fluticasone Propionate 50 MCG/ACT ADMINISTER 2 SPRAYS IN EACH NOSTRIL DAILY. for 90 Active Nitroglycerin 0.[address] 1 TABLET UNDE R THE TONGUE EVERY 5 MINUTES NEEDED FOR CHEST PAIN MAX OF 3 DOSES IN 15 MINUTES IF NO RELIEF WITH 3 DOSES GO TO ER for 30 Active Crestor 20 MG Take 1 tablet(s) by mouth daily in p.m. Oral Once a day for 90 Active Levemir FlexTouch 100 UNIT/ML INJECT 45 UNITS SUBCUTANEOUSLY TWICE DAILY for 90 Active Alcohol Pads 70 % as directed topical daily for 90 days 12/17/2020 Active Accu-Chek Iva Plus w/Device as directed In Vitro use to test 5 to 7 times a day for 30 days 11/18/2020 Active Accu-Chek Multiclix Lancets - as directed in vivo daily for 90 days 12/04/2020 Active Droplet Pen [place] 31G X 8 MM USE TWICE DAILY WITH LEVEMIR FLEXTOUCH DIRECTED for 90 Active Albuterol Sulfate HFA 108 (90 Base) MCG/ACT INHALE 1 PUFF EVERY 4 HOURS NEEDED for 90 Active Metoprolol Tartrate 100 MG 1 tablet Oral Twice a day for 90 days Active Accu-Chek Iva Plus - TEST BLOOD SUGAR DIRECTED 5 TO 7 TIMES DAILY for 64 Active BD Swab Single Use Regular - USE TO TEST BLOOD SUGAR 5 TO 7 TIMES DAILY for 90 Active Immunizations Vaccine Route Administration Date Status Comme nts Afluria Quadrivalent Influenza Vaccine 3 years+ IM Intramuscular 01/11/2020 Administered Afluria Quadrivalent Influenza Vaccine 3 years+ IM Intramuscular 01/11/2020 Administered COVID-19 Vaccine (Moderna) Dose #3 Unknown 01/03/2021 Administered COVID-19 Vaccine (Pfizer) Dose #1 IM Intramuscular 04/26/2020 Administered COVID-19 Vaccine (Pfizer) Dose #2 IM Intramuscular 05/24/2020 Administered Flucelvax IM Intramuscular 01/21/2021 Administered Social History Tobacco Use: Social History Observation Description Date Details (start date - stop date) Former Smoker NA - NA xTobacco Use/Smoking Question Answer Notes Are you a former smoker How long has it been since you last smoked? > 10 years Tobacco use other than smoking: Question Answer Notes Are you an other tobacco user? 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 malabsorption with proteinuria (D51.1) Active confirmed Problem 826374116 Type 2 diabetes mellitus without complications (E11.9) Active confirmed Problem Paroxysmal atrial fibrillation (426342218) Paroxysmal atrial fibrillation (I48.0) Active confirmed Problem 072009543 Typical atrial flutter (I48.3) Active confirmed Problem Nonruptured cerebral aneurysm (23157891) Cerebral aneurysm, nonruptured (I67.1) Active confirmed Problem 408722662 MCC (current) use of insulin (Z79.4) Active confirmed Problem Type II diabetes mellitus without complication (016287086) Type 2 diabetes mellitus without complications (E11.9) Active confirmed Problem 19735788 Other hyperlipidemia (E78.49) Active confirmed Problem Essential hypertension (58737078) Essential hypertension (I10) Active confirmed Problem 800601342 Osteoarthritis, unspecified osteoarthritis type, unspecified site (M19.90) Active confirmed Problem 54209784 Anemia due to vitamin B12 deficiency, unspecified B12 deficiency type (D51.9) Active confirmed Problem Laboratory test result abnormal (750520540) Abnormal laboratory test result (R89.9) Active confirmed Problem 35399682 NATASHA (obstructive sleep apnea) (G47.33) Active confirmed Problem 23261766 Left bundle bran ch block (LBBB) (I44.7) Active confirmed Problem 05246248 Memory loss (R41.3) Active confirmed Problem 87736991 Mitral valve insufficiency, unspecified etiology (I34.0) Active confirmed Problem 404312388 Balance problem (R26.89) Active confirmed Problem 808145884 Fatty liver (K76.0) Active confirmed Problem 335864456 Peripheral vascular disease (I73.9) Active confirmed Problem Lumbosacral spondylosis without myelopathy (25112122) 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) Active confirmed Problem 059354811 Hemorrhagic cerebrovascular accident (CVA) (I61.9) Active confirmed Problem 02035206 Elevated blood protein (E88.09) Active confirmed Problem 61493625 Obstructive slee p apnea (G47.33) 017 Active confirmed Santosh-985 911- Problem 928452637 B12 deficiency (E53.8) Active confirmed Santosh-985 911- Problem 41098760 Acquired stenosi s of aortic valve (I35.0) 014 Active confirmed Santosh-985 911- Problem 86459086 Lumbosacral spondylosis without myelopathy (M47.817) 016 Active confirmed Santosh-985 911- Problem 50153537 Other convulsion s (R56.9) 004 Active confirmed Santosh-985 911- Problem 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) Tick-borne fever (066.1) 006 Inactive confirmed Santosh-985 911- Problem Acute sinusitis (75303500) Acute sinusitis, unspecified (461.9) 017 Inactive confirmed Santosh-985 911- Problem Headache (87672273) Headache (784.0) 015 Inactive confirmed Santosh-985 911- Problem Epistaxis (653412824) Epistaxis (784.7) 019 Inactive confirmed Santosh-985 911- Problem Abdominal pain (61339620) Abdominal pain, other specified site (789.09) 018 Inactive confirmed Santosh-985 911- Problem 716452250 Other specified endocrine disorders (E34.8) 005 Inactive confirmed Santosh-985 911- Problem 014227199 Mixed hyperlipidemia (E78.2) 007 Inactive confirmed Santosh-985 911- Problem 64217063 Generalized anxiety disorder (F41.1) 005 Inactive confirmed Santosh-985 911- Problem 33368570 Allergic rhiniti s due to pollen (J30.1) 006 Inactive confirmed Santosh-985 911- Problem Bradycardia (78641452) Bradycardia, unspecified (R00.1) 019 Inactive confirmed Santosh-985 911- Problem 84935865 Vitamin D deficiency (E55.9) 009 Inactive confirmed Santosh-985 911- Problem 33829056 Acute frontal sinusitis (J01.10) 014 Inactive confirmed Santosh-985 911- Problem Screening for malignant neoplasm of prostate (110365069) Screening for prostate cancer (V76.44) 017 Inactive confirmed Santosh-985 911- Problem 622057388 Transient insomn ia (F51.02) 005 Inactive confirmed Santosh-985 911- Problem 570004281 Peripheral neuropathy (G62.9) 011 Inactive confirmed Santosh-985 911- Problem Rash (333152982) Rash (782.1) 018 Inactive confirmed Santosh-985 911- Problem 784391239 Erectile disorde r, acquired, generalized, moderate (F52.21) 005 Inactive confirmed Santosh-985 911- Problem Neck pain (34453786) Neck pain (723.1) 015 Inactive confirmed Santosh-985 911- Problem Hypotension (10850204) Hypotension, other (458.8) 018 Inactive confirmed Santosh-985 911- Problem Seasonal allergy (549146202) Seasonal allergies (477.0) 018 Inactive confirmed Santosh-985 911- Problem Shortness of breath (875366767) Shortness of breath (786.09) 019 Inactive confirmed Santosh-985 911- Problem Screening for colon cancer (197785952) Screening for colon cancer (V76.49) 015 Inactive confirmed Santosh-985 911- Problem Disorder of hematopoietic system (59863713) Other abnormal findings on blood examination (790.99) 018 Inactive confirmed Santosh-985 911- Problem Atypical mole syndrome (598641583) Atypical mole (238.2) 017 Inactive confirmed Santosh-985 911- Problem Congestive heart failure (15149588) Congestive heart failure (428.0) 016 Inactive confirmed Santosh-985 911- Problem Cerebrovascular accident (332455381) CVA (434.91) 016 Inactive confirmed Santosh-985 911- Problem Depressive disorder (66129930) Depressive disorder not elsewhere classified (311) Inactive confirmed Santosh-985 911- Problem Hypoglycemia (421484006) Hypoglycemia (251.2) Inactive confirmed Santosh-985 911- Problem Screening for malignant neoplasm of colon (006364702) Screening for colorectal cancer (V76.49) Inactive confirmed Santosh-985 911- Problem Anxiety state (504753603) Situational stress with anxiety (300.09) Inactive confirmed Santosh-985 911- Problem Needs influenza immunization (106887774) Vaccination against other viral diseases, Influenza (V04.81) Inactive confirmed Santosh-985 911- Problem Allergic rhinitis caused by pollen (24000508) Allergic rhinitis, pollen-induced (477.0) Inactive confirmed Santosh-985 911- Problem Thyroid function tests abnormal (139514505) Abnormal thyroid findings (794.5) Inactive confirmed Santosh-985 911- Problem Acute coronary syndrome (851534408) Acute coronary syndrome (411.1) Inactive confirmed Santosh-985 911- Problem Acute upper respiratory infection (98578447) Acute viral syndrome (465.9) Inactive confirmed Santosh-985 911- Problem Bradycardia (04228336) Bradycardia (427.89) Inactive confirmed Santosh-985 911- Problem Type II diabetes mellitus without complication (696837850) Type II diabetes requiring insulin (250.00) Inactive confirmed Santosh-985 911- Problem Impacted cerumen (44130056) External cerumen impaction (380.4) Inactive confirmed Santosh-985 911- Problem Influenza vaccination (75829312) Influenza vaccination (V04.81) Inactive confirmed Santosh-985 911- Problem Type II Diabetes Mellitus without complication (300216527) NIDDM (250.00) Inactive confirmed Santosh-985 911- Problem Other external e ar disorder (380.89) Inactive confirmed Santosh-985 911- Problem 885991286 Major depressive disorder, recurrent episode, moderate (F33.1) 005 Inactive confirmed Santosh-985 911- Problem 275340176 Diabetes mellitu s type 2, uncontrolled (E11.65) 006 Inactive confirmed Santosh-985 911- Problem 6576280 Essential hypertension, benign (I10) 004 Inactive confirmed Santosh-985 911- Problem 7237731914489 Coronary atherosclerosis of [place] coronary artery (I25.10) 005 Inactive confirmed Santosh-985 911- Problem 989664874 Acid reflux disease (K21.9) 006 Inactive confirmed Santosh-985 911- Problem 47793533784334 Chronic vertigo (R42) 004 Inactive confirmed Santosh-985 911- Problem 74980809 Chronic mastoiditis (H70.10) 006 Inactive confirmed Santosh-985 911- Problem 7742867 Athletes foot (B35.3) 005 Inactive confirmed Santosh-985 911- Problem Open wound of hand except fingers with tendon involvement (56755089) Avulsion of hand (882.2) 016 Inactive confirmed Santosh-985 911- Problem Epigastric hernia (739712423) Epigastric hernia (553.29) 018 Inactive confirmed Santosh-985 911- Problem Palpitations (67544862) Heart palpitation (785.1) 018 Inactive confirmed Santosh-985 911- Problem Pulmonary edema (18146762) Pulmonary edema (514) 018 Inactive confirmed Santosh-985 911- Problem Hemiplegia of dominant side (208257957) Unspecified hemiplegia, affecting dominant side (342.91) 016 Inactive confirmed Santosh-985 911- Problem 348514079 Acute mitral regurgitation (I34.0) 018 Inactive confirmed Santosh-985 911- Problem 461689784 Opioid type dependence, continuous abuse (F11.20) 019 Inactive confirmed Santosh-985 911- Plan Of Treatment Pending Test Test Name Order Date Electrocardiogram (EKG) 05/31/2019 Insurance Providers Payer Name Payer Address Payer Phone Subscriber Number Group Number Insured Name Patient Relationship to Insured Coverage Start Date Coverage End Date [employer] - Out of Network [address] [address] [place] [address] [id number] Darrell Underwood Self - patient is the insured [place] Medicaid [address] [place] [address] [id number] Darrell Underwood Self - patient is the insured Medical (General) History Medical History History ICD Code Hypertension Hx of CVA Coronary artery disease Hypercholesterolemia Mitral valve regurgitation NATASHA Type 2 diabetes Peripheral neuropathy Sinus bradycardia GERD Glaucoma Lumbar spondylarthritis Surgical History Surgery Date(Month/Year) Coronary Artery Stent Placement: 1 3 stents Drug Eluting Hernia, l eardrum replacemen t, anyerism repair, cabg, post ptca, stents Hernia Repair RIGHT EYE SURGERY CYST REMOVED Brain aneurysm hemorrhoids Tumor removal; right eye- Dr. Mi bilateral eye surgery glaucoma, cataract s 08/2020 Hospitalization History Reason Date(Month/Year) Back Stents CVA CABG Brain aneurysm
[2023-12-15 07:58] LABS: Basophils % 0.6 %; Eosinophils # 0.3 10^3/uL (0.0-0.8); Eosinophils % 3.6 %; Hematocrit 38.7 % (37-53); Lymphocytes # 1.6 10^3/uL (0.8-4.8); Lymphocytes % 22.3 %; Mean Corpuscular HGB Conc 33.9 g/dL (30-55); Mean Corpuscular Hemoglobin 32.1 pg (27-33); Mean Corpuscular Volume 94.9 fl (82-101); Mean Platelet Volume 8.7 fL (7.4-10.4); Monocytes # 0.5 10^3/uL (0.2-0.9); Monocytes % 7.3 %; Neutrophils # 4.79 10^3/uL (1.8-7.7); Neutrophils % 65.9 %; Nucleated Red Blood Cells % 0 %; Platelet Count 170 10^3/cmm (157-399); Red Blood Count 4.08 10^6/uL (3.85-5.65); Red Cell Distribution Width 12.2 % (12.1-15.1); White Blood Count 7.26 10^3/uL (3.29-11.43)
[2023-12-15] MEDS: aspirin 81 mg EC Tablet PO (08:12)
[2023-12-15 08:29] LABS: Estmated Average Glucose 174; Hemoglobin A1C 7.7 % (4.0-6.0)
[2023-12-15 08:31] LABS: Anion Gap 13.4 (5-19); Blood Urea Nitrogen 19 mg/dL (8-23); Carbon Dioxide 25 mmol/L (22-29); Chloride 104 mmol/L (98-107); Chol HDL Ratio 2.58 mg/dL (1.0-5.00); Cholesterol 142 mg/dL (0-200); Creatinine Clr Calc Pharmacy 59.9367; Glomerular Filtration Rate 60.4 mL/min (90-130); Glucose 162 mg/dL (65-115); HDL Cholesterol 55 mg/dL (60-100); LDL Cholesterol Calculated 59 mg/dL (50-129); LDL HDL Ratio 1.07 RATIO (0.00-3.22); Osmolality Calculated 292 mOsm/kg (285-295); Potassium 4.4 mmol/L (3.5-5.1); Sodium 138 mmol/L (136-145); Thyroid Stimulating Hormone 4.55 uIU/mL (0.27-4.20); Triglycerides 142 mg/dL (0-150)
[2023-12-15 08:44] LABS: INR 1.15 (0.8-1.2)
[2023-12-15 08:55] LABS: Partial Thromboplastin Time 116.8 SECONDS (23.9-36.7)
[2023-12-15 08:58] LABS: Add Urine Microscopic? NO
--- NOTE | 2023-12-15 09:10 | PC.CHAP ---
Pastoral Care Encounter/Spiritual Assessment Type of Contact [] Declined cable layer visit [] Patient/Family/Request visit [] Outpatient visit [] Follow-up visit [] Physician referral [] Code/Alert [x] Routine visit [] Staff referral [] Actively dying [] Patient sleeping [] Family support [] [] Out of room [] Palliative care [] [] Receiving care in room [] Pre-surgical visit [] Trauma [] Long length of stay [] ICU visit [] Other: Relational/Emotional Strength [x] Patient feels connected with others/family/visitors/staff [] Distress [] Loneliness/isolation [] Abandonment Spirituality of Patient [x] Person of Saira [] Attends Islam of their Saira [x] Believes in Prayer [] Reads Bible or Yazidi materials [] There are Spiritual issues to be addressed 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 Interventions [x] Prayer [x] Active listening [] Non-anxious presence [x] Spiritual/emotional support [] Crisis/trauma care [] Spiritual counseling [] Bereavement support [] Provided bereavement packet [] Provided Bible/devotional materials [] Provided toy/stuffed animal, coloring book to patient or family member [] Provided Communion [] Anointing/[place] [] Salvation [x] Completed spiritual assessment [] Other: Impact on Illness or Injury [] Angry [] Fearful [] Anxious [] Often cries [] Exhaustion [] Unable to work [] Unable to attend restorationism [] Unable to walk/stand [] Unable to read [] Unable to drive [] Unable to eat/drink [] Unable to sleep [] Unable to be with family [] Patient intubated [] Other: Summary Time spent with patient 5 min
[2023-12-15 09:12] LABS: Add Urine Culture? No; Bilirubin Urine Neg (Negative); Blood Urine Neg (Negative); Charge for UA Resulting for Rev; Glucose Urine UA 4+ (Normal); Ketones Urine Negative (Negative); Leukocyte Esterase Urine Negative (Negative); Nitrate Urine Negative (Negative); Protein Urine Neg (Negative); Urine Appearance Clear (CLEAR); Urine Color Yellow (Yellow); Urobilinogen Urine Norm (Negative); pH Urine 8 (5-7)
--- NOTE | 2023-12-15 09:54 | XACV_ITS ---
Exam Room: 105 Ht: 168 cm Wt: 82 kg BSA: 1.97 m2 Gender: Male : 1955 Any Known Allergies: Other Exam Priority: Routine Procedure(s): Procedure Description: Diagnostic procedure Josh ADAIR; Diagnostic Cath Status: Urgent Conclusions 1. 1. Left main has high-grade more than 90% hazy distal stenosis extending into ostial circumflex and LAD. 2. 2. LAD is chronically occluded in the proximal to mid segment with prior stents. 3. Left circumflex as high-grade 90 to 95% hazy proximal stenosis which is chronic, obtuse marginal 1 is a chronically occluded artery in the proximal segment, groove circumflex is appeared to be occluded chronically. 4. 3. RCA small caliber long vessel which is dominant has luminal irregularities without significant stenosis. 5. Grafts: Patent CANCHOLA to mid LAD without significant stenosis. 6. Patent radial graft to obtuse marginal 1 without significant stenosis. 7. High left ventricular end-diastolic pressure 27 mmHg. 8. Normal left ventricular ejection fraction 60%. Recommendations * Usual post cath care. * Optimize medical therapy with long-acting nitroglycerin, try PPI. Interventional RX Recommendation: none Diagnostic RX Recommendation: medical therapy and/or counseling Ventriculography Ejection Fraction: 60.0 % Pressures Phase:Rest AO : 118 / 49 ( 74 ) @ 11:42:00 AM 137 / 65 ( 94 ) @ 11:57:00 AM 136 / 61 ( 92 ) @ 11:57:00 AM LV : 131 / -4 / 28 @ 11:56:00 AM 141 / 4 / 34 @ 11:57:00 AM 140 / 5 / 35 @ 11:57:00 AM Valves Phase:DefaultPhase AV : 2.0 @ 11:09:03 AM AV Mean Gradient: 0.0 @ 11:09:03 AM Clinical Evaluation EBL: 5mL-10mL Procedural Details Pre-Procedure Time Out. Identified patient by full name and date of as verbalized by the patient/guarantor. Does the consent match the physician's order: Yes. Accurate & Complete Informed Consent: Yes. Inpatient/Outpatient History & Physical on Chart: Yes. If H&P is completed, is and addenduem needed: No; If yes, is the addendum complete: N/A. Visualize and Verify Site with Patient/Guarantor: N/A. Relevant Radiology Images available: Yes. Pre-op teaching completed and patient verbalized understanding. The risks, benefits, and alternatives of sedation and/or procedure were discussed by physician. The patient agrees to continue. Procedure started. [facility] Clinical Fraility Score: 3: Managing Well. Cleaning Maid Indications: Worsening Angina. Chest Pain Symptom Assessment: Atypical Angina. Current diagnosis: Chest Pain. IV Site on Arrival: 18 gauge in the right anticubital. IV Fluids: 0.9% NaCl at KVO. 0 mL infused prior to electrical laboratory technician. Oxygen started at 2liters/min via nasal canula. bilateral groins was prepped with chloroprep then draped in the usual sterile fashion. Current Diagnosis : Chest Pain. Correct patient, site and procedure confirmed by cath team. PERRLA. Strong, equal hand neurology physician bilaterally. Lungs clear x 5 lobes. Baseline sample Acquired. HR: 60 BPM. Physician arrived. Physician scrubbed in. Immediate Pre-Procedure Time Out. Correct Patient: Yes; Correct Procedure: Yes; Correct Site: Yes; Correct Patient Position: Yes; Correct Supplies: Yes; Dried Flammable Prep: Yes; Blood Products Available: N/A;. Lidocaine 1% infiltrated to the right groin. Arterial access obtained with micropuncture set. A Right femoral angiogram was performed to determine safe placement of closure device. A 5 bolivian JL4 catheter in over wire. Multiple views taken of left coronary artery. Catheter removed over the standard wire. A 5 bolivian JR4 catheter in over wire. Multiple views taken of right coronary artery. SVG's to Circumflex visualized and patent. CANCHOLA to LAD visualized. Catheter removed over the exchange wire. A 5 bolivian Angled Pig catheter in over wire. EDP Sample taken: LV 131/-5,28; HR: 60 BPM; SpO2: 100%. LV gram performed in HARRIS @ 10 mL/second for a total of 30 mL. EDP Sample taken: LV 141/4,34; HR: 64 BPM; SpO2: 100%. Pullback taken: LV 140/5,35; AO 137/65(94); Mean: 0mmHg, Peak to Peak: 2mmHg, SEP: 15sec/min; HR: 61 BPM; SpO2: 100%. Catheter removed over the standard wire. ACT drawn. Results 203 seconds. Therapeutic limits - pre-heparin administration 90-150 seconds and monitoring heparin during a vascular procedure >250 seconds. Physician review of cine films. Physician scrubbed out. Sheath(s) sutured into position with 2-0 silk and sterile 4x4's and Op-site applied over the site. No oozing or signs and symptoms of hematoma noted. Arterial sheath flushed and connected to tranducer and pressure bag with heparinized saline. A Suture was successful obtaining hemostatsis at the Right Femoral artery insertion site. PERRLA. Strong, equal hand neurology physician bilaterally. No VTE prophylaxis required. Medication's Wasted: Lidocaine 1% = 10 mL. Medication's Wasted: Other = Fentanyl 75mcg Versed 1 mg. Total IV fluids: 50 mL. Complications: None. Vital chart was stopped. Estimated blood loss: 5mL-10mL. Responsiveness - Normal response to verbal stimuli; alert and oriented, PERRLA. Airway - Unaffected, no intervention required; spontaneous ventilation. Circulation: W/N/L, pulses unchanged. Nausea/Vomiting: No. Procedure completed. Patient transferred by bed to CPRU. Access Site Site: Right Femoral artery Sheath Size: 6 Fr Hemostasis Method: Suture Hemostasis Success: Successful Procedure Medications Start: 10:23 AM Stop: 10:23 AM Medication: Versed Amount: 1 mg Route: I.V. Start: 10:23 AM Stop: 10:23 AM Medication: Fentanyl Amount: 25 mcg Route: I.V. I, the attending physician, have reviewed and verified all procedure medications. Yes, all medications given per verbal order History/Risk Factors Hypertension: Yes Dyslipidemia: Yes Peripheral Arterial Disease (PAD): No Myocardial Infarction (CT): No Obesity: No Renal Disease: No Tobacco Use: Former Prior Interventions PCI: Yes CABG: Yes Valve Surgery: No Date of PCI: 09/22/2016 Report Signatures Finalized by Tu Moreno MD on 12/15/2023 12:07 PM
--- NOTE | 2023-12-15 10:11 | PM.PN ---
Documented by User: Gayatri MasterMICHAEL recinos STDETHAN 12/15/23 14:40 Subjective Subjective: Patient states he is doing better than last night . He still endorses central 4/10 pressure-like discomfort in upper chest that originally subsided last night and started again this morning at about 4 am. Dyspnea has improved and the sharp pain radiating to his neck has subsided. Patient endorses having a diffuse headache that he attributes to the nitroglycerin. Patient denies arm pain, dysphagia, abdominal pain, stiffness or edema in LEs, fever, or chills.Patient is scheduled for a cardiac cath around 10am. Vitals/I&O/Wt Last Vital Signs Temp 98.1 F 12/15/23 07:16 Pulse 61 12/15/23 07:16 Resp 16 12/15/23 07:16 BP 110/59 12/15/23 07:16 Pulse Ox 97 12/15/23 07:16 O2 Del Method Room Air 12/15/23 07:16 12/14/23 12/15/23 12/15/23 22:59 06:59 14:59 Intake Total 198.95 / 198.95 Balance 198.95 / 198.95 Weight last 48 hrs Weight 180 lb Weight 180 lb Weight 180 lb Physical Exam Const: OTHER: No apparent distress. oriented x3. Neck/C-Spine: OTHER: Supple without tenderness or thyromegaly Chest: OTHER: Pacemaker in left upper chest Resp: OTHER: Normal respiratory effect, No use of accessory muscles, clear to auscultation bilaterally. Symmetric chest movement. Able to speak in complete sentences. Cardio: OTHER: Normal rate and rhythm. Normal S1 and S2. No gallops, murmurs, or rubs noted. GI: OTHER: Soft, nontender with positive bowel sounds. Extremity: NARRATIVE EXTREMITY EXAM: No edema noted, no cyanosis, bilateral bug bites Data 12/15/23 07:38 12/15/23 07:38 A&P Assessment and plan (1) Chest pain: Patient received cardiac catheterization, showing normal EF of 60% and patent grafts. Continue at home nitroglycerine and pantoprazole (2) Arteriosclerotic heart disease (ASHD): Continue patient on atorvastatin, aspirin, ticagrelor (3) Intermittent atrial fibrillation: Heparin was stopped before cardiac catherization, place back on heparin on discharge. Continue home metoprolol. (4) Diabetes mellitus: Patient was placed on insulin sliding scale, discontinue on discharge and resume home insulin lispro. Qualifiers: Diabetes mellitus complication status: without complication Diabetes mellitus jail insulin use: unspecified jail insulin use status Diabetes mellitus type: type 2 Qualified Code(s): E11.9 - Type 2 diabetes mellitus without complications Coding Level of Care Code Acute Code for [facility] Fwd Diagnoses Chest pain R07.9 Arteriosclerotic heart disease (ASHD) I25.10 Intermittent atrial fibrillation I48.0 Type 2 diabetes mellitus without complication, unspecified whether jail insulin use E11.9 Diabetes mellitus complication status: without complication Diabetes mellitus jail insulin use: unspecified intermodal dispatcher insulin use status Diabetes mellitus type: type 2 Documented by User: Dalton Alegria MD 12/15/23 14:43 Data 12/15/23 07:38 12/15/23 07:38 A&P Assessment and plan (1) Chest pain: Patient received cardiac catheterization, showing normal EF of 60% and patent grafts. Continue at home nitroglycerine and pantoprazole. Discussed with cardiology. Okay to discharge home today after close monitoring of angiogram site. Will increase Imdur dose to 60 mg daily. (2) Arteriosclerotic heart disease (ASHD): (3) Intermittent atrial fibrillation: (4) Diabetes mellitus: Qualifiers: Diabetes mellitus complication status: without complication Diabetes mellitus intermodal dispatcher insulin use: unspecified intermodal dispatcher insulin use status Diabetes mellitus type: type 2 Qualified Code(s): E11.9 - Type 2 diabetes mellitus without complications Plan Other medical problems as outlined in past medical history Attestations Medical Necessity Statement*: Not applicable, discharging today Coding Level of Care Code Acute Code for [facility] Fwd Diagnoses Chest pain R07.9 Arteriosclerotic heart disease (ASHD) I25.10 Intermittent atrial fibrillation I48.0 Type 2 diabetes mellitus without complication, unspecified whether intermodal dispatcher insulin use E11.9 Diabetes mellitus complication status: without complication Diabetes mellitus intermodal dispatcher insulin use: unspecified intermodal dispatcher insulin use status Diabetes mellitus type: type 2
--- NOTE | 2023-12-15 10:18 | PM.CONSULT ---
Providers/Reason For Consult Consulting Physician/Specialty*: Tu Moreno MD/interventional cardiology Reason for Consult*: Chest pain suspicious for unstable angina in a patient with prior history of CABG Requesting Physician: Dr. Dwyer Attending Physician: Dalton Alegria MD History of Present Illness History of Present Illness Darrell Pemberton is a 68 year old male past medical history significant for coronary artery disease history of CABG x 2 CANCHOLA to LAD and radial to circumflex presented with worsening of chest pain shortness of breath which has increased in frequency and duration for the last couple of weeks now to the extent that it stays constant, he was admitted last night started on heparin and nitro drip thinking of unstable angina. It is the reason I have been asked to see the patient this morning. According to the patient he still feels chest pressure but it has improved since he is on nitro drip. He feels tightness around the chest exactly in the similar fashion when he had his bypass. He claims multiple stents in the past as well. So far he has been ruled out for non-STEMI with serial cardiac markers. He had stress test last year which was slightly abnormal thought to be managed medically. Since patient continues to have chest pain in the similar fashion and because of the fact he is high risk for acute coronary syndrome we will proceed with left heart catheterization. Medications/Allergies Home Medications Medication Instructions Recorded Confirmed Last Taken Type L-Arginine Tab 500 mg PO DAILY 07/13/19 12/14/23 08/25/23 History magnesium 250 mg tablet 250 mg PO BID 07/13/19 12/14/23 08/25/23 History blood-glucose meter,continuous #1 ea 11/03/21 12/14/23 08/25/23 Rx (Dexcom G6 Station Installation Supervisor) blood-glucose sensor (Dexcom G6 #9 ea 11/03/21 12/14/23 08/25/23 Rx Sensor device) blood-glucose transmitter (Dexcom #3 ea 11/03/21 12/14/23 08/25/23 Rx G6 Transmitter device) cetirizine 10 mg tablet 10 mg PO DAILY #90 tabs 02/24/22 12/14/23 08/25/23 Rx Diabetic shoes with 3 inserts #1 ea 06/22/22 12/14/23 08/25/23 Rx cyclobenzaprine 10 mg tablet 5 mg (1/2 x 10 mg) PO TID PRN 12/02/22 12/14/23 08/25/23 Rx muscle spasm #20 tabs pen needle, diabetic 31 gauge x #100 ea 12/28/22 12/14/23 08/25/23 Rx 5/16 (Droplet Pen Needle) insulin syringe-needle U-100 1 mL #300 ea 01/18/23 12/14/23 08/25/23 Rx 31 gauge x 5/16 (Droplet Insulin Syringe) lancets (Accu-Chek Softclix #600 ea 02/04/23 12/14/23 08/25/23 Rx Lancets) blood sugar diagnostic (Accu-Chek #100 ea 02/05/23 12/14/23 08/25/23 Rx Guide test strips) blood-glucose meter (Accu-Chek #1 ea 02/05/23 12/14/23 08/25/23 Rx Guide Glucose Meter) insulin aspart U-100 100 unit/mL See Rx Instructions .Route 05/14/23 12/14/23 08/25/23 Rx subcutaneous solution (Novolog .COMPLEX #30 mL U-100 Insulin aspart) diabetic shoes with 3 inserts #1 ea 06/16/23 12/14/23 08/25/23 Rx dabigatran etexilate 150 mg 150 mg PO BID 06/17/23 12/14/23 08/19/23 History capsule (Pradaxa) fluticasone propionate 50 2 spray intranasal DAILY 06/17/23 12/14/23 08/25/23 History mcg/actuation nasal spray,suspension insulin detemir U-100 100 unit/mL 45 unit SUBCUT BID PRN PUMP FAILURE 06/17/23 12/14/23 08/25/23 History (3 mL) subcutaneous pen (Levemir FlexPen) metoprolol tartrate 100 mg tablet 100 mg PO BID 06/17/23 12/14/23 08/26/23 History ondansetron HCl 4 mg tablet 4 mg PO Q6H PRN nausea and 06/17/23 12/14/23 08/25/23 Rx vomiting #20 tabs potassium chloride 8 mEq 8 meq PO DAILY 06/17/23 12/14/23 08/25/23 History capsule,extended release ranolazine 1,000 mg 1,000 mg PO BID 06/17/23 12/14/23 08/25/23 History tablet,extended release,12 hr rosuvastatin 20 mg tablet 20 mg PO BEDTIME 06/17/23 12/14/23 08/25/23 History ticagrelor 60 mg tablet (Brilinta) 60 mg PO BID 06/17/23 12/14/23 08/19/23 History trazodone 50 mg tablet 50 mg PO BEDTIME 06/17/23 12/14/23 08/25/23 History cyanocobalamin (vitamin B-12) 1,000 mcg PO DAILY 08/19/23 12/14/23 08/25/23 History 1,000 mcg tablet (Vitamin B-12) insulin pump cart,automated,BT 08/19/23 12/14/23 08/25/23 History (Omnipod 5 G6 Pods (Gen 5) subcutaneous cartridge) multivitamin 1 tab PO DAILY 08/19/23 12/14/23 08/25/23 History docusate sodium 100 mg capsule 100 mg PO BID #14 caps 08/26/23 12/14/23 Unknown Rx (Colace) isosorbide mononitrate 30 mg See Rx Instructions .Route 08/26/23 12/14/23 Unknown Rx tablet,extended release 24 hr .COMPLEX #270 tabs nitroglycerin 0.4 mg sublingual See Rx Instructions .Route 09/13/23 12/14/23 Unknown Rx tablet .COMPLEX #20 tabs pantoprazole 40 mg tablet,delayed 40 mg PO BID 30 days #60 tabs 09/17/23 12/14/23 Unknown Rx release (Protonix) lisinopril 10 mg tablet See Rx Instructions .Route 10/04/23 12/14/23 Unknown Rx .COMPLEX #180 tabs gabapentin 300 mg capsule See Rx Instructions .Route 10/12/23 12/14/23 Unknown Rx .COMPLEX #180 caps albuterol sulfate 90 mcg/actuation See Rx Instructions .Route 11/25/23 12/14/23 Unknown Rx aerosol inhaler .COMPLEX #1 ea hydrocodone 10 mg-acetaminophen 1 tab PO Q6H PRN Pain 30 days #120 12/04/23 12/14/23 Unknown Rx 325 mg tablet tabs empagliflozin 10 mg tablet See Rx Instructions .Route 12/13/23 12/14/23 Unknown Rx (Jardiance) .COMPLEX #90 tabs Allergies Allergy/AdvReac Type Severity Reaction Status Date / Time diltiazem [From Cardizem] Allergy Severe Unresponsiv Verified 12/02/23 07:26 e liraglutide [From Victoza] Allergy Severe ALGY-Difficulty Verified 12/02/23 07:26 Breathing Current Medications Generic Name Dose Route Start Last Admin Trade Name Freq PRN Reason Stop Dose Admin Aspirin 81 mg 12/15/23 09:00 12/15/23 08:12 Aspirin 81 Mg Ec Tablet PO 81 mg DAILY JOE Administration Gabapentin 300 mg 12/14/23 23:45 12/15/23 08:12 Gabapentin 300 Mg Capsule PO 300 mg BID JOE Administration Heparin Sodium/Sodium Chloride 25,000 unit in 500 mls @ 0 mls/hr 12/14/23 23:30 12/15/23 09:16 Heparin Drip IV 12.25 unit/kg/hr CONT JOE 20 mls/hr Titration Protocol Per Protocol Nitroglycerin/Dextrose 50 mg in 250 mls @ 0 mls/hr 12/14/23 23:30 12/15/23 01:04 Nitroglycerin Drip IV 10 mcg/min .Q0M JOE 3 mls/hr Administration Protocol Per Protocol Sodium Chloride 1,000 mls @ 50 mls/hr 12/14/23 23:45 12/15/23 00:38 Sodium Chloride 0.9% IV 50 mls/hr .Q20H JOE Administration Insulin Human Lispro 0 unit 12/15/23 08:00 12/15/23 06:55 Insulin Lispro 100 Unit/1 Ml SUBCUT Not Given TIDWM JOE Protocol Metoprolol Tartrate 100 mg 12/14/23 23:45 12/15/23 00:39 Metoprolol Tartrate 50 Mg Tablet PO 100 mg Q12H JOE Administration Pantoprazole Sodium 40 mg 12/14/23 23:45 12/15/23 00:39 Pantoprazole 40 Mg Sdv IVP 40 mg Q24H JOE Administration PFSH Acute PFSH: Medical History (Updated 12/15/23 @ 12:03 by Tu Moreno MD) Atrial fibrillation Essential hypertension GERD (gastroesophageal reflux disease) -on PPI CVA (cerebral vascular accident) Intermittent atrial fibrillation Presence of permanent cardiac pacemaker Atherosclerotic heart disease of [place] coronary artery with other forms of angina pectoris Chronic low back pain Subclinical hypothyroidism Pacemaker Hx of glaucoma Bronchitis Peripheral neuropathy Chronic diastolic CHF (congestive heart failure) -Has known chronic diastolic CHF, no indication of acute exacerbation currently -Echo done in 2018 showed an ejection fraction of 50% with grade 1 diastolic dysfunction and mild hypokinesia -We will hold Lasix for now given orthostasis Atrial fibrillation, chronic Bradycardia -Has chronic bradycardia, has had event monitoring done in 2018 showing baseline sinus bradycardia, average heart rate is about 55 -We will hold beta-ashish for now -Monitor vital signs -Telemetry monitoring Hypertension Hyperlipemia Ventricular septal defect Arteriosclerotic heart disease (ASHD) Diabetes mellitus Chronic kidney disease Sleep apnea -non-compliant with CPAP Surgical History (Updated 12/15/23 @ 12:02 by Tu Moreno MD) Hx of CABG Status post umbilical hernia repair, follow-up exam Hx of non-cataract eye surgery Hx of cataract extraction History of incisional hernia repair -inferior aspect of sternotomy incision H/O aortic aneurysm repair H/O coronary angioplasty H/O heart artery stent Family History Father Stroke CAD (coronary artery disease) Brother Cancer Diabetes Sister Cancer Dementia Diabetes Denies family history of Clotting disorder Chronic kidney disease (CKD) Suicide Anesthesia complication Bleeding disorder Lung disease Social History Smoking and tobacco/nicotine status: never used tobacco/nicotine Quit status (tobacco/nicotine): has quit using Year quit tobacco: 20 yrs ago Alcohol intake: current Alcohol intake frequency: holidays/special occasions only Substance/Drug Use: never Household members: spouse and children Marital status: Vitals/I&O/Wt Last Vital Signs Temp 98.1 F 12/15/23 07:16 Pulse 61 12/15/23 07:16 Resp 16 12/15/23 07:16 BP 110/59 12/15/23 07:16 Pulse Ox 97 12/15/23 07:16 O2 Del Method Room Air 12/15/23 07:16 12/14/23 12/15/23 12/15/23 22:59 06:59 14:59 Intake Total 198.95 / 198.95 Balance 198.95 / 198.95 Weight last 48 hrs Weight 180 lb Weight 180 lb Weight 180 lb Data 12/15/23 07:38 12/15/23 07:38 A&P Assessment and plan (1) Arteriosclerotic heart disease (ASHD): (2) Chest pain: Could be unstable angina therefore we will proceed with left heart cath (3) Hx of CABG: Chest pain with history of prior CABG x 2 may require further exploration with left heart catheterization (4) Essential hypertension: Well-controlled continue medicine (5) Atrial fibrillation: Rate controlled on anticoagulation Qualifiers: Atrial fibrillation type: paroxysmal Qualified Code(s): I48.0 - Paroxysmal atrial fibrillation Plan Persistent chest pressure ease down after nitro and IV heparin in the patient with prior history of multiple stent and CABG x 2 with suspicion for unstable angina therefore we will proceed with left heart catheterization. Patient has Pradaxa 24 hours ago, currently he is on IV heparin will stop heparin and check ACT. Further plan will be advised as per progress of patient. Coding Level of Care Code Acute Code for [facility] Diagnoses Arteriosclerotic heart disease (ASHD) I25.10 Chest pain R07.9 Hx of CABG Z95.1 Essential hypertension I10 Atrial fibrillation I48.0 Atrial fibrillation type: paroxysmal
--- NOTE | 2023-12-15 10:27 | W.PM.OPSUD ---
Surgery/Procedure H&P Update DATE OF PROCEDURE: December 15, 2023 DATE H&P PERFORMED: 12/15/23 H&P UPDATE INFORMATION: I have reviewed H&P completed within last 30 days, I have examined patient prior to procedure and No changes to prior documentation PREOP DIAGNOSIS: Chest pain suspicious for unstable angina PATIENT REASSESSED PRIOR TO SEDATION, WITH NO CHANGE NOTED: Yes PHYSICAL EXAM: alert, oriented x 3, clear to auscultation bilaterally, regular rate & rhythm and operative site marked AIRWAY EVAL/ANESTHESIA PLAN: ASA III, Risks, benefits & alternatives of sedation and/or procedure discussed and Patient agrees to continue as planned ADDITIONAL INFORMATION: Mallampati 2
[2023-12-15 12:08] LABS: Glucose Point of Care 110 mg/dL (70-110)
[2023-12-15] MEDS: isosorbide mononitrate ER 30 mg Tablet PO (12:44)
[2023-12-15 13:32] LABS: Partial Thromboplastin Time 34.3 SECONDS (23.9-36.7)
--- NOTE | 2023-12-15 14:09 | P.DS_ITS ---
Discharge Providers Date of Admission: 12/14/23 21:44 Date of Discharge: December 15, 2023 Attending Provider at Admission: Beni Albarran MD Attending Provider at Discharge: Dalton Alegria MD Diagnoses at Discharge Discharge Diagnosis (1) Arteriosclerotic heart disease (ASHD): Status: Chronic (2) Chest pain: Status: Acute (3) Hx of CABG: Status: Acute (4) Essential hypertension: Status: Acute (5) Atrial fibrillation: Status: Inactive Qualifiers: Atrial fibrillation type: paroxysmal Qualified Code(s): I48.0 - Paroxysmal atrial fibrillation Reason for Visit Reason for Visit: CP SOB Hospital Course Hospital Course Darrell is a 68-year-old white male presenting to the hospital with chest discomfort. This was concerning for unstable angina. EKG did not show any acute changes. Troponin did not show any concerning trend. Secondary to continued chest discomfort, he was taken for an angiogram on December 14. Final report is pending, but this was reported to not have any significant flow-limiting lesions. I discussed with cardiology, and they recommended discharge home with close follow-up. Patient was chest discomfort free following the procedure. He was able to ask questions and agreed with the plan. No significant hematoma right groin when I reviewed, but he will continue to follow protocol by nursing until he is safe to be discharged. 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 echo complete* [id number] Routine Ultrasound 12/14/23 23:28 Taken Radiology Impressions Chest X-Ray 12/14/23 18:22 IMPRESSION: No acute findings. Laboratory Results WBC 7.26 10^3/uL (3.29-11.43) 12/15/23 07:38 RBC 4.08 10^6/uL (3.85-5.65) 12/15/23 07:38 Hgb 13.10 g/dL (11.27-16.99) 12/15/23 07:38 Hct 38.7 % (37-53) 12/15/23 07:38 MCV 94.9 fl (82-101) 12/15/23 07:38 MCH 32.1 pg (27-33) 12/15/23 07:38 MCHC 33.9 g/dL (30-55) 12/15/23 07:38 RDW 12.2 % (12.1-15.1) 12/15/23 07:38 Plt Count 170 10^3/cmm (157-399) 12/15/23 07:38 MPV 8.7 fL (7.4-10.4) 12/15/23 07:38 Neut % (Auto) 65.9 % 12/15/23 07:38 Lymph % (Auto) 22.3 % 12/15/23 07:38 [place] % (Auto) 7.3 % 12/15/23 07:38 Eos % (Auto) 3.6 % 12/15/23 07:38 Baso % (Auto) 0.6 % 12/15/23 07:38 Neut # (Auto) 4.79 10^3/uL (1.8-7.7) 12/15/23 07:38 Lymph # (Auto) 1.6 10^3/uL (0.8-4.8) 12/15/23 07:38 [place] # (Auto) 0.5 10^3/uL (0.2-0.9) 12/15/23 07:38 Eos # (Auto) 0.3 10^3/uL (0.0-0.8) 12/15/23 07:38 Baso # (Auto) 0.0 10^3/uL (0.0-0.1) 12/15/23 07:38 Nucleated RBC % (auto) 0 % 12/15/23 07:38 Nucleated RBCs # 0.0 /100WBC 12/15/23 07:38 PT 15.10 SECONDS (12.1-14.9) H 12/15/23 07:38 INR 1.15 (0.8-1.2) 12/15/23 07:38 APTT 34.3 SECONDS (23.9-36.7) D 12/15/23 13:16 Sodium 138 mmol/L (136-145) 12/15/23 07:38 Potassium 4.4 mmol/L (3.5-5.1) 12/15/23 07:38 Chloride 104 mmol/L (98-107) 12/15/23 07:38 Carbon Dioxide 25 mmol/L (22-29) 12/15/23 07:38 Anion Gap 13.4 (5-19) 12/15/23 07:38 BUN 19 mg/dL (8-23) 12/15/23 07:38 Creatinine 1.2 mg/dL (0.7-1.2) 12/15/23 07:38 GFR Calculation 60.4 mL/min (90-130) L 12/15/23 07:38 Glucose 162 mg/dL (65-115) H 12/15/23 07:38 POC Glucose 110 mg/dL (70-110) 12/15/23 12:03 Estimat Average Glucose 174 12/15/23 07:38 Hemoglobin A1c 7.7 % (4.0-6.0) H 12/15/23 07:38 Calculated Osmolality 292 mOsm/kg (285-295) 12/15/23 07:38 Calcium 9.0 mg/dL (8.5-10.5) 12/15/23 07:38 Total Bilirubin 0.5 mg/dL (0.15-1.2) 12/14/23 18:27 AST 19 U/L (0-40) 12/14/23 18:27 ALT 26 U/L (0-41) 12/14/23 18:27 Alkaline Phosphatase 68 U/L (40-130) 12/14/23 18:27 Troponin T Baseline 12 ng/L (0-15) 12/14/23 18:27 Troponin T 120 Minute 10.20 ng/L (0-15) 12/14/23 20:34 Delta Troponin T -1.80 ABS# (0-10) L 12/14/23 20:34 Troponin T Hi Sens 6Hr 10.88 ng/L (0-15) 12/15/23 00:22 Troponin T Hi Sens 6Hr Delta -1.12 ng/L (0-12) L 12/15/23 00:22 NT-Pro-B Natriuret Pep 40 pg/mL (0-125) 12/14/23 18:27 Total Protein 7.3 g/dL (6.6-8.7) 12/14/23 18: Albumin 4.5 g/dL (3.5-5.2) 12/14/23 18:27 Globulin 2.8 g/dL (1.3-4.6) 12/14/23 18:27 Triglycerides 142 mg/dL (0-150) 12/15/23 07:38 Cholesterol 142 mg/dL (0-200) 12/15/23 07:38 LDL Cholesterol, Calc 59 mg/dL (50-129) 12/15/23 07:38 HDL Cholesterol 55 mg/dL (60-100) L 12/15/23 07:38 LDL/HDL Ratio 1.07 RATIO (0.00-3.22) 12/15/23 07:38 Cholesterol/HDL Ratio 2.58 mg/dL (1.0-5.00) 12/15/23 07:38 TSH 4.55 uIU/mL (0.27-4.20) H 12/15/23 07:38 Urine Color Yellow (Yellow) 12/15/23 08:31 Urine Appearance Clear (CLEAR) 12/15/23 08:31 Urine pH 8 (5-7) A 12/15/23 08:31 Ur Specific [place] 1.010 (1.005-1.030) 12/15/23 08:31 Urine Protein Neg (Negative) 12/15/23 08:31 Urine Glucose (UA) 4+ (Normal) H 12/15/23 08:31 Urine Ketones Negative (Negative) 12/15/23 08:31 Urine Blood Neg (Negative) 12/15/23 08:31 Urine Nitrate Negative (Negative) 12/15/23 08:31 Urine Bilirubin Neg (Negative) 12/15/23 08:31 Urine Urobilinogen Norm mg/dL (Negative) 12/15/23 08:31 Ur Leukocyte Esterase Negative (Negative) 12/15/23 08:31 Amorphous Sediment Not Reportable 12/15/23 08:31 Vitals Last Vital Signs Temp 98.1 F 12/15/23 07:16 Pulse 60 12/15/23 11:45 Resp 14 12/15/23 11:45 BP 112/61 12/15/23 11:45 Pulse Ox 96 12/15/23 11:45 O2 Del Method Room Air 12/15/23 11:45 Discharge Plan Discharge Patient Disposition: Home Condition: Stable Prescriptions: New isosorbide mononitrate 60 mg tablet extended release 24 hr 60 mg PO DAILY Qty: 30 0RF Continued (DME) Dexcom G6 Delivery Clerk Misc See Rx Instructions .Route Qty: 1 0RF Rx Instructions: Check BS 4-6 times a day. (DME) Dexcom G6 Sensor Device See Rx Instructions .Route Qty: 9 3RF Rx Instructions: Change every 10 days. (DME) Dexcom G6 Transmitter Device See Rx Instructions .Route Qty: 3 3RF Rx Instructions: Change every 90 days. cyclobenzaprine 10 mg tablet 5 mg PO TID PRN (Reason: muscle spasm) Qty: 20 0RF (DME) Diabetic shoes with 3 inserts See Rx Instructions .Route .MEDSUPPLY Qty: 1 0RF Rx Instructions: As directed HOME (DME) diabetic shoes with 3 inserts See Rx Instructions .Route .MEDSUPPLY Qty: 1 0RF Rx Instructions: As directed to HOME cetirizine 10 mg tablet 10 mg PO DAILY Qty: 90 1RF (DME) pen needle, diabetic [Droplet Pen Needle] 31 gauge x 5/16 needle See Rx Instructions .Route Qty: 100 12RF Rx Instructions: As directed (DME) insulin syringe-needle U-100 [Droplet Insulin Syringe] 1 mL 31 gauge x 5/16 syringe See Rx Instructions .ROUTE .COMPLEX Qty: 300 10RF Dose Instruction: USE DIRECTED Rx Instructions: USE DIRECTED (DME) lancets [Accu-Chek Softclix Lancets] Misc See Rx Instructions .ROUTE .COMPLEX Qty: 600 10RF Dose Instruction: TEST BLOOD SUGAR SIX TIMES DAILY DIRECTED Rx Instructions: TEST BLOOD SUGAR SIX TIMES DAILY DIRECTED (DME) blood-glucose meter [Accu-Chek Guide Glucose Meter] Misc See Rx Instructions .Route Qty: 1 0RF Rx Instructions: As directed (DME) Accu-Chek Guide test strips Strip See Rx Instructions .Route Qty: 100 11RF Rx Instructions: As directed insulin aspart U-100 [Novolog U-100 Insulin aspart] 100 unit/mL solution See Rx Instructions .ROUTE .COMPLEX Qty: 30 3RF Dose Instruction: INJECT PER SLIDING SCALE WITH EACH MEAL; VIAL EXPIRES 28 DAYS AFTER OPENED Rx Instructions: PER INSULIN PUMP. VIAL EXPIRES 28 DAYS AFTER OPENED nitroglycerin 0.4 mg tablet, sublingual See Rx Instructions .ROUTE .COMPLEX Qty: 20 2RF Dose Instruction: DISSOLVE 1 TABLET UNDER THE TONGUE EVERY 5 MINUTES NEEDED FOR CHEST PAIN. DO NOT EXCEED A TOTAL OF 3 DOSES IN 15 MINUTES. Rx Instructions: DISSOLVE 1 TABLET UNDER THE TONGUE EVERY 5 MINUTES NEEDED FOR CHEST PAIN. DO NOT EXCEED A TOTAL OF 3 DOSES IN 15 MINUTES. pantoprazole [Protonix] 40 mg tablet,delayed release (DR/EC) 40 mg PO BID 30 Days Qty: 60 11RF lisinopril 10 mg tablet See Rx Instructions .ROUTE .COMPLEX Qty: 180 3RF Dose Instruction: TAKE 1 TABLET TWICE DAILY (UNABLE TO TOLERATE 20MG TWICE A DAY) Rx Instructions: TAKE 1 TABLET TWICE DAILY (UNABLE TO TOLERATE 20MG TWICE A DAY) gabapentin 300 mg capsule See Rx Instructions .ROUTE .COMPLEX Qty: 180 3RF Dose Instruction: TAKE 1 CAPSULE TWICE DAILY Rx Instructions: TAKE 1 CAPSULE TWICE DAILY albuterol sulfate 90 mcg/actuation HFA aerosol inhaler See Rx Instructions .ROUTE .COMPLEX Qty: 1 0RF Dose Instruction: INHALE 1 PUFF EVERY 4 HOURS NEEDED FOR SHORTNESS OF BREATH Rx Instructions: INHALE 1 PUFF EVERY 4 HOURS NEEDED FOR SHORTNESS OF BREATH hydrocodone-acetaminophen 10-325 mg tablet 1 tab PO Q6H PRN (Reason: Pain) 30 Days Qty: 120 0RF Hold Instructions: Resume on 08/31/23. Jardiance 10 mg tablet See Rx Instructions .ROUTE .COMPLEX Qty: 90 3RF Dose Instruction: TAKE 1 TABLET EVERY DAY Rx Instructions: TAKE 1 TABLET EVERY DAY magnesium 250 mg Tablet 250 mg PO BID L-Arginine Tab 500 mg PO DAILY docusate sodium [Colace] 100 mg capsule 100 mg PO BID Qty: 14 0RF dabigatran etexilate [Pradaxa] 150 mg capsule 150 mg PO BID Hold Instructions: Resume on 08/28/23. potassium chloride 8 mEq capsule, extended release 8 meq PO DAILY trazodone 50 mg tablet 50 mg PO BEDTIME metoprolol tartrate 100 mg tablet 100 mg PO BID fluticasone propionate 50 mcg/actuation spray,suspension 2 spray intranasal DAILY rosuvastatin 20 mg tablet 20 mg PO BEDTIME Levemir FlexPen 100 unit/mL (3 mL) insulin pen 45 unit SUBCUT BID PRN (Reason: PUMP FAILURE) ranolazine 1,000 mg tablet extended release 12 hr 1,000 mg PO BID Brilinta 60 mg tablet 60 mg PO BID Hold Instructions: Resume on 08/28/23. ondansetron HCl 4 mg tablet 4 mg PO Q6H PRN (Reason: nausea and vomiting) Qty: 20 0RF multivitamin Tablet 1 tab PO DAILY cyanocobalamin (vitamin B-12) [Vitamin B-12] 1,000 mcg Tablet 1,000 mcg PO DAILY (DME) Omnipod 5 G6 Pods (Gen 5) Cartridge SUBCUT Discontinued isosorbide mononitrate 30 mg tablet extended release 24 hr See Rx Instructions .ROUTE .COMPLEX Qty: 270 3RF Dose Instruction: TAKE 2 TABLETS EVERY MORNING AND TAKE 1 TABLET EVERY EVENING DIRECTED Rx Instructions: TAKE 2 TABLETS EVERY MORNING AND TAKE 1 TABLET EVERY EVENING DIRECTED Discharge Orders: Discharge Order (Routine); Ordered 12/15/23 Ordered By: Dalton Alegria Referrals: Filomena Cohn MD [Physician] - 12/16/23 (Establishing care appointment. ) Marbella Kearns FNP [Nurse Practitioner] - 12/22/23 8:30 am Discharge Diet: Cardiac and Diabetic Discharge Activity: Increase activity as tolerated Patient Instructions: Isosorbide Mononitrate (By mouth), Hypertension, Chest Pain (DC), Chest Pain Stoplight, Opioid Safety, Post Angiogram Home Care Instructions Activity Restrictions/Additional Instructions: Take all medicine as prescribed Follow-up with cardiology in 1 week, primary care provider 3 to 5 days Return for any concerns Left heart cath restrictions Increase Imdur dose to 60 mg daily, new prescription written Discharge Attestations Time Spent in Discharge Care*: greater than 30 min Status at Discharge: Cognitive status at discharge: cognitively intact , Behavioral status at discharge: cooperative , Quality Metrics Clinical Quality Measures [ No reported AMI, CVA or VTE this stay] Coding Level of Care Code 56532 Total time (in minutes) for Discharge: 40 Diagnoses Arteriosclerotic heart disease (ASHD) I25.10 Chest pain R07.9 Hx of CABG Z95.1 Essential hypertension I10 Atrial fibrillation I48.0 Atrial fibrillation type: paroxysmal
--- NOTE | 2023-12-15 14:43 | PC.NURSE ---
Femoral cath removed at 1415. No blood loss. No hematoma formation. Patient tolerated the procedure well Sterile gauze and tegaderm applied to site.
--- NOTE | 2023-12-15 16:17 | PC.NURSE ---
Per phone call with Dr. Alegria, patient can be discharged when bed rest time is up.
[2023-12-15 16:44] LABS: Glucose Point of Care 128 mg/dL (70-110)
--- NOTE | 2023-12-15 21:55 | PM.PN ---
Subjective Subjective: Denies any more chest pain patient status post left heart catheterization noted to have patent CANCHOLA to LAD and radial artery to obtuse marginal, RCA was without significant disease Vitals/I&O/Wt Last Vital Signs Temp 98.0 F 12/15/23 20:00 Pulse 62 12/15/23 20:00 Resp 16 12/15/23 20:00 BP 125/56 12/15/23 20:00 Pulse Ox 98 12/15/23 20:00 O2 Del Method Room Air 12/15/23 20:00 12/15/23 12/15/23 12/15/23 06:59 14:59 22:59 Intake Total 669.95 / 669.95 240 / 909.95 Output Total 670 / 670 300 / 970 Balance -0.05 / -0.05 -60 / -60.05 Weight last 48 hrs Weight 180 lb Weight 180 lb Weight 180 lb Physical Exam Const: OTHER: GENERAL: Patient is alert, awake and oriented x3. HEART: Regular S1 and S2. No murmur, rub or gallop. LUNGS: Clear to auscultate bilaterally. CENTRAL NERVOUS SYSTEM: Grossly nonfocal. EXTREMITIES: Lower extremities with out edema bilaterally. Data 12/15/23 07:38 12/15/23 07:38 A&P Assessment and plan (1) Chest pain: Status post left heart catheterization patent grafts, no new significant stenosis. Continue current regimen extracardiac because for chest pain may need to be sortt out (2) Hypertension: Well-controlled continue medicine Qualifiers: Hypertension type: primary hypertension Qualified Code(s): I10 - Essential (primary) hypertension (3) Atrial fibrillation: Rate controlled continue current regimen, resume dabigatran from tomorrow. Qualifiers: Atrial fibrillation type: paroxysmal Qualified Code(s): I48.0 - Paroxysmal atrial fibrillation Plan Patient is here for post left heart cath recovery and optimization of medicine Attestations Medical Necessity Statement*: Patient is here for post heart catheterization recovery and optimization medicine Coding Level of Care Code Acute Code for [facility] Diagnoses Chest pain R07.9 Primary hypertension I10 Hypertension type: primary hypertension Atrial fibrillation I48.0 Atrial fibrillation type: paroxysmal
== END 2023-12-15 21:00 | disposition home or self-care (01) | DRG 287 ==
LOC: ER 21:52 → CSU 12-15 01:01
PROVIDERS: Internal Medicine Cardiovascular Disease; Admitting Provider Family Medicine; Emergency Provider Emergency Medicine; Visit Provider Internal Medicine
PROC: 4A023N7 Measurement of Cardiac Sampling and Pressure, Left Heart, Percutaneous Approach (ICD-10-PCS; principal; 2023-12-15 11:15)
DX: I25.110 Atherosclerotic heart disease of native coronary artery with unstable angina pectoris (principal); I50.32 Chronic diastolic (congestive) heart failure; I13.0 Hypertensive heart and chronic kidney disease with heart failure and stage 1 through stage 4 chronic kidney disease, or unspecified chronic kidney disease; Q21.0 Ventricular septal defect; K21.9 Gastro-esophageal reflux disease without esophagitis; E78.5 Hyperlipidemia, unspecified; I48.0 Paroxysmal atrial fibrillation; E11.22 Type 2 diabetes mellitus with diabetic chronic kidney disease; N18.9 Chronic kidney disease, unspecified; E11.42 Type 2 diabetes mellitus with diabetic polyneuropathy; Z86.73 Personal history of transient ischemic attack (TIA), and cerebral infarction without residual deficits; Z82.49 Family history of ischemic heart disease and other diseases of the circulatory system; Z87.891 Personal history of nicotine dependence; Z95.5 Presence of coronary angioplasty implant and graft; Z95.1 Presence of aortocoronary bypass graft; Z95.0 Presence of cardiac pacemaker; Z79.4 Long term (current) use of insulin; Z79.899 Other long term (current) drug therapy
CPT/HCPCS: 36415; 36416; 71045; 80048; 80053; 80061; 81003; 82962; 83036; 83880; 84443; 84484; 85025; 85347; 85610; 85730; 93005; 93306; 93459; 94664; 96374; 96375; 96376; 99152; 99153; 99285; C1769; C1887; C1894; J1170; J1644; J2250; J2270; J2470; J3010; J3490; J7030; Q9967

== ENCOUNTER → 2023-12-16 09:37 | Outpatient (BNVA) | payer MEDICARE, MEDICAID, SELFPAY | PROVIDERS: Visit Provider Family Medicine | DX: Z12.5 Encounter for screening for malignant neoplasm of prostate (principal); E03.8 Other specified hypothyroidism | CPT/HCPCS: 84439; G0103 ==

== ENCOUNTER → 2023-12-24 10:09 | Outpatient (BNVA) | payer MEDICARE, MEDICAID, SELFPAY | PROVIDERS: Visit Provider Nurse Practitioner Family | DX: I25.10 Atherosclerotic heart disease of native coronary artery without angina pectoris (principal); Z87.891 Personal history of nicotine dependence | CPT/HCPCS: 36415; 80048; 99214 ==

== ENCOUNTER 2024-03-03 10:29 | Emergency (ER) | payer MEDICARE, SELFPAY ==
[2024-03-03] VITALS (12 sets, daily range): BP systolic 99–139; BP diastolic 62–71; PULSE 60–70; RESP 13–24; TEMP 36.6; O2SAT 93–100
--- NOTE | 2024-03-03 10:34 | XR_ITS ---
WS: [id number] XR chest 1V portable [id number] REASON FOR EXAM: chest pain FINDINGS: The chest is unchanged compared to 12/14/2023. Cardiac device over the left chest with left subclavian leads to the right atrium and right ventricul ar apex. Mild tortuosity of the thoracic aorta. Previous aorto coronary artery bypass surgery and coronary artery stent. Calcified granulomatous disease bilaterally. No acute no acute pulmonary parenchymal or pleural abnormality. Moderate osteoarthritis both shoulders. XR/XR chest 1V portable [id number] IMPRESSION: Stable chest without acute abnormality.
--- NOTE | 2024-03-03 10:34 | ECG_ITS ---
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 [email or web address]
--- NOTE | 2024-03-03 10:45 | W.ED.CHESTPA ---
HPI - Chest Pain General: Chief Complaint: Chest Pain Stated Complaint: rapid, cp Time Seen by Provider: 03/03/24 10:34 Source: patient Mode of arrival: wheelchair Limitations: no limitations History of Present Illness: Patient is a nice 68-year-old male who presents to the ED today after a rapid response was called while he was over in heart and lung awaiting his scheduled appointment. He reportedly began complaining of 8/10 chest heaviness and felt weak. PMH is significant for atherosclerotic heart disease with previous stenting, unstable angina with recent heart catheterization in November 2023, history of CABG, hypertension, and atrial fibrillation on anticoagulation. Results of his most recent catheterization are below: Conclusions 1. 1. Left main has high-grade more than 90% hazy distal stenosis extending into ostial circumflex and LAD. 2. 2. LAD is chronically occluded in the proximal to mid segment with prior stents. 3. Left circumflex as high-grade 90 to 95% hazy proximal stenosis which is chronic, obtuse marginal 1 is a chronically occluded artery in the proximal segment, groove circumflex is appeared to be occluded chronically. 4. 3. RCA small caliber long vessel which is dominant has luminal irregularities without significant stenosis. 5. Grafts: Patent CANCHOLA to mid LAD without significant stenosis. 6. Patent radial graft to obtuse marginal 1 without significant stenosis. 7. High left ventricular end-diastolic pressure 27 mmHg. 8. Normal left ventricular ejection fraction 60%. Recommendations * Usual post cath care. * Optimize medical therapy with long-acting nitroglycerin, try PPI. MD complaint: chest heaviness Pertinent past history: coronary artery disease Prior episodes: Yes Onset: during rest Pain location: substernal Severity: severe Quality: heaviness Relieving factors: nothing Exacerbating factors: nothing Associated symptoms: Deny abdominal pain, dyspnea, fever(s), nausea, palpitations, syncope or vomiting Treatment prior to arrival: none Related Data Home Medications Medication Instructions Recorded Confirmed L-Arginine Tab 500 mg PO DAILY 07/13/19 03/03/24 magnesium 250 mg tablet 250 mg PO BID 07/13/19 03/03/24 dabigatran etexilate 150 mg 150 mg PO BID 06/17/23 03/03/24 capsule (Pradaxa) insulin detemir U-100 100 unit/mL 45 unit SUBCUT BID PRN PUMP FAILURE 06/17/23 03/03/24 (3 mL) subcutaneous pen (Levemir FlexPen) metoprolol tartrate 100 mg tablet 100 mg PO BID 06/17/23 03/03/24 potassium chloride 8 mEq 8 meq PO DAILY 06/17/23 03/03/24 capsule,extended release ranolazine 1,000 mg 1,000 mg PO BID 06/17/23 03/03/24 tablet,extended release,12 hr rosuvastatin 20 mg tablet 20 mg PO BEDTIME 06/17/23 03/03/24 cyanocobalamin (vitamin B-12) 1,000 mcg PO DAILY 08/19/23 03/03/24 1,000 mcg tablet (Vitamin B-12) multivitamin 1 tab PO DAILY 08/19/23 03/03/24 Previous Rx's Medication Instructions Recorded blood-glucose meter,continuous #1 ea 11/03/21 (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 G6 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) blood-glucose sensor (Dexcom G6 #9 ea 11/03/21 Sensor device) blood-glucose transmitter (Dexcom #3 ea 11/03/21 G6 Transmitter device) cetirizine 10 mg tablet 10 mg PO DAILY #90 tabs 02/24/22 Diabetic shoes with 3 inserts #1 ea 06/22/22 cyclobenzaprine 10 mg tablet 5 mg (1/2 x 10 mg) PO TID PRN 12/02/22 muscle spasm #20 tabs pen needle, diabetic 31 gauge x #100 ea 12/28/22 5/16 (Droplet Pen Needle) lancets (Accu-Chek Softclix #600 ea 02/04/23 Lancets) blood sugar diagnostic (Accu-Chek #100 ea 02/05/23 Guide test strips) blood-glucose meter (Accu-Chek #1 ea 02/05/23 Guide Glucose Meter) diabetic shoes with 3 inserts #1 ea 06/16/23 ondansetron HCl 4 mg tablet 4 mg PO Q6H PRN nausea and 06/17/23 vomiting #20 tabs docusate sodium 100 mg capsule 100 mg PO BID #14 caps 08/26/23 (Colace) nitroglycerin 0.4 mg sublingual See Rx Instructions .Route 09/13/23 tablet .COMPLEX #20 tabs gabapentin 300 mg capsule See Rx Instructions .Route 10/12/23 .COMPLEX #180 caps albuterol sulfate 90 mcg/actuation See Rx Instructions .Route 11/25/23 aerosol inhaler .COMPLEX #1 ea pantoprazole 40 mg tablet,delayed 40 mg PO BID 30 days #60 tabs 12/16/23 release (Protonix) trazodone 50 mg tablet 50 mg PO BEDTIME #90 tabs 12/17/23 empagliflozin 10 mg tablet See Rx Instructions .Route 12/20/23 (Jardiance) .COMPLEX #90 tabs lisinopril 10 mg tablet See Rx Instructions .Route 12/20/23 .COMPLEX #180 tabs ticagrelor 60 mg tablet (Brilinta) See Rx Instructions .Route 12/20/23 .COMPLEX #180 tabs isosorbide mononitrate 60 mg 60 mg PO BID #60 tabs 12/24/23 tablet,extended release 24 hr insulin pump cart,automated,BT #10 ea 12/29/23 (Omnipod 5 G6 Pods (Gen 5) subcutaneous cartridge) Power scooter/chair See Rx Instructions .Route 01/03/24 .COMPLEX #1 ea fluticasone propionate 50 2 spray intranasal DAILY #48 grams 01/20/24 mcg/actuation nasal spray,suspension insulin syringe-needle U-100 1 mL #300 ea 01/20/24 31 gauge x 5/16 (Droplet Insulin Syringe) insulin aspart U-100 100 unit/mL See Rx Instructions .Route 02/17/24 subcutaneous solution (Novolog .COMPLEX #30 mL U-100 Insulin aspart) insulin pump cart,auto,BT,G6/7 #15 ea 02/28/24 (Omnipod 5 G6-G7 Pods (Gen 5) subcutaneous cartridge) hydrocodone 10 mg-acetaminophen 1 tab PO Q6H PRN pain 1 month #120 03/01/24 325 mg tablet tabs Allergies Allergy/AdvReac Type Severity Reaction Status Date / Time diltiazem [From Cardizem] Allergy Severe Unresponsiv Verified 03/03/24 10:48 e liraglutide [From Victoza] Allergy Severe ALGY-Difficulty Verified 03/03/24 10:48 Breathing Review of Systems Const: Denies: fever(s), chills, body aches, fatigue or malaise Card: Reports: chest pain (heaviness); Denies: palpitations, irregular heart rhythm, edema, swelling of feet/ankles, lightheadedness, syncope, pre-syncope, dyspnea on exertion, orthopnea, leg pain with exertion or acrocyanosis Resp: Denies: dyspnea, productive cough, non-productive cough, pain on inspiration or chest congestion GI: Denies: abdominal pain, nausea, vomiting or diarrhea : Denies: flank pain or dysuria Musc: Denies: neck pain, back pain, extremity pain, extremity swelling, joint pain or joint swelling Skin/Breast: Denies: rash Neuro: Denies: headache(s), weakness in extremities, lack of coordination, difficulty walking, confusion or behavioral changes PFSH ED PFSH: Medical History Hemiparesis affecting left side as late effect of cerebrovascular accident Pain management contract signed Encounter for chronic pain management CVA (cerebral vascular accident) in past; L side week Hx of cardiac pacemaker Atrial fibrillation Intermittent atrial fibrillation Essential hypertension GERD (gastroesophageal reflux disease) -on PPI CVA (cerebral vascular accident) Presence of permanent cardiac pacemaker Atherosclerotic heart disease of [place] coronary artery with other forms of angina pectoris Chronic low back pain Subclinical hypothyroidism Pacemaker Hx of glaucoma Bronchitis Peripheral neuropathy Chronic diastolic CHF (congestive heart failure) -Has known chronic diastolic CHF, no indication of acute exacerbation currently -Echo done in 2018 showed an ejection fraction of 50% with grade 1 diastolic dysfunction and mild hypokinesia -We will hold Lasix for now given orthostasis Atrial fibrillation, chronic Bradycardia -Has chronic bradycardia, has had event monitoring done in 2018 showing baseline sinus bradycardia, average heart rate is about 55 -We will hold beta-ashish for now -Monitor vital signs -Telemetry monitoring Hypertension Hyperlipemia Ventricular septal defect Arteriosclerotic heart disease (ASHD) Diabetes mellitus Chronic kidney disease Sleep apnea -non-compliant with CPAP Surgical History History of esophagogastroduodenoscopy (EGD) . normal Hx of colonoscopy with polypectomy 08.25.23--multiple polyps; to repeat 5 yrs History of tympanoplasty of left ear Hx of cerebral aneurysm repair clip didn't work; has coil placed at [facility] Hx of CABG 2 V Status post umbilical hernia repair, follow-up exam Hx of non-cataract eye surgery Hx of cataract extraction OU History of incisional hernia repair -inferior aspect of sternotomy incision H/O coronary angioplasty once H/O heart artery stent hx of 7 Family History Father Stroke CAD (coronary artery disease) Brother Diabetes Prostate cancer Lung cancer Sister Dementia Diabetes Liver cancer Denies family history of Clotting disorder Chronic kidney disease (CKD) Suicide Anesthesia complication Bleeding disorder Lung disease Social History Smoking and tobacco/nicotine status: former use of tobacco/nicotine Quit status (tobacco/nicotine): has quit using Year quit tobacco: 1999 Alcohol intake: current Alcohol intake frequency: holidays/special occasions only Substance/Drug Use: never Household members: spouse and children Marital status: Number of children: 4 Current occupational status: retired Previous occupational history: most recently [employer] Vital Signs: Vital signs: Vital Signs Temperature 97.8 F 03/03/24 10:40 Pulse Rate 61 03/03/24 13:30 Respiratory Rate 17 03/03/24 13:30 Blood Pressure 114/64 03/03/24 13:30 Pulse Oximetry 98 03/03/24 13:30 Oxygen Delivery Me thod Room Air 03/03/24 10:40 MDM - Chest Pain Medical Decision Making Patient is a 68-year-old male who presented to the ED today with a complaint of chest heaviness and generalized weakness. Vital signs have been stable throughout his stay. He clinically appears no acute distress. Dr. Malik has also assessed patient and agrees with care provided here and decision for discharge. Blood work including baseline and repeat troponins are unremarkable. His EKGs are nonischemic. CXR is stable. At this time patient will be allowed discharge. Return to ED precautions given. Medical Records I reviewed the patient's medical records. Lab Data I reviewed the patient's lab results. 03/03/24 10:45 03/03/24 10:45 Radiology Impressions Chest X-Ray 03/03/24 10:34 IMPRESSION: Stable chest without acute abnormality. Laboratory Results WBC 7.51 10^3/uL (3.29-11.43) 03/03/24 10:45 RBC 4.26 10^6/uL (3.85-5.65) 03/03/24 10:45 Hgb 13.60 g/dL (11.27-16.99) 03/03/24 10:45 Hct 40.2 % (37-53) 03/03/24 10:45 MCV 94.4 fl (82-101) 03/03/24 10:45 MCH 31.9 pg (27-33) 03/03/24 10:45 MCHC 33.8 g/dL (30-55) 03/03/24 10:45 RDW 12.1 % (12.1-15.1) 03/03/24 10:45 Plt Count 218 10^3/cmm (157-399) 03/03/24 10:45 MPV 8.8 fL (7.4-10.4) 03/03/24 10:45 Neut % (Auto) 78.9 % 03/03/24 10:45 Lymph % (Auto) 11.1 % 03/03/24 10:45 [place] % (Auto) 6.8 % 03/03/24 10:45 Eos % (Auto) 2.4 % 03/03/24 10:45 Baso % (Auto) 0.5 % 03/03/24 10:45 Neut # (Auto) 5.93 10^3/uL (1.8-7.7) 03/03/24 10:45 Lymph # (Auto) 0.8 10^3/uL (0.8-4.8) 03/03/24 10:45 [place] # (Auto) 0.5 10^3/uL (0.2-0.9) 03/03/24 10:45 Eos # (Auto) 0.2 10^3/uL (0.0-0.8) 03/03/24 10:45 Baso # (Auto) 0.0 10^3/uL (0.0-0.1) 03/03/24 10:45 Nucleated RBC % (auto) 0 % 03/03/24 10:45 Nucleated RBCs # 0.0 /100WBC 03/03/24 10:45 Sodium 134 mmol/L (136-145) L 03/03/24 10:45 Potassium 5.1 mmol/L (3.5-5.1) 03/03/24 10:45 Chloride 97 mmol/L (98-107) L 03/03/24 10:45 Carbon Dioxide 27 mmol/L (22-29) 03/03/24 10:45 Anion Gap 15.1 (5-19) 03/03/24 10:45 BUN 18 mg/dL (8-23) 03/03/24 10:45 Creatinine 1.2 mg/dL (0.7-1.2) 03/03/24 10:45 GFR Calculation 60.4 mL/min (90-130) L 03/03/24 10:45 Glucose 195 mg/dL (65-115) H 03/03/24 10:45 Calculated Osmolality 285 mOsm/kg (285-295) 03/03/24 10:45 Calcium 9.6 mg/dL (8.5-10.5) 03/03/24 10:45 Total Bilirubin 0.6 mg/dL (0.15-1.2) 03/03/24 10:45 AST 22 U/L (0-40) 03/03/24 10:45 ALT 28 U/L (0-41) 03/03/24 10:45 Alkaline Phosphatase 67 U/L (40-130) 03/03/24 10:45 Troponin T Baseline 13 ng/L (0-15) 03/03/24 10:45 Troponin T 120 Minute 9.97 ng/L (0-15) 03/03/24 12:55 Delta Troponin T -3.03 ABS# (0-10) L 03/03/24 12:55 Total Protein 7.4 g/dL (6.6-8.7) 03/03/24 10:45 Albumin 4.8 g/dL (3.5-5.2) 03/03/24 10:45 Globulin 2.6 g/dL (1.3-4.6) 03/03/24 10:45 Urine RBC 3-5 /hpf (0-2) 03/03/24 12:43 Urine WBC 0-5 /hpf (0-5) 03/03/24 12:43 Ur Squamous Epith Cells 0-5 /hpf (0-5) 03/03/24 12:43 Amorphous Sediment Not Reportable 03/03/24 12:43 Urine Bacteria None seen /hpf (NONE) 03/03/24 12:43 Hyaline Casts 0-4 /lpf H 03/03/24 12:43 All radiology interpretation(s) finalized by discharge Discharge Plan Discharge Patient Disposition: Home Clinical Impression: Chest pain Qualifiers: Chest pain type: unspecified Qualified Code(s): R07.9 - Chest pain, unspecified Condition: Stable Prescriptions: No Action (DME) 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 (DME) Dexcom G6 Sensor Device See Rx Instructions .Route Qty: 9 3RF Rx Instructions: Change every 10 days. (DME) Dexcom G6 Transmitter Device See Rx Instructions .Route Qty: 3 3RF Rx Instructions: Change every 90 days. cyclobenzaprine 10 mg tablet 5 mg PO TID PRN (Reason: muscle spasm) Qty: 20 0RF (DME) Diabetic shoes with 3 inserts See Rx Instructions .Route .MEDSUPPLY Qty: 1 0RF Rx Instructions: As directed HOME ([facility]) diabetic shoes with 3 inserts See Rx Instructions .Route .MEDSUPPLY Qty: 1 0RF Rx Instructions: As directed to HOME trazodone 50 mg tablet 50 mg PO BEDTIME Qty: 90 1RF isosorbide mononitrate 60 mg tablet extended release 24 hr 60 mg PO BID Qty: 60 4RF cetirizine 10 mg tablet 10 mg PO DAILY Qty: 90 1RF (DME) pen needle, diabetic [Droplet Pen Needle] 31 gauge x 5/16 needle See Rx Instructions .Route Qty: 100 12RF Rx Instructions: As directed (DME) lancets [Accu-Chek Softclix Lancets] [facility] See Rx Instructions .ROUTE .COMPLEX Qty: 600 10RF Dose Instruction: TEST BLOOD SUGAR SIX TIMES DAILY DIRECTED Rx Instructions: TEST BLOOD SUGAR SIX TIMES DAILY DIRECTED (DME) blood-glucose meter [Accu-Chek Guide Glucose Meter] Misc See Rx Instructions .Route Qty: 1 0RF Rx Instructions: As directed ([facility]) Accu-Chek Guide test strips Strip See Rx Instructions .Route Qty: 100 11RF Rx Instructions: As directed nitroglycerin 0.4 mg tablet, sublingual See Rx Instructions .ROUTE .COMPLEX Qty: 20 2RF Dose Instruction: DISSOLVE 1 TABLET UNDER THE TONGUE EVERY 5 MINUTES NEEDED FOR CHEST PAIN. DO NOT EXCEED A TOTAL OF 3 DOSES IN 15 MINUTES. Rx Instructions: DISSOLVE 1 TABLET UNDER THE TONGUE EVERY 5 MINUTES NEEDED FOR CHEST PAIN. DO NOT EXCEED A TOTAL OF 3 DOSES IN 15 MINUTES. gabapentin 300 mg capsule See Rx Instructions .ROUTE .COMPLEX Qty: 180 3RF Dose Instruction: TAKE 1 CAPSULE TWICE DAILY Rx Instructions: TAKE 1 CAPSULE TWICE DAILY albuterol sulfate 90 mcg/actuation HFA aerosol inhaler See Rx Instructions .ROUTE .COMPLEX Qty: 1 0RF Dose Instruction: INHALE 1 PUFF EVERY 4 HOURS NEEDED FOR SHORTNESS OF BREATH Rx Instructions: INHALE 1 PUFF EVERY 4 HOURS NEEDED FOR SHORTNESS OF BREATH pantoprazole [Protonix] 40 mg tablet,delayed release (DR/EC) 40 mg PO BID 30 Days Qty: 60 11RF Brilinta 60 mg tablet See Rx Instructions .ROUTE .COMPLEX Qty: 180 3RF Hold Instructions: Resume on 08/28/23. Dose Instruction: TAKE 1 TABLET TWICE DAILY Rx Instructions: TAKE 1 TABLET TWICE DAILY Jardiance 10 mg tablet See Rx Instructions .ROUTE .COMPLEX Qty: 90 3RF Dose Instruction: TAKE 1 TABLET EVERY DAY Rx Instructions: TAKE 1 TABLET EVERY DAY lisinopril 10 mg tablet See Rx Instructions .ROUTE .COMPLEX Qty: 180 3RF Dose Instruction: TAKE 1 TABLET TWICE DAILY (UNABLE TO TOLERATE 20MG TWICE A DAY) Rx Instructions: TAKE 1 TABLET TWICE DAILY (UNABLE TO TOLERATE 20MG TWICE A DAY) (DME) Omnipod 5 G6 Pods (Gen 5) Cartridge SUBCUT Qty: 10 3RF Rx Instructions: As directed Power scooter/chair See Rx Instructions .ROUTE .COMPLEX Qty: 1 0RF Rx Instructions: FAx to HOME with OV note fluticasone propionate 50 mcg/actuation spray,suspension 2 spray intranasal DAILY Qty: 48 3RF (DME) insulin syringe-needle U-100 [Droplet Insulin Syringe] 1 mL 31 gauge x 5/16 syringe See Rx Instructions .ROUTE .COMPLEX Qty: 300 3RF Dose Instruction: USE DIRECTED Rx Instructions: USE DIRECTED insulin aspart U-100 [Novolog U-100 Insulin aspart] 100 unit/mL solution See Rx Instructions .ROUTE .COMPLEX Qty: 30 3RF Dose Instruction: INJECT PER SLIDING SCALE WITH EACH MEAL; VIAL EXPIRES 28 DAYS AFTER OPENED Rx Instructions: PER INSULIN PUMP. VIAL EXPIRES 28 DAYS AFTER OPENED (DME) Omnipod 5 G6-G7 Pods (Gen 5) Cartridge See Rx Instructions .Route Qty: 15 1RF Rx Instructions: As directed hydrocodone-acetaminophen 10-325 mg tablet 1 tab PO Q6H PRN (Reason: pain) 30 Days Qty: 120 0RF Hold Instructions: Resume on 08/31/23. magnesium 250 mg Tablet 250 mg PO BID L-Arginine Tab 500 mg PO DAILY docusate sodium [Colace] 100 mg capsule 100 mg PO BID Qty: 14 0RF dabigatran etexilate [Pradaxa] 150 mg capsule 150 mg PO BID Hold Instructions: Resume on 08/28/23. potassium chloride 8 mEq capsule, extended release 8 meq PO DAILY metoprolol tartrate 100 mg tablet 100 mg PO BID rosuvastatin 20 mg tablet 20 mg PO BEDTIME Levemir FlexPen 100 unit/mL (3 mL) insulin pen 45 unit SUBCUT BID PRN (Reason: PUMP FAILURE) ranolazine 1,000 mg tablet extended release 12 hr 1,000 mg PO BID ondansetron HCl 4 mg tablet 4 mg PO Q6H PRN (Reason: nausea and vomiting) Qty: 20 0RF multivitamin Tablet 1 tab PO DAILY cyanocobalamin (vitamin B-12) [Vitamin B-12] 1,000 mcg Tablet 1,000 mcg PO DAILY Discharge Orders: Discharge ED (Routine); Ordered 03/03/24 Ordered By: Aby Rand Referrals: Felicitas Alegria MD [Primary Care Provider] - Activity Restrictions/Additional Instructions: As we discussed, you may follow-up with cardiology as scheduled. You may return the emergency department for worsening chest pain, shortness of breath, difficulty breathing, generally feeling worse or unwell, or any other concerns you may have. Coding Level of Care Code ED Toy Designer for Sabi Yang
[2024-03-03 11:15] LABS: Basophils % 0.5 %; Eosinophils # 0.2 10^3/uL (0.0-0.8); Eosinophils % 2.4 %; Hematocrit 40.2 % (37-53); Lymphocytes # 0.8 10^3/uL (0.8-4.8); Lymphocytes % 11.1 %; Mean Corpuscular HGB Conc 33.8 g/dL (30-55); Mean Corpuscular Hemoglobin 31.9 pg (27-33); Mean Corpuscular Volume 94.4 fl (82-101); Mean Platelet Volume 8.8 fL (7.4-10.4); Monocytes # 0.5 10^3/uL (0.2-0.9); Monocytes % 6.8 %; Neutrophils # 5.93 10^3/uL (1.8-7.7); Neutrophils % 78.9 %; Nucleated Red Blood Cells % 0 %; Platelet Count 218 10^3/cmm (157-399); Red Blood Count 4.26 10^6/uL (3.85-5.65); Red Cell Distribution Width 12.1 % (12.1-15.1); White Blood Count 7.51 10^3/uL (3.29-11.43)
[2024-03-03] MEDS: nitroglycerin 0.4 mg sublingual Tablet SUBLINGUAL (11:21)
[2024-03-03 11:33] LABS: Troponin(5th) Baseline 13 ng/L (0-15)
[2024-03-03 11:40] LABS: Alanine Aminotransferase 28 U/L (0-41); Albumin Level 4.8 g/dL (3.5-5.2); Alkaline Phosphatase 67 U/L (40-130); Anion Gap 15.1 (5-19); Aspartate Amino Transferase 22 U/L (0-40); Blood Urea Nitrogen 18 mg/dL (8-23); Calcium 9.6 mg/dL (8.5-10.5); Carbon Dioxide 27 mmol/L (22-29); Chloride 97 mmol/L (98-107); Globulin 2.6 g/dL (1.3-4.6); Glomerular Filtration Rate 60.4 mL/min (90-130); Glucose 195 mg/dL (65-115); Osmolality Calculated 285 mOsm/kg (285-295); Potassium 5.1 mmol/L (3.5-5.1); Sodium 134 mmol/L (136-145); Total Bilirubin 0.6 mg/dL (0.15-1.2); Total Protein 7.4 g/dL (6.6-8.7)
--- NOTE | 2024-03-03 11:44 | PC.NURSE ---
2nd nitro given at 1142, no change in chest pain after 1st nitro
--- NOTE | 2024-03-03 12:01 | PC.NURSE ---
After 2nd nitro patient states the pain has went from a 6 to a 5. Patient was given a 3rd nitro at 1203.
--- NOTE | 2024-03-03 12:34 | ECG_ITS ---
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 Measurements Intervals Manning Rate: 60 P: 134 WV: 200 QRS: 80 QRSD: 122 T: 88 QT: 393 QTc: 393 Interpretive Statements ELECTRONIC ATRIAL PACEMAKER MODERATE INTRAVENTRICULAR CONDUCTION DELAY [110+ ms QRS DURATION] NONSPECIFIC T-WAVE ABNORMALITY ABNORMAL RHYTHM ECG Compared to ECG 03/03/2024 10:37:30 T-wave abnormality now present Right-axis deviation no longer present Electronically Signed On 03-03-2024 16:59:24 NAILING MACHINE OPERATOR by Vianey Owen M.D. [email or web address]
[2024-03-03 13:40] LABS: Troponin 5 2HR 9.97 ng/L (0-15); Troponin 5 2HR Delta -3.03 ABS# (0-10)
[2024-03-03 14:06] LABS: Bacteria Urine None Seen /hpf; Hyaline Casts Urine 0-4 /lpf; Squamous Epithelial Cell Urine 0-5 /hpf (0-5); WBC Urine 0-5 /hpf (0-5)
[2024-03-03 14:52] LABS: Add Urine Microscopic? YES; Bilirubin Urine Negative (Negative); Blood Urine Negative (Negative); Glucose Urine UA 3+ (Normal); Ketones Urine Trace (Negative); Leukocyte Esterase Urine Negative (Negative); Nitrate Urine Negative (Negative); Protein Urine Negative (Negative); Urine Appearance Clear (CLEAR); Urobilinogen Urine 0.2 mg/dL (Negative)
[2024-03-03 14:54] LABS: Specific Gravity, Urine 1.034 (1.005-1.030); Urine Color Orange (Yellow)
== END 2024-03-03 15:01 | disposition home or self-care (01) ==
PROVIDERS: Emergency Provider Physician Assistant; PCP Family Medicine
DX: R07.9 Chest pain, unspecified (principal); Z79.4 Long term (current) use of insulin; Z87.891 Personal history of nicotine dependence; E11.22 Type 2 diabetes mellitus with diabetic chronic kidney disease; I13.0 Hypertensive heart and chronic kidney disease with heart failure and stage 1 through stage 4 chronic kidney disease, or unspecified chronic kidney disease; N18.9 Chronic kidney disease, unspecified; I50.32 Chronic diastolic (congestive) heart failure; Z86.73 Personal history of transient ischemic attack (TIA), and cerebral infarction without residual deficits; Z95.0 Presence of cardiac pacemaker
CPT/HCPCS: 36415; 71045; 80053; 81001; 84484; 85025; 93005; 99214; 99285

== ENCOUNTER → 2024-03-06 07:37 | Outpatient (BNVA) | payer MEDICARE, SELFPAY | PROVIDERS: PCP Family Medicine; Visit Provider Podiatrist Foot & Ankle Surgery | DX: E11.8 Type 2 diabetes mellitus with unspecified complications (principal); L60.3 Nail dystrophy; Z79.4 Long term (current) use of insulin | CPT/HCPCS: 11721 ==

== ENCOUNTER → 2024-03-14 16:20 | Outpatient (BNVA) | payer MEDICARE, SELFPAY | PROVIDERS: PCP Family Medicine; Visit Provider Internal Medicine | DX: E78.2 Mixed hyperlipidemia (principal); E03.8 Other specified hypothyroidism | CPT/HCPCS: 36415; 80053; 80061; 82044; 83036; 99214 ==

== ENCOUNTER → 2024-06-05 07:55 | Outpatient (BNVA) | payer MEDICARE, MEDICAID, SELFPAY | PROVIDERS: PCP Family Medicine; Visit Provider Podiatrist Foot & Ankle Surgery | DX: E11.8 Type 2 diabetes mellitus with unspecified complications (principal); L60.3 Nail dystrophy; L84 Corns and callosities; Z79.4 Long term (current) use of insulin | CPT/HCPCS: 11056; 11721 ==

== ENCOUNTER 2024-06-12 13:00 | Outpatient (CLI) | payer MEDICARE, SELFPAY ==
[2024-06-12 13:59] LABS: Estmated Average Glucose 180; Hemoglobin A1C 7.9 % (4.0-6.0)
[2024-06-12 14:13] LABS: Alanine Aminotransferase 24 U/L (0-41); Albumin Level 4.5 g/dL (3.5-5.2); Alkaline Phosphatase 60 U/L (40-130); Anion Gap 16.6 (5-19); Aspartate Amino Transferase 22 U/L (0-40); Blood Urea Nitrogen 18 mg/dL (8-23); Calcium 9.1 mg/dL (8.5-10.5); Carbon Dioxide 23 mmol/L (22-29); Chloride 102 mmol/L (98-107); Chol HDL Ratio 2.64 mg/dL (1.0-5.00); Cholesterol 140 mg/dL (0-200); Globulin 2.6 g/dL (1.3-4.6); Glomerular Filtration Rate 46.7 mL/min (90-130); Glucose 313 mg/dL (65-115); HDL Cholesterol 53 mg/dL (60-100); LDL Cholesterol Calculated 58 mg/dL (50-129); LDL HDL Ratio 1.09 RATIO (0.00-3.22); Osmolality Calculated 298 mOsm/kg (285-295); Potassium 4.6 mmol/L (3.5-5.1); Sodium 137 mmol/L (136-145); Total Bilirubin 0.4 mg/dL (0.15-1.2); Total Protein 7.1 g/dL (6.6-8.7); Triglycerides 144 mg/dL (0-150)
[2024-06-12 14:13] LABS: Creatinine Urine, Random 40 mg/dL (39-259); Microalbum Creatinine Ratio Ur 25 mg/dL (0-20); Microalbumin Random Urine 1 ug/dL (0-20)
[2024-06-12 14:21] LABS: HIV 1 & 2 Antibody Non-Reactive (Non-Reactiv); HIV 1 & 2 Antigen Non-Reactive (Non-Reactiv)
[2024-06-12 14:51] LABS: Hepatitis C Virus Antibody Non-Reactive (Nonreactive)
== END 2024-06-12 13:01 | disposition home or self-care (01) ==
LOC: LAB 13:02
PROVIDERS: PCP Family Medicine; Visit Provider Internal Medicine
DX: E78.2 Mixed hyperlipidemia (principal); Z53.20 Procedure and treatment not carried out because of patient's decision for unspecified reasons; Z11.4 Encounter for screening for human immunodeficiency virus [HIV]; E11.9 Type 2 diabetes mellitus without complications; E03.8 Other specified hypothyroidism; N18.31 Chronic kidney disease, stage 3a
CPT/HCPCS: 36415; 80053; 80061; 82044; 83036; 86803; 87806

== ENCOUNTER → 2024-06-13 11:44 | Outpatient (BNVA) | payer MEDICARE, SELFPAY | PROVIDERS: PCP Family Medicine; Visit Provider Family Medicine | DX: R82.90 Unspecified abnormal findings in urine (principal); M54.50 Low back pain, unspecified; G89.29 Other chronic pain; N18.31 Chronic kidney disease, stage 3a; E03.8 Other specified hypothyroidism; E78.2 Mixed hyperlipidemia; I25.10 Atherosclerotic heart disease of native coronary artery without angina pectoris; L60.3 Nail dystrophy; I63.9 Cerebral infarction, unspecified; I50.32 Chronic diastolic (congestive) heart failure | CPT/HCPCS: 87086; 99214 ==

== ENCOUNTER → 2024-07-19 12:18 | Outpatient (BNVA) | payer MEDICARE, SELFPAY | PROVIDERS: PCP Family Medicine; Visit Provider Internal Medicine | DX: Z45.018 Encounter for adjustment and management of other part of cardiac pacemaker (principal) | CPT/HCPCS: 93296 ==

== ENCOUNTER 2024-09-04 08:16 | Outpatient (CLI) | payer MEDICARE, SELFPAY ==
[2024-09-04 09:34] LABS: Alanine Aminotransferase 32 U/L (0-41); Albumin Level 4.3 g/dL (3.5-5.2); Alkaline Phosphatase 78 U/L (40-130); Anion Gap 15.7 (5-19); Aspartate Amino Transferase 23 U/L (0-40); Blood Urea Nitrogen 19 mg/dL (8-23); Calcium 9.1 mg/dL (8.5-10.5); Carbon Dioxide 25 mmol/L (22-29); Chloride 102 mmol/L (98-107); Globulin 2.9 g/dL (1.3-4.6); Glomerular Filtration Rate 55.1 mL/min (90-130); Glucose 171 mg/dL (65-115); Osmolality Calculated 292 mOsm/kg (285-295); Potassium 4.7 mmol/L (3.5-5.1); Sodium 138 mmol/L (136-145); Total Bilirubin 0.4 mg/dL (0.15-1.2); Total Protein 7.2 g/dL (6.6-8.7)
[2024-09-04 09:35] LABS: Creatinine Urine, Random 69 mg/dL (39-259); Microalbum Creatinine Ratio Ur 14 mg/dL (0-20); Microalbumin Random Urine 1 ug/dL (0-20)
[2024-09-04 09:40] LABS: Estmated Average Glucose 186; Hemoglobin A1C 8.1 % (4.0-6.0)
== END 2024-09-04 08:17 | disposition home or self-care (01) ==
PROVIDERS: PCP Family Medicine; Visit Provider Internal Medicine
DX: E11.8 Type 2 diabetes mellitus with unspecified complications (principal); L60.3 Nail dystrophy; L84 Corns and callosities; E03.8 Other specified hypothyroidism; E78.2 Mixed hyperlipidemia; I25.10 Atherosclerotic heart disease of native coronary artery without angina pectoris; I63.9 Cerebral infarction, unspecified; I50.32 Chronic diastolic (congestive) heart failure; Z79.4 Long term (current) use of insulin
CPT/HCPCS: 11056; 11721; 80053; 82044; 83036

== ENCOUNTER → 2024-09-12 10:31 | Outpatient (BNVA) | payer MEDICARE, SELFPAY | PROVIDERS: PCP Family Medicine; Visit Provider Internal Medicine | DX: E11.9 Type 2 diabetes mellitus without complications (principal); E03.8 Other specified hypothyroidism; E78.2 Mixed hyperlipidemia; N18.31 Chronic kidney disease, stage 3a | CPT/HCPCS: 99214 ==

== ENCOUNTER → 2024-10-18 10:24 | Outpatient (BNVA) | payer MEDICARE, SELFPAY | PROVIDERS: PCP Family Medicine; Visit Provider Internal Medicine Cardiovascular Disease | DX: Z45.018 Encounter for adjustment and management of other part of cardiac pacemaker (principal) | CPT/HCPCS: 93296 ==

== ENCOUNTER 2024-12-01 07:21 | Outpatient (CLI) | payer MEDICARE, SELFPAY ==
[2024-12-01 08:10] LABS: Alanine Aminotransferase 22 U/L (0-41); Albumin Level 4.3 g/dL (3.5-5.2); Alkaline Phosphatase 59 U/L (40-130); Anion Gap 16.3 (5-19); Aspartate Amino Transferase 18 U/L (0-40); Blood Urea Nitrogen 17 mg/dL (8-23); Calcium 9.3 mg/dL (8.5-10.5); Carbon Dioxide 25 mmol/L (22-29); Chloride 101 mmol/L (98-107); Cholesterol 133 mg/dL (0-200); Globulin 3.1 g/dL (1.3-4.6); Glucose 134 mg/dL (65-115); HDL Cholesterol 59 mg/dL (60-100); Osmolality Calculated 290 mOsm/kg (285-295); Potassium 4.3 mmol/L (3.5-5.1); Sodium 138 mmol/L (136-145); Total Protein 7.4 g/dL (6.6-8.7); Triglycerides 132 mg/dL (0-150)
[2024-12-01 08:11] LABS: Creatinine Urine, Random 84 mg/dL (39-259); Microalbum Creatinine Ratio Ur 12 mg/dL (0-20)
[2024-12-01 08:13] LABS: Estmated Average Glucose 169; Hemoglobin A1C 7.5 % (4.0-6.0)
== END 2024-12-01 07:22 | disposition home or self-care (01) ==
LOC: LAB 07:22
PROVIDERS: PCP Family Medicine; Visit Provider Internal Medicine
DX: I63.9 Cerebral infarction, unspecified (principal); E03.8 Other specified hypothyroidism; L60.3 Nail dystrophy; E78.2 Mixed hyperlipidemia; I25.10 Atherosclerotic heart disease of native coronary artery without angina pectoris; E11.9 Type 2 diabetes mellitus without complications; N18.31 Chronic kidney disease, stage 3a
CPT/HCPCS: 36415; 80053; 80061; 82044; 83036

== ENCOUNTER → 2024-12-05 07:59 | Outpatient (BNVA) | payer MEDICARE, SELFPAY | PROVIDERS: PCP Family Medicine; Visit Provider Podiatrist Foot & Ankle Surgery | DX: E11.8 Type 2 diabetes mellitus with unspecified complications (principal); L60.3 Nail dystrophy; L84 Corns and callosities; M20.21 Hallux rigidus, right foot; M20.22 Hallux rigidus, left foot; M20.41 Other hammer toe(s) (acquired), right foot; M20.42 Other hammer toe(s) (acquired), left foot; Z79.4 Long term (current) use of insulin | CPT/HCPCS: 11056; 11721; 99213 ==

== ENCOUNTER → 2024-12-08 08:25 | Outpatient (BNVA) | payer MEDICARE, SELFPAY | PROVIDERS: PCP Family Medicine; Visit Provider Internal Medicine | DX: L60.3 Nail dystrophy (principal); E03.8 Other specified hypothyroidism; E13.9 Other specified diabetes mellitus without complications; Z79.4 Long term (current) use of insulin; E78.2 Mixed hyperlipidemia; I25.10 Atherosclerotic heart disease of native coronary artery without angina pectoris; I63.9 Cerebral infarction, unspecified; I50.32 Chronic diastolic (congestive) heart failure; R03.0 Elevated blood-pressure reading, without diagnosis of hypertension; N18.31 Chronic kidney disease, stage 3a | CPT/HCPCS: 99214 ==

== ENCOUNTER → 2025-01-17 10:42 | Outpatient (BNVA) | payer MEDICARE, SELFPAY | PROVIDERS: PCP Family Medicine; Visit Provider Internal Medicine Cardiovascular Disease | DX: I13.0 Hypertensive heart and chronic kidney disease with heart failure and stage 1 through stage 4 chronic kidney disease, or unspecified chronic kidney disease (principal); N18.9 Chronic kidney disease, unspecified; I50.32 Chronic diastolic (congestive) heart failure; I25.119 Atherosclerotic heart disease of native coronary artery with unspecified angina pectoris; E78.2 Mixed hyperlipidemia; I67.1 Cerebral aneurysm, nonruptured; R51.9 Headache, unspecified; Z95.5 Presence of coronary angioplasty implant and graft; Z95.1 Presence of aortocoronary bypass graft; Z95.0 Presence of cardiac pacemaker; Z86.73 Personal history of transient ischemic attack (TIA), and cerebral infarction without residual deficits; Z87.891 Personal history of nicotine dependence; R07.9 Chest pain, unspecified | CPT/HCPCS: 93005; 99215 ==

== ENCOUNTER 2025-01-26 07:00 | Outpatient (CLI) | payer MEDICARE, SELFPAY ==
--- NOTE | 2025-01-26 | ECG_ITS ---
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 Interpretive Statements Procedure: A total of 0.4 mg of Lexiscan was infused over 20 seconds. The stress phase was continued for a total of 5 minutes. Sestamibi was injected 20 seconds after the Lexiscan infusion. Findings:The patient's resting blood pressure was 119/67 mmHg with a heart rate of 65 bpm. Baseline EKG showed normal sinus rhythm with a nonspecific intraventricular conduction delay and left posterior fascicular block. After Lexiscan injection the patient's blood pressure had no significant change. The patient's heart rate also had no significant change. There was no ST-T wave changes through the stress test. Conclusion: 1. Normal EKG response to Lexiscan infusion 2. No Lexiscan induced chest pain or cardiac arrhythmia. 3. Normal blood pressure and heart rate response. 4. Nuclear myocardial perfusion scan pending; see separate report. Electronically Signed On 01-26-2025 16:08:16 CDT by Chuck Marquis M.D. [email or web address]
--- NOTE | 2025-01-26 07:16 | NMCV_ITS ---
NM sathish perf SPECT r/s* [id number] Darrell Pemberton Age: 69 Gender: M : 1955 Exam Date: 01/26/2025 07:46 Ordering Phys: Vianey Owen MD ([email or web address]) Technologist: MAHOGANY Solorio Exam Location: [facility] Indications: cp STRESS TEST [facility] IMAGE PROTOCOL Rest/Stress 1 Lexiscan Day Radiopharmaceutical Dose (mCi) Administration Site Administered by Rest: Tc-99m 10.7 IV MAHOGANY Solorio Sestamibi Stress:Tc-99m 32.6 IV MAHOGANY Florian Sestamibi Rest: 26-Jan-2025 60 Discovery 630 Stress: 26-Jan-2025 30 Discovery 630 0.4mg Lexiscan. Images obtained in supine and prone position. SPECT RESULTS Technical Quality: Good Raw Data Analysis: Normal Image Corrections: No attenuation or motion correction applied Summed Stress Score: 4 Summed Rest Score: 3 Summed Difference Score: 3 PERFUSION FINDINGS There is a medium sized area of moderately reduced tracer counts in the apical and mid anterior wall segments which resolves on the resting images compared to the stress images consistent with reversible ischemia. There is a medium sized area of mildly reduced tracer counts on both the rest and stress images the inferior wall with normal wall motion in the inferior wall on gated images consistent with diaphragmatic attenuation artifact. FUNCTIONAL RESULTS (calculated via Gated SPECT) Stress Image LV EF (%): 73 Stress EDV (mL):106 TID: 1.17 Stress ESV (mL):29 FUNCTIONAL FINDINGS: There is normal left ventricular systolic function. IMPRESSIONS 1. Abnormal myocardial perfusion imaging test consistent with a medium sized area of moderate inducible ischemia in the apical and mid anterior wall segments. Diaphragmatic attenuation artifact is also present. 2. Normal left ventricular systolic function, EF 73%. Chuck Marquis MD, FACC (Electronically Signed) Final Date: 26 January 2025 15:46 S
[2025-01-26 07:17] VITALS: BMI 30.7
[2025-01-26 08:32] VITALS: BP 127/65; PULSE 61
== END 2025-01-26 07:01 | disposition home or self-care (01) ==
LOC: CDL 07:05
PROVIDERS: PCP Family Medicine; Visit Provider Internal Medicine Cardiovascular Disease
DX: R07.9 Chest pain, unspecified (principal); I25.89 Other forms of chronic ischemic heart disease; J98.6 Disorders of diaphragm
CPT/HCPCS: 36415; 78452; 93017; 96374; A9500; J2785

== ENCOUNTER 2025-02-12 07:15 | Outpatient (CLI) | payer MEDICARE, SELFPAY ==
[2025-02-12] VITALS (40 sets, daily range): BP systolic 95–144; BP diastolic 51–80; PULSE 60–82; RESP 0–23; TEMP 36.4–36.6; O2SAT 96–97; BMI 31.3
--- NOTE | 2025-02-12 06:00 | XACV_ITS ---
Exam Room: 2 Ht: 168 cm Wt: 88 kg BSA: 2.05 m2 Gender: Male : 1955 Any Known Allergies: Other Exam Priority: Routine Procedure(s): Procedure Description: Diagnostic procedure Procedure Description: Coronary Angiography Brayden LANDRY; Diagnostic Cath Status: Elective Diagnostic Findings * The left main is a medium caliber vessel which is short and has high-grade stenosis distally involving the ostium of the Left anterior descending artery and circumflex artery. * The Left anterior descending artery appears to have a long stented area extending from the proximal to the mid segment of the artery. The stent appears to be totally occluded. * The left circumflex artery has high-grade ostial stenosis. The first obtuse marginal branch is a relatively small caliber vessel with a moderate to severe diffuse disease. The second obtuse marginal artery has a subtotal occlusion at the ostium with a competitive flow from the graft attached to the distal segment of this artery. The AV groove branch of the artery was found to have mild to moderate diffuse disease.. * The right coronary artery was found to have heavy calcification near the ostium. The mid and distal segment of the artery was found to have mild to moderate diffuse disease. The PLV and PDA branches also were found to have mild diffuse disease. Grade 1-2 [id number] collaterals were noted filling up the septal perforators of the left anterior descending artery. * The free radial artery graft to the obtuse marginal artery was found to be widely patent with no significant lesions at the anastomotic sites or in the body of the graft. The distal OM branches severe found to have no significant lesions.. * The CANCHOLA to the distal LAD was found to be widely patent. The anastomotic site appears to have no significant lesions. The distal LAD was found to have mild diffuse intimal regularities. Conclusions 1. 69-year-old white male with history of atherosclerotic heart diseas, status post two-vessel coronary bypass surgery, presenting with increasing episodes of chest pain and abnormal Myocardial perfusion imaging. Patient underwent left heart catheterization with a left and right coronary angiogram and graft angiogram today. The findings are as follows.. 2. The distal left main was found to have a high-grade lesion involving the ostium of the left anterior descending and circumflex artery. The left anterior artery appears to have an occluded stent extending from the proximal to the mid segment of the artery. CANCHOLA to the distal AT was found to be widely patent. Circumflex artery was found to have ostial high-grade lesion. First OM branch is a relatively small caliber vessel with diffuse disease. High-grade ostial stenosis in the second obtuse marginal artery. The radial artery graft to this artery was found to be widely patent. Artery distal to the anastomosis has no significant lesions. Right coronary artery was found to have mild to moderate diffuse disease with no significant stenotic lesions. LVEDP of 22 mmHg. 3. Reviewed and discussed the angiogram findings with Dr. Oconnor. Based on the findings, optimizing the medical treatment above thought to be the appropriate plan of action. Diagnostic RX Recommendation: medical therapy and/or counseling LV EDP: 22 mmHg Left Ventriculography Findings: * LV gram was not performed because of the concern about the dye overload. The LVEDP was 22 mmHg. Pressures Phase:Rest AO : 93 / 54 ( 71 ) @ 7:38:00 AM 116 / 44 ( 69 ) @ 7:53:00 AM 112 / 44 ( 70 ) @ 7:53:00 AM LV : 104 / -11 / 10 @ 7:52:00 AM 110 / -12 / 14 @ 7:52:00 AM 115 / -16 / 22 @ 7:53:00 AM Valves Phase:DefaultPhase AV : 0.0 @ 7:59:31 AM AV Mean Gradient: 0.0 @ 7:59:31 AM Clinical Evaluation EBL: 5mL-10mL Procedural Details Procedure Consent Obtained. Pre-Procedure Time Out. Identified patient by full name and date of as verbalized by the patient/guarantor. Does the consent match the physician's order: Yes. Accurate & Complete Informed Consent: Yes. Inpatient/Outpatient History & Physical on Chart: Yes. If H&P is completed, is and addenduem needed: No. Visualize and Verify Site with Patient/Guarantor: N/A. Relevant Radiology Images available: Yes. The risks, benefits, and alternatives of sedation and/or procedure were discussed by physician. The patient agrees to continue. Procedure started. [facility] Clinical Fraility Score: 3: Managing Well. Claim Representative Indications: Worsening Angina. Claim Representative Indications: Stable Known CAD/Abnormal stres stest. Chest Pain Symptom Assessment: Typical Angina Symptoms. Cardiovascular Instability: No. Correct patient, site and procedure confirmed by cath team. PERRLA. Strong, equal hand vp care management bilaterally. Lungs clear x 5 lobes. IV Site on Arrival: 20 gauge in the left anticubital. IV Fluids: 0.9% NaCl at KVO. 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 Pre Procedural Pulses: bilateral dorsalis pedis was Doppled. Pre Procedural Pulses: bilateral posterior tibial was 2+. Pre Procedural Pulses: bilateral radial was 2+. Oxygen started at 2liters/min via nasal canula. bilateral groins was prepped with chloroprep then draped in the usual sterile fashion. Physician notified. Baseline sample Acquired. HR: 63 BPM. Patient's family in CPRU room #2. Dr. Owen will update at the completion of the procedure. Equipment: 6F - Femoral. Cardiac Cath Pack. ACIST Manifold Kit Model BT 2000. Heparinized Saline (2 units/mL), 1000 mL bag. Kit, Micropuncture. Physician arrived. Physician scrubbed in. Immediate Pre-Procedure Time Out. Correct Patient: Yes; Correct Procedure: Yes; Correct Site: Yes; Correct Patient Position: Yes; Correct Supplies: Yes; Dried Flammable Prep: Yes; Blood Products Available: N/A;. Lidocaine 1% infiltrated to the right groin. Arterial access obtained with micropuncture set. Unable to thread micropuncture wire. Wire and needle out. Dr. Owen holding manual pressure. Arterial access obtained with micropuncture set. A 5 malay JL4 catheter in over the standard J wire. Multiple views taken of left coronary artery. Catheter removed over the standard J wire. A 5 malay JR4 catheter in over the standard J wire. Multiple views taken of right coronary artery. Catheter redirected to the radial artery graft --> OM. Radial artery graft --> OM visualized. Catheter redirected to the CANCHOLA --> LAD. CANCHOLA to LAD visualized. Dr. Oconnor here to review cineography. Catheter redirected to the LV. EDP Sample taken: LV 110/-13,14; HR: 65 BPM; SpO2: 99%. Pullback taken: LV 115/-17,22; AO 116/44(69); Mean: 0mmHg, Peak to Peak: 0mmHg, SEP: 23sec/min; HR: 64 BPM; SpO2: 99%. Catheter removed over the standard J wire. Dr. Owen scrubbed out. A Suture was successful obtaining hemostatsis at the Right Femoral artery insertion site. Vital chart was stopped. Sheath(s) sutured into position with 2-0 silk and sterile 4x4's and Op-site applied over the site. No oozing or signs and symptoms of hematoma noted. Arterial sheath flushed and connected to tranducer and pressure bag with heparinized saline. Post Procedure: Pulses reassessed and unchanged. PERRLA. Strong, equal hand vp care management bilaterally. No VTE prophylaxis required. Medication's Wasted: Lidocaine 1% = 3 mL. Medication's Wasted: Heparin = 2500 units. Total IV fluids: 60 mL. Post-op diagnosis: Non-obstructive CAD. Complications: none. Estimated blood loss: 5mL-10mL. Responsiveness - Normal response to verbal stimuli; alert and oriented, PERRLA. Airway - Unaffected, no intervention required; spontaneous ventilation. Circulation: W/N/L, pulses unchanged. Nausea/Vomiting: No. Procedure completed. Patient transferred by bed to 1st floor. Access Site Site: Right Femoral artery Sheath Size: 6 Fr Hemostasis Method: Suture Hemostasis Success: Successful Procedure Medications Start: 7:16 AM Stop: 7:16 AM Medication: Versed Amount: 1 mg Route: I.V. Start: 7:17 AM Stop: 7:17 AM Medication: Fentanyl Amount: 25 mcg Route: I.V. Start: 7:21 AM Stop: 7:21 AM Medication: Versed Amount: 1 mg Route: I.V. Start: 7:27 AM Stop: 7:27 AM Medication: Fentanyl Amount: 25 mcg Route: I.V. Start: 7:30 AM Stop: 7:30 AM Medication: Fentanyl Amount: 25 mcg Route: I.V. Start: 7:42 AM Stop: 7:42 AM Medication: Fentanyl Amount: 25 mcg Route: I.V. Start: 7:43 AM Stop: 7:43 AM Medication: Heparin Amount: 1500 units Route: I.V. I, the attending physician, have reviewed and verified all procedure medications. Yes, all medications given per verbal order History/Risk Factors Hypertension: Yes Dyslipidemia: Yes Peripheral Arterial Disease (PAD): No Myocardial Infarction (NV): No Obesity: No Renal Disease: No Tobacco Use: Never Prior Interventions PCI: Yes CABG: Yes Valve Surgery: No Date of PCI: 07/22/2016 Report Signatures Finalized by Dr Vianey Owen MD [facility] on 02/12/2025 09:39 PM
[2025-02-12 06:21] LABS: Hematocrit 38.4 % (37-53); Hemoglobin 12.90 g/dL (11.27-16.99); Mean Corpuscular HGB Conc 33.6 g/dL (30-55); Mean Corpuscular Hemoglobin 30.1 pg (27-33); Mean Corpuscular Volume 89.7 fl (82-101); Nucleated Red Blood Cells % 0 %; Platelet Count 186 10^3/cmm (157-399); Red Blood Count 4.28 10^6/uL (3.85-5.65); White Blood Count 6.33 10^3/uL (3.29-11.43)
[2025-02-12 06:34] LABS: Anion Gap 14.0 (5-19); Blood Urea Nitrogen 21 mg/dL (8-23); Calcium 9.2 mg/dL (8.5-10.5); Carbon Dioxide 27 mmol/L (22-29); Chloride 102 mmol/L (98-107); Glucose 138 mg/dL (65-115); Osmolality Calculated 293 mOsm/kg (285-295); Potassium 4.0 mmol/L (3.5-5.1); Sodium 139 mmol/L (136-145)
--- NOTE | 2025-02-12 07:15 | W.PM.OPSUD ---
Surgery/Procedure H&P Update DATE OF PROCEDURE: February 12, 2025 DATE H&P PERFORMED: 01/17/25 H&P UPDATE INFORMATION: I have reviewed H&P completed within last 30 days, I have examined patient prior to procedure and No changes to prior documentation PREOP DIAGNOSIS: ASHD PRIMARY INDICATION FOR PROCEDURE: ASJD/Chest pain/ Abn stress test PLANNED PROCEDURE: Operation Date: 02/12/25 07:00 Proposed Procedures p Cardiac Catheterization(Left) - Vianey Owen MD PATIENT REASSESSED PRIOR TO SEDATION, WITH NO CHANGE NOTED: Yes PHYSICAL EXAM: alert, oriented x 3, clear to auscultation bilaterally and regular rate & rhythm AIRWAY EVAL/ANESTHESIA PLAN: normal airway, see other exam findings, ASA III, Monitored Anesthesia, Local Anesthesia, Risks, benefits & alternatives of sedation and/or procedure discussed and Patient agrees to continue as planned
--- NOTE | 2025-02-12 07:58 | P.OP_ITS ---
Operative Report Date of procedure: February 12, 2025 Surgeon: Vianey Owen MD Procedure: The patient underwent Left heart catheterization with left and right coronary angiogram and graft angiogram today through the right femoral artery. He was found to have high- grade lesions of the ostium of the left anterior descending artery and circumflex artery. The CANCHOLA to the LAD was found to be patent. The radial arterial graft to the obtuse marginal artery also was found to be patent. Right coronary artery was found to have mild diffuse disease. LVEDP was 14 mmHg. Based on the angiogram findings, it was opted to treat him medically. Patient tolerated the procedure very well. No complications.
[2025-02-12 10:00] LABS: Partial Thromboplastin Time 32.0 SECONDS (23.9-36.7)
--- NOTE | 2025-02-12 10:45 | PC.NURSE ---
1045Am Sheath removal Explained procedure to pt. Pt advised to urinate firts, UO-350 cc. Right Femoral artery palpated. 6 F sheath removed from right groin. catheter intact. Manual pressure held for 20 mins-1105am. Hemostasis achieved. No hematoma, bleeding or swelling. pedal pulses are palpable +3. Call light provided to pt. Instructed pt to notify nurse CECILIO for any unusual pain, pressure, numbness or wetness to groin area,abdomen. Discuss to pt and at bedside on activity restrictions such as no bending, lifting on right hip and right leg and be on bedrest for at least 6 hrs post sheath removal. Pt and verbalizes understanding.
[2025-02-12] MEDS: HYDROcodone-acetaminophen 10-325 mg Tablet 1 TAB PO (12:05)
[2025-02-12] MEDS: DAPAGLIFLOZIN 10 MG TABLET PO (12:14)
--- NOTE | 2025-02-12 17:00 | PC.NURSE ---
pt wants to take his christopher meds when he gets home.
--- NOTE | 2025-02-12 20:08 | PC.NURSE ---
Ambulation Pt ambulated down hallways, tolerated activity well. No bleeding, hematoma noted post activity. Pt has soreness in access site which pt is educated that it is expected that there will be soreness and tenderness that may last in 2 weeks. Pt verbalizes understanding. Post Angiogram home care are educated to pt such as what complications to look for, dressing change, activity restrictions and what to expect and when to call physician.
== END 2025-02-12 18:50 | disposition home or self-care (01) ==
LOC: CCL 07:15 → CSU 08:38
PROVIDERS: PCP Family Medicine; Visit Provider Internal Medicine Cardiovascular Disease
DX: I25.118 Atherosclerotic heart disease of native coronary artery with other forms of angina pectoris (principal); Z95.1 Presence of aortocoronary bypass graft; I25.82 Chronic total occlusion of coronary artery; Z95.5 Presence of coronary angioplasty implant and graft; E78.5 Hyperlipidemia, unspecified; Z79.891 Long term (current) use of opiate analgesic; Z79.4 Long term (current) use of insulin; K21.9 Gastro-esophageal reflux disease without esophagitis; Z86.73 Personal history of transient ischemic attack (TIA), and cerebral infarction without residual deficits; Z95.0 Presence of cardiac pacemaker; E03.8 Other specified hypothyroidism; E11.9 Type 2 diabetes mellitus without complications; I11.0 Hypertensive heart disease with heart failure; I50.32 Chronic diastolic (congestive) heart failure; R00.1 Bradycardia, unspecified; G47.30 Sleep apnea, unspecified; Z99.89 Dependence on other enabling machines and devices; Z82.49 Family history of ischemic heart disease and other diseases of the circulatory system; Z80.42 Family history of malignant neoplasm of prostate; Z80.0 Family history of malignant neoplasm of digestive organs; Z87.891 Personal history of nicotine dependence
CPT/HCPCS: 36415; 36416; 80048; 82962; 85025; 85730; 93459; 99152; 99153; C1769; C1887; C1894; J1644; J2250; J3010; J7030; J9999; Q0163; Q9967

== ENCOUNTER 2025-02-15 10:21 | Outpatient (CLI) | payer MEDICARE, SELFPAY ==
[2025-02-15 11:35] LABS: Creatinine Urine, Random 75 mg/dL (39-259); Microalbum Creatinine Ratio Ur 13 mg/dL (0-20)
[2025-02-15 11:38] LABS: Estmated Average Glucose 169; Hemoglobin A1C 7.5 % (4.0-6.0)
[2025-02-15 12:45] LABS: Alanine Aminotransferase 24 U/L (0-41); Albumin Level 4.2 g/dL (3.5-5.2); Alkaline Phosphatase 61 U/L (40-130); Anion Gap 17.6 (5-19); Aspartate Amino Transferase 22 U/L (0-40); Blood Urea Nitrogen 17 mg/dL (8-23); Calcium 9.2 mg/dL (8.5-10.5); Carbon Dioxide 21 mmol/L (22-29); Chloride 104 mmol/L (98-107); Cholesterol 130 mg/dL (0-200); Globulin 3.2 g/dL (1.3-4.6); Glucose 129 mg/dL (65-115); HDL Cholesterol 54 mg/dL (60-100); Osmolality Calculated 289 mOsm/kg (285-295); Potassium 4.6 mmol/L (3.5-5.1); Sodium 138 mmol/L (136-145); Total Protein 7.4 g/dL (6.6-8.7); Triglycerides 94 mg/dL (0-150)
== END 2025-02-15 10:22 | disposition home or self-care (01) ==
LOC: LAB 10:22
PROVIDERS: Internal Medicine; PCP Family Medicine; Visit Provider Internal Medicine Cardiovascular Disease
DX: E11.9 Type 2 diabetes mellitus without complications (principal); Z79.4 Long term (current) use of insulin; N18.31 Chronic kidney disease, stage 3a
CPT/HCPCS: 36415; 80053; 80061; 82044; 83036

== ENCOUNTER → 2025-03-06 09:11 | Outpatient (BNVA) | payer MEDICARE, MEDICAID, SELFPAY | PROVIDERS: PCP Family Medicine; Visit Provider Physician Assistant | DX: L60.3 Nail dystrophy (principal); L84 Corns and callosities; E11.8 Type 2 diabetes mellitus with unspecified complications; M16.11 Unilateral primary osteoarthritis, right hip; Z79.4 Long term (current) use of insulin; I10 Essential (primary) hypertension; I25.10 Atherosclerotic heart disease of native coronary artery without angina pectoris; I48.0 Paroxysmal atrial fibrillation; Z95.0 Presence of cardiac pacemaker; Z95.1 Presence of aortocoronary bypass graft | CPT/HCPCS: 11056; 11721; 73502; 99213; 99214 ==

== ENCOUNTER → 2025-03-07 13:48 | Outpatient (BNVA) | payer MEDICARE, MEDICAID, SELFPAY | PROVIDERS: PCP Family Medicine; Visit Provider Family Medicine | DX: Z12.5 Encounter for screening for malignant neoplasm of prostate (principal) | CPT/HCPCS: G0103 ==

== ENCOUNTER → 2025-03-26 10:23 | Outpatient (BNVA) | payer MEDICARE, MEDICAID, SELFPAY | PROVIDERS: PCP Family Medicine; Visit Provider Internal Medicine Endocrinology, Diabetes & Metabolism | DX: L60.3 Nail dystrophy (principal); E03.8 Other specified hypothyroidism; E78.2 Mixed hyperlipidemia; I25.10 Atherosclerotic heart disease of native coronary artery without angina pectoris; I63.9 Cerebral infarction, unspecified; I50.32 Chronic diastolic (congestive) heart failure; R03.0 Elevated blood-pressure reading, without diagnosis of hypertension | CPT/HCPCS: 99214 ==